=== PATIENT | female | born 1975 | race Caucasian/White ===

== ENCOUNTER → 2017-06-21 18:52 | Outpatient (CLI) | payer OTHER, SELFPAY | PROVIDERS: Family Provider Family Medicine; PCP Family Medicine; Visit Provider Family Medicine | DX: R30.0 Dysuria (principal) | CPT/HCPCS: 87086; 87088 ==

== ENCOUNTER → 2018-03-03 11:48 | Outpatient (CLI) | payer OTHER, SELFPAY ==
[2018-03-03 14:41] LABS: Absolute Neutrophil Count 4.5 X10^3/uL (2.0-7.7); Basophil# 0.02 X10^3/uL; Basophil% 0.3 % (0-1); Eosinophil# 0.07 X10^3/uL; Hematocrit 38.6 % (37-47); Hemoglobin 12.7 g/dl (12.0-15.0); Lymphocyte % 24.9 % (19-41); Mean Corp Hgb Conc 32.9 g/gl (32-36); Mean Corpuscular Hgb 29.7 pg (27.0-32.0); Mean Corpuscular Volume 90.2 fL (81-99); Mean Platelet Vol. 9.5 fl (6.2-12.0); Monocyte# 0.53 X10^3/uL; Monocyte% 7.7 % (0-10); Neutrophil # 4.51 X10^3/uL (2.7-7.7); Platelet Count 279 K/mm3 (150-450); RBC Distribution Width CV 13.2 % (11.6-14.6); Red Blood Count 4.28 M/mm3 (4.2-5.4); White Blood Count 6.8 K/mm3 (4.4-11.0)
[2018-03-03 14:42] LABS: POSITIVE COUNT NO; POSITIVE DIFFERENTIAL NO; POSITIVE MORPHOLOGY NO
[2018-03-03 15:08] LABS: Anion Gap 8 (5-15); BUN 13 mg/dL (7-18); BUN/Creat Ratio 18.4 RATIO (10-20); Chloride 105 mmol/L (98-107); Cholesterol 194 mg/dL (200); Creatinine, Serum 0.71 mg/dL (0.55-1.02); EST Glomerular Filtration Rate 96 mL/min (>60); Est Glom Filt Rate - Afr Amer 116 mL/min (>60); Glucose 92 mg/dL (74-106); High Density Lipoprotein 38 mg/dL; Potassium 3.6 mmol/L (3.5-5.1); Sodium Level 139 mmol/L (136-145); Thyroid Stim Hormone (TSH) 2.67 uIU/mL (0.358-3.74); Triglycerides 199 mg/dL; Very Low Density Lipoprotein 40 mg/dL (5-40)
== END ==
PROVIDERS: Family Provider Family Medicine; PCP Family Medicine; Visit Provider Family Medicine
DX: R07.9 Chest pain, unspecified (principal)
CPT/HCPCS: 36415; 80048; 80061; 84443; 85025

== ENCOUNTER → 2018-05-08 11:27 | Outpatient (CLI) | payer OTHER, SELFPAY ==
[2017-02-18 09:23] VITALS: BMI 38.8
--- NOTE | 2018-05-08 11:31 | RAD_ITS ---
STUDY: X-RAY - ABDOMEN/PELVIS REASON FOR EXAM: Female, 42 years old. Right-sided abdominal pain. TECHNIQUE: For frontal images of the abdomen were obtained. COMPARISON: September 25, 2015 FINDINGS: Normal visualized lung bases. There is an unremarkable bowel gas pattern. There is no demonstrated free abdominal air. There are calcific rounded foci within the pelvis within the expected region of the uterus consistent with calcified fibroids. Normal soft tissue structures. RAD/Abd Inc Decub and/or Erect IMPRESSION: Nonspecific bowel gas pattern. Calcified uterine fibroids. Electronically Signed: Tana Lowe MD at 16:57 EST Tel , Service support ,
== END ==
PROVIDERS: Family Provider Family Medicine; PCP Family Medicine; Referring Provider Family Medicine; Visit Provider Family Medicine
DX: R10.9 Unspecified abdominal pain (principal)
CPT/HCPCS: 74019

== ENCOUNTER → 2018-06-21 12:50 | Outpatient (CLI) | payer OTHER, SELFPAY ==
--- NOTE | 2018-06-21 12:53 | US_ITS ---
STUDY: ULTRASOUND OF THE FEMALE PELVIS REASON FOR EXAM: Female, 43 years old. Pelvic pain LMP: June 13, 2018 TECHNIQUE: Transverse and longitudinal imaging of the pelvis was obtained transabdominally and transvaginally using real-time ultrasound. COMPARISON: CT abdomen and pelvis dated October 26, 2008 FINDINGS: Uterus: Retroverted. 10.3 x 6.0 x 7.2 cm. The uterus is markedly heterogeneous. A hypoechoic mass in the posterior body measures 3.8 x 2.1 x 3.8 cm. A hypoechoic mass with peripheral calcifications in the lower uterine segment measuring 3.6 x 4.3 x 3.9 cm. Unremarkable cervix. Endometrium: 8-9 mm in thickness. Hyperechoic. No demonstrated endometrial mass. I.U.D. - The patient does not have an I.U.D. Right ovary/adnexa: Visualized. 2.4 x 2.3 x 2.8 cm. Follicles present. Normal arterial and normal venous vascularity. No visualized adnexal mass or complex lesion. Left ovary/adnexa: Visualized. 4.1 x 2.5 x 2.6 cm. Follicles present. Normal arterial and normal venous vascularity. No visualized adnexal mass or complex lesion. Cul-de-sac: There is no fluid in the cul-de-sac. Urinary bladder shows no significant abnormality on limited visualization. US/Pelvic (Non ) IMPRESSION: The uterus is enlarged and heterogeneous with fibroids present. These have been previously demonstrated. A densely calcified fibroid in the lower uterine segment measures 4.3 cm in largest diameter. The ovaries are normal in appearance. There is no free fluid. Electronically Signed: Margie Lauren MD at 17:27 EST , Service support ,
--- NOTE | 2018-06-21 12:53 | US_ITS ---
STUDY: ULTRASOUND OF THE FEMALE PELVIS REASON FOR EXAM: Female, 43 years old. Pelvic pain LMP: June 13, 2018 TECHNIQUE: Transverse and longitudinal imaging of the pelvis was obtained transabdominally and transvaginally using real-time ultrasound. COMPARISON: CT abdomen and pelvis dated October 26, 2008 FINDINGS: Uterus: Retroverted. 10.3 x 6.0 x 7.2 cm. The uterus is markedly heterogeneous. A hypoechoic mass in the posterior body measures 3.8 x 2.1 x 3.8 cm. A hypoechoic mass with peripheral calcifications in the lower uterine segment measuring 3.6 x 4.3 x 3.9 cm. Unremarkable cervix. Endometrium: 8-9 mm in thickness. Hyperechoic. No demonstrated endometrial mass. I.U.D. - The patient does not have an I.U.D. Right ovary/adnexa: Visualized. 2.4 x 2.3 x 2.8 cm. Follicles present. Normal arterial and normal venous vascularity. No visualized adnexal mass or complex lesion. Left ovary/adnexa: Visualized. 4.1 x 2.5 x 2.6 cm. Follicles present. Normal arterial and normal venous vascularity. No visualized adnexal mass or complex lesion. Cul-de-sac: There is no fluid in the cul-de-sac. Urinary bladder shows no significant abnormality on limited visualization. US/Transvaginal Non- IMPRESSION: The uterus is enlarged and heterogeneous with fibroids present. These have been previously demonstrated. A densely calcified fibroid in the lower uterine segment measures 4.3 cm in largest diameter. The ovaries are normal in appearance. There is no free fluid. Electronically Signed: Margie Lauren MD at 17:27 EST , Service support ,
== END ==
PROVIDERS: Family Provider Family Medicine; PCP Family Medicine; Referring Provider Obstetrics & Gynecology; Visit Provider Obstetrics & Gynecology
DX: D25.9 Leiomyoma of uterus, unspecified (principal); R10.2 Pelvic and perineal pain
CPT/HCPCS: 76830; 76856; 93976

== ENCOUNTER → 2018-09-26 17:52 | Outpatient (CLI) | payer OTHER, SELFPAY ==
[2018-06-27 11:15] VITALS: BMI 38.8
[2018-10-03 11:52] LABS: HPV Reflexed? NOT INDICATED
== END ==
PROVIDERS: Family Provider Family Medicine; PCP Family Medicine; Visit Provider Nurse Practitioner Adult Health
DX: N92.6 Irregular menstruation, unspecified (principal); N94.10 Unspecified dyspareunia
CPT/HCPCS: 88175; G0145

== ENCOUNTER → 2018-12-26 12:59 | Outpatient (CLI) | payer OTHER, SELFPAY ==
[2018-06-27 11:15] VITALS: BMI 38.8
--- NOTE | 2018-12-26 13:02 | US_ITS ---
STUDY: THYROID ULTRASOUND REASON FOR EXAM: Female, 43 years old. Nodule TECHNIQUE: Ultrasound evaluation of the thyroid was performed with real-time and static vázquez-scale imaging. COMPARISON: April 19, 2017 thyroid ultrasound. FINDINGS: RIGHT LOBE: The right lobe of the thyroid gland measures 5.6 x 2.0 x 1.8 cm. There is a heterogeneous echotexture. There is a measured 5 x 5 x 4 mm nodule in the lower pole. LEFT LOBE: The left lobe of the thyroid gland measures 5.3 x 1.4 x 1.3 cm. There is a heterogeneous echotexture. There is a measured nodule measuring 5 x 4 x 3 mm and the mid pole. ISTHMUS: The isthmus measures 5 mm . The regional lymph nodes are normal. US/Thyroid IMPRESSION: Enlarged right greater than left thyroid gland similar in measurement when compared to the prior study. No significant change in the mild overall inhomogeneity of both of the thyroid glands with relatively stable appearing nodules. Electronically Signed: Marly Bruce MD at 18:06 EDT Tel , Service support ,
== END ==
PROVIDERS: Family Provider Family Medicine; PCP Family Medicine; Referring Provider Family Medicine; Visit Provider Family Medicine
DX: E04.2 Nontoxic multinodular goiter (principal)
CPT/HCPCS: 76536

== ENCOUNTER → 2020-12-01 20:00 | Outpatient (CLI) | payer OTHER, SELFPAY ==
[2018-06-27 11:15] VITALS: BMI 38.8
[2020-10-13 08:44] VITALS: BMI 40.4
== END ==
PROVIDERS: PCP Family Medicine; Visit Provider Family Medicine
DX: G47.33 Obstructive sleep apnea (adult) (pediatric) (principal)
CPT/HCPCS: 95811

== ENCOUNTER 2021-12-06 05:10 | Emergency (ER) | payer OTHER, SELFPAY ==
[2021-12-06 05:11] VITALS: BP 172/83; PULSE 74; RESP 18; TEMP 36.6; O2SAT 96; BMI 39.0
--- NOTE | 2021-12-06 05:22 | EX.ED.VIS.HA ---
HPI History of Present Illness Chief Complaint: Headache Informant: patient Narrative Narrative: Nontraumatic right-sided pressure in the head since 5 PM yesterday. Phonophobia. No phonophobia. No aura. No increasing stress. No fevers. No sinus congestion. No sore throat. No vomiting or diarrhea. States has similar symptoms in the past however would be self-limiting. Advil taken twice last time was 3 AM with no improvement. Denies any past medical history. Denies any allergies. Prior similar symptoms: Yes PFSH PFSH Medical History Anxiety Allergy/AdvReac Type Severity Reaction Status Date / Time No Known Allergies Allergy Verified 12/06/21 05:14 Family History Father Hypertension Heart disease Surgical History delivery delivered History of foot surgery Hx laparoscopic cholecystectomy Hx of LASIK Social History Smoking Status: Never smoker alcohol intake: never substance use type: does not use caffeine: Yes what type of physical activity do you participate in: none seatbelt use: always do you feel safe at home: Yes additional social history: Alok- ROS ROS ED Constitutional Constitutional ED: Denies chills, fever(s) or sweats Eyes Eyes: Denies change in vision ENT ENT ED: Denies dysphagia or sore throat Cardiovascular Cardiovascular: Denies chest pain, leg edema, palpitations or racing heartbeat Respiratory/Chest Respiratory/Chest: Denies cough, dyspnea or dyspnea on exertion Gastrointestinal Gastrointestinal: Denies abdominal pain, diarrhea, nausea or vomiting Genitourinary Genitourinary ED: Denies dysuria, hematuria or urinary frequency Musculoskeletal Musculoskeletal: Denies back pain, extremity pain or neck pain Integumentary Denies rash or wounds Neurologic Neurologic: Reports headache(s); Denies paresthesias or weakness EXAM Physical Exam Const Vital Signs: 12/06/21 05:11 12/06/21 06:38 Temperature 97.9 F Temperature Source Temporal Pulse Rate 74 63 Respiratory Rate 18 17 Blood Pressure 172/83 H 163/78 H Blood Pressure Mean 112 Pulse Ox 96 99 Oxygen Delivery Method Room Air Positive well nourished and well developed General Appearance ED: well developed and NAD HEENT Reports TM's clear and moist mucous membranes normocephalic and atraumatic Tympanic Membrane ED: Yes TM's clear Eyes PERRL, EOMs intact bilaterally and conjunctivae normal General Eye ED: Yes normal appearance of both eyes Neck no lymphadenopathy, supple and no meningeal signs General: Negative for tenderness Chest Wall Chest: Negative for tenderness Resp normal respiratory effort and normal air movement Effort and Inspection: symmetric chest movement; Negative for respiratory distress Cardio regular rate, regular rhythm and no murmurs Peripheral Pulses: pulses 2+ throughout GI normal to inspection, nondistended, normoactive bowel sounds and non-tender Palpation: Negative for guarding or rebound tenderness present Back/Spine no CVA tenderness and no thoracic nor lumbar tenderness Extremity normal to inspection General Extremety ED: Negative for edema or tenderness General Extremity: Negative for edema Neuro oriented x3, CN's II-XII intact bilaterally and no sensory deficits noted Sensorium / Orientation: awake and alert Skin no rashes or lesions noted and no wounds MDM MDM MDM Narrative Medical decision making narrative: Patient with no focal neurological deficits. No meningismus. Blood pressure elevated at 172/83 on arrival. She is treated with fluids Reglan Benadryl. With persistent headache discussed obtaining COVID swab for rule out. 0600: COVID returned negative. Symptoms were mildly improving. Will add Toradol. 0630: Patient having improving symptoms. Discussed with patient continue Advil may add Tylenol. Patient states does have a blood pressure cuff at home. Discussed monitoring her blood pressure in the morning and at night and keeping a log. She will follow-up with her PCP for reevaluation as an outpatient. All questions were answered. Discharge Plan Triage Chief Complaint: Headache ED Provider: Angel Mchugh Dx/Rx/DC Orders Clinical Impression: Headache, Elevated blood pressure reading in office without diagnosis of hypertension Instructions: Self-Care for Headaches Primary Care Provider: Dinesh Gan Referrals: Dinesh Gan MD [Primary Care Provider] - 3-5 Days if not improving Activity Restrictions/Additional Instructions: COVID-negative. Continue Advil every 6 hours. May add Tylenol for symptoms. Monitor your blood pressure and keep a log. Follow-up with your doctor for reevaluation. Disposition Disposition: Home, Self Care Discharge Date/Time: 12/06/21 06:40
[2021-12-06] MEDS: DiphenhydrAMINE 50 MG/ML Syringe 25 MG IV (05:31)
[2021-12-06] MEDS: Metoclopramide 10 MG/2 ML Vial IV (05:31)
[2021-12-06] MEDS: Ketorolac 15 MG/ML Vial IV (06:13)
[2021-12-06 06:38] VITALS: BP 163/78; PULSE 63; RESP 17; O2SAT 99
== END 2021-12-06 06:40 | disposition home or self-care (01) ==
PROVIDERS: Emergency Provider Emergency Medicine; PCP Family Medicine; Visit Provider Emergency Medicine
DX: R51.9 Headache, unspecified (principal); R03.0 Elevated blood-pressure reading, without diagnosis of hypertension; Z20.822 Contact with and (suspected) exposure to COVID-19
CPT/HCPCS: 70450; 80053; 85025; 87811; 96361; 96374; 96375; 96376; 99282; 99285; J7030; A4216

== ENCOUNTER 2021-12-06 17:07 | Emergency (ER) | payer OTHER, SELFPAY ==
[2021-12-06 17:07] VITALS: BP 188/93; PULSE 84; RESP 16; TEMP 36.8; O2SAT 100; BMI 38.0
--- NOTE | 2021-12-06 17:40 | EX.ED.VIS.HA ---
HPI History of Present Illness Chief Complaint: Headache Narrative Narrative: 46-year-old female presenting with headache. She states this on the right upper side of her head. She states it started last night. She was seen this morning and given a migraine cocktail. She reports her headache pain did improve but was not all the way gone. She was supposed to take ibuprofen 3 times a day but went home and took Tylenol without any relief. She denies history of migraine. She has no photophobia, phonophobia. Denies history of trauma. She does not have an acute onset headache. She does state that she vomited once today due to the headache pain. She has no dizziness, lightheadedness, blurry vision. No paresthesias. No facial droop or inability to move extremities. She was instructed to take her blood pressures throughout due to elevated blood pressures earlier. She can only report to me that her blood pressure is in the 180s. She has a history of hypertension and states she was not treated because her blood pressure was not that high. She is not on any medication for blood pressure. She is not had a fever or neck stiffness. [facility] Medical History Anxiety Home Medications amlodipine 5 mg tablet 5 mg PO DAILY #30 tabs 12/06/21 [Rx Last Taken Unknown] Allergy/AdvReac Type Severity Reaction Status Date / Time No Known Allergies Allergy Verified 12/06/21 17:07 Family History Father Hypertension Heart disease Surgical History delivery delivered History of foot surgery Hx laparoscopic cholecystectomy Hx of LASIK Social History Smoking Status: Never smoker alcohol intake: never substance use type: does not use caffeine: Yes what type of physical activity do you participate in: none seatbelt use: always do you feel safe at home: Yes additional social history: Filomena RENEE ROS ED Constitutional Constitutional ED: Denies chills or fever(s) Eyes Eyes: Denies change in vision or diplopia ENT ENT ED: Denies rhinorrhea or sore throat Cardiovascular Cardiovascular: Denies chest pain or palpitations Respiratory/Chest Respiratory/Chest: Denies cough or dyspnea Gastrointestinal Gastrointestinal: Denies abdominal pain, constipation or diarrhea Genitourinary Genitourinary ED: Denies dysuria or hematuria Musculoskeletal Musculoskeletal: Denies arthralgias or back pain Integumentary Denies abscess or Abrasions Neurologic Neurologic: Reports headache(s); Denies paresthesias or weakness Psychiatric Psychiatric: Denies anxiety or depression EXAM Physical Exam Const Vital Signs: 12/06/21 17:07 12/06/21 19:22 12/06/21 19:22 Temperature 98.3 F Temperature Source Temporal Pulse Rate 84 95 Respiratory Rate 16 Blood Pressure 188/93 H 183/84 H Blood Pressure Mean 124 117 Pulse Ox 100 100 Oxygen Delivery Method Room Air Room Air 12/06/21 20:03 12/06/21 21:15 12/06/21 22:15 Temperature Temperature Source Pulse Rate 79 89 Respiratory Rate 16 Blood Pressure 188/86 H 151/81 H 162/91 H Blood Pressure Mean 120 104 114 Pulse Ox Oxygen Delivery Method Room Air Positive well nourished General Appearance ED: NAD; Negative for pallor HEENT Reports normocephalic, TM's clear and moist mucous membranes atraumatic Tympanic Membrane ED: Yes TM's clear Eyes PERRL and EOMs intact bilaterally Neck no lymphadenopathy Resp normal respiratory effort and clear to auscultation bilaterally Auscultation: Negative for rales, rhonchi or wheezes Cardio regular rate and regular rhythm GI non-tender Extremity normal to inspection General Extremety ED: Negative for edema or tenderness General Extremity: Negative for edema Neuro oriented x3, CN's II-XII intact bilaterally and no sensory deficits noted Sensorium / Orientation: awake and alert Speech: speech normal Gait (Neuro): normal gait Motor Exam: strength 5/5 throughout Psych mental status grossly normal Skin General Skin Exam: Negative for jaundice or pallor MDM MDM MDM Narrative Medical decision making narrative: Patient again returns with headache which is right-sided and pressure-like. She was instructed ibuprofen 3 times a day and took Tylenol which did not relieve her pain. Her blood pressure has been elevated at home is 188/93 here. She states he has a history of mildly elevated blood pressure was treated for it. She does not have any focal neurologic deficits. Vital signs are otherwise stable. CBC and CMP are obtained and are unremarkable. Patient was treated with a liter of IV fluids, Compazine, Benadryl, Toradol. CT of the brain is obtained and is negative for any acute intracranial findings. Blood pressure was still elevated at 188/93. She was given 2 doses of 5 mg hydralazine and her blood pressure did not change. Patient then given a dose of labetalol 20 mg IV and her blood pressure dropped to 151/81. Her headache is improved but not completely gone. I discussed the case with Dr. Db Dexter who is on-call for Dr. Gan. He recommended stating the patient on 5 amlodipine daily. He will see her in the office Tuesday or Tuesday if Dr. Gan can see her. CBC and CMP are unremarkable. Patient discharged in stable condition. Impression: 1. Headache 2. Elevated blood pressure Lab Data Attestation: I reviewed the patient's lab results. Labs: Laboratory Results - last 24 hr 12/06/21 12/06/21 17:45 17:45 WBC 9.2 RBC 4.41 Hgb 10.9 L Hct 34.9 L MCV 79.1 L MCH 24.7 L MCHC 31.2 L RDW Std Deviation 47.4 H RDW Coeff of Shawna 16.6 H Plt Count 307 MPV 9.7 Immature Gran % (Auto) 0.300 Neut % (Auto) 83.5 H Lymph % (Auto) 10.3 L [place] % (Auto) 5.7 Eos % (Auto) 0.0 Baso % (Auto) 0.2 Absolute Neuts (auto) 7.7 Absolute Lymphs (auto) 0.95 Nucleated RBC % 0 Sodium 138 Potassium 3.7 Chloride 109 H Carbon Dioxide 23.0 Anion Gap 6 BUN 8 Creatinine 0.64 Estim Creat Clear Calc 90.86 Est GFR (MDRD) Af Amer 128 Est GFR (MDRD) Non-Af 106 BUN/Creatinine Ratio 12.5 Glucose 117 H Calcium 9.1 Total Bilirubin 0.40 AST 15 ALT 19 Alkaline Phosphatase 77 Total Protein 7.2 Albumin 3.7 Globulin 3.5 Albumin/Globulin Ratio 1.1 Radiography Diagnostic Testing: Clinical Impression(s) from Imaging Studies Brain CT 12/06/21 17:41 IMPRESSION: Normal unenhanced CT scan of the brain. Electronically Signed: Brandon Flowers MD at 18:44 EDT , Discharge Plan Triage Chief Complaint: Headache ED Provider: Dami Carney Dx/Rx/DC Orders Instructions: ED Headache Unspecified, ED Hypertension New Begin Treatment Prescriptions: New amlodipine 5 mg tablet 5 mg PO DAILY Qty: 30 0RF Primary Care Provider: Dinesh Gan Referrals: Dinesh Gan MD [Primary Care Provider] - Disposition Disposition: Home, Self Care Discharge Date/Time: 12/06/21 22:53
--- NOTE | 2021-12-06 17:41 | CT_ITS ---
STUDY: CT BRAIN WITHOUT CONTRAST REASON FOR EXAM: Female, 46 years old. headache RADIATION DOSAGE (If Supplied By Facility): CTDIvol = ( 44.99 ) mGy, DLP = ( 846.73 ) mGycm TECHNIQUE: Transaxial CT imaging of the brain was performed without administration of intravenous contrast material. Individualized dose optimization techniques were used for this CT. COMPARISON: 02/18/2017 FINDINGS: Normal soft tissue structures. Normal calvarium. Normal size ventricles and extra-axial spaces for the patient''s age. Normal white matter tracts of the cerebral hemispheres. Normal basal ganglia and thalami. Normal brainstem. Normal cerebellum. There is no intracranial hemorrhage. There are no findings of an acute ischemic infarction. Normal visualized paranasal sinuses. CT/Brain/Head without Contrast IMPRESSION: Normal unenhanced CT scan of the brain. Electronically Signed: Brandon Flowers MD at 18:44 EDT ,
[2021-12-06 17:50] LABS: Absolute Lymphocyte Count 0.95 X10^3/uL (0.83-4.51); Absolute Neutrophil Count 7.7 X10^3/uL (2.0-7.7); Basophil# 0.02 X10^3/uL; Basophil% 0.2 % (0-1); Hematocrit 34.9 % (37-47); Hemoglobin 10.9 g/dL (12.0-15.0); Lymphocyte # 0.95 X10^3/ul (0.83-4.51); Lymphocyte % 10.3 % (19-41); Mean Corp Hgb Conc 31.2 g/dL (32-36); Mean Corpuscular Hgb 24.7 pg (27.0-32.0); Mean Corpuscular Volume 79.1 fL (81-99); Mean Platelet Vol. 9.7 fl (6.2-12.0); Monocyte# 0.53 X10^3/uL; Monocyte% 5.7 % (0-10); NRBC Flagged by Analyzer 0 % (0-5); Neutrophil % 83.5 % (47-70); Platelet Count 307 K/mm3 (150-450); RBC Distribution Width CV 16.6 % (11.6-14.6); RBC Distribution Width SD 47.4 fl (35.1-43.9); Red Blood Count 4.41 M/mm3 (4.2-5.4); White Blood Count 9.2 K/mm3 (4.4-11.0)
[2021-12-06] MEDS: DiphenhydrAMINE 50 MG/ML Syringe 25 MG IV (17:51)
[2021-12-06] MEDS: proCHLORPERazine 10 MG/2 ML Vial IV (17:51)
[2021-12-06] MEDS: hydrALAZINE 20 MG/ML Vial 5 MG IV ×2 (17:52→20:23)
[2021-12-06] MEDS: Ketorolac 15 MG/ML Vial IV (17:52)
[2021-12-06] MEDS: 0.9% Normal Saline 1,000 ML 999 ML IV (17:54)
[2021-12-06 18:06] LABS: ALB/GLOB Ratio 1.1 RATIO (0.9-2.4); AST(SGOT) 15 U/L (15-37); Alanine Aminotransfer ALT/SGPT 19 U/L (13-56); Albumin, Serum 3.7 g/dL (3.2-5.0); Alkaline Phosphatase 77 U/L (45-117); Anion Gap 6 (5-15); BUN 8 mg/dL (7-18); BUN/Creat Ratio 12.5 RATIO (10-20); Calcium,Total 9.1 mg/dL (8.5-10.1); Chloride 109 mmol/L (98-107); Creatinine, Serum 0.64 mg/dL (0.55-1.02); EST Glomerular Filtration Rate 106 mL/min (>60); Est Glom Filt Rate - Afr Amer 128 mL/min (>60); Estimated Creatinine Clearance 90.86 ml/min; Globulin 3.5 g/dL (2.2-4.2); Glucose 117 mg/dL (74-106); Potassium 3.7 mmol/L (3.5-5.1); Protein, Total 7.2 g/dL (6.4-8.2); Sodium Level 138 mmol/L (136-145)
[2021-12-06 19:22] VITALS: BP 183/84; PULSE 95; O2SAT 100
[2021-12-06 20:03] VITALS: BP 188/86
[2021-12-06] MEDS: Labetalol (Prefilled) 20 MG/4 ML IV (20:58)
[2021-12-06 21:15] VITALS: BP 151/81; PULSE 79; RESP 16
[2021-12-06 22:15] VITALS: BP 162/91; PULSE 89
[2021-12-06] MEDS: amLODIPine 5 MG Tablet PO (22:31)
== END 2021-12-06 22:53 | disposition home or self-care (01) ==
PROVIDERS: Emergency Provider Student in an Organized Health Care Education/Training Program; PCP Family Medicine; Visit Provider Student in an Organized Health Care Education/Training Program
DX: R51.9 Headache, unspecified (principal); R03.0 Elevated blood-pressure reading, without diagnosis of hypertension; R11.10 Vomiting, unspecified; Z79.899 Other long term (current) drug therapy
CPT/HCPCS: 70450; 80053; 85025; 87811; 96361; 96374; 96375; 96376; 99282; 99285; J7030; A4216

== ENCOUNTER → 2021-12-17 | Outpatient (CLI) | payer OTHER, SELFPAY | END | disposition home or self-care (01) | PROVIDERS: PCP Family Medicine; Visit Provider Family Medicine | DX: U07.1 COVID-19 (principal) | CPT/HCPCS: 87635; U0003; U0005 ==

== ENCOUNTER → 2022-01-01 | Outpatient (CLI) | payer OTHER, SELFPAY ==
[2022-01-01 12:35] LABS: Anion Gap 7 (5-15); BUN 13 mg/dL (7-18); BUN/Creat Ratio 20.2 RATIO (10-20); Calcium,Total 8.7 mg/dL (8.5-10.1); Chloride 108 mmol/L (98-107); Cholesterol 184 mg/dL (200); Creatinine, Serum 0.64 mg/dL (0.55-1.02); EST Glomerular Filtration Rate 105 mL/min (>60); Est Glom Filt Rate - Afr Amer 128 mL/min (>60); Glucose 100 mg/dL (74-106); High Density Lipoprotein 32 mg/dL; Potassium 3.6 mmol/L (3.5-5.1); Sodium Level 140 mmol/L (136-145); Triglycerides 129 mg/dL; Very Low Density Lipoprotein 26 mg/dL (5-40)
== END | disposition home or self-care (01) ==
LOC: MFPLAB 09:26
PROVIDERS: PCP Family Medicine; Visit Provider Family Medicine
DX: I10 Essential (primary) hypertension (principal)
CPT/HCPCS: 36415; 80048; 80061

== ENCOUNTER → 2022-07-14 | Outpatient (CLI) | payer OTHER, SELFPAY ==
[2022-07-14 16:10] LABS: Anion Gap 9 (5-15); BUN 17 mg/dL (7-18); BUN/Creat Ratio 23.6 RATIO (10-20); Chloride 108 mmol/L (98-107); Creatinine, Serum 0.72 mg/dL (0.55-1.02); EST Glomerular Filtration Rate 92 mL/min (>60); Est Glom Filt Rate - Afr Amer 111 mL/min (>60); Glucose 90 mg/dL (74-106); Potassium 3.7 mmol/L (3.5-5.1); Sodium Level 140 mmol/L (136-145)
== END | disposition home or self-care (01) ==
LOC: MFPLAB 11:30
PROVIDERS: PCP Family Medicine; Referring Provider Family Medicine; Visit Provider Family Medicine
DX: I10 Essential (primary) hypertension (principal)
CPT/HCPCS: 36415; 80048

== ENCOUNTER → 2022-11-23 | Outpatient (CLI) | payer OTHER, SELFPAY ==
--- NOTE | 2022-11-23 14:06 | BI_ITS ---
MAMMOGRAPHY - BILATERAL SCREENING REASON FOR EXAM: Female, 47 years old. Routine annual screening examination. PERTINENT HISTORY: Non-contributory. TECHNIQUE: Digital bilateral breast chica (3D mammographic acquisition) in the CC and MLO projections. 2-D mediolateral oblique (MLO) and craniocaudad (CC) views of both breasts were obtained. CAD: Full Field Digital Mammography with Computer Added Detection was performed. COMPARISON: None. Baseline examination. FINDINGS: Breast Composition: There are scattered areas of fibroglandular density. There is a questionable 8mm nodule in the retroareolar region of the left breast as seen on the craniocaudad view. The patient will be recalled for additional views including compression spot views. No other significant abnormalities are identified. BI/SCRN MAMM (CAD)W/CHICA BILAT IMPRESSION: Questionable 8 mm nodule in the retroareolar region of the left breast as seen on the craniocaudad view. The patient will be recalled for additional views including compression spot views. ASSESSMENT CATEGORY: BIRADS Category 0: Incomplete. Need additional imaging evaluation. A letter regarding these results will be sent to the patient by the facility within 30 days. Approximately 10% of breast cancers are not detected by mammography. A normal mammogram should not delay biopsy of a clinically suspicious abnormality. [id number] Electronically Signed: Juan Luis Soto MD at 7:55 EDT ,
== END | disposition home or self-care (01) ==
LOC: OPBI 14:05
PROVIDERS: PCP Family Medicine; Referring Provider Nurse Practitioner Family; Visit Provider Nurse Practitioner Family
DX: Z12.31 Encounter for screening mammogram for malignant neoplasm of breast (principal)
CPT/HCPCS: 77063; 77067

== ENCOUNTER → 2022-11-25 | Outpatient (CLI) | payer OTHER, SELFPAY ==
--- NOTE | 2022-11-25 09:18 | BI_ITS ---
MAMMOGRAPHY - UNILATERAL DIAGNOSTIC: LEFT BREAST REASON FOR EXAM: Female, 47 years old. Abnormal screening mammogram. PERTINENT HISTORY: Abnormal screening mammogram. TECHNIQUE: Compression spot views of the left breast were obtained. CAD: Full Field Digital Mammography with Computer Added Detection was performed. COMPARISON: Comparison is made with prior mammogram dated November 23, 2022. FINDINGS: Breast Composition: There are scattered areas of fibroglandular density. Persistent 8 mm irregular nodule in the central retroareolar region of the left breast. Correlation with ultrasound is recommended. No other significant abnormalities are identified. BI/DIAG MAMM W/CAD, UNILAT IMPRESSION: Persistent 8 mm irregular nodule in the central retroareolar region of the left breast. Correlation with ultrasound is recommended. ASSESSMENT CATEGORY: BIRADS Category 0: Incomplete. Need additional imaging evaluation. A letter regarding these results will be sent to the patient by the facility within 30 days. Approximately 10% of breast cancers are not detected by mammography. A normal mammogram should not delay biopsy of a clinically suspicious abnormality. Electronically Signed: Juan Luis Soto MD at 10:01 EDT ,
--- NOTE | 2022-11-25 10:37 | US_ITS ---
STUDY: ULTRASOUND BREAST - LEFT REASON FOR EXAM: Female, 47 years old. Abnormal screening mammogram. TECHNIQUE: Axial and longitudinal images of the LEFT breast were performed with a high resolution ultrasound transducer. # OF IMAGES: [id number] COMPARISON: Comparison is made with prior mammogram dated November 23, 2022 and November 25, 2022. FINDINGS: LEFT Breast: The entire medial aspect of the left breast was examined with ultrasound. No sonographic abnormality is seen. Correlation with MRI is recommended. US/Breast Limited Unilateral IMPRESSION: Unremarkable sonogram. MRI of the breasts is recommended for further evaluation. ASSESSMENT CATEGORY: BIRADS Category 0: Incomplete. Need additional imaging evaluation. A letter regarding these results will be sent to the patient by the facility within 30 days. Electronically Signed: Juan Luis Soto MD at 12:46 EDT ,
== END | disposition home or self-care (01) ==
PROVIDERS: PCP Family Medicine; Referring Provider Nurse Practitioner Family; Visit Provider Nurse Practitioner Family
DX: R92.2 Inconclusive mammogram (principal)
CPT/HCPCS: 76642; 77065

== ENCOUNTER → 2023-01-14 | Outpatient (CLI) | payer OTHER, SELFPAY ==
[2023-01-14 15:50] LABS: Anion Gap 4 (5-15); BUN 14 mg/dL (7-18); BUN/Creat Ratio 17.9 RATIO (10-20); Chloride 106 mmol/L (98-107); Cholesterol 219 mg/dL (200); Creatinine, Serum 0.78 mg/dL (0.55-1.02); EST Glomerular Filtration Rate 83 mL/min (>60); Est Glom Filt Rate - Afr Amer 101 mL/min (>60); Glucose 96 mg/dL (74-106); High Density Lipoprotein 46 mg/dL; Potassium 3.9 mmol/L (3.5-5.1); Sodium Level 137 mmol/L (136-145); Triglycerides 88 mg/dL; Very Low Density Lipoprotein 18 mg/dL (5-40)
== END | disposition home or self-care (01) ==
LOC: MTLAB 11:44
PROVIDERS: PCP Family Medicine; Referring Provider Family Medicine; Visit Provider Family Medicine
DX: I10 Essential (primary) hypertension (principal)
CPT/HCPCS: 36415; 80048; 80061

== ENCOUNTER → 2023-01-20 | Outpatient (CLI) | payer OTHER, SELFPAY ==
--- NOTE | 2023-01-20 10:38 | MRI_ITS ---
STUDY: BILATERAL BREAST MR WITHOUT AND WITH CONTRAST REASON FOR EXAM: Female, 47 years old. Left breast nodule by mammogram. No correlated findings ultrasound. TECHNIQUE: Multi-sequence multi-echo imaging of both breasts was performed with a dedicated breast coil. T1-weighted and T2-weighted images were performed before the administration of contrast. T1-weighted images were also performed after the intravenous administration of 20 mL CLARISCAN contrast. COMPARISON: Left breast ultrasound dated November 25, 2022, left diagnostic mammogram dated November 25, 2022 and screening mammogram 06/26/2011. FINDINGS: RIGHT BREAST: Predominantly fatty replacement with no significant background enhancement. No abnormal enhancing masses or areas of non-mass enhancement in the right breast. LEFT BREAST: Predominantly fatty replacement with no significant background enhancement. Partially inverted left nipple which shows enhancement similar to the right nipple. No discrete mass in the retroareolar region. No enlarged or abnormal lymph nodes. No abnormality in the visualized regions of the chest or liver. MRI/Breast Bilateral W/O and W IMPRESSION: Partially inverted left nipple with symmetrical enhancement of both nipples. No other significant abnormality. Yearly screening mammogram recommended. CATEGORY: BIRADS Category 2: Benign. A letter regarding these results will be sent to the patient by the facility within 30 days. Electronically Signed: Efrain Horton MD at 12:17 EDT ,
== END | disposition home or self-care (01) ==
LOC: MRI 10:17
PROVIDERS: PCP Family Medicine; Referring Provider Nurse Practitioner Family; Visit Provider Nurse Practitioner Family
DX: N63.0 Unspecified lump in unspecified breast (principal)
CPT/HCPCS: 77049; A9575; A4216; C8908

== ENCOUNTER → 2023-04-15 | Outpatient (CLI) | payer OTHER, SELFPAY ==
[2023-04-15 12:44] LABS: Cholesterol 122 mg/dL (200); High Density Lipoprotein 41 mg/dL; Triglycerides 78 mg/dL; Very Low Density Lipoprotein 16 mg/dL (5-40)
== END | disposition home or self-care (01) ==
LOC: MTLAB 09:48
PROVIDERS: PCP Family Medicine; Referring Provider Family Medicine; Visit Provider Family Medicine
DX: E78.5 Hyperlipidemia, unspecified (principal)
CPT/HCPCS: 36415; 80061

== ENCOUNTER 2023-04-20 13:23 | Day surgery (SDC) | payer OTHER, SELFPAY ==
[2023-04-20 13:43] VITALS: BP 163/86; PULSE 96; RESP 16; TEMP 36.8; O2SAT 100; BMI 39.0
[2023-04-20] MEDS: Lactated Ringers 1,000 ML 15 ML IV (13:48)
[2023-04-20 13:50] LABS: Internal QC Validated? YES +Cl - CLEAR BKGD; Pregnancy, Urine Negative Negative
--- NOTE | 2023-04-20 14:30 | COL_PTH ---
PATIENT: MAYRA ARIAS LOC: EN U#:[id number] AGE/SX: 47/F ROOM: RE04/20/[address]: Dr. Remberto Colbert MD : 1975 BED: DIS: 04/20/2023 SPEC #: [id number] RECD: 04/21/23 09:14 STATUS: ML MUÑOZ #: [id number] JERMAINE: 04/20/23 14:[address]: Remberto Colbert DEPT: SURGICAL PATHOLOGY RECD BY: Miesha Tovar ENTERED: 04/21/23 09:15 SP TYPE: COLON OTHR DR: Dr. Dinesh Gan MD Tissues: Sigmoid colon biopsy Procedures: Surgery Specimen Level IV HEADER OPERATION: Colonoscopy - open access with biopsy PRE-OP DIAGNOSIS: Screening for malignant neoplasm of colon TISSUE SUBMITTED: Distal sigmoid colon mucosa biopsy MICROSCOPIC DIAGNOSIS Distal sigmoid colon, biopsy: Polypoid fragment of benign colonic mucosa. AM:chris 04/22/2023 MICROSCOPIC DESCRIPTION Slides are reviewed. GROSS DESCRIPTION Received in fixative is one container labeled with the patient's name and designated distal sigmoid colon mucosa biopsy. The specimen consists of one irregular fragment of light hutchison soft tissue that measures 0.3 x 0.3 x 0.1 cm. The specimen is totally submitted in one cassette. / SJ:rg 04/21/2023 TC:5 CPT: 31097
--- NOTE | 2023-04-20 14:33 | H&P.OPEN ---
[facility] - General General Date of Service: 04/20/23 Chief Complaint: Cancer screening HPI Narrative MAYRA ARIAS, is a 47 F who presents for screening colonoscopy. She confirms her preappointment questionnaire that she has not experienced any change in her bowel habits-and particularly denies any notice of blood. She also denies any family history of GI illness to include diverticulitis, inflammatory bowel disease, or colon cancer. She has had a colonoscopy remotely as a child where she was found to have rectal polyps during a workup for some hematochezia. She denies any such symptoms in recent years. Lastly she confirms that her prep was completed successfully and that her output is now clear. [facility] Medical History (Updated 04/18/23 @ 13:59 by Nadine Dietrich) Anemia Anxiety CPAP (continuous positive airway pressure) dependence Fatty liver GERD (gastroesophageal reflux disease) History of irregular heartbeat History of kidney stones History of pain when walking History of rectal polyps History of stress test HTN (hypertension) Hyperlipidemia Leg cramps Non-smoker Shortness of breath on exertion Thyroid disease Home Medications omeprazole 20 mg capsule,delayed release 20 mg PO DAILY PRN indigestion 03/29/23 [History Last Taken 04/15/23] rosuvastatin 5 mg tablet 5 mg PO DAILY 03/29/23 [History Last Taken 04/15/23] Allergy/AdvReac Type Severity Reaction Status Date / Time amlodipine AdvReac Chest pain Verified 04/20/23 13:43 Family History (Updated 03/29/23 @ 13:16 by Tiera Anderson) Father Hypertension Heart disease Colon polyps Surgical History delivery delivered History of foot surgery Hx laparoscopic cholecystectomy Hx of LASIK Social History (Updated 03/29/23 @ 13:08 by Tiera Anderson) household members: spouse and children Smoking Status: Never smoker alcohol intake: never substance use type: does not use caffeine: Yes what type of physical activity do you participate in: none seatbelt use: always do you feel safe at home: Yes additional social history: Alok- Past Medical/Surgical History Planned Operation Planned Operative Procedure/s: CSCOPE OA Previous Hospitalizations/Surgeries HX Hospitalizations: No Any Problems With Anesthesia: No You/Your Family Experience Fever (Hyperthermia) With Anes: No Cholinesterase deficiency: No Cardiovascular Hx Chest Pain within Last 2 months: No Hx of Irregular Heartbeat and/or Afib: No Hx Heart Attack: No Hx Congestive Heart Failure: No Hx Rheumatic Fever: No Hx Hypertension: Yes (NO MEDS SINCE 09/2022) Hx Internal Defibrillator: No Hx Pacemaker: No Hx Pain in Legs when Walking/Leg Cramps: No Respiratory HX of Shortness of Breath: No Hx Chronic Obstructive Pulmonary Disease (COPD): No Hx Asthma: No Hx Emphysema: No Hx Sleep Apnea: Yes CPAP: Yes BIPAP: No Hx Respiratory Tract Infection/Cold (presently): No Result (for STOP score): Positive Smoking Status: Never smoker Gastrointestinal Hx Gastrointestinal Bleed: No Hx Ulcer: No Neurological Hx Seizures: No Hx Multiple Sclerosis: No Hx Parkinson's Disease: No Hx Head/Neck Injury: No Hx Headaches: No Hx Back Injury/Pain: No Does patient have nerve stimulator: No Blood Disorder Hx Hepatitis: No Hx Anemia: Yes Reproduction : No Is Patient Lactating: No Genitourinary Hx Renal Disease: No Hx Dialysis: No Musculoskeletal Hx Arthritis: No Hx Gout: No Endocrine Hx Diabetes: No Thyroid Disease: No Psycho/Social Hx Anxiety: No Hx Depression: No Hx Dementia: No Miscellaneous Hx Cancer: No Recent Exposure to Contagious Disease: No Allergies amlodipine Adverse Reaction (Verified 04/20/23 13:43) Chest pain Discharge Is Pt Admitted From a Correction, or a Alf: No After D/C, Where Do you Plan to Go: Return Home Vital Signs Vital Signs Vital Signs: 04/20/23 13:43 04/20/23 13:43 Temperature 98.2 F Temperature Source Temporal Pulse Rate 96 Respiratory Rate 16 Respiratory Pattern Normal Blood Pressure 163/86 H Blood Pressure Mean 111 Blood Pressure Source Monitor Blood Pressure Position Semi-Fowlers Blood Pressure Location Left Arm Pulse Ox 100 Oxygen Delivery Method Room Air Weight Weight: 220 lb 7.396 oz Body Mass Index (BMI) 39.0 Physical Exam Const alert, oriented x3 and well nourished General Appearance: cooperative Nutritional Appearance: obese Resp normal respiratory effort GI GI Narrative: Surgical scars present in the left upper quadrant as well as infraumbilical positions. These are well-healed. There is no visible herniation. Patient's abdomen is nondistended, soft, nontender to palpation x 4 quadrants. Assessment & Plan Assessment/Plan (1) Encounter for screening for malignant neoplasm of colon: PLAN: Patient is a 47-year-old female with prior colonoscopy only as a child remarkable only for a rectal polyp who presents for her first screening colonoscopy as an adult. She denies any present concerns with respect to her GI habits. Family history only remarkable for colon polyps. She has completed a prep in anticipation of today's procedure. An overview of the procedure as well as post procedure result reporting was discussed. Patient has no further questions. Will proceed to the endoscopy suite for screening colonoscopy as discussed. Surgery Risks - Colonoscopy Risks Include but are not Limited To: Risks include but are not limited to: Bleeding, perforation requiring further surgery, inability to complete colonoscopy requiring barium enema.
[2023-04-20 15:36] VITALS: BP 125/72; BP 163/86; PULSE 75; RESP 18; TEMP 36.4; O2SAT 96
[2023-04-20 15:40] VITALS: BP 122/80; BP 163/86; PULSE 71; RESP 18; O2SAT 100
--- NOTE | 2023-04-20 15:40 | OP.CCLET_ITS ---
04/20/2023 Dinesh Gan MD [address] [id number] Re : Colonoscopy procedure for August Twyla Dear Dr. Gan This procedure was performed on Thursday, April 20, 2023. My impressions and recommendations are as follows: Impressions : - Perianal skin tags found on perianal exam. - Diverticulosis in the sigmoid colon. No specimens collected. - Tortuous colon. - Melanosis in the colon. Biopsied. - Internal hemorrhoids. No specimens collected. Recommendations : - Discharge patient to home (via wheelchair). - Resume previous diet today. - Continue present medications. - Await pathology results. - Repeat colonoscopy in 10 years for screening purposes. - Telephone my office for pathology results in 1 week. My findings are described in the full procedure note, which is enclosed. If I can be of further assistance, please feel free to contact me at Doctor phone number(s): , Work: . Sincerely, Remberto Colbert MD 04/20/2023 3:39:27 PM This report has been signed electronically.
--- NOTE | 2023-04-20 15:40 | OP.COLON_ITS ---
Patient Name: Noa Wakefield Procedure Date: 04/20/2023 2:35 PM Date of : 1975 Age: 47 Procedure: Colonoscopy Indications: Colon cancer screening in patient at increased risk: Family history of 1st-degree relative with colon polyps Providers: Remberto Colbert MD Referring MD: Remberto Colbert MD Medicines: See the Anesthesia note for documentation of the administered medications Patient Profile: Last Colonoscopy: more than 10 years ago. Complications: No immediate complications. Estimated blood loss: Minimal. Procedure: Pre-Anesthesia Assessment: - The heart rate, respiratory rate, oxygen saturations, blood pressure, adequacy of pulmonary ventilation, and response to care were monitored throughout the procedure. After I obtained informed consent, the scope was passed under direct vision. Throughout the procedure, the patient's blood pressure, pulse, and oxygen saturations were monitored continuously. The Colonoscope was introduced through the anus and advanced to the cecum, identified by the appendiceal orifice, IC valve and transillumination. The colonoscopy was somewhat difficult due to a tortuous colon. Successful completion of the procedure was aided by applying abdominal pressure. The patient tolerated the procedure well. The quality of the bowel preparation was adequate. Scope In: 2:52:32 PM Scope Withdrawal Time 0 hours 20 minutes 1 second Scope Out: 3:27:58 PM Total Procedure Duration Time 0 hours 35 minutes 26 seconds Findings: Skin tags were found on perianal exam. A few small-mouthed diverticula were found in the sigmoid colon. No biopsies or other specimens were collected for this exam. The right colon was moderately tortuous. Advancing the scope required applying abdominal pressure. A localized area of mild melanosis was found in the sigmoid colon. Biopsies were taken with a cold forceps for histology. Estimated blood loss was minimal. Internal hemorrhoids were found during retroflexion. The hemorrhoids were moderate and Grade I (internal hemorrhoids that do not prolapse). No biopsies or other specimens were collected for this exam. Impression: - Perianal skin tags found on perianal exam. - Diverticulosis in the sigmoid colon. No specimens collected. - Tortuous colon. - Melanosis in the colon. Biopsied. - Internal hemorrhoids. No specimens collected. Recommendation: - Discharge patient to home (via wheelchair). - Resume previous diet today. - Continue present medications. - Await pathology results. - Repeat colonoscopy in 10 years for screening purposes. - Telephone my office for pathology results in 1 week. Procedure Code(s): --- Professional --- 89150, Colonoscopy, flexible; with biopsy, single or multiple Diagnosis Code(s): --- Professional --- Z83.71, Family history of colonic polyps K64.0, First degree hemorrhoids K63.89, Other specified diseases of intestine K64.4, Residual hemorrhoidal skin tags K57.30, Diverticulosis of large intestine without perforation or abscess without bleeding Q43.8, Other specified congenital malformations of intestine CPT copyright 2021 [employer]. All rights reserved. The codes documented in this report are preliminary and upon granite polisher machine review may be revised to meet current compliance requirements. Remberto Colbert MD 04/20/2023 3:39:27 PM This report has been signed electronically. Number of Addenda: 0 Note Initiated On: 04/20/2023 2:35 PM
[2023-04-20 15:45] VITALS: BP 128/78; BP 163/86; PULSE 70; RESP 16; O2SAT 100
[2023-04-20 15:53] VITALS: BP 134/72; BP 163/86; PULSE 68; RESP 18; TEMP 37.1; O2SAT 100
[2023-04-20 16:07] VITALS: BP 163/86
== END 2023-04-20 16:51 | disposition home or self-care (01) ==
LOC: EN 13:25 → AC 13:26
PROVIDERS: Anesthesiology; PCP Family Medicine; Referring Provider Family Medicine; Visit Provider Surgery
PROC: 0DJD8ZZ Inspection of Lower Intestinal Tract, Via Natural or Artificial Opening Endoscopic (ICD-10-PCS; CPT 45378; principal; 2023-04-20 14:25)
DX: Z12.11 Encounter for screening for malignant neoplasm of colon (principal); K63.89 Other specified diseases of intestine; E78.5 Hyperlipidemia, unspecified; K64.0 First degree hemorrhoids; Z83.719 Family history of colon polyps, unspecified; I10 Essential (primary) hypertension; Q43.8 Other specified congenital malformations of intestine; K64.4 Residual hemorrhoidal skin tags; K21.9 Gastro-esophageal reflux disease without esophagitis; Z79.899 Other long term (current) drug therapy
CPT/HCPCS: 45380; 81025; 88305; J7120; J2405

== ENCOUNTER → 2023-06-29 | Outpatient (CLI) | payer OTHER, SELFPAY ==
[2023-06-29 16:18] LABS: ALB/GLOB Ratio 1.1 RATIO (0.9-2.4); AST(SGOT) 22 U/L (15-37); Alanine Aminotransfer ALT/SGPT 27 U/L (13-56); Albumin, Serum 3.8 g/dL (3.2-5.0); Alkaline Phosphatase 93 U/L (45-117); Anion Gap 9 (5-15); BUN 14 mg/dL (7-18); Calcium,Total 9.5 mg/dL (8.5-10.1); Chloride 106 mmol/L (98-107); Cholesterol 167 mg/dL (200); Creatinine, Serum 0.78 mg/dL (0.55-1.02); EST Glomerular Filtration Rate 84 mL/min (>60); Est Glom Filt Rate - Afr Amer 102 mL/min (>60); Globulin 3.6 g/dL (2.2-4.2); Glucose 96 mg/dL (74-106); High Density Lipoprotein 43 mg/dL; Potassium 3.6 mmol/L (3.5-5.1); Protein, Total 7.4 g/dL (6.4-8.2); Sodium Level 140 mmol/L (136-145); Triglycerides 89 mg/dL; Very Low Density Lipoprotein 18 mg/dL (5-40)
--- OUTSIDE RECORDS SUMMARY | 2023-06-29 21:47 | XMS RPT_ITS | CCD ---
Author Name Unknown Address [address] [place] [address] Organization [facility] Care Team Providers Care Rooming House Keeper Name Role Phone Breanna SINGH Court F Unavailable Unavailabl e Breanna SINGH, Court F Unavailable Unavailabl e COURT [facility] ([place]) Unavailable Unavailabl LAURA Otoole Unavailable Unavailable Lenny Gayle Attending Unavailable Dinesh Gan Primary Care Unavailable Problems Active Problems Problem Classification Problem Date Documented Date Episodic/Chronic Esophageal disorders (2 sources) Gastroesophageal reflux disease; Translations: [Gastro-esophageal reflux disease without esophagitis] Onset: 08-18-2016 08-19-2016 Chronic Other nutritional; endocrine; and metabolic disorders (4 sources) Body mass index (BMI) 35.0-35.9, adult; Translations: [Overweight] Onset: 08-18-2016 09-01-2016 Chronic Unclassified (2 sources) KIDNEY STONES~ Onset: 06-30-2018 Past or Other Problems Problem Classification Problem Date Documented Da te Episodic/Chronic Abdominal pain (2 sources) Right upper quadrant pain; Translations: [Right upper quadrant pain] Onset: 08-18-2016 08-19-2016 Episodic Results Test Name Value Interpretation Reference Range Facil ity Vital Signs Date Time Vital Sign Value Performing Clinician Facility 09-01-2016 11:24-0400 BMI (Body Mass Index) 35.89 kg/m2 [facility] Work Phone: 09-01-2016 11:24-0400 Body Temperature 98.2 [degF] [facility] Work Phone: 09-01-2016 11:24-0400 BP Diastolic 84 mm[Hg] 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 [facility] Work Phone: 09-01-2016 11:24-0400 BP Systolic 126 mm[Hg] Court Carlos [facility] Work Phone: 09-01-2016 11:24-0400 BSA (Body Surface Area) 1.[address] Carlos [facility] Work Phone: 09-01-2016 11:24-[address] Carlos [facility] Work Phone: 09-01-2016 11:24-0400 Pulse (Heart Rate) 62 /min [facility] Work Phone: 09-01-2016 11:24-0400 Pulse Oximetry 98 % Court Carlos [facility] Work Phone: 09-01-2016 11:24-0400 Respiratory Rate 18 /min [facility] Work Phone: 09-01-2016 11:24-[address] Carlos [facility] Work Phone: Encounters Encounter Date Encounter Type Care Provider Facility Start: 06-30-2018 Patient encounter procedure Lenny Gayle Facility:[facility] Start: 04-23-[address] [place] [facility] Plan of Treatment Date Care Activity Detail Author Start: 09-22-2016 End: 09-22-2016 Appointment Appointment [facility] Work Phone: Start: 09-01-2016 End: 09-03-2016 Follow Up Appt 2 weeks Follow Up Appt 2 weeks [facility] Work Phone: Start: 08-18-2016 End: 08-24-2016 Follow Up Appt 2 weeks Follow Up Appt 2 weeks [facility] Work Phone: Patient Education WEIGHT%20MANAGEMENT [facility] Work Phone: Payers Date Payer Category Payer Unknown [id number] Unknown [id number] Summary Purpose Family History No Family History Records FoundNo Family History Records Found Advance Directives No Advanced Directives Records FoundNo Advanced Directives Records Found Additional Source Comments INFORMATION SOURCE (unrecogn ized section and content) DATE CREATED AUTHOR AUTHOR'S AMADOU ELIZABETHARLEEN 08/03/2018 [facility] samra Sanchez FOR RECORDS PERTAINING TO PATIENTS WHO ARE OR HAVE BEEN ENROLLED IN A CHEMICAL DEPENDENCY/SUBSTANCEABUSE PROGRAM, SOME INFORMATION MAY BE OMITTED. This clinical summary was aggregated from multiple sources. Caution should be exercised in using it in the provision of clinical care. This summary normalizes information from multiple sources, and as a consequence, information in this document may materially change the coding, format and clinical context of patient data. In addition, data may be omitted in some cases. CLINICAL DECISIONS SHOULD BE BASED ON THE PRIMARY CLINICAL RECORDS. [facility]. provides no warranty or guarantee of the accuracy or completeness of information in this document.
== END | disposition home or self-care (01) ==
LOC: MFPLAB 11:54
PROVIDERS: PCP Family Medicine; Visit Provider Family Medicine
DX: I10 Essential (primary) hypertension (principal)
CPT/HCPCS: 36415; 80053; 80061

== ENCOUNTER → 2023-12-29 | Outpatient (CLI) | payer OTHER, SELFPAY ==
[2023-12-29 12:42] LABS: Absolute Lymphocyte Count 1.29 X10^3/uL (0.83-4.51); Absolute Neutrophil Count 3.1 X10^3/uL (2.0-7.7); Basophil# 0.05 X10^3/uL; Eosinophil# 0.12 X10^3/uL; Eosinophils% 2.4 % (0-5); Hematocrit 24.6 % (37-47); Hemoglobin 6.7 g/dL (12.0-15.0); Lymphocyte # 1.29 X10^3/ul (0.83-4.51); Lymphocyte % 26.1 % (19-41); Mean Corp Hgb Conc 27.2 g/dL (32-36); Mean Platelet Vol. 9.2 fl (6.2-12.0); Monocyte# 0.41 X10^3/uL; Monocyte% 8.3 % (0-10); NRBC Flagged by Analyzer 0 % (0-5); Neutrophil # 3.06 X10^3/uL (2.7-7.7); Neutrophil % 61.8 % (47-70); POSITIVE MORPHOLOGY YES; Platelet Count 409 K/mm3 (150-450); RBC Distribution Width CV 20.3 % (11.6-14.6); Red Blood Count 3.73 M/mm3 (4.2-5.4)
[2023-12-29 12:50] LABS: Anion Gap 5 (5-15); BUN 17 mg/dL (7-18); BUN/Creat Ratio 23.2 RATIO (10-20); Calcium,Total 8.9 mg/dL (8.5-10.1); Chloride 108 mmol/L (98-107); Cholesterol 185 mg/dL (200); Creatinine, Serum 0.73 mg/dL (0.55-1.02); EST Glomerular Filtration Rate 90 mL/min (>60); Est Glom Filt Rate - Afr Amer 109 mL/min (>60); Glucose 101 mg/dL (74-106); High Density Lipoprotein 38 mg/dL; Potassium 3.6 mmol/L (3.5-5.1); Sodium Level 137 mmol/L (136-145); Triglycerides 109 mg/dL; Very Low Density Lipoprotein 22 mg/dL (5-40)
[2023-12-29 12:52] LABS: Differential Indicated SCAN CRITERIA MET
[2023-12-29 13:30] LABS: Differential Comment SCANNED
[2023-12-29 13:31] LABS: Anisocytosis 2+; Microcytosis 2+
== END | disposition home or self-care (01) ==
LOC: MFPLAB 10:54
PROVIDERS: PCP Family Medicine; Visit Provider Family Medicine
DX: I10 Essential (primary) hypertension (principal); R53.83 Other fatigue
CPT/HCPCS: 36415; 80048; 80061; 85025

== ENCOUNTER → 2024-01-05 | Outpatient (CLI) | payer OTHER, SELFPAY ==
[2024-01-05 10:17] LABS: Absolute Lymphocyte Count 1.24 X10^3/uL (0.83-4.51); Absolute Neutrophil Count 6.1 X10^3/uL (2.0-7.7); Basophil# 0.03 X10^3/uL; Basophil% 0.4 % (0-1); Eosinophil# 0.17 X10^3/uL; Eosinophils% 2.1 % (0-5); Hematocrit 27.9 % (37-47); Hemoglobin 7.5 g/dL (12.0-15.0); Lymphocyte # 1.24 X10^3/ul (0.83-4.51); Mean Corp Hgb Conc 26.9 g/dL (32-36); Mean Corpuscular Hgb 18.9 pg (27.0-32.0); Mean Corpuscular Volume 70.5 fL (81-99); Mean Platelet Vol. 9.2 fl (6.2-12.0); Monocyte# 0.66 X10^3/uL; NRBC Flagged by Analyzer 0 % (0-5); Neutrophil # 6.12 X10^3/uL (2.7-7.7); POSITIVE MORPHOLOGY YES; Platelet Count 394 K/mm3 (150-450); RBC Distribution Width CV 24.7 % (11.6-14.6); RBC Distribution Width SD 47.9 fl (35.1-43.9); Red Blood Count 3.96 M/mm3 (4.2-5.4); White Blood Count 8.3 K/mm3 (4.4-11.0)
[2024-01-05 10:38] LABS: Differential Indicated SCAN CRITERIA MET
[2024-01-05 11:09] LABS: Ferritin 7 ng/mL (8-252); Iron Binding Capacity,Total 407 ug/dL (250-450)
[2024-01-05 11:46] LABS: Differential Comment SCANNED
[2024-01-05 11:47] LABS: Anisocytosis 3+; Hypochromasia 1+; Macrocytosis 1+; Microcytosis 2+; Platelet Estimate ADEQUATE (ADEQ); Schistocytes 1+
== END | disposition home or self-care (01) ==
LOC: MFPLAB 08:17
PROVIDERS: PCP Family Medicine; Visit Provider Family Medicine
DX: E61.1 Iron deficiency (principal)
CPT/HCPCS: 36415; 82728; 83550; 85025

== ENCOUNTER → 2024-01-11 | Outpatient (CLI) | payer OTHER, SELFPAY ==
[2024-01-16 15:07] LABS: HPV APTIMA, High Risk Negative (Negative)
== END | disposition home or self-care (01) ==
LOC: LABSPEC 14:19
PROVIDERS: PCP Family Medicine; Referring Provider Nurse Practitioner Women's Health; Visit Provider Nurse Practitioner Women's Health
DX: Z12.4 Encounter for screening for malignant neoplasm of cervix (principal)
CPT/HCPCS: 87624; 88175; G0145

== ENCOUNTER → 2024-01-20 | Outpatient (CLI) | payer OTHER, SELFPAY ==
--- NOTE | 2024-01-20 17:50 | US_ITS ---
STUDY: ULTRASOUND OF THE FEMALE PELVIS - COMPLETE REASON FOR EXAM: Female, 48 years old. bleeding TECHNIQUE: Transvaginal and transabdominal imaging. COMPARISON: None. FINDINGS: The uterus is anteverted and is in a midline position. The uterus measures 7.1 cm. There is a Nabothian cyst of the cervix. The endometrium is not visualized.. Fibroid visualized measuring 12.9 x 13 cm and 4.6 cm. I.U.D. - The patient does not have an I.U.D. There is nonvisualization of the right ovary due to overlying bowel gas. The left ovary is visualized. The left ovary measures 3.6 cm. Cyst measures 14 mm. There is no visualized left adnexal mass or complex lesion. There is normal arterial and normal venous vascularity. There is no fluid in the cul-de-sac. Unremarkable urinary bladder. US/Pelvic w/ Transvaginal IMPRESSION: There are no acute findings. No evidence for ovarian torsion of the left ovary. The right ovary is not seen. Question fibroid uterus. Electronically Signed: Raciel Yeung MD at 19:42 EDT ,
== END | disposition home or self-care (01) ==
PROVIDERS: PCP Family Medicine; Referring Provider Nurse Practitioner Women's Health; Visit Provider Nurse Practitioner Women's Health
DX: N92.0 Excessive and frequent menstruation with regular cycle (principal)
CPT/HCPCS: 76830; 76856

== ENCOUNTER → 2024-01-24 | Outpatient (CLI) | payer OTHER, SELFPAY ==
--- NOTE | 2024-01-24 10:25 | BI_ITS ---
MAMMOGRAPHY - BILATERAL SCREENING REASON FOR EXAM: Female, 48 years old. Routine annual screening examination. PERTINENT HISTORY: Non-contributory. TECHNIQUE: Digital bilateral breast chica (3D mammographic acquisition) in the CC and MLO projections. 2-D mediolateral oblique (MLO) and craniocaudad (CC) views of both breasts were obtained. CAD: Full Field Digital Mammography with Computer Added Detection was performed. COMPARISON: Comparison is made with prior study dated November 23, 2022 and November 25, 2022. Comparison is also made with prior MRI of the breasts dated January 20, 2023. FINDINGS: Breast Composition: There are scattered areas of fibroglandular density. There are no dominant masses or suspicious calcifications. No other significant abnormalities are identified. There has been no significant change since the prior study. BI/SCRN MAMM (CAD)W/CHICA BILAT IMPRESSION: Stable bilateral screening mammogram. Yearly follow-up mammogram recommended. (A) ASSESSMENT CATEGORY: BIRADS Category 1: Negative. A letter regarding these results will be sent to the patient by the facility within 30 days. Approximately 10% of breast cancers are not detected by mammography. A normal mammogram should not delay biopsy of a clinically suspicious abnormality. [id number] Electronically Signed: Juan Luis Soto MD at 11:05 EDT ,
== END | disposition home or self-care (01) ==
LOC: OPBI 10:25
PROVIDERS: PCP Family Medicine; Referring Provider Nurse Practitioner Women's Health; Visit Provider Nurse Practitioner Women's Health
DX: Z12.31 Encounter for screening mammogram for malignant neoplasm of breast (principal)
CPT/HCPCS: 77063; 77067

== ENCOUNTER → 2024-02-07 | Outpatient (CLI) | payer OTHER, SELFPAY ==
[2024-02-07 10:18] LABS: Absolute Lymphocyte Count 1.66 X10^3/uL (0.83-4.51); Absolute Neutrophil Count 3.3 X10^3/uL (2.0-7.7); Basophil# 0.04 X10^3/uL; Basophil% 0.7 % (0-1); Eosinophil# 0.12 X10^3/uL; Eosinophils% 2.1 % (0-5); Hematocrit 37.7 % (37-47); Hemoglobin 11.4 g/dL (12.0-15.0); Lymphocyte # 1.66 X10^3/ul (0.83-4.51); Lymphocyte % 29.5 % (19-41); Mean Corp Hgb Conc 30.2 g/dL (32-36); Mean Corpuscular Volume 82.7 fL (81-99); Mean Platelet Vol. 9.2 fl (6.2-12.0); Monocyte# 0.54 X10^3/uL; Monocyte% 9.6 % (0-10); NRBC Flagged by Analyzer 0 % (0-5); Neutrophil # 3.25 X10^3/uL (2.7-7.7); Neutrophil % 57.9 % (47-70); POSITIVE MORPHOLOGY YES; Platelet Count 308 K/mm3 (150-450); Red Blood Count 4.56 M/mm3 (4.2-5.4); White Blood Count 5.6 K/mm3 (4.4-11.0)
[2024-02-07 10:41] LABS: Differential Indicated SCAN CRITERIA MET
[2024-02-07 11:40] LABS: Anisocytosis 3+; Differential Comment SCANNED; Macrocytosis 1+; Microcytosis 1+
[2024-02-07 11:41] LABS: Platelet Estimate ADEQUATE (ADEQ)
== END | disposition home or self-care (01) ==
LOC: MFPLAB 09:01
PROVIDERS: PCP Family Medicine; Visit Provider Nurse Practitioner Women's Health
DX: D64.9 Anemia, unspecified (principal)
CPT/HCPCS: 36415; 85025

== ENCOUNTER → 2024-03-12 | Outpatient (CLI) | payer OTHER, SELFPAY | END | disposition home or self-care (01) | LOC: BWCLAB 16:24 | PROVIDERS: PCP Family Medicine; Referring Provider Obstetrics & Gynecology; Visit Provider Obstetrics & Gynecology | DX: N92.0 Excessive and frequent menstruation with regular cycle (principal) | CPT/HCPCS: 36415; 84439; 84443 ==

== ENCOUNTER → 2024-07-02 | Outpatient (CLI) | payer OTHER, SELFPAY ==
[2024-07-02 21:32] LABS: ALB/GLOB Ratio 1.5 RATIO (0.9-2.4); AST(SGOT) 16 U/L (<=31); Alanine Aminotransfer ALT/SGPT 7 U/L (<=34); Albumin, Serum 4.2 g/dL (3.5-5.0); Alkaline Phosphatase 66 U/L (35-104); Anion Gap 14 (5-15); BUN 15 mg/dL (4-19); BUN/Creat Ratio 23.7 RATIO (10-20); Calcium 9.4 mg/dL (7.6-11.0); Carbon Dioxide 18.9 mmol/L (22.0-29.0); Chloride 106 mmol/L (96-108); Creatinine, Serum 0.63 mg/dL (0.70-1.20); EST Glomerular Filtration Rate 109 (>60); Free T3 2.4 pg/mL (2.18-3.98); Globulin 2.8 g/dL (2.2-4.2); Glucose 80 mg/dL (70-99); Potassium 3.5 mmol/L (3.3-5.1); Sodium Level 138 mmol/L (133-145); Total Bilirubin 0.38 mg/dL (0.00-1.30)
[2024-07-03 01:30] LABS: Cholesterol 205 mg/dL (<=200); High Density Lipoprotein 39 mg/dL; Low Density Lipoprotein Calc. 141 mg/dL; Triglycerides 129 mg/dL; Very Low Density Lipoprotein 26 mg/dL (5-40)
== END | disposition home or self-care (01) ==
LOC: MFPLAB 10:25
PROVIDERS: PCP Family Medicine; Referring Provider Family Medicine; Visit Provider Family Medicine
DX: I10 Essential (primary) hypertension (principal); E03.9 Hypothyroidism, unspecified
CPT/HCPCS: 36415; 80053; 80061; 84439; 84443; 84481

== ENCOUNTER 2024-08-27 11:56 | Outpatient (CLI) | payer OTHER, SELFPAY ==
--- NOTE | 2024-08-27 12:11 | EMB_PTH ---
PATIENT: MAYRA ARIAS LOC: [facility] U#:[id number] AGE/SX: 49/F ROOM: RE08/27/[address]: BRUCE Guzmán : 1975 BED: DIS: 08/27/2024 SPEC #: [id number] RECD: 08/27/24 13:46 STATUS: ML REMario #: [id number] JERMAINE: 08/27/24 12:[address]: Ashlie Basurto NP DEPT: SURGICAL PATHOLOGY RECD BY: Naveen Mendoza ENTERED: 08/27/24 13:46 SP TYPE: ENDOM BX/C MARLEN DR: Dr. Dinesh Gan MD Tissues: A - Endometrium, NOS Procedures: Surgery Specimen Level IV HEADER OPERATION: Endometrial biopsy PRE-OP DIAGNOSIS: Abnormal uterine bleeding TISSUE SUBMITTED: A- Endometrial lining MICROSCOPIC DIAGNOSIS A. Uterus, endometrial lining, biopsy: * Secretory endometrium - see note. * Note: A few fragments of secretory endometrium are present, mixed with relatively abundant blood and mucus. MICROSCOPIC DESCRIPTION Slides are reviewed. GROSS DESCRIPTION A. Received in formalin in a container labeled with the patient's name, date of , and with no further designation are multiple tiny fragments of red-hutchison soft tissue admixed with blood and abundant mucus measuring 2.7 x 2.2 x 0.2 cm in aggregate. Submitted in toto in A1. [facility] 08-27-2024 CPT:53932
== END 2024-08-27 23:59 | disposition home or self-care (01) ==
LOC: LABSPEC 11:57
PROVIDERS: PCP Family Medicine; Referring Provider Nurse Practitioner Women's Health; Visit Provider Nurse Practitioner Women's Health
DX: N93.9 Abnormal uterine and vaginal bleeding, unspecified (principal)
CPT/HCPCS: 88305

== ENCOUNTER → 2024-08-29 | Outpatient (CLI) | payer OTHER, SELFPAY ==
--- NOTE | 2024-08-29 16:18 | US_ITS ---
PROCEDURE: Pelvic ultrasound. REASON FOR EXAM: UTERINE FIBROIDS TECHNIQUE: Transabdominal and transvaginal pelvic ultrasound COMPARISON: Pelvic ultrasound dated 01/20/2024. FINDINGS: The uterus is markedly heterogeneous and markedly enlarged. The uterus is anteverted and measures up to 23.2 x 17.8 x 13.9 cm. Several fibroids were noted within the uterine wall. The largest of the fibroids measured up to 12.4 x 13.6 x 11.8 cm. There are at least 3 other fibroids present. Endometrial stripe is difficult to measure due to distortion by presence of the fibroids. The ovaries are nonvisualized. There are nabothian cysts seen within the cervix. US/Pelvic w/ Transvaginal IMPRESSION: Markedly enlarged and heterogeneous uterus containing several large fibroids wi th fibroids measuring up to 12.4 cm. The patient may benefit from MRI pelvis for further delineation of these fibroids. If the patient is symptomatic, may consider patient for uterine fibroid embolization versus surgical treatments, as clinically indicate d. Reading Location: [id number]
== END | disposition home or self-care (01) ==
PROVIDERS: PCP Family Medicine; Referring Provider Nurse Practitioner Women's Health; Visit Provider Nurse Practitioner Women's Health
DX: D25.9 Leiomyoma of uterus, unspecified (principal)
CPT/HCPCS: 76830; 76856

== ENCOUNTER → 2024-09-27 | Outpatient (CLI) | payer OTHER, SELFPAY ==
--- NOTE | 2024-09-27 08:48 | MRI_ITS ---
EXAM: PELVIS W/WO CONTRAST 09/27/2024 CLINICAL HISTORY: UTERINE SIZE DISCREPANCY-COMPARE MRI US. TECHNIQUE: T1, T2, stir, postcontrast T1 fat-sat MRI of the pelvis was performed. Multiplanar and multisequence images were obtained without and with intravenous gadolinium contrast. CONTRAST: 19 cc Clariscan COMPARISON: August 29, 2024 ultrasound FINDINGS: The uterus measures 18 x 13 by 15 cm. There is an anterior submucosal fibroid measuring 12.7 by 10.0 cm. There is a posterior subserosal fibroid measuring 5.0 by 3.6 cm. There is a fundal subserosal fibroid measuring 2.3 x 3.3 cm. There is fluid in the endometrium measuring 0.8 cm. The endometrium overall measures 1.8 cm. Nabothian cysts are noted. There is free fluid in the anterior lower pelvis measuring 2.3 x 1.0, and 0.7 cm in the cul de sac. The ovaries are not demonstrated. There is normal marrow signal in the included portion of the pelvic bones. Vascular structures show normal enhancement. There is no pathologic adenopathy. There is no visible inflammatory change in the mesentery. MRI/Pelvis W/WO Contrast IMPRESSION: The uterus measures 18 x 13 by 15 cm. There is an anterior submucosal fibroid m easuring 12.7 by 10.0 cm. There is a posterior subserosal fibroid measuring 5.0 by 3.6 cm. There is a fundal subserosal fibroi d measuring 2.3 x 3.3 cm. The endometrium overall measures 1.8 cm, severe hyperplasia range. Further sebastian luation is indicated. There is fluid in the endometrium measuring 0.8 cm. There is free fluid in the anterior lower pelvis measuring 2.3 x 1.0, and 0.7 c m in the cul de sac. Reading Location: [facility]
== END | disposition home or self-care (01) ==
PROVIDERS: PCP Family Medicine; Referring Provider Obstetrics & Gynecology; Visit Provider Obstetrics & Gynecology
DX: N85.2 Hypertrophy of uterus (principal); D25.2 Subserosal leiomyoma of uterus
CPT/HCPCS: 72197; A9575

== ENCOUNTER → 2024-10-12 | Outpatient (CLI) | payer OTHER, SELFPAY ==
--- OUTSIDE RECORDS SUMMARY | 2024-10-12 16:26 | XMS RPT_ITS | CCD ---
Author Organization [facility] CliniSyks Care Team Providers Care Data Security Coordinator Name Role Phone Ruggeri NETTING WEAVER, Court F Unavailable Unavailabl e Ruggeri NETTING WEAVER, Court F Unavailable Unavailabl e COURT [place] ([place]) Unavailable Unavailabl e LAURA ALEXANDER Unavailable Unavailable Lenny Gayle Attending Unavailable Dinesh Gan Primary Care Unavailable Dr. Dinesh Gan Primary Care Provider [phone] Tiera Anderson Attending Provider Unavailable Dr. Dinesh Gan Referring Provider Dr. Remberto Colbert Attending Provider Dr. Remberto Colbert Other Provider Dr. Dinesh Gan MD Primary Care Provider [phone] Dr. Dinesh Gan MD Attending Provider Dr. Dinesh Gan MD Referring Provider Sb MANUFACTURING PLANNER-C, Ashlie Attending Provider Sb MANUFACTURING PLANNER-C, Ashlie Referring Provider Dr. Margie Reyes DO Attending Provider Dr. Margie Reyes DO Referring Provider Margie Koch Admitting Unavailabl e Velde, Margie Dalton Referring Unavailabl e aMrgie Koch Attending UnavailDinesh Dillon Primary Care Unavailable [place] MANUFACTURING PLANNER, Ashlie Attending Unavailable [place] MANUFACTURING PLANNER, Ashlie Referring Unavailable Dinesh Gan Primary Care Unavailable Dinesh Gan Referring Unavailable Margie Koch Attending Unavailabl e Dinesh Gan Primary Care Unavailable [place] MANUFACTURING PLANNER, Ashlie Attending Unavailable Dinesh Gan Primary Care Unavailable Dinesh Gan Referring Unavailable [place] MANUFACTURING PLANNER, Ashlie Attending Unavailable Gan, Dinesh Referring Unavailable Gan, Dinesh Primary Care Unavailable [place] MANUFACTURING PLANNER, Ashlie Attending Unavailable Gan, Dinesh Primary Care Unavailable Gan, Dinesh Referring Unavailable Velde, Margie Dalton Attending Unavailabl e Gan, Dinesh Primary Care Unavailable Gan, Dinesh Referring Unavailable Velde, Margie Dalton Attending Unavailabl e Velde, Margie Dalton Referring Unavailabl e Gan, Dinesh Primary Care Unavailable Gan, Dinesh Attending Unavailable Gan, Dinesh Primary Care Unavailable Gan, Dinesh Attending Unavailable Gan, Dinesh Primary Care Unavailable [place] MANUFACTURING PLANNER, Ashlie Attending Unavailable [place] MANUFACTURING PLANNER, Ashlie Referring Unavailable Gan, Dinesh Primary Care Unavailable [place] MANUFACTURING PLANNER, Ashlie Attending Unavailable [place] MANUFACTURING PLANNER, Ashlie Referring Unavailable Gan, Dinesh Primary Care Unavailable Sb MANUFACTURING PLANNER, Ashlie Attending Unavailable Gan, Dinesh Primary Care Unavailable Sb MANUFACTURING PLANNER, Ashlie Referring Unavailable [place] MANUFACTURING PLANNER, Ashlie Attending Unavailable Gan, Dinesh Primary Care Unavailable Velde, Margie Dalton Referring Unavailabl e Velde, Margie Dalton Attending Unavailabl e Gan, Dinesh Primary Care Unavailable Gan, Dinesh Primary Care Unavailable Gan, Dinesh Attending Unavailable Gan, Dinesh Referring Unavailable Sb MANUFACTURING PLANNER, Ashlie Attending Unavailable Sb MANUFACTURING PLANNER, Ashlie Referring Unavailable Gan, Dinesh Primary Care Unavailable Allergies Allergy Classification Reported Allergen(s) Allergy Type Date of Onset Reaction(s) Facility (5 sources) amLODIPine Drug Allergy 04-20-2023 Chest pain [facility] (1 source) amLODIPine Drug Allergy 10-02-2024 [facility] Repository Medications Current Medications Medication Drug Class(es) Dates Sig (Normalized) Sig (Original) ferrous sulfate 325 mg oral tablet (2 sources) Start: 08-27-2024 take 1 tablet by mouth once daily Ferrous Sulfate 325 mg (65 mg iron) tablet Active 325 mg PO daily August 27, 2024 12:00am levothyroxine sodium 0.088 mg oral capsule (2 sources) l-Thyroxine Start: 08-27-2024 take 1 capsule by mouth once daily Levothyroxine 88 mcg capsule Active 88 ug PO daily August 27, 2024 12:00am lisinopril 10 mg oral tablet (3 sources) Angiotensin Converting Enzyme Inhibitor Start: 01-11-2024 take 1 tablet by mouth once daily Lisinopril 10 mg tablet Active 10 mg PO daily January 11, 2024 12:00am norethindrone acetate 5 mg oral tablet (2 sources) Start: 08-27-2024 Norethindrone Acetate 5 mg tablet Active 5 mg PO .COMPLEX 45 August 27, 2024 12:00am 5 mg PO tid until bleeding stops X 24 hr then bid to finish Rx omeprazole 20 mg delayed release oral capsule (20 sources) Proton Pump Inhibitor Start: 10-02-2024 take 1 capsule by mouth once daily as needed Omeprazole 20 mg capsule,delayed release(DR/EC) Active 20 mg PO DAILY NEEDED October 02, 2024 12:00am Start: 03-29-2023 End: 03-06-2024 take 1 capsule by mouth once daily as needed Omeprazole 20 mg capsule,delayed release(DR/EC) Discontinued 20 mg PO DAILY as needed for indigestion March 29, 2023 1:00am March 06, 2024 11:23am Start: 02-18-2017 End: 06-27-2018 take 1 capsule by mouth once daily as needed for gastroesophageal reflux disease Omeprazole (Prilosec) 40 MG capsule Discontinued 40 mg PO DAILY as needed for GERD February 18, 2017 9:32am June 27, 2018 11:38am Start: 07-12-2016 End: 02-18-2017 take 1 capsule by mouth once daily Omeprazole (Prilose c) 40 MG capsule Discontinued 40 mg PO DAILY July 12, 2016 12:00am February 18, 2017 9:32am Completed/Discontinued Medications Medication Drug Class(es) Dates Sig (Normalized) Sig (Original) amLODIPine 5 mg oral tablet (12 sources) Dihydropyridine Calcium Channel Maribel Start: 12-06-2021 End: 03-29-2023 take 1 tablet by mouth once daily Amlodipine 5 mg tablet Discontinued 5 mg PO DAILY December 06, 2021 12:00am March 29, 2023 2:28pm ibuprofen 400 mg oral tablet (13 sources) Nonsteroidal Anti-inflammatory Drug Start: 02-18-2017 End: 06-27-2018 take 1 tablet by mouth every six hours as needed for pain Ibuprofen 400 MG tablet Discontinued 400 mg PO EVERY 6 HOURS as needed for Pain February 18, 2017 12:00am June 27, 2018 11:38am rosuvastatin calcium 5 mg oral tablet (5 sources) HMG-CoA Reductase Inhibitor Start: 03-29-2023 End: 01-11-2024 take 1 tablet by mouth once daily Rosuvastatin 5 mg tablet Discontinued 5 mg PO DAILY March 29, 2023 1:00am January 11, 2024 11:48am tranexamic acid 650 mg oral tablet (6 sources) Antifibrinolytic Agent Start: 01-23-2024 End: 08-27-2024 take 2 tablets by mouth three times daily Tranexamic Acid 650 mg tablet Discontinued 1300 mg PO .COMPLEX 60 March 06, 2024 11:31am August 27, 2024 11:14am 1,300 mg orally 3 times a day up to 5 days with onset of menses; Problems Active Problems Problem Classification Problem Date Documented Date Episodic/Chronic Abdominal pain (15 sources) Right upper quadrant pain; Translations: [Abdominal pain] Onset: 08-18-2016 08-19-2016 Episodic Benign neoplasm of uterus (6 sources) Uterine leiomyoma; Translations: [Leiomyoma of uterus, unspecified] Onset: 09-04-2024 03-06-2024 Episodic Comment on above: [id number]:surgic al consult JV. She has fear of DVT. No hx. Mar 2024: [id number] 6cm:surgical consult JV. She has fear of DVT. No hx. Rpt US Esophageal disorders (2 sources) Gastroesophageal reflux disease; Translations: [Gastro-esophageal reflux disease without esophagitis] Onset: 08-18-2016 08-19-2016 Chronic Essential hypertension (1 source) Essential (primary) hypertension; Translations: [Essential (primary) hypertension] Onset: 07-13-2024 Chronic Headache; including migraine (13 sources) Headache; Translations: [Headache] 12-14-2021 Episodic Menstrual disorders (6 sources) Menorrhagia; Translations: [Excessive and frequent menstruation with regular cycle] Onset: 04-09-2024 03-06-2024 Chronic Comment on above: lysteda. Declines es trogen. aygestin Other circulatory disease (13 sources) Elevated blood-pressure reading without diagnosis of hypertension; Translations: [Elevated blood-pressure reading, without diagnosis of hypertension] 12-14-2021 Episodic Other female genital disorders (1 source) Abnormal uterine and vaginal bleeding, unspecified; Translations: [Abnormal uterine and vaginal bleeding, unspecified] Onset: 09-07-2024 Chronic Other female genital disorders (7 sources) Enlarged uterus; Translations: [Hypertrophy of uterus] 01-11-2024 Episodic Comment on above: [place]. Other female genital disorders (1 source) Hypertrophy of uterus; Translations: [Hypertrophy of uterus] Onset: 10-02-2024 Episodic Other nutritional; endocrine; and metabolic disorders (4 sources) Body mass index (BMI) 35.0-35.9, adult; Translations: [Overweight] Onset: 08-18-2016 09-01-2016 Chronic Other nutritional; endocrine; and metabolic disorders (3 sources) Body mass index 40+ - severely obese 10-13-2020 Chronic Other screening for suspected conditions (not mental disorders or infectious disease) (9 sources) Patient encounter status; Translations: [Encounter for screening for malignant neoplasm of colon] Onset: 02-01-2024 03-29-2023 Episodic Residual codes; unclassified (13 sources) Obstructive sleep apnea syndrome; Translations: [Obstructive sleep apnea (adult) (pediatric)] 04-15-2021 Chronic Comment on above: CPAP 10 cm Unclassified (2 sources) KIDNEY STONES~ Onset: 06-30-2018 Unclassified (10 sources) Body mass index 40+ - severely obese; Translations: [Body mass index (BMI) greater than 40] 10-13-2020 Past or Other Problems Problem Classification Problem Date Documented Da te Episodic/Chronic Deficiency and other anemia (1 source) Anemia, unspecified; Translations: [Anemia, unspecified] Onset: 03-01-2024 Episodic Nutritional deficiencies (1 source) Iron deficiency; Translations: [Iron deficiency] Onset: 01-26-2024 Episodic Results Test Name Value Interpretation Reference Range Facility Magnetic resonance imaging r eportOrdered By: Ashutosh Rhodes on 09-27-2024 Study report [facility] Imaging Services [address] [place], [place] [id number] Pelvis W/WO Contrast MR#: [id number] Acct: [id number] Name: MAYRA ARIAS Rep #: [id number] : 1975 F 49 From: Chapin Rhodes MD PCP: Dr. Dinesh Gan MD Status: REG C LI Study:Pelvis W/WO Contrast Date of Exam: 09/27/24 Exam# [id number] Ordering Dr: Margie Barroso DO EXAM: PELVIS W/WO CONTRAST 09/27/2024 CLINICAL HISTORY: UTERINE SIZE DISCREPANCY-COMPARE MRI US. TECHNIQUE: T1, T2, stir, postcontrast T1 fat-sat MRI of the pelvis was performed. Multiplanar and multisequence images were obtained without and with intravenous gadolinium contrast. CONTRAST: 19 cc Clariscan COMPARISON: August 29, 2024 ultrasound FINDINGS: The uterus measures 18 x 13 by 15 cm. There is an anterior submucosal fibroid measuring 12.7 by 10.0 cm. There is a posterior subserosal fibroid measuring 5.0 by 3.6 cm. There is a fundal subserosal fibroid measuring 2.3 x 3.3 cm. There is fluid in the endometrium measuring 0.8 cm. The endometrium overall measures 1.8 cm. Nabothian cysts are noted. There is free fluid in the anterior lower pelvis measuring 2.3 x 1.0, and 0.7 cm in the cul de sac. The ovaries are not demonstrated. There is normal marrow signal in the included portion of the pelvic bones. Vascular structures show normal enhancement. There is no pathologic adenopathy. There is no visible inflammatory change in the mesentery. MRI/Pelvis W/WO Contrast IMPRESSION: The uterus measures 18 x 13 by 15 cm. There is an anterior submucosal fibroid measuring 12.7 by 10.0 cm. There is a posterior subserosal fibroid measuring 5.0 by 3.6 cm. There is a fundal subserosal fibroidmeasuring 2.3 x 3.3 cm. The endometrium overall measures 1.8 cm, severe hyperplasia range. Further evaluation is indicated. There is fluid in the endometrium measuring 0.8 cm. There is free fluid in the anterior lower pelvis measuring 2.3 x 1.0, and 0.7 cmin the cul de sac. Reading Location: [facility] CC: Dr. Margie Reyes DO; Dr. Dinesh Gan MD ~ Weather Forecaster: Signed [facility] Pelvis W/WO Contraston 09-27 Pelvis W/WO Contrast [facility] Imaging Services [address] [place] [address] Pelvis W/WO Contrast MR#: [id number] Acct: [id number] Name: MAYRA ARIAS Rep #: [id number] : 1975 F 49 From: Ashutosh Rhodes MD PCP: Dr. Dinesh Gan MD Status: REG CLI Study: Pelvis W/WO Contrast Date of Exam: 09/27/24 Exam# [id number] Ordering Dr: Margie Reyes DO EXAM: PELVIS W/WO CONTRAST 09/27/2024 CLINICAL HISTORY: UTERINE SIZE DISCREPANCY-COMPARE MRI US. TECHNIQUE: T1, T2, stir, postcontrast T1 fat-sat MRI of the pelvis was performed. Multiplanar and multisequence images were obtained without and with intravenous gadolinium contrast. CONTRAST: 19 cc Clariscan COMPARISON: August 29, 2024 ultrasound FINDINGS: The uterus measures 18 x 13 by 15 cm. There is an anterior submucosal fibroid measuring 12.7 by 10.0 cm. There is a posterior subserosal fibroid measuring 5.0 by 3.6 cm. There is a fundal subserosal fibroid measuring 2.3 x 3.3 cm. There is fluid in the endometrium measuring 0.8 cm. The endometrium overall measures 1.8 cm. Nabothian cysts are noted. There is free fluid in the anterior lower pelvis measuring 2.3 x 1.0, and 0.7 cm in the cul de sac. The ovaries are not demonstrated. There is normal marrow signal in the included portion of the pelvic bones. Vascular structures show normal enhancement. There is no pathologic adenopathy. There is no visible inflammatory change in the mesentery. MRI/Pelvis W/WO Contrast IMPRESSION: The uterus measures 18 x 13 by 15 cm. There is an anterior submucosal fibroid measuring 12.7 by 10.0 cm. There is a posterior subserosal fibroid measuring 5.0 by 3.6 cm. There is a fundal subserosal fibroid measuring 2.3 x 3.3 cm. The endometrium overall measures 1.8 cm, severe hyperplasia range. Further evaluation is indicated. There is fluid in the endometrium measuring 0.8 cm. There is free fluid in the anterior lower pelvis measuring 2.3 x 1.0, and 0.7 cm in the cul de sac. Reading Location: [facility] CC: Dr. Margie Reyes DO; Dr. Dinesh Gan MD Weather Forecaster: Signed [facility] Pelvic w/ Transvaginalon Pelvic w/ Transvaginal [facility] Imaging Services [address] [facility] [address] [place], [place] [address] Pelvic w/ Transvaginal MR#: [id number] Acct: [id number] Name: MAYRA ARIAS Rep #: [id number] : 1975 F 49 From: Remberto Garcia i, MD PCP: Dr. Dinesh Gan MD Status: REG CLI Study: Pelvic w/ Transvaginal Date of Exam: 08/29/24 Exam# [id number] Ordering Dr: Ashlie Basurto NP MANUFACTURING PLANNER -C PROCEDURE: Pelvic ultrasound. REASON FOR EXAM: UTERINE FIBROIDS TECHNIQUE: Transabdominal and transvaginal pelvic ultrasound COMPARISON: Pelvic ultrasound dated 01/20/2024. FINDINGS: The uterus is markedly heterogeneous and markedly enlarged. The uterus is anteverted and measures up to 23.2 x 17.8 x 13.9 cm. Several fibroids were noted within the uterine wall. The largest of the fibroids measured up to 12.4 x 13.6 x 11.8 cm. There are at least 3 other fibroids present. Endometrial stripe is difficult to measure due to distortion by presence of the fibroids. The ovaries are nonvisualized. There are nabothian cysts seen within the cervix. US/Pelvic w/ Transvaginal IMPRESSION: Markedly enlarged and heterogeneous uterus containing several large fibroids with fibroids measuring up to 12.4 cm. The patient may benefit from MRI pelvis for further delineation of these fibroids. If the patient is symptomatic, may consider patient for uterine fibroid embolization versus surgical treatments, as clinically indicated. Reading Location: [facility] CC: MANUFACTURING PLANNER-C Ashlie Basurto; Dr. Dinesh Gan MD Weather Forecaster: Signed Normal [facility] Associate Professor Office Visit Reporton 08-27-2024 Associate Professor Office Visit Report [facility] [address], [address] [place] [address] OFFICE VISIT Date of Service: 08/27/24 MR#: [id number] Acct: [id number] Name: MAYRA ARIAS Rep #: [id number] : 1975 Provider: BRUCE reynoso Age/Sex: 49/F Location: [facility] [place] Status: Signed Intake Vital Signs 03/12/24 15:33 08/27/24 11:04 08/27/24 11:58 Height 5 ft 3 in 5 ft 3 in Weight: 219 lb 2 oz BMI 38.8 BP 145/86 H Intake Visit Reasons: EMB Allergies amlodipine Adverse Reaction (Verified 08/27/24 11:15) Chest pain Medications ???Medication ???Instructions ???Recorded ???Confirmed ???Type lisinopril 10 mg tablet 10 mg PO QDAY 01/11/24 08/27/24 Hi story ferrous sulfate 325 mg (65 mg 325 mg PO QDAY 08/27/24 08/27/24 H istory iron) tablet levothyroxine 88 mcg capsule 88 mcg PO QDAY 08/27/24 08/27/24 H istory norethindrone acetate 5 mg tablet 5 mg PO .COMPLEX #45 tabs 5 08/27/24 Rx PFSH Medical History Thyroid disease Anemia Fatty liver Non-smoker CPAP (continuous positive airway pressure) dependence Shortness of breath on exertion Leg cramps History of pain when walking History of stress test History of irregular heartbeat History of kidney stones GERD (gastroesophageal reflux disease) Hyperlipidemia HTN (hypertension) History of rectal polyps Anxiety Surgical History delivery delivered Hx laparoscopic cholecystectomy History of foot surgery Hx of LASIK Family History Father Hypertension Heart disease Colon polyps Social History household members: spouse and children current occupational status: unemployed Smoking Status: Never smoker alcohol intake: never substance use type: does not use caffeine: Yes what type of physical activity do you participate in: none seatbelt use: always do you feel safe at home: Yes 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 She is known to have 13 cm uterine fibroid. Has been bleeding or spotting since August 02. She is ready to proceed with robotic hysterectomy with Dr Reyes as discussed in Mar 2024. History 2 Elective abortions Hx Para 2 Spontaneous abortions Hx # Term Pregnancies Ectopic pregnancies Hx # Pregnancies Multiple births # of living children Past Pregnancies Del. Date Name GA/Weeks Outcome Route Bth Weight Infant Gen Labor Lgth Anesthesia Del Locatn Provider FOB Unknown 2009 [place] live - full term Unknown 2011 [place] live - full term ROS Const Constitutional: Reports system reviewed and no additional complaints, except as documented Eyes Eyes: Reports system reviewed and no additional complaints, except as documented GI GI: Denies abdominal pain or change in bowel habits : Reports as per HPI Exam Const General: cooperative and no acute distress Orientation: oriented x3 External Female Exam: normal external appearance and normal appearance of the urethra Urethra: normal appearance of the urethra Speculum Exam - Vagina: normal appearance of the vagina, normal vaginal discharge, no lesions and nontender Speculum Exam - Cervix: normal appearance of the cervix (significantly displaced to patient's right) Bimanual Exam- Vagina Uterus: non-tender, enlarged (>20 wk) and nodular Bimanual Exam- Adnexa, other: normal adnexae, no masses and non-tender Office Procedures Endometrial Biopsy Endometrial Biopsy Test: Yes Not Applicable Consent Signed: Yes Time out checklist: patient, procedure, site marked/identified, positioning of patient, supplies available, allergies confirmed and team agrees on procedure Time out time: 11:17 tenaculum used: Yes dilator used: No Details: Cervix significantly displaced to patient's right due to large fibroid uterus at 20+wk. Needed assistance from Dr ReyesCervix prepped with betadine and pipelle inserted into uterus without complication. Specimen obtained and sent to lab for analysis. All instruments removed from vagina without complications. Excellent hemostasis noted. Coding Level of Care Code Attention Chief Unit Forester Diagnoses Uterine leiomyoma, unspecified location D25.9 Uterine leiomyoma location: unspecified location Enlarged uterus N85.2 Menorrhagia with regular cycle N92.0 CPT Codes Endometrial Biopsy (11728) Assessment and Plan Assessment and Plan (1) Uterine fibroid: Status: Acute Qualifiers: Uterine leiomyoma lo (more content not included)... Normal [facility] Surgery Specimen Level Jc 08-27-2024 Surgery Specimen Level IV Patient Age/Sex Location Account Attending Physician MAYRA ARIAS/F LABSCHAPARRO [id number] BRUCE Guzmán Specimen: [id number] Received: 08/27/24 Status: ML [place] Num: [id number] Spec Type: CHRISTI BX/C Subm Dr: BRUCE Guzmán HEADER OPERATION: Endometrial biopsy PRE-OP DIAGNOSIS: Abnormal uterine bleeding TISSUE SUBMITTED: A- Endometrial lining MICROSCOPIC DIAGNOSIS A. Uterus, endometrial lining, biopsy: * Secretory endometrium - see note. * Note: A few fragments of secretory endometrium are present, mixed with relatively abundant blood and mucus. MICROSCOPIC DESCRIPTION Slides are reviewed. GROSS DESCRIPTION A. Received in formalin in a container labeled with the patient's name, date of , and with no further designation are multiple tiny fragments of red-hutchison soft tissue admixed with blood and abundant mucus measuring 2.7 x 2.2 x 0.2 cm in aggregate. Submitted in toto in A1. [facility] 08-27-2024 CPT:51195 Patient Age/Sex Location Account Attending Physician MAYRA ARIAS/Cathy LABSCHAPARRO [id number] BRUCE Guzmán Signed (signatur e on file) Dr. Roshni Willingham MD 09/06/24 1823 Normal [facility] Comment on above: Performed By: #### P SUIV ####[facility] [address] [place], [place], [id number] Lipid Profileon 07-03-2024 CHOL:HDL 5.30 Normal [facility] Comment on above: Performed By: #### L 500.4050, L501.9520, L506.0400, L500.4100, L501.52858 ####[facility] [address] [place], [place], [id number] Cholesterol [Mass/Vol] 205 mg/dL High <=200 [facility] Comment on above: Result Comment: Chol esterol level, Desirable <200 mg/dL Borderline high cholesterol 200-239 mg/dL High cholesterol >=240 mg/dL Recommendations of the NCEP Adult Treatment Panel for the following risk-cutoff thresholds for the [place] population. Performed By: #### L 500.4050, L501.9520, L506.0400, L500.4100, L501.04739 ####[facility] [address] [place], [place], [id number] Cholesterol in HDL [Mass/Vol] 39 mg/dL Low [facility] Comment on above: Result Comment: [place] onthelma Cholesterol Education Program (NCEP) guidelines: <40 mg/dL: Low HDL-cholesterol (major risk factor for CHD) >= 60 mg/dL: High HDL-cholesterol (negative risk factor for CHD) HDL-cholesterol is affected by a number of factors, e.g. smoking, exercise, hormones, sex and age. Performed By: #### L 500.4050, L501.9520, L506.0400, L500.4100, L501.86644 ####[facility] [address] [place], [address] Cholesterol in LDL [Mass/Vol] 141 mg/dL Normal [facility] Comment on above: Result Comment: Bord wzevxo=742-985 mg/dL Higher Yqqc=133 mg/dL or greater Performed By: #### L 500.4050, L501.9520, L506.0400, L500.4100, L501.97230 ####[facility] [address] [place], [address] Cholesterol in VLDL [Mass/Vol] 26 mg/dL Normal 5-40 [facility] Comment on above: Performed By: #### L 500.4050, L501.9520, L506.0400, L500.4100, L501.04718 ####[facility] [address] [place], [address] Triglyceride [Mass/Vol] 129 mg/dL Normal [facility] Comment on above: Result Comment: The drugs N-Acetylcysteine and Metamizole may falsely depress this assay. Normal range: <150 mg/dL Borderline High: 150-199 mg/dL High: 200-499 mg/dL Very High: >500 mg/dL Performed By: #### L 500.4050, L501.9520, L506.0400, L500.4100, L501.70116 ####[facility] [address] [place], [address] BUN/creatinine ratioOrdered By: Dinesh Gan on 07-02-2024 Urea nitrogen/Creatinine [Mass ratio] 23.7 mg/mg High 10-20 [facility] Bilirubin, totalOrdered By: Dinesh Gan on 07-02-2024 Bilirubin [Mass/Vol] 0.38 mg/dL 0.00-1.30 [facility] Calculated very low density lipoprotein (VLDL) cholesterol measurementOrdered By: Dinesh Gan on 07-02-2024 Calculated very low density lipoprotein (VLDL) cholesterol measurement 26 mg/dL 5-40 [facility] VLDL Cholesterol 26 mg/dL 5-40 [facility] Carbon dioxide measurementOr dered By: Dinesh Gan on 07-02-2024 CO2 [Moles/Vol] 18.9 mmol/L Low 22.0-29.0 [facility] Chloride measurementOrdered By: Dinesh Gan on 07-02-2024 Chloride [Moles/Vol] 106 mmol/L 96-108 [facility] Comprehensive Metabolic Prof ilon 07-02-2024 Albumin [Mass/Vol] 4.2 g/dL Normal 3.5-5.0 [facility] Comment on above: Performed By: #### L 500.4050, L501.9520, L506.0400, L500.4100, L501.83081 ####[facility] [address] [place], [address] Albumin/Globulin [Mass ratio] 1.5 {ratio} Normal 0.9-2.4 [facility] Comment on above: Performed By: #### L 500.4050, L501.9520, L506.0400, L500.4100, L501.41088 ####[facility] [address] [place], [address] ALK PHOS 66 U/L Normal 35-104 [facility] Comment on above: Performed By: #### L 500.4050, L501.9520, L506.0400, L500.4100, L501.20982 ####[facility] [address] [place], [address] ALT [Catalytic activity/Vol] 7 U/L Normal <=34 [facility] Comment on above: Performed By: #### L 500.4050, L501.9520, L506.0400, L500.4100, L501.97058 ####[facility] [address] [place], [address] Anion gap [Moles/Vol] 14 mmol/L Normal 5-15 [facility] Comment on above: Performed By: #### L 500.4050, L501.9520, L506.0400, L500.4100, L501.69511 ####[facility] [address] [place], [address] AST [Catalytic activity/Vol] 16 U/L Normal <=31 [facility] Comment on above: Performed By: #### L 500.4050, L501.9520, L506.0400, L500.4100, L501.25981 ####[facility] [address] [place], [address] Bilirubin [Mass/Vol] 0.38 mg/dL Normal 0.00-1.30 [facility] Comment on above: Performed By: #### L 500.4050, L501.9520, L506.0400, L500.4100, L501.49900 ####[facility] [address] [place], [address] BUN/CRE 23.7 RATIO High 10-20 [facility] Comment on above: Performed By: #### L 500.4050, L501.9520, L506.0400, L500.4100, L501.49970 ####[facility] [address] [place], [address] Calcium [Mass/Vol] 9.4 mg/dL Normal 7.6-11.0 [facility] Comment on above: Performed By: #### L 500.4050, L501.9520, L506.0400, L500.4100, L501.81161 ####[facility] [address] [place], [address] Chloride [Moles/Vol] 106 mmol/L Normal 96-108 [facility] Comment on above: Performed By: #### L 500.4050, L501.9520, L506.0400, L500.4100, L501.14295 ####[facility] [address] [place], [address] CO2 [Moles/Vol] 18.9 mmol/L Low 22.0-29.0 [facility] Comment on above: Performed By: #### L 500.4050, L501.9520, L506.0400, L500.4100, L501.94006 ####[facility] [address] [place], [address] Creatinine [Mass/Vol] 0.63 mg/dL Low 0.70-1.20 [facility] Comment on above: Performed By: #### L 500.4050, L501.9520, L506.0400, L500.4100, L501.46301 ####[facility] [address] [place], [address] GFR/1.73 sq M.predicted among non-blacks MDRD (S/P/Bld) [Vol rate/Area] 109 mL/min/{1.73_m2} Normal >60 [facility] Comment on above: Result Comment: mL/m in/1.73m2 CKD-EPI Creatinine Equation (2020) Performed By: #### L 500.4050, L501.9520, L506.0400, L500.4100, L501.98471 ####[facility] [address] [place], [address] Globulin (S) [Mass/Vol] 2.8 g/dL Normal 2.2-4.2 [facility] Comment on above: Performed By: #### L 500.4050, L501.9520, L506.0400, L500.4100, L501.62010 ####[facility] [address] [place], [address] Glucose [Mass/Vol] 80 mg/dL Normal 70-99 [facility] Comment on above: Performed By: #### L 500.4050, L501.9520, L506.0400, L500.4100, L501.44667 ####[facility] [address] [place], [address] Potassium [Moles/Vol] 3.5 mmol/L Normal 3.3-5.1 [facility] Comment on above: Performed By: #### L 500.4050, L501.9520, L506.0400, L500.4100, L501.92769 ####[facility] [address] [place], [address] Sodium [Moles/Vol] 138 mmol/L Normal 133-145 [facility] Comment on above: Performed By: #### L 500.4050, L501.9520, L506.0400, L500.4100, L501.87532 ####[facility] [address] [place], [address] T PROT 7.0 g/dL Normal 5.9-8.4 [facility] Comment on above: Performed By: #### L 500.4050, L501.9520, L506.0400, L500.4100, L501.53173 ####[facility] [address] [place], [address] Urea nitrogen [Mass/Vol] 15 mg/dL Normal 4-19 [facility] Comment on above: Performed By: #### L 500.4050, L501.9520, L506.0400, L500.4100, L501.20190 ####[facility] [address] [place], [address] Free T3on 07-02-2024 Free T3 [Mass/Vol] 2.4 pg/mL Normal 2.18-3.98 [facility] Comment on above: Performed By: #### L 500.4050, L501.9520, L506.0400, L500.4100, L501.38745 ####[facility] [address] [place], [address] Free X2Vdkteun By: Dinesh nation on 07-02-2024 Free T3 [Mass/Vol] 2.4 pg/mL 2.18-3.98 [facility] Free Triiodothyronine (T3) pg/dL 2.4 pg/mL 2.18-3.98 [facility] GFR/1.73 sq M.predicted dolly g non-blacks MDRD (S/P/Bld) [Vol rate/Area]Ordered By: Dinesh Gan on 07-02-2024 Estimated GFR (MDRD) Non-Af Amer 109 >60 [facility] Comment on above: mL/min/1.73m2 CKD-EP I Creatinine Equation (2020) Glomerular filtration rate ( GFR) estimation/1.73 sq m using serum, plasma, or whole bOrdered By: Dinesh Gan on 07-02-2024 GFR/1.73 sq M.predicted among non-blacks MDRD (S/P/Bld) [Vol rate/Area] 109 mL/min/{1.73_m2} >60 [facility] Comment on above: mL/min/1.73m2 CKD-EP I Creatinine Equation (2020) LDL calc ser/plasOrdered By: Dinesh Gan on 07-02-2024 Cholesterol in LDL [Mass/Vol] 141 mg/dL [facility] Comment on above: Sitiaqkudl=952-503 m g/dL & Higher Fvyi=870 mg/dL or greater LDL Cholesterol, Calculated 141 mg/dL [facility] Comment on above: Sdlrhlxmwy=009-001 m g/dL & Higher Cots=163 mg/dL or greater Laboratory - Chemistry and C hemistry - challengeOrdered By: Dinesh Gan on 07-02-2024 AST [Catalytic activity/Vol] 16 U/L <32 [facility] Screening total cholesterol/ high density lipoprotein (HDL) cholesterol ratioOrdered By: Dinesh Gan on 07-02-2024 Cholesterol.total/Cho lesterol in HDL [Mass ratio] 5.30 {ratio} [facility] Serum creatinine measurement (mass/volume)Ordered By: Dinesh Gan on 07-02-2024 Creatinine [Mass/Vol] 0.63 mg/dL Low 0.70-1.20 [facility] Serum globulin measurementOr dered By: Dinesh Gan on 07-02-2024 Globulin (S) [Mass/Vol] 2.8 g/dL 2.2-4.2 [facility] Serum glucose measurement (m ass/volume)Ordered By: Dinesh Gan on 07-02-2024 Glucose [Mass/Vol] 80 mg/dL 70-99 [facility] Serum or plasma alanine fermin otransferase (ALT) measurementOrdered By: Dinesh Gan on 07-02-2024 ALT [Catalytic activity/Vol] 7 U/L <35 [facility] Serum or plasma albumin nette urement (mass/volume)Ordered By: Dinesh Gan on 07-02-2024 Albumin [Mass/Vol] 4.2 g/dL 3.5-5.0 [facility] Serum or plasma albumin/glob ulin mass ratioOrdered By: Dinesh Gan on 07-02-2024 Albumin/Globulin [Mass ratio] 1.5 {ratio} 0.9-2.4 [facility] Serum or plasma alkaline katalina sphatase measurementOrdered By: Dinesh Gan on 07-02-2024 ALP [Catalytic activity/Vol] 66 U/L 35-104 [facility] Serum or plasma anion gap de termination (moles/volume)Ordered By: Dinesh Gan on 07-02-2024 Anion gap [Moles/Vol] 14 mmol/L 5-15 [facility] Serum or plasma calcium nette urement (mass/volume)Ordered By: Dinesh Gan on 07-02-2024 Calcium [Mass/Vol] 9.4 mg/dL 7.6-11.0 [facility] Serum or plasma cholesterol in HDL measurement (mass/volume)Ordered By: Dinesh Gan on 07-02-2024 Cholesterol in HDL [Mass/Vol] 39 mg/dL Low >40 [facility] Comment on above: National Cholesterol Education Program (NCEP) guidelines:<40 mg/dL: Low HDL-cholesterol (major risk factor for CHD)>= 60 mg/dL: High HDL-cholesterol (negative risk factor for CHD)HDL-cholesterol is affected by a number of factors, e.g. smoking, exercise, hormones, sex and age. Serum or plasma cholesterol measurement (mass/volume)Ordered By: Dinesh Gan on 07-02-2024 Cholesterol [Mass/Vol] 205 mg/dL High <201 [facility] Comment on above: Cholesterol level, D esirable <200 mg/dLBorderline high cholesterol 200-239 mg/dLHigh cholesterol >=240 mg/dLRecommendations of the NCEP Adult Treatment Panel for the following risk-cutoff thresholds for the [place] population. Serum or plasma potassium me asurementOrdered By: Dinesh Gan on 07-02-2024 Potassium [Moles/Vol] 3.5 mmol/L 3.3-5.1 [facility] Serum or plasma sodium measu rement (moles/volume)Ordered By: Dinesh Gan on 07-02-2024 Sodium [Moles/Vol] 138 mmol/L 133-145 [facility] Serum or plasma urea nitroge n measurement (mass/volume)Ordered By: Dinesh Gan on 07-02-2024 Urea nitrogen [Mass/Vol] 15 mg/dL 4-19 [facility] T4 Free Directon 07-02-2024 T4 FREE DIRECT 1.10 ng/dL Normal 0.76-1.46 [facility] Comment on above: Performed By: #### L 500.4050, L501.9520, L506.0400, L500.4100, L501.83584 ####[facility] [address] [place], [address] T4 freeOrdered By: Dinesh nation on 07-02-2024 Free T4 [Mass/Vol] 1.10 ng/dL 0.76-1.46 [facility] TSH DL <= 0.005 mIU/L QnOrde red By: Dinesh Gan on 07-02-2024 Thyroid Stimulating Hormone (TSH) 3.980 uIU/mL 0.300-4.200 [facility] TSH Qn 3.980 uIU/mL 0.300-4.200 [facility] Thyroid Stim Hormone (TSH)on 07-02-2024 TSH 3.980 uIU/mL Normal 0.300-4.200 [facility] Comment on above: Performed By: #### L 500.4050, L501.9520, L506.0400, L500.4100, L501.44127 ####[facility] [address] [place], [address] Total proteinOrdered By: Yany Gan on 07-02-2024 Protein [Mass/Vol] 7.0 g/dL 5.9-8.4 [facility] Triglycerides measurementOrd ered By: Dinesh Gan on 07-02-2024 Triglyceride [Mass/Vol] 129 mg/dL <199 [facility] Comment on above: The drugs N-Acetylcy steine and Metamizole may falsely depress this assay. Normal range: <150 mg/dLBorderline High: 150-199 mg/dLHigh: 200-499 mg/dLVery High: >500 mg/dL Associate Professor Office Visit Reporton 03-12-2024 Associate Professor Office Visit Report [facility] [address], [address] [place] [address] OFFICE VISIT Date of Service: 03/12/24 MR#: [id number] Acct: [id number] Name: MAYRA ARIAS Rep #: [id number] : 1975 Provider: Dr. 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 Required: No Is patient in pain?: No Allergies amlodipine Adverse Reaction (Verified 03/12/24 15:31) Chest pain Medications ???Medication ???Instructions ???Recorded ???Confirmed ???Type lisinopril 10 mg tablet 10 mg PO QDAY 01/11/24 03/12/24 History tranexamic acid 650 mg tablet 1,300 mg (2 x 650 mg) PO .COMPLEX 03/06/24 03/12/24 Rx #60 tabs Post menopausal: No Patient : No : No PFSH Medical History Thyroid disease Anemia Fatty liver Non-smoker CPAP (continuous positive airway pressure) dependence Shortness of breath on exertion Leg cramps History of pain when walking History of stress test History of irregular heartbeat History of kidney stones GERD (gastroesophageal reflux disease) Hyperlipidemia HTN (hypertension) History of rectal polyps Anxiety Surgical History delivery delivered Hx laparoscopic cholecystectomy History of foot surgery Hx of LASIK Family History Father Hypertension Heart disease Colon polyps Social History household members: spouse and children current occupational status: unemployed Smoking Status: Never smoker alcohol intake: never substance use type: does not use caffeine: Yes what type of physical activity do you participate in: none seatbelt use: always do you feel safe at home: Yes 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 She states that since starting the TXA her periods are slightly improved. She is also taking iron and her hg improved from 7 to 11.5. Ultrasound was found to have a 13 cm uterus. No fibroids noted. She is hypertensive and not a candidate, nor is she interested in hormonal therapy or an IUD. She is here today to discuss hysterectomy. FINDINGS: The uterus is anteverted and is in a midline position. The uterus measures 7.1 cm. There is a Nabothian cyst of the cervix. The endometrium is not visualized.. Fibroid visualized measuring 12.9 x 13 cm and 4.6 cm. I.U.D. - The patient does not have an I.U.D. There is nonvisualization of the right ovary due to overlying bowel gas. The left ovary is visualized. The left ovary measures 3.6 cm. Cyst measures 14 mm. There is no visualized left adnexal mass or complex lesion. There is normal arterial and normal venous vascularity. There is no fluid in the cul-de-sac. Unremarkable urinary bladder. US/Pelvic w/ Transvaginal IMPRESSION: There are no acute findings. No evidence for ovarian torsion of the left ovary. The right ovary is not seen. Question fibroid uterus. Electronically Signed: Raciel Yeung MD at 19:42 EDT , History 2 Elective abortions Hx Para 2 Spontaneous abortions Hx # Term Pregnancies Ectopic pregnancies Hx # Pregnancies Multiple births # of living children Past Pregnancies Del. Date Name GA/Weeks Outcome Route Bth Weight Gen Labor Lgth Anesthesia Del Locatn Provider FOB Unknown 2009 [place] live - full term Unknown 2011 [place] live - full term ROS Const ROS Unobtainable: All systems reviewed are unremarkable except as noted in H Resp Resp: Reports system reviewed and no additional complaints, except as documented; Denies cough GI GI: Reports as per HPI Psych Psych: Reports system reviewed and no additional complaints, except as documented Exam Const General: cooperative, healthy appearing, comfortable and no acute distress Resp Effort Inspection: normal respiratory effort Skin General: no rashes or lesions noted Psych Appearance: grossly normal Speech and Movement: speech and movement normal Coding Level of Care Code Off vis,est,level 3 Diagnoses Enlarged uterus N85.2 Menorrhagia with (more content not included)... Normal [facility] T4 Free Directon 03-12-2024 T4 FREE DIRECT 0.80 ng/dL Normal 0.76-1.46 [facility] Comment on above: Performed By: #### L 506.0400, L501.9520 #### [facility] [address] [place], [place], [address] Thyroid Stim Hormone (TSH)on 03-12-2024 TSH 4.590 uIU/mL High 0.358-3.740 [facility] Comment on above: Performed By: #### L 506.0400, L501.9520 #### [facility] [address] [place], [address] Associate Professor Office Visit Reporton 03-06-2024 Associate Professor Office Visit Report [facility] [address], [address] [place] [address] OFFICE VISIT Date of Service: 03/06/24 MR#: [id number] Acct: [id number] Name: MAYRA ARIAS Rep #: [id number] : 1975 Provider: BRUCE reynoso Age/Sex: 48/F Location: [facility] [place] Status: Signed Intake Vital Signs 01/11/24 11:47 03/06/24 10:18 03/06/24 10:23 Height 5 ft 3 in 5 ft 3 in 5 ft 3 in Weight: 223 lb BMI 39.4 BP 120/82 H Intake Visit Reasons: 6 wk FU Chief Complaint: 6 Week F/u 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 Required: No Is patient in pain?: No Allergies amlodipine Adverse Reaction (Verified 03/06/24 10:18) Chest pain Medications ???Medication ???Instructions ???Recorded ???Confirmed ???Type lisinopril 10 mg tablet 10 mg PO QDAY 01/11/24 03/06/24 History tranexamic acid 650 mg tablet 1,300 mg (2 x 650 mg) PO .COMPLEX 03/06/24 03/06/24 Rx #60 tabs Is last menstrual period known: Yes Last Menstrual Period: 03/02/24 Post menopausal: No Patient : No : No PFSH Medical History Thyroid disease Anemia Fatty liver Non-smoker CPAP (continuous positive airway pressure) dependence Shortness of breath on exertion Leg cramps History of pain when walking History of stress test History of irregular heartbeat History of kidney stones GERD (gastroesophageal reflux disease) Hyperlipidemia HTN (hypertension) History of rectal polyps Anxiety Surgical History delivery delivered Hx laparoscopic cholecystectomy History of foot surgery Hx of LASIK Family History Father Hypertension Heart disease Colon polyps Social History household members: spouse and children current occupational status: unemployed Smoking Status: Never smoker alcohol intake: never substance use type: does not use caffeine: Yes what type of physical activity do you participate in: none seatbelt use: always do you feel safe at home: Yes 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 She is fearful of surgery-'afraid of blood clot after. She wishes to avoid estrogen. Female Reproductive History Last Menstrual Period: 03/02/24 History 2 Elective abortions Hx Para 2 Spontaneous abortions Hx # Term Pregnancies Ectopic pregnancies Hx # Pregnancies Multiple births # of living children Past Pregnancies Del. Date Name GA/Weeks Outcome Route Bth Weight Infant Gen Labor Lgth Anesthesia Del Locatn Provider FOB Unknown 2009 [place] live - full term Unknown 2011 [place] live - full term ROS Const Constitutional: Reports system reviewed and no additional complaints, except as documented Eyes Eyes: Reports system reviewed and no additional complaints, except as documented GI GI: Denies abdominal pain or change in bowel habits : Reports as per HPI Exam Const General: cooperative and no acute distress Orientation: oriented x3 HENMT Head: normal to inspection and normocephalic Eyes General: appearance normal, both eyes and all related structures Neck Neck: normal visual inspection Resp Effort Inspection: normal respiratory effort Neuro Cognition: normal cognition Speech: speech normal Psych Appearance: grossly normal Mood: congruent mood Affect: normal affect Speech and Movement: speech and movement normal Attitude: cooperative Judgment: judgment good Coding Level of Care Code Off vis,est,level 3 Diagnoses Uterine leiomyoma, unspecified location D25.9 Uterine leiomyoma location: unspecified location Enlarged uterus N85.2 Menorrhagia with regular cycle N92.0 Assessment and Plan Assessment and Plan (1) Uterine fibroid: Status: Acute Qualifiers: Uterine leiomyoma location: unspecified location Qualified Code(s): D25.9 - Leiomyoma of uterus, unspecified Comment: [id number]:surgi eduardo consult JV. She has fear of DVT. No hx. (2) Enlarged uterus: Status: Acute Comment: US. (3) Menorrhagia with regular cycle: Status: Acute Comment: lysteda. Declines estrogen. Medications: Refilled tranexamic acid 1,300 mg orally 3 times a day up to 5 days with onset of menses; 60 tabs 2RF Plan Discussed risks of hysterectomy jason concerning anesthesia and DVT risks She would like to discuss further with surgeon and she will be scheduled with Dr Reyes to discuss robotic LAVH. She will c (more content not included)... Normal [facility] CBC W/Diff, Automatedon 10-0 PLT EST ADEQUATE Normal ADEQ [facility] Comment on above: Performed By: #### L 100.0100 #### [facility] [address] [place], [address] Anisocytosis Ql (Bld) 3+ Normal [facility] Comment on above: Performed By: #### L 100.0100 #### [facility] [address] [place], [address] MACROCYTOSIS 1+ Normal [facility] Comment on above: Performed By: #### L 100.0100 #### [facility] [address] [place], [address] MICROCYTIC 1+ Normal [facility] Comment on above: Performed By: #### L 100.0100 #### [facility] [address] [place], [address] SMEAR COMMENT SCANNED Normal [facility] Comment on above: Performed By: #### L 100.0100 #### [facility] [address] [place], [address] SCRN MAMM (CAD)W/CHICA BILATo n 01-24-2024 SCRN MAMM (CAD)W/CHICA BILAT [facility] Imaging Services [address] [place] [address] SCRN MAMM (CAD)W/CHICA BILAT MR#: [id number] Acct: [id number] Name: MAYRA ARIAS Rep #: [id number] : 1975 F 48 From: Juan Luis de los santos MD PCP: Dr. Dinesh Gan MD Status: [facility] Study: SCRN MAMM (CAD)W/CHICA BILAT Date of Exam: 01/01 08/23 Exam# [id number] Ordering Dr: Ashlie Basurto NP [employer] -C [id number] MAMMOGRAPHY - BILATERAL SCREENING REASON FOR EXAM: Female, 48 years old. Routine annual screening examination. PERTINENT HISTORY: Non-contributory. TECHNIQUE: Digital bilateral breast chica (3D mammographic acquisition) in the CC and MLO projections. 2-D mediolateral oblique (MLO) and craniocaudad (CC) views of both breasts were obtained. CAD: Full Field Digital Mammography with Computer Added Detection was performed. COMPARISON: Comparison is made with prior study dated November 23, 2022 and November 25, 2022. Comparison is also made with prior MRI of the breasts dated January 20, 2023. FINDINGS: Breast Composition: There are scattered areas of fibroglandular density. There are no dominant masses or suspicious calcifications. No other significant abnormalities are identified. There has been no significant change since the prior study. BI/SCRN MAMM (CAD)W/CHICA BILAT IMPRESSION: Stable bilateral screening mammogram. Yearly follow-up mammogram recommended. (A) ASSESSMENT CATEGORY: BIRADS Category 1: Negative. A letter regarding these results will be sent to the patient by the facility within 30 days. Approximately 10% of breast cancers are not detected by mammography. A normal mammogram should not delay biopsy of a clinically suspicious abnormality. [id number] Electronically Signed: Juan Luis Soto MD at 11:05 EDT , CC: BRUCE Basurto; Dr. Dinesh Gan MD Weather Forecaster: Signed Normal [facility] Pelvic w/ Transvaginalon Pelvic w/ Transvaginal [facility] Imaging Services [address] [place], [place] [address] Pelvic w/ Transvaginal MR#: [id number] Acct: [id number] Name: MAYRA ARIAS Rep #: [id number] : 1975 F 48 From: Raciel Gaines PCP: Dr. Dinesh Gan MD Status: [facility] Study: Pelvic w/ Transvaginal Date of Exam: 01/20/24 Exam# [id number] Ordering Dr: Ashlie Basurto NP [employer]ING [employer] -C [id number] STUDY: ULTRASOUND OF THE FEMALE PELVIS - COMPLETE REASON FOR EXAM: Female, 48 years old. bleeding TECHNIQUE: Transvaginal and transabdominal imaging. COMPARISON: None. FINDINGS: The uterus is anteverted and is in a midline position. The uterus measures 7.1 cm. There is a Nabothian cyst of the cervix. The endometrium is not visualized.. Fibroid visualized measuring 12.9 x 13 cm and 4.6 cm. I.U.D. - The patient does not have an I.U.D. There is nonvisualization of the right ovary due to overlying bowel gas. The left ovary is visualized. The left ovary measures 3.6 cm. Cyst measures 14 mm. There is no visualized left adnexal mass or complex lesion. There is normal arterial and normal venous vascularity. There is no fluid in the cul-de-sac. Unremarkable urinary bladder. US/Pelvic w/ Transvaginal IMPRESSION: There are no acute findings. No evidence for ovarian torsion of the left ovary. The right ovary is not seen. Question fibroid uterus. Electronically Signed: Raciel Yeung MD at 19:42 EDT , CC: BRUCE Basurto; Dr. Dinesh Gan MD Weather Forecaster: Signed Normal [facility] PAP IG HPV APTIMA 16/18,45on 01-16-2024 ADEQ Comment Normal . [facility] Comment on above: Order Comment: Speci men Comment: [id number] Comment: No. of containers..01 ThinPrep Vial Result Comment: Sati sfactory for evaluation. Endocervical and/or squamous metaplastic cells (endocervical component) are present. Performed By: #### L 7400.0280 ####[facility] [address] [place], [place], [id number] COMM . Normal . [facility] Comment on above: Order Comment: Speci men Comment: [id number] Comment: No. of containers..01 ThinPrep Vial Performed By: #### L 7400.0280 ####[facility] [address] [place], [place], [id number] COMMENT Comment Normal . [facility] Comment on above: Order Comment: Speci men Comment: [id number] Comment: No. of containers..01 ThinPrep Vial Result Comment: This liquid based ThinPrep(R) pap test was screened with the use of an image guided system. Performed By: #### L 7400.0280 ####[facility] [address] [place], [place], [id number] DIAG Comment Normal . [facility] Comment on above: Order Comment: Speci men Comment: [id number] Comment: No. of containers..01 ThinPrep Vial Result Comment: NEGA TIVE FOR INTRAEPITHELIAL LESION OR MALIGNANCY. Performed By: #### L 7400.0280 ####[facility] [address] [place], [place], [id number] HPV APTIMA, HR Negative Normal Negative [facility] Comment on above: Order Comment: Speci men Comment: [id number] Comment: No. of containers..01 ThinPrep Vial Result Comment: This nucleic acid amplification test detects fourteen high- risk HPV types (16,18,31,33,35,39,45,51,52,56,58,59,66,68) without differentiation. Performed By: #### L 7400.0280 ####[facility] [address] [place], [address] HPV Marlee Rfx Comment Normal . [facility] Comment on above: Order Comment: Speci men Comment: [id number] Comment: No. of containers..01 ThinPrep Vial Result Comment: Crit eria not met, HPV Genotype not performed. Performed at: - [address] [id number] Product Support Consultant: Rebekah Lynn MD, Phone: [phone] Performed at: = - [facility] [id number] Product Support Consultant: Rebekah Lynn MD, Phone: [phone] Performed By: #### L 7400.0280 ####[facility] [address] [place], [place], [id number] PAPSMR Comment Normal . [facility] Comment on above: Order Comment: Speci men Comment: [id number] Comment: No. of containers..01 ThinPrep Vial Result Comment: The Pap smear is a screening test designed to aid in the detection of premalignant and malignant conditions of the uterine cervix. It is not a diagnostic procedure and should not be used as the sole means of detecting cervical cancer. Both false-positive and false-negative reports do occur. Performed By: #### L 7400.0280 ####[facility] [address] [place], [place], [address] PERFORM Comment Normal . [facility] Comment on above: Order Comment: Speci men Comment: [id number] Comment: No. of containers..01 ThinPrep Vial Result Comment: Fidelina Linares, Certified Athletic Trainer (ASCP) Performed By: #### L 7400.0280 ####[facility] [address] [place], [place], [address] Associate Professor Office Visit Reporton 01-11-2024 Associate Professor Office Visit Report [facility] [address], [address] [place] [address] OFFICE VISIT Date of Service: 01/11/24 MR#: [id number] Acct: [id number] Name: MAYRA ARIAS Rep #: [id number] : 1975 Provider: BRUCE reynoso Age/Sex: 48/F Location: [facility] [place] Status: Signed Intake Vital Signs 04/20/23 13:43 01/11/24 11:40 01/11/24 11:47 Height 5 ft 3 in 5 ft 3 in 5 ft 3 in Weight: 231 lb 6 oz BMI 40.9 BP 134/78 H Intake Visit Reasons: HEAVY MENSES/[facility]IA URGENT ([place]) Chief Complaint: Heavy Menses/Anemia 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 Required: No Is patient in pain?: No Allergies amlodipine Adverse Reaction (Verified 01/11/24 11:40) Chest pain Medications ???Medication ???Instructions ???Recorded ???Confirmed ???Type omeprazole 20 mg capsule,delayed 20 mg PO DAILY PRN indigestion 03/29/23 01/11/24 History release lisinopril 10 mg tablet 10 mg PO QDAY 01/11/24 01/11/24 History Is last menstrual period known: Yes Last Menstrual Period: 01/05/24 Post menopausal: No Patient : No : No PFSH Medical History Thyroid disease Anemia Fatty liver Non-smoker CPAP (continuous positive airway pressure) dependence Shortness of breath on exertion Leg cramps History of pain when walking History of stress test History of irregular heartbeat History of kidney stones GERD (gastroesophageal reflux disease) Hyperlipidemia HTN (hypertension) History of rectal polyps Anxiety Surgical History delivery delivered Hx laparoscopic cholecystectomy History of foot surgery Hx of LASIK Family History Father Hypertension Heart disease Colon polyps Social History (Updated 01/11/24 @ 11:49 by Miesha Sommer) household members: spouse and children current occupational status: unemployed Smoking Status: Never smoker alcohol intake: never substance use type: does not use caffeine: Yes what type of physical activity do you participate in: none seatbelt use: always do you feel safe at home: Yes additional social history: - [employer]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 Menses occurring every 21 days(5 days earlier then they used to be), lasting 7 days. Changing protection every 20-30 min on heaviest day and this is 2nd or 3rd day of menses. She is anemic. Taking OTC FE bid per PCP(Jacy). Was referred per PCP. These heavy menses have been occurring X 12 years. Condoms for contraception. Female Reproductive History Last Menstrual Period: 01/05/24 Cycle Length: 21-35 Bleeding Duration: 7 Questions: metorrhagia: Yes, sexually active: Yes, dyspareunia: No and PCB: No History 2 Elective abortions Hx Para 2 Spontaneous abortions Hx # Term Pregnancies Ectopic pregnancies Hx # Pregnancies Multiple births # of living children Past Pregnancies Del. Date Name GA/Weeks Outcome Route Bth Weight Gen [facility] Unknown 2009 [place] live - full term Unknown 2011 [place] live - full term ROS Const Constitutional: Reports system reviewed and no additional complaints, except as documented Eyes Eyes: Reports system reviewed and no additional complaints, except as documented GI GI: Denies abdominal pain or change in bowel habits : Reports as per HPI Exam Const General: cooperative and no acute distress Orientation: oriented x3 General: bladder normal to palpation External Female Exam: normal external appearance and normal appearance of the urethra Urethra: normal appearance of the urethra Speculum Exam - Vagina: normal appearance of the vagina, normal vaginal discharge, no lesions and nontender Speculum Exam - Cervix: normal appearance of the cervix Bimanual Exam- Vagina Uterus: bladder normal to palpation, non-tender, enlarged and nodular Bimanual Exam- Adnexa, other: normal adnexae, no masses and non-tender Coding Level of Care Code Off vis,new,level 3 Diagnoses Menorrhagia with regular cycle N92.0 Enlarged uterus N85.2 Assessment and Plan Assessment and Plan (1) Menorrhagia with regular cycle: Status: Acute (2) Enlarged uterus: Status: Acute Comment: US. Orders: Orders PAP IG HPV APTIMA 16/18,45 Today Z12.4 - Encounter for screening for malignant neoplasm of cervix SCRN MAMM (CAD)W/CHICA BILAT Today Pelvic w/ Transvaginal Today N92.0 - Excessive and frequent menstruation with regular cycle Plan thin prep pap with H (more content not included)... Normal [facility] CBC W/Diff, Automatedon 09-0 Anisocytosis Ql (Bld) 3+ Normal [facility] Comment on above: Order Comment: Order Date: 12/29/23 Order Info: 0184-1 - CBCD Performed By: #### L 100.0100, L503.6561, L503.6075 #### [facility] [address] [place], [place], [id number] HYPOCHROMASIA 1+ Normal [facility] Comment on above: Order Comment: Order Date: 12/29/23 Order Info: 0184-1 - CBCD Performed By: #### L 100.0100, L503.6550, L503.6075 #### [facility] [address] [place], [address] MACROCYTOSIS 1+ Normal [facility] Comment on above: Order Comment: Order Date: 12/29/23 Order Info: 183- - CBCD Performed By: #### L 100.0100, L503.6550, L503.6075 #### [facility] [address] [place], [address] MICROCYTIC 2+ Normal [facility] Comment on above: Order Comment: Order Date: 12/29/23 Order Info: 183- - CBCD Performed By: #### L 100.0100, L503.6550, L503.6075 #### [facility] [address] [place], [address] PLT EST ADEQUATE Normal ADEQ [facility] Comment on above: Order Comment: Order Date: 12/29/23 Order Info: 183- - CBCD Performed By: #### L 100.0100, L503.6550, L503.6075 #### [facility] [address] [place], [address] SCHISTOCYTES 1+ Normal [facility] Comment on above: Order Comment: Order Date: 12/29/23 Order Info: 183- - CBCD Performed By: #### L 100.0100, L503.6550, L503.6075 #### [facility] [address] [place], [address] SMEAR COMMENT SCANNED Normal [facility] Comment on above: Order Comment: Order Date: 12/29/23 Order Info: 183-1 - CBCD Performed By: #### L 100.0100, L503.6550, L503.6075 #### [facility] [address] [place], [address] Ferritinon 01-05-2024 Ferritin [Mass/Vol] 7 ng/mL Low 8-252 [facility] Comment on above: Order Comment: Order Date: 12/29/23Order Info: 2499-7 - TIBCOrder Info: 2275-08 - SONJA Performed By: #### L 100.0100, L503.6550, L503.6075 ####[facility] [address] [place], [address] Iron Binding Capacity,Totalo n 01-05-2024 TIBC 407 ug/dL Normal 250-450 [facility] Comment on above: Order Comment: Order Date: 12/29/23Order Info: 7 - TIBCOrder Info: [id number] - SONJA Performed By: #### L 100.0100, L503.6550, L503.6075 ####[facility] [address] [place], [address] Basic Metabolic Profile (BMP )on 12-29-2023 BUN/CRE 23.2 RATIO High 10-20 [facility] Comment on above: Performed By: #### L 500.2500, L500.4100, L100.0100 #### [facility] [address] [place], [address] CA,Total 8.9 mg/dL Normal 8.5-10.1 [facility] Comment on above: Performed By: #### L 500.2500, L500.4100, L100.0100 #### [facility] [address] [place], [address] Chloride [Moles/Vol] 108 mmol/L High 98-107 [facility] Comment on above: Performed By: #### L 500.2500, L500.4100, L100.0100 #### [facility] [address] [place], [address] CO2 [Moles/Vol] 24.0 mmol/L Normal 21.0-32.0 [facility] Comment on above: Performed By: #### L 500.2500, L500.4100, L100.0100 #### [facility] [address] [place], [address] Creatinine [Mass/Vol] 0.73 mg/dL Normal 0.55-1.02 [facility] Comment on above: Result Comment: The validity of the calculated GFR GFRAA in patients over 70 years has not been determined. Clinical correlation is essential. Performed By: #### L 500.2500, L500.4100, L100.0100 #### [facility] [address] [place], [address] EST GFR - AA 109 mL/min Normal >60 [facility] Comment on above: Result Comment: Afri can Iraqi GFR Calc Performed By: #### L 500.2500, L500.4100, L100.0100 #### [facility] [address] [place], [address] GAP 5 Normal 5-15 [facility] Comment on above: Performed By: #### L 500.2500, L500.4100, L100.0100 #### [facility] [address] [place], [address] GFR/1.73 sq M.predicted among non-blacks MDRD (S/P/Bld) [Vol rate/Area] 90 mL/min/{1.73_m2} Normal >60 [facility] Comment on above: Result Comment: Non- GFR Calc Performed By: #### L 500.2500, L500.4100, L100.0100 #### [facility] [address] [place], [address] Glucose [Mass/Vol] 101 mg/dL Normal 74-106 [facility] Comment on above: Result Comment: Fast ing Glucose result from 100 to 125 mg/dL suggests IMPAIRED HOMEOSTASIS per A.D.A. criteria. Performed By: #### L 500.2500, L500.4100, L100.0100 #### [facility] [address] [place], [address] Potassium [Moles/Vol] 3.6 mmol/L Normal 3.5-5.1 [facility] Comment on above: Performed By: #### L 500.2500, L500.4100, L100.0100 #### [facility] [address] [place], [address] Sodium [Moles/Vol] 137 mmol/L Normal 136-145 [facility] Comment on above: Performed By: #### L 500.2500, L500.4100, L100.0100 #### [facility] [address] [place], [address] Urea nitrogen [Mass/Vol] 17 mg/dL Normal 7-18 [facility] Comment on above: Performed By: #### L 500.2500, L500.4100, L100.0100 #### [facility] [address] [place], [address] CBC W/Diff, Automatedon 12-01 Anisocytosis Ql (Bld) 2+ Normal [facility] Comment on above: Performed By: #### L 500.2500, L500.4100, L100.0100 #### [facility] [address] [place], [address] MICROCYTIC 2+ Normal [facility] Comment on above: Performed By: #### L 500.2500, L500.4100, L100.0100 #### [facility] [address] [place], [address] SMEAR COMMENT SCANNED Normal [facility] Comment on above: Performed By: #### L 500.2500, L500.4100, L100.0100 #### [facility] [address] [place], [address] Lipid Profileon 12-29-2023 Cholesterol [Mass/Vol] 185 mg/dL Normal 200 [facility] Comment on above: Result Comment: <200 mg/dL Desirable 200-240 mg/dL Borderline >240 mg/dL High Risk Performed By: #### L 500.2500, L500.4100, L100.0100 #### [facility] [address] [place], [address] Cholesterol in HDL [Mass/Vol] 38 mg/dL Low [facility] Comment on above: Result Comment: The drugs N-Acetylcysteine and Metamizole may falsely depress this assay. Reference Range HDL <40 mg/dL Low HDL Cholesterol HDL >or= 60 mg/dL High HDL Cholesterol Performed By: #### L 500.2500, L500.4100, L100.0100 #### [facility] [address] [place], [address] Cholesterol in LDL [Mass/Vol] 125 mg/dL Normal 0-130 [facility] Comment on above: Performed By: #### L 500.2500, L500.4100, L100.0100 #### [facility] [address] [place], [address] Cholesterol in VLDL [Mass/Vol] 22 mg/dL Normal 5-40 [facility] Comment on above: Performed By: #### L 500.2500, L500.4100, L100.0100 #### [facility] [address] [place], [address] Triglyceride [Mass/Vol] 109 mg/dL Normal [facility] Comment on above: Result Comment: The drugs N-Acetylcysteine and Metamizole may falsely depress this assay. Serum Triglycerides Reference Interval Normal <150 mg/dL Borderline high 150 - 199 mg/dL High 200 - 499 mg/dL Very High > or = 500 mg/dL Performed By: #### L 500.2500, L500.4100, L100.0100 #### [facility] [address] [place], [address] Basophil percentageOrdered B y: Dinesh Gan on 06-29-2023 Bilirubin [Mass/Vol] 0.50 mg/dL 0.20-1.00 [facility] Comment on above: For patients on eltr ombopag therapy, use of Dimension [place] TBIL is not recommended. Chloride [Moles/Vol] 106 mmol/L 98-107 [facility] Cholesterol [Mass/Vol] 167 mg/dL <200 [facility] Comment on above: <200 mg/dL Desirable 200-240 mg/dL Borderline >240 mg/dL High Risk Glucose [Mass/Vol] 96 mg/dL 74-106 [facility] Potassium [Moles/Vol] 3.6 mmol/L 3.5-5.1 [facility] Protein [Mass/Vol] 7.4 g/dL 6.4-8.2 [facility] Sodium [Moles/Vol] 140 mmol/L 136-145 [facility] Triglyceride [Mass/Vol] 89 mg/dL <199 [facility] Comment on above: The drugs N-Acetylcy steine and Metamizole may falsely depress this assay.Serum Triglycerides Reference Interval Normal <150 mg/dL Borderline high 150 - 199 mg/dL High 200 - 499 mg/dL Very High > or = 500 mg/dL Laboratory - Chemistry and C hemistry - challengeOrdered By: Dinesh Gan on 06-29-2023 Albumin/Globulin [Mass ratio] 1.1 {ratio} 0.9-2.4 [facility] ALP [Catalytic activity/Vol] 93 U/L 45-117 [facility] ALT [Catalytic activity/Vol] 27 U/L 13-56 [facility] Cholesterol in HDL [Mass/Vol] 43 mg/dL >40 [facility] Comment on above: The drugs N-Acetylcy steine and Metamizole may falsely depress this assay. Reference Range HDL <40 mg/dL Low HDL Cholesterol HDL >or= 60 mg/dL High HDL Cholesterol Cholesterol in LDL [Mass/Vol] 106 mg/dL 0-130 [facility] CO2 [Moles/Vol] 25.0 mmol/L 21.0-32.0 [facility] Globulin (S) [Mass/Vol] 3.6 g/dL 2.2-4.2 [facility] Urea nitrogen/Creatinine [Mass ratio] 18.0 mg/mg 10-20 [facility] No Panel InformationOrdered By: Dinesh Gan on 06-29-2023 Estimated GFR (MDRD) Amer 102 mL/min >60 [facility] Comment on above: GFR Calc Estimated GFR (MDRD) Non-Af Amer 84 mL/min >60 [facility] Comment on above: Non- GFR Calc VLDL Cholesterol 18 mg/dL 5-40 [facility] Serum or plasma calcium nette urement (mass/volume)Ordered By: Dinesh Gan on 06-29-2023 Calcium [Mass/Vol] 9.5 mg/dL 8.5-10.1 [facility] Serum or plasma creatinine m easurement (mass/volume)Ordered By: Dinesh Gan on 06-29-2023 Creatinine [Mass/Vol] 0.78 mg/dL 0.55-1.02 [facility] Comment on above: The validity of the calculated GFR & GFRAA in patients over 70 years has not been determined. Clinical correlation is essential. Serum or plasma urea nitroge n measurement (mass/volume)Ordered By: Dinesh Gan on 06-29-2023 Urea nitrogen [Mass/Vol] 14 mg/dL 7-18 [facility] Thin prep Papanicolaou smear with manual screeningOrdered By: Dinesh Gan on 06-29-2023 Thin prep Papanicolaou smear with manual screening 3.8 g/dL 3.2-5.0 [facility] Thin prep Papanicolaou smear with manual screening 22 U/L 15-37 [facility] Thin prep Papanicolaou smear with manual screening 9 5-15 [facility] Laboratory - Chemistry and C hemistry - challengeOrdered By: Ba Brito on 04-20-2023 HCG ( test) Ql (U) Negative [facility] Comment on above: Very dilute urine sp ecimens, as indicated by a low specificgravity, may not contain chain sales representative levels of hCG. If is still suspected, a first morning urinespecimen should be collected 48 hours later and tested. Basophil percentageOrdered B y: Dinesh Gan on 04-15-2023 Cholesterol [Mass/Vol] 122 mg/dL <200 [facility] Comment on above: <200 mg/dL Desirable 200-240 mg/dL Borderline >240 mg/dL High Risk Triglyceride [Mass/Vol] 78 mg/dL <199 [facility] Comment on above: The drugs N-Acetylcy steine and Metamizole may falsely depress this assay.Serum Triglycerides Reference Interval Normal <150 mg/dL Borderline high 150 - 199 mg/dL High 200 - 499 mg/dL Very High > or = 500 mg/dL Serum or plasma cholesterol in HDL measurement (mass/volume)Ordered By: Dinesh Gan on 04-15-2023 Cholesterol in HDL [Mass/Vol] 41 mg/dL >40 [facility] Comment on above: The drugs N-Acetylcy steine and Metamizole may falsely depress this assay. Reference Range HDL <40 mg/dL Low HDL Cholesterol HDL >or= 60 mg/dL High HDL Cholesterol Serum or plasma cholesterol in VLDL measurement (mass/volume)Ordered By: Dinesh Gan on 04-15-2023 Cholesterol in VLDL [Mass/Vol] 16 mg/dL 5-40 [facility] Serum or plasma low density lipoprotein (LDL) cholesterol measurement (mass/volume)Ordered By: Dinesh Gan on 04-15-2023 Cholesterol in LDL [Mass/Vol] 65 mg/dL 0-130 [facility] Basophil percentageOrdered B y: Dinesh aGn on 01-14-2023 Chloride [Moles/Vol] 106 mmol/L 98-107 [facility] Cholesterol [Mass/Vol] 219 mg/dL <200 [facility] Comment on above: <200 mg/dL Desirable 200-240 mg/dL Borderline >240 mg/dL High Risk Glucose [Mass/Vol] 96 mg/dL 74-106 [facility] Potassium [Moles/Vol] 3.9 mmol/L 3.5-5.1 [facility] Sodium [Moles/Vol] 137 mmol/L 136-145 [facility] Triglyceride [Mass/Vol] 88 mg/dL <199 [facility] Comment on above: The drugs N-Acetylcy steine and Metamizole may falsely depress this assay.Serum Triglycerides Reference Interval Normal <150 mg/dL Borderline high 150 - 199 mg/dL High 200 - 499 mg/dL Very High > or = 500 mg/dL Laboratory - Chemistry and C hemistry - challengeOrdered By: Dinesh Gan on 01-14-2023 CO2 [Moles/Vol] 27.0 mmol/L 21.0-32.0 [facility] Urea nitrogen/Creatinine [Mass ratio] 17.9 mg/mg 10-20 [facility] No Panel InformationOrdered By: Dinesh Gan on 01-14-2023 Estimated GFR (MDRD) Amer 101 mL/min >60 [facility] Comment on above: GFR Calc Estimated GFR (MDRD) Non-Af Amer 83 mL/min >60 [facility] Comment on above: Non- GFR Calc Serum or plasma calcium nette urement (mass/volume)Ordered By: Dinesh Gan on 01-14-2023 Calcium [Mass/Vol] 9.0 mg/dL 8.5-10.1 [facility] Serum or plasma cholesterol in HDL measurement (mass/volume)Ordered By: Dinesh Gan on 01-14-2023 Cholesterol in HDL [Mass/Vol] 46 mg/dL >40 [facility] Comment on above: The drugs N-Acetylcy steine and Metamizole may falsely depress this assay. Reference Range HDL <40 mg/dL Low HDL Cholesterol HDL >or= 60 mg/dL High HDL Cholesterol Serum or plasma cholesterol in VLDL measurement (mass/volume)Ordered By: Dinesh Gan on 01-14-2023 Cholesterol in VLDL [Mass/Vol] 18 mg/dL 5-40 [facility] Serum or plasma creatinine m easurement (mass/volume)Ordered By: Dinesh Gan on 01-14-2023 Creatinine [Mass/Vol] 0.78 mg/dL 0.55-1.02 [facility] Comment on above: The validity of the calculated GFR & GFRAA in patients over 70 years has not been determined. Clinical correlation is essential. Serum or plasma low density lipoprotein (LDL) cholesterol measurement (mass/volume)Ordered By: Dinesh Gan on 01-14-2023 Cholesterol in LDL [Mass/Vol] 155 mg/dL 0-130 [facility] Serum or plasma urea nitroge n measurement (mass/volume)Ordered By: Dinesh Gan on 01-14-2023 Urea nitrogen [Mass/Vol] 14 mg/dL 7-18 [facility] Thin prep Papanicolaou smear with manual screeningOrdered By: Dinesh Gan on 09-15-2023 Thin prep Papanicolaou smear with manual screening 4 - [facility] Basophil percentageOrdered B y: Dr. Gan on 07-14-2022 Chloride [Moles/Vol] 108 mmol/L 98-107 [facility] Glucose [Mass/Vol] 90 mg/dL 74-106 [facility] Potassium [Moles/Vol] 3.7 mmol/L 3.5-5.1 [facility] Sodium [Moles/Vol] 140 mmol/L 136-145 [facility] Laboratory - Chemistry and C hemistry - challengeOrdered By: Dr. Gan on 07-14-2022 CO2 [Moles/Vol] 23.0 mmol/L 21.0-32.0 [facility] Urea nitrogen/Creatinine [Mass ratio] 23.6 mg/mg 10-20 [facility] No Panel InformationOrdered By: Dr. Gan on 07-14-2022 Estimated GFR (MDRD) Amer 111 mL/min >60 [facility] Comment on above: GFR Calc Estimated GFR (MDRD) Non-Af Amer 92 mL/min >60 [facility] Comment on above: Non- GFR Calc Serum or plasma calcium nette urement (mass/volume)Ordered By: Dr. Gan on 07-14-2022 Calcium [Mass/Vol] 9.0 mg/dL 8.5-10.1 [facility] Serum or plasma creatinine m easurement (mass/volume)Ordered By: Dr. Gan on 07-14-2022 Creatinine [Mass/Vol] 0.72 mg/dL 0.55-1.02 [facility] Comment on above: The validity of the calculated GFR & GFRAA in patients over 70 years has not been determined. Clinical correlation is essential. Serum or plasma urea nitroge n measurement (mass/volume)Ordered By: Dr. Gan on 07-14-2022 Urea nitrogen [Mass/Vol] 17 mg/dL 7-18 [facility] Thin prep Papanicolaou smear with manual screeningOrdered By: Dr. Gan on 07-14-2022 Thin prep Papanicolaou smear with manual screening 9 -15 [facility] Basophil percentageon 2021 Chloride [Moles/Vol] 108 mmol/L 98-107 [facility] Work Phone: Cholesterol [Mass/Vol] 184 mg/dL <200 [facility] Work Phone: Comment on above: <200 mg/dL Desirable 200-240 mg/dL Borderline >240 mg/dL High Risk Glucose [Mass/Vol] 100 mg/dL 74-106 [facility] Work Phone: Comment on above: Fasting Glucose resu lt from 100 to 125 mg/dL suggests IMPAIRED HOMEOSTASIS per A.D.A. criteria. Potassium [Moles/Vol] 3.6 mmol/L 3.5-5.1 [facility] Work Phone: Sodium [Moles/Vol] 140 mmol/L 136-145 [facility] Work Phone: Triglyceride [Mass/Vol] 129 mg/dL <199 [facility] Work Phone: Comment on above: The drugs N-Acetylcy steine and Metamizole may falsely depress this assay.Serum Triglycerides Reference Interval Normal <150 mg/dL Borderline high 150 - 199 mg/dL High 200 - 499 mg/dL Very High > or = 500 mg/dL Laboratory - Chemistry and C hemistry - challengeon 01-01-2022 CO2 [Moles/Vol] 25.0 mmol/L 21.0-32.0 [facility] Work Phone: Urea nitrogen/Creatinine [Mass ratio] 20.2 mg/mg 10-20 [facility] Work Phone: No Panel Informationon 01-01 Estimated GFR (MDRD) Amer 128 mL/min >60 [facility] Work Phone: Comment on above: GFR Calc Estimated GFR (MDRD) Non-Af Amer 105 mL/min >60 [facility] Work Phone: Comment on above: Non- GFR Calc Serum or plasma calcium nette urement (mass/volume)on 01-01-2022 Calcium [Mass/Vol] 8.7 mg/dL 8.5-10.1 [facility] Work Phone: Serum or plasma cholesterol in HDL measurement (mass/volume)on 01-01-2022 Cholesterol in HDL [Mass/Vol] 32 mg/dL >40 [facility] Work Phone: Comment on above: The drugs N-Acetylcy steine and Metamizole may falsely depress this assay. Reference Range HDL <40 mg/dL Low HDL Cholesterol HDL >or= 60 mg/dL High HDL Cholesterol Serum or plasma cholesterol in VLDL measurement (mass/volume)on 01-01-2022 Cholesterol in VLDL [Mass/Vol] 26 mg/dL 5-40 [facility] Work Phone: Serum or plasma creatinine m easurement (mass/volume)on 01-01-2022 Creatinine [Mass/Vol] 0.64 mg/dL 0.55-1.02 [facility] Work Phone: Comment on above: The validity of the calculated GFR & GFRAA in patients over 70 years has not been determined. Clinical correlation is essential. Serum or plasma low density lipoprotein (LDL) cholesterol measurement (mass/volume)on 01-01-2022 Cholesterol in LDL [Mass/Vol] 126 mg/dL 0-130 [facility] Work Phone: Serum or plasma urea nitroge n measurement (mass/volume)on 01-01-2022 Urea nitrogen [Mass/Vol] 13 mg/dL 7-18 [facility] Work Phone: Thin prep Papanicolaou smear with manual screeningon 01-01-2022 Thin prep Papanicolaou smear with manual screening 7 5-15 [facility] Work Phone: Laboratory - Microbiology an d Antimicrobial susceptibilityon 12-17-2021 SARS-CoV-2 (COVID-19) RNA SYEDA+probe Ql (Unsp spec) Detected Not Detect [facility] Work Phone: Comment on above: Normal Reference Ran ge: Not DetectedMethod:(RT-PCR) real-time reverse transcriptase PCRLuminex DIMITRI Instrument*The Food and Drug Administration (FDA) has issued an Emergency Use Authorization (EAU) for the DIMITRI SARS-CoV-2 Assay for the rapid detection of the virus that causes COVID-19. This test has been validated, but the [facility] independent review of this validation is pending.*Negative results do not preclude infection and should not be used as the sole basis for treatment or patient management. Optimum specimen types and timing for peak viral levels during infections caused by SARS-CoV-2 have not been determined. Collection of multiple specimens from the same patient may be necessary to detect the virus. The possibility of a false negative result should be considered if the patient has clinical presentation or has had recent exposure. Absolute lymphocyte counton 12-06-2021 Lymphocytes Auto (Unsp spec) [#/Vol] 0.95 10*3/uL 0.83-4.51 [facility] Work Phone: Basophil percentageon 2021 Basophils/100 WBC (Bld) 0.2 % 0-1 [facility] Work Phone: Bilirubin [Mass/Vol] 0.40 mg/dL 0.20-1.00 [facility] Work Phone: Comment on above: For patients on eltr ombopag therapy, use of Dimension [place] TBIL is not recommended. Chloride [Moles/Vol] 109 mmol/L 98-107 [facility] Work Phone: Eosinophils/100 WBC (Bld) 0.0 % 0-5 [facility] Work Phone: Glucose [Mass/Vol] 117 mg/dL 74-106 [facility] Work Phone: Comment on above: Fasting Glucose resu lt from 100 to 125 mg/dL suggests IMPAIRED HOMEOSTASIS per A.D.A. criteria. Neutrophils (Bld) [#/Vol] 7.7 10*3/uL 2.0-7.7 [facility] Work Phone: Neutrophils/100 WBC (Bld) 83.5 % 47-70 [facility] Work Phone: Potassium [Moles/Vol] 3.7 mmol/L 3.5-5.1 [facility] Work Phone: Protein [Mass/Vol] 7.2 g/dL 6.4-8.2 [facility] Work Phone: Sodium [Moles/Vol] 138 mmol/L 136-145 [facility] Work Phone: WBC (Bld) [#/Vol] 9.2 10*3/uL 4.4-11.0 [facility] Work Phone: Blood erythrocytes count (nu mber/volume)on 12-06-2021 RBC (Bld) [#/Vol] 4.41 10*6/uL 4.2-5.4 [facility] Work Phone: Blood hemoglobin measurement (mass/volume)on 12-06-2021 Hemoglobin (Bld) [Mass/Vol] 10.9 g/dL 12.0-15.0 [facility] Work Phone: Blood lymphocytes/100 leukoc yteson 12-06-2021 Lymphocytes/100 WBC (Bld) 10.3 % 19-41 [facility] Work Phone: Blood monocytes/100 leukocyt eson 12-06-2021 Monocytes/100 WBC (Bld) 5.7 % 0-10 [facility] Work Phone: Blood platelet mean volumeon 12-06-2021 Platelet mean volume (Bld) [Entitic vol] 9.7 fL 6.2-12.0 [facility] Work Phone: Determination of erythrocyte mean corpuscular volume (MCV)on 12-06-2021 MCV (RBC) [Entitic vol] 79.1 fL 81-99 [facility] Work Phone: Hematocrit Auto (Bld) [Volum e fraction]on 12-06-2021 Hematocrit (Bld) [Volume fraction] 34.9 % 37-47 [facility] Work Phone: Laboratory - Chemistry and C hemistry - challengeon 12-06-2021 ALP [Catalytic activity/Vol] 77 U/L 45-117 [facility] Work Phone: ALT [Catalytic activity/Vol] 19 U/L 13-56 [facility] Work Phone: CO2 [Moles/Vol] 23.0 mmol/L 21.0-32.0 [facility] Work Phone: Globulin (S) [Mass/Vol] 3.5 g/dL 2.2-4.2 [facility] Work Phone: Urea nitrogen/Creatinine [Mass ratio] 12.5 mg/mg 10-20 [facility] Work Phone: Laboratory - Hematology and Cell countson 12-06-2021 Erythrocyte distribution width (RBC) [Entitic vol] 47.4 fL 35.1-43.9 [facility] Work Phone: Erythrocyte distribution width (RBC) [Ratio] 16.6 % 11.6-14.6 [facility] Work Phone: Immature granulocytes/100 WBC (Bld) 0.300 % 0.0-0.9 [facility] Work Phone: Comment on above: IG% - Immature Granu locytes (promyelocytes, myelocytes and metamyelocytes) > 1% indicates that a LEFT SHIFT is Present. MCH (RBC) [Entitic mass] 24.7 pg 27.0-32.0 [facility] Work Phone: Nucleated RBC/100 WBC (Bld) [Ratio] 0 % 0-5 [facility] Work Phone: MCHC Auto (RBC) [Mass/Vol]on 12-06-2021 MCHC (RBC) [Mass/Vol] 31.2 g/dL 32-36 [facility] Work Phone: No Panel Informationon 12-06 Estimated Creatinine Clearance Calc 90.86 ml/min [facility] Work Phone: Estimated GFR (MDRD) Amer 128 mL/min >60 [facility] Work Phone: Comment on above: GFR Calc Estimated GFR (MDRD) Non-Af Amer 106 mL/min >60 [facility] Work Phone: Comment on above: Non- GFR Calc Platelets bldon 12-06-2021 Platelets (Bld) [#/Vol] 307 10*3/uL 150-450 [facility] Work Phone: Serum or plasma albumin nette urement (mass/volume)on 12-06-2021 Albumin [Mass/Vol] 3.7 g/dL 3.2-5.0 [facility] Work Phone: Serum or plasma albumin/glob ulin mass ratioon 12-06-2021 Albumin/Globulin [Mass ratio] 1.1 {ratio} 0.9-2.4 [facility] Work Phone: Serum or plasma calcium nette urement (mass/volume)on 12-06-2021 Calcium [Mass/Vol] 9.1 mg/dL 8.5-10.1 [facility] Work Phone: Serum or plasma creatinine m easurement (mass/volume)on 12-06-2021 Creatinine [Mass/Vol] 0.64 mg/dL 0.55-1.02 [facility] Work Phone: Comment on above: The validity of the calculated GFR & GFRAA in patients over 70 years has not been determined. Clinical correlation is essential. Serum or plasma urea nitroge n measurement (mass/volume)on 12-06-2021 Urea nitrogen [Mass/Vol] 8 mg/dL 7-18 [facility] Work Phone: Thin prep Papanicolaou smear with manual screeningon 12-06-2021 Thin prep Papanicolaou smear with manual screening 15 U/L 15-37 [facility] Work Phone: Thin prep Papanicolaou smear with manual screening 6 5-15 [facility] Work Phone: ABDOMEN OR KUBon 06-30-2018 ABDOMEN OR KUB ABDOMEN OR KUB Ordering Physician: Lenny Gayle MD 06/30/2018 2:13 PM KUB OF THE ABDOMEN Clinical Statement: Kidney stones. Blood in urine for one year. Comparison CT scan 06/30/2018. FINDINGS: No definite renal or ureteral calculi are shown bilaterally. There are calcifications within the pelvis, larger measuring about 6 cm likely representing calcified fibroids. The bowel gas pattern is unremarkable. No acute osseous abnormalities are seen. IMPRESSION: No definite renal or ureteral calculi are shown. Specifically the calcification shown on the prior CT scan are not visible. Calcified uterine fibroids ---- Electronic Signature on File ---- Signed By: Mick Vicente MD [email or web address] Dictated: 06/30/2018 3:08 PM Signed: 06/30/2018 3:10 PM Reported By: MICK VICENTE M.D. Signed By: MICK VICENTE M.D. [facility] CT ABD/PEL STONE PROTOCOLon 06-30-2018 CT ABD/PEL STONE PROTOCOL CT ABD/PEL STONE PROTOCOL Ordering Physician: Lenny Gayle MD 06/30/2018 1:45 PM COMPUTED TOMOGRAPHY ABDOMEN AND PELVIS Clinical Statement: Renal calculi in the right upper quadrant pain, hematuria TECHNIQUE: 3.75 mm thick axial images of the abdomen and pelvis were obtained without the administration of contrast material. The study was performed for the evaluation of renal or ureteral calculi. There were no prior studies available for comparison. FINDINGS: The lung bases show no acute abnormalities. There is fatty infiltration of the liver. The liver, spleen and pancreas show no acute abnormalities. The gallbladder is surgically absent. No ductal dilatation is shown. The adrenal glands show no acute abnormalities. There is a 16 mm left adrenal nodule most likely due to an adenoma although the attenuation values are higher than normal. The right adrenal gland is unremarkable. There is a 5 mm cortical calcification within the mid to upper upper portion of the right kidney laterally. There is a punctate cortical calcification at the upper pole of the right kidney laterally. There are small adjacent punctate calculi along the liver margin. No left renal calculi are seen. There is no hydronephrosis. The ureters are not dilated. No ureteral calculi are seen. No free fluid is identified. The urinary bladder is collapsed. There are uterine leiomyomas with associated areas of calcification. No adnexal mass lesions are seen There is no evidence of bowel obstruction. No bowel wall inflammation or edema is identified. The appendix is unremarkable. The aorta shows no acute abnormalities. No acute osseous abnormalities are seen. IMPRESSION: 5 mm calculus within the cortex of the mid to upper portion of the right kidney laterally with a second punctate calculus at the upper pole. No left renal calculi or obstruction identified. ---- Electronic Signature on File ---- Signed By: Jeannette Barr MD FACR [email or web address] Dictated: 06/30/2018 2:25 PM Signed: 06/30/2018 2:32 PM Reported By: JEANNETTE BARR M.D. Signed By: JEANNETTE BARR M.D. [facility] Office Visit: Follow up appo intment for right upper quadrant pain/GERDon 09-01-2016 Fall risk assessment Fall risk assessment Invalid Interpretation Code [facility] Work Phone: Office Visit: consult- Valentina Valencia 08-18-2016 Dietary management education, guidance, and counseling (procedure) yes Invalid Interpretation Code [facility] Work Phone: Documentation of current medications (procedure) Done Invalid Interpretation Code [facility] Work Phone: Documentation of current medications (procedure) T Invalid Interpretation Code [facility] Work Phone: Fall risk assessment No Invalid Interpretation Code [facility] Work Phone: Tobacco smoking status NHIS Never Invalid Interpretation Code [facility] Work Phone: Tobacco use [facility] Never smoker Invalid Interpretation Code [facility] Work Phone: Office Visit: consult- Valentina Valencia 04-01-2016 Breast Mammogram screening Normal Bilateral Invalid Interpretation Code [facility] Work Phone: Office Visit: consult- Valentina Valencia 05-05-2015 General categories [interpretation] of Cervical or vaginal smear or scraping by Cyto stain Normal Invalid Interpretation Code [facility] Work Phone: Vital Signs Date Time Vital Sign Value Performing Clinician Facility 10-12-2024 08:59-0400 Body height 160.[address] Dinesh Gan MD Work Phone: [facility] 10-12-2024 08:59-0400 Body mass index (BMI) [Ratio] 40.1 kg/m2 Dr. Dinesh Gan MD Work Phone: [facility] 10-12-2024 08:59-0400 Body weight 102.[address] Dinesh Gan MD Work Phone: [facility] 10-12-2024 08:59-0400 Diastolic blood pressure 79 mm[Hg] Dr. Dinesh Gan MD Work Phone: [facility] 10-12-2024 08:59-0400 Systolic blood pressure 158 mm[Hg] Dr. Dinesh Gan MD Work Phone: [facility] 08-27-2024 11:04-0400 Body mass index (BMI) [Ratio] 38.8 kg/m2 Dr. Dinesh Gan MD Work Phone: [phone] [place] [address] 08-27-2024 11:04-0400 Body weight 99.[address] Dinesh Gan MD Work Phone: [facility] 08-27-2024 11:04-0400 Diastolic blood pressure 86 mm[Hg] Dr. Dinesh Gan MD Work Phone: [facility] 08-27-2024 11:04-0400 Systolic blood pressure 145 mm[Hg] Dr. Dinesh Gan MD Work Phone: [facility] 04-20-2023 15:53-0500 Body temperature 98.7 [degF] Dr. Dinesh Gan Work Phone: [facility] 04-20-2023 15:53-0500 Diastolic blood pressure 72 mm[Hg] Dr. Dinesh Gan Work Phone: [facility] 04-20-2023 15:53-0500 Heart rate 68 /min Dr. Dinesh Gan Work Phone: [facility] 04-20-2023 15:53-0500 Respiratory rate 18 /min Dr. Dinesh Gan Work Phone: [facility] 04-20-2023 15:53-0500 SaO2% (BldA) [Mass fraction] 100 % Dr. Dinesh Gan Work Phone: [facility] 04-20-2023 15:53-0500 Systolic blood pressure 134 mm[Hg] Dr. Dinesh Gan Work Phone: [facility] 04-20-2023 13:43-0500 Body height 160.[address] Dinesh Gan Work Phone: [facility] 04-20-2023 13:43-0500 Body mass index (BMI) [Ratio] 39 kg/m2 Dr. Dinesh Gan Work Phone: [facility] 04-20-2023 13:43-0500 Body weight [address] Dinesh Gan Work Phone: [facility] 03-29-2023 13:16-0500 Body mass index (BMI) [Ratio] 36 kg/m2 Dr. Dinesh Gan Work Phone: [facility] 03-29-2023 13:16-0500 Body weight 95.[address] Dinesh Gan Work Phone: [facility] 12-06-2021 22:15-0400 Diastolic blood pressure 91 mm[Hg] [facility] Work Phone: 12-06-2021 22:15-0400 Heart rate 89 /min [facility] Work Phone: 12-06-2021 22:15-0400 Systolic blood pressure 162 mm[Hg] [facility] Work Phone: 12-06-2021 21:15-0400 Respiratory rate 16 /min [facility] Work Phone: 12-06-2021 19:22-0400 SaO2% (BldA) [Mass fraction] 100 % [facility] Work Phone: 12-06-2021 17:07-0400 Body height 160.02 cm [facility] Work Phone: 12-06-2021 17:07-0400 Body mass index (BMI) [Ratio] 38 kg/m2 [facility] Work Phone: 12-06-2021 17:07-0400 Body temperature 98.3 [degF] [facility] Work Phone: 12-06-2021 17:07-0400 Body weight 97.52 kg [facility] Work Phone: 12-06-2021 06:38-0400 Diastolic blood pressure 78 mm[Hg] [facility] Work Phone: 12-06-2021 06:38-0400 Heart rate 63 /min [facility] Work Phone: 12-06-2021 06:38-0400 Respiratory rate 17 /min [facility] Work Phone: 12-06-2021 06:38-0400 SaO2% (BldA) [Mass fraction] 99 % [facility] Work Phone: 12-06-2021 06:38-0400 Systolic blood pressure 163 mm[Hg] [facility] Work Phone: 12-06-2021 05:11-0400 Body height 160.02 cm [facility] Work Phone: 12-06-2021 05:11-0400 Body mass index (BMI) [Ratio] 39 kg/m2 [facility] Work Phone: 12-06-2021 05:11-0400 Body temperature 97.9 [degF] [facility] Work Phone: 12-06-2021 05:11-0400 Body weight 100 kg [facility] Work Phone: 09-01-2016 11:24-0400 BMI (Body Mass Index) 35.89 kg/m2 [facility] Carlos [facility] Work Phone: 09-01-2016 11:24-0400 Body Temperature 98.2 [degF] [facility] Work Phone: 09-01-2016 11:24-0400 BP Diastolic 84 mm[Hg] [facility] Work Phone: 09-01-2016 11:24-0400 BP Systolic 126 mm[Hg] [facility] Work Phone: 09-01-2016 11:24-0400 BSA (Body Surface Area) 1.[address] [facility] Work Phone: 09-01-2016 11:24-[address] [facility] Work Phone: 09-01-2016 11:24-0400 Pulse (Heart Rate) 62 /min [facility] Work Phone: 09-01-2016 11:24-0400 Pulse Oximetry 98 % [facility] Work Phone: 09-01-2016 11:24-0400 Respiratory Rate 18 /min [facility] Work Phone: 09-01-2016 11:24-[address] [facility] Work Phone: Encounters Encounter Date Encounter Type Care Provider Facility Start: 10-16-2024 ambulatory Margie Valentinety:[facility] Start: 10-12-[address] Margie Reyes DO [facility] Start: 10-12-2024 End: 10-12-2024 ambulatory Dinesh Gan Facility:[facility] Start: 10-12-2024 End: 10-12-[address] Margie Reyes DO [facility] Work Phone: Start: 10-02-2024 Encounter for other preprocedural examination Margie Reyes [facility] Start: 09-27-2024 End: 09-27-[address] Dinesh Gan MD Work Phone: [facility] Work Phone: Start: 09-27-2024 End: 09-27-[address] Margie Reyes DO [facility] Work Phone: Start: 09-27-2024 End: 09-27-2024 ambulatory Margie Reyes Facility:[facility] Start: 08-29-2024 End: 08-29-2024 Patient encounter procedure Ashlie Cavazoss [employer]ING [employer]NER-C -Ultrasound [facility] Work Phone: Start: 08-29-2024 End: 08-29-2024 ambulatory Ashlie Sb [employer]ING PL[employer]NER Facility:[facility] Start: 08-27-2024 End: 08-27-2024 Patient encounter procedure Ashlie Cavazoss [employer]UFA[employer]URING PLANNER-C -Laboratory Specimen Work Phone: Start: 08-27-2024 End: 08-27-2024 ambulatory Ashlie Sb [employer]UFA[employer]URING PL[employer]NER Facility:[facility] Start: 08-27-2024 End: 08-27-2024 ambulatory Ashlie Sb [employer]ING PL[employer]NER Facility:[facility] Start: 07-02-2024 End: 07-02-[address] Dinesh Gan MD Work Phone: [facility] Work Phone: Start: 07-02-2024 End: 07-02-[address] Dinesh Gan MD -Laboratory, [facility] Start: 07-02-2024 End: 07-02-2024 ambulatory Dinesh Gan Facility:[facility] Start: 03-12-2024 End: 03-12-2024 ambulatory Margie Reyes Facility:[facility] Start: 03-12-2024 End: 03-12-2024 ambulatory Margie Reyes Facility:[facility] Start: 03-06-2024 End: 03-06-2024 ambulatory Ashlie San Saba [employer]ING PL[employer]NER Facility:[facility] Start: 02-07-2024 End: 02-07-2024 ambulatory Ashlie Sb [employer]UFA[employer]URING PL[employer]NER Facility:[facility] Start: 01-24-2024 End: 01-24-2024 ambulatory Ashlie [place] [employer]UFA[employer]URING PL[employer]NER Facility:[facility] Start: 01-20-2024 End: 01-20-2024 ambulatory Ashlie Sb [employer]UFA[employer]URING PLANNER Facility:[facility] Start: 01-11-2024 End: 01-11-2024 ambulatory Ashlie [place] [employer]URING PL[employer]NER Facility:[facility] Start: 01-11-2024 End: 01-11-2024 ambulatory Ashlie Sb MANUFACTURING PLANNER Facility:[facility] Start: 01-05-2024 End: 01-05-2024 ambulatory Dinesh Gan Facility:[facility] Start: 12-29-2023 End: 12-29-2023 ambulatory Dinesh Gan Facility:[facility] Start: 06-29-2023 End: 06-29-[address] Dinesh Gan Work Phone: [facility] Work Phone: Start: 06-29-2023 End: 06-29-[address] Dinesh Gan Work Phone: [facility] Start: 04-20-2023 Non-patient / Non-visit Dr. Lawson Gan Work Phone: [facility] Start: 04-20-2023 End: 04-20-2023 Admission to same day surgery center Dr. Dinesh Gan Work Phone: [facility]-Endoscopy Work Phone: Start: 04-15-2023 End: 04-15-[address] Dinesh Gan Work Phone: [facility] Work Phone: Start: 04-15-2023 End: 04-15-[address] Dinesh Gan Work Phone: [facility] Work Phone: Start: 03-29-2023 Non-patient / Non-visit Dr. Lawson Gan Work Phone: [facility] Work Phone: Start: 01-20-2023 End: 01-20-[address] Dinesh Gan Work Phone: [facility] Work Phone: Start: 01-14-2023 End: 01-14-2023 ambulatory [facility] Work Phone: Start: 01-14-2023 End: 01-14-2023 Patient encounter procedure [facility] Work Phone: Start: 11-25-2022 End: 11-25-2022 ambulatory [facility] Work Phone: Start: 11-25-2022 End: 11-25-2022 Patient encounter procedure [facility] Work Phone: Start: 11-23-2022 End: 11-23-2022 ambulatory [facility] Work Phone: Start: 11-23-2022 End: 11-23-2022 Patient encounter procedure [facility] Work Phone: Start: 07-14-2022 End: 07-14-2022 ambulatory [facility] Work Phone: Start: 07-14-2022 End: 07-14-2022 Patient encounter procedure [facility] Start: 01-01-2022 End: 01-01-2022 ambulatory [facility] Work Phone: Start: 01-01-2022 End: 01-01-2022 Patient encounter procedure [facility] Start: 12-17-2021 End: 12-17-2021 ambulatory [facility] Work Phone: Start: 12-17-2021 End: 12-17-2021 Patient encounter procedure [facility]-Laboratory, Specimen Start: 12-06-2021 End: 12-06-2021 Emergency department patient visit [facility]Emergency Department Start: 12-06-2021 End: 12-06-2021 Emergency department patient visit [facility]gency [facility] Start: 06-30-2018 Patient encounter procedure Lenny Ha Nalini Facility:[facility] Start: 04-23-[address] [place] ([place] [facility] Procedures Date Procedure Procedure Detail Performing Clinician Start: 09-27-2024 MRI of pelvis with contrast Dr. Dinesh Gan MD Work Phone: Start: 08-29-[address] Merary Gan MD Work Phone: Start: 04-20-[address] Dinesh garibay Work Phone: Start: 01-20-2023 MRI of bilateral olga asts with contrast Dr. Dinesh Gan Work Phone: Start: 11-25-2022 Ultrasonography of breast Start: 11-25-2022 Mammography Start: 11-23-2022 Screening mammography Start: 12-06-2021 CT of head without contrast Viral antigen assay Plan of Treatment Date Care Activity Detail Author Start: 04-20-2023 Colonoscopy w/biopsy single/multiple COLONOSCOPY AND BIOPSY [facility] Start: 04-20-2023 Patient discharge [facility] Start: 09-22-2016 End: 09-22-2016 Appointment Appointment [facility] Work Phone: Start: 09-01-2016 End: 09-03-2016 Follow Up Appt 2 weeks Follow Up Appt 2 weeks [facility] Work Phone: Start: 08-18-2016 End: 08-24-2016 Follow Up Appt 2 weeks Follow Up Appt 2 weeks [facility] Work Phone: Alanine aminotransfe rase [Enzymatic activity/volume] in Serum or Plasma [facility] Albumin [Mass/volume ] in Serum or Plasma [facility] Alkaline phosphatase [Enzymatic activity/volume] in Serum or Plasma [facility] Anion gap in Serum o r Plasma [facility] Bilirubin, total measurement [facility] BUN/Creatinine ratio [facility] Calcium [Mass/volume ] in Serum or Plasma [facility] Carbon dioxide, tota l [Moles/volume] in Central venous blood [facility] Colonoscopy [facility] Creatinine [Mass/vol ume] in Serum or Plasma [facility] Erythrocyte mean corpuscular volume determination [facility] Glucose [Mass/volume ] in Serum or Plasma [facility] Hematocrit [Volume Fraction] of Blood [facility] Hemoglobin [Mass/vol ume] in Blood [facility] Leukocytes [#/volume ] in Blood [facility] Magnesium measurement [facility] Mean corpuscular hemoglobin concentration determination [facility] Mean corpuscular hemoglobin determination [facility] Measurement of renal function [facility] Neutrophil count [facility] Neutrophil percent differential count [facility] Patient Education [facility] docrinology Work Phone: Patient referral [facility] Work Phone: Platelets [#/volume] in Blood [facility] Potassium measurement [facility] Red blood cell count [facility] Red cell distributio n width determination [facility] Serum chloride measurement [facility] Sodium measurement [facility] Thyroid stimulating hormone measurement [facility] Total protein measurement [facility] Urea nitrogen [Mass/volume] in Serum or Plasma [facility] Payers Date Payer Category Payer Self-pay [id number] 2016 Unknown [id number] Unknown [id number] 2.16.8 [id number] Unknown [id number] 2.16.8 [id number] Unknown [id number] 2.16.8 [id number] Unknown [id number] 2.16.8 [id number] Unknown [id number] 2.16.8 [id number] Unknown [id number] 2.16.8 [id number] Unknown [id number] 2.16.8 [id number] Unknown [id number] 2.16.8 [id number] Unknown [id number] 2.16.8 [id number] Unknown [id number] 2.16.8 [id number] Unknown [id number] 2.16.8 [id number] Unknown [id number] 2.16.8 [id number] Unknown [id number] 2.16.8 [id number] Unknown [id number] 2.16.8 [id number] Unknown [id number] 2.16.8 [id number] Unknown [id number] 2.16.8 [id number] Unknown [id number] 2.16.8 [id number] Unknown [id number] 2.16.8 [id number] Social History Date Type Detail Facility [facility] Work Phone: Start: 12-06-2021 End: 04-20-2023 Tobacco smoking status NHIS Unknown if ever smoked [facility] Start: 1975 Sex Assigned At Female [facility] Start: 01-11-2024 End: 10-02-2024 Tobacco smoking status NHIS Never smoked tobacco (finding) [facility] Start: 07-13-2024 Sex Female (finding) [facility] NEGATED: Highlighted row [facility] Goals Date Patient Goal Desired Activity /State Mental Status Date Assessment Result Facility 04-20-2023 Cognitive function Voice/Name [facility] Work Phone: 12-06-2021 Cognitive function Level Of Cons ciousness Awake;Alert;Appropriate;Follow s Commands [facility] Work Phone: 12-06-2021 Cognitive function Level Of Cons ciousness Awake;Alert;Appropriate;Follow s Commands [facility] Work Phone: Evaluation note 08-27-2024 Note Date & Type Note Facility 08-27-2024 Evaluation note Diagnosis Onset Date Resolution Enlarged uterus acute July 11:03am Menorrhagia with regular cycle acute August 27, 2024 11:03am Uterine fibroid acute July 11:03am [facility] Work Phone: Evaluation note Note Date & Type Note Facility Evaluation note No assessment information availa ble [facility] Work Phone: Evaluation note Note Date & Type Note Facility Evaluation note Diagnosis Onset Date Encounter for screening for malignant neoplasm of colon acute [facility] Work Phone: Hospital Discharge instructions Note Date & Type Note Facility Hospital Discharge instructions Additional Instructions COVID-negative. Continue Advil every 6 hours. May add Tylenol for symptoms. Monitor your blood pressure and keep a log. Follow-up with your doctor for reevaluation. [facility] Work Phone: Reason for referral (narrative) Note Date & Type Note Facility Reason for referral (narrative) No reason for referral information available [facility] Work Phone: Summary Purpose Family History Relationship Condition Age at Onset Recorded Date/T tarik father Hypertension Unknown Cardiac disease Unknown Relationship Condition Age at Onset Recorded Date/T tarik father Hypertension Unknown Cardiac disease Unknown Polyp of colon Unknown Advance Directives Advance Directive Response Recorded Date/ Time Living Will No December 06, 2021 5:15am Power of [place] Hand No December 06 5:15am Advance Directive Response Recorded Date/ Time Living Will No December 06, 2021 5:15pm Power of [place] Hand No December 06 5:15pm Advance Directive Response Recorded Date/ Time Living Will No April 18 1:53pm Power of [place] Hand No April 18, 2023 1:53pm Chief Complaint and Reason for Visit Chief Complaint HEADACHE Chief Complaint HEADACHE headache Chief Complaint SCREENING ABNORMAL MAMMOGRAM FINDINGS Chief Complaint UNSPECIFIED LUMP IN BREAST Amb Documentation EORDER Reason for Visit Encounter for screen ing for malignant neoplasm of colon Chief Complaint Amb Documentation EORDER Reason for Visit Encounter for screen ing for malignant neoplasm of colon Chief Complaint Admit Date EMB August 27, 2024 11: 03am UTERINE FIBROIDS August 29, 2024 4:1 0pm UTERINE FIBROID September 27, 2024 8:45a m Reason for Visit Admit Date Enlarged uterus August 27, 2024 11: 03am Menorrhagia with regular cycle July 11:03am Uterine fibroid August 27, 2024 11: 03am Chief Complaint Admit Date EMB August 27, 2024 11: 03am UTERINE FIBROIDS August 29, 2024 4:1 0pm UTERINE FIBROID September 27, 2024 8:45a m JULIO C October 12, 2024 8:28 am Additional Source Comments INFORMATION SOURCE (unrecogn ized section and content) DATE CREATED AUTHOR 04/21/2018 [facility] DATE CREATED AUTHOR AUTHOR'S ORGANIZ ATION 08/03/2018 [facility] DATE CREATED AUTHOR AUTHOR'S ORGANIZ ATION 10/04/2024 [facility] Goals (unrecognized section and content) Goals may be documented in a n alternate sectionGoals may be documented in an alternate sectionGoals may be documented in an alternate sectionGoals may be documented in an alternate sectionGoals may be documented in an alternate sectionGoals may be documented in an alternate sectionGoals may be documented in an alternate sectionGoals may be documented in an alternate sectionGoals may be documented in an alternate sectionGoals may be documented in an alternate sectionGoals may be documented in an alternate section Care Teams (unrecognized sec tion and content) Team Status: Active Member Role Status Dates Dr. Dinesh Gan MD Family Provider Active Dr. Dinesh Gan MD Primary Care Provider Active Team Status: Inactive Member Role Status Dates Dr. Dinesh Gan MD Primary Care Provi estrella, Attending Provider, Referring Provider Active Team Status: Active Member Role Status Dates Dr. Dinesh Gan MD Primary Care Provider Active Arin Orta NP, MANUFACTURING PLANNER-C Attending Provider, Referring Pro vider Active Team Status: Inactive Member Role Status Dates Dr. Dinesh Gan MD Primary Care Provider Active Arin Orta NP, MANUFACTURING PLANNER-C Attending Provider, Referring Pro vider Active Team Status: Active Member Role Status Dates Dr. Dniesh Gan MD Primary Care Provider Active Tiera Anderson Attending Provider Active Team Status: Active Member Role Status Dates Dr. Dinesh Gan MD Primary Care Provider, Referring Provider Active Dr. Remberto Colbert MD Attending Provider, Other Provi estrella Active Team Status: Inactive Member Role Status Dates Dr. Dinesh Gan MD Primary Care Provider, Referring Provider Active Dr. Remberto Colbert MD Attending Provider Active Team Status: Inactive Member Role Status Dates Dr. Dinesh Gan MD Primary Care Provider, Attending Provider Active Team Status: Inactive Member Role Status Dates Dr. Dinesh Gan MD Primary Care Provider Active Start: July 02, 2024 End: July 02, 2024 Dr. Dinesh Gan MD Attending Provider Active Start: July 02, 2024 End: July 02, 2024 Dr. Dinesh Gan MD Referring Provider Active Start: July 02, 2024 End: July 02, 2024 Team Status: Active Member Role Status Dates Dr. Dinesh Gan MD Primary Care Provider Active Team Status: Inactive Member Role Status Dates Dr. Dinesh Gan MD Primary Care Provider Active Start: August 27, 2024 End: August 27, 2024 Dr. Dinesh Gan MD Referring Provider Active Start: August 27, 2024 End: August 27, 2024 Ashlie Basurto MANUFACTURING PLANNER, MANUFACTURING PLANNER-C Attending Provider Active Start: August 27, 2024 End: August 27, 2024 Team Status: Inactive Member Role Status Dates Dr. Dinesh Gan MD Primary Care Provider Active Start: August 27, 2024 End: August 27, 2024 Ashlie Basurto MANUFACTURING PLANNER, MANUFACTURING PLANNER-C Attending Provider Active Start: August 27, 2024 End: August 27, 2024 Ashlie Basurto MANUFACTURING PLANNER, MANUFACTURING PLANNER-C Referring Provider Active Start: August 27, 2024 End: August 27, 2024 Team Status: Inactive Member Role Status Dates Dr. Dinesh Gan MD Primary Care Provider Active Start: August 29, 2024 End: August 29, 2024 Ashlie Basurto MANUFACTURING PLANNER, MANUFACTURING PLANNER-C Attending Provider Active Start: August 29, 2024 End: August 29, 2024 Ashlie Basurto MANUFACTURING PLANNER, MANUFACTURING PLANNER-C Referring Provider Active Start: August 29, 2024 End: August 29, 2024 Team Status: Inactive Member Role Status Dates Dr. Dinesh Gan MD Primary Care Provider Active Start: September 27, 2024 End: September 27, 2024 Dr. Margie Reyes DO Attending Provider Activ e Start: September 27, 2024 End: September 27, 2024 Dr. Margie Reyes DO Referring Provider Activ e Start: September 27, 2024 End: September 27, 2024 Team Status: Inactive Member Role Status Dates Dr. Dinesh Gan MD Primary Care Provider Active Start: October 12, 2024 End: October 12, 2024 Dr. Dinesh Gan MD Referring Provider Active Start: October 12, 2024 End: October 12, 2024 Dr. Margie Reyes DO Attending Provider Activ e Start: October 12, 2024 End: October 12, 2024 Team Status: Active Member Role Status Dates Dr. Dinesh Gan MD Primary Care Provider Active Start: October 12, 2024 Dr. Margie Reyes DO Attending Provider Activ e Start: October 12, 2024 Dr. Margie Reyes DO Referring Provider Activ e Start: October 12, 2024 FOR RECORDS PERTAINING TO PATIENTS WHO ARE [...] BE BASED ON THE PRIMARY CLINICAL RECORDS. [employer] provides no warranty or guarantee of the accuracy or completeness of information in this document.
== END | disposition home or self-care (01) ==
LOC: BWCLAB 09:37
PROVIDERS: PCP Family Medicine; Referring Provider Obstetrics & Gynecology; Visit Provider Obstetrics & Gynecology
DX: Z00.00 Encounter for general adult medical examination without abnormal findings (principal)

== ENCOUNTER 2024-10-16 10:26 | Inpatient (IN) | payer OTHER, SELFPAY ==
[2024-10-12 12:35] LABS: Magnesium 2.2 mg/dL (1.5-2.2)
[2024-10-12 12:37] LABS: Absolute Lymphocyte Count 1.63 X10^3/uL (0.83-4.51); Absolute Neutrophil Count 4.3 X10^3/uL (2.0-7.7); Basophil# 0.05 X10^3/uL; Basophil% 0.7 % (0-1); Eosinophil# 0.14 X10^3/uL; Eosinophils% 2.1 % (0-5); Hematocrit 43.2 % (37-47); Hemoglobin 14.3 g/dL (12.0-15.0); Lymphocyte # 1.63 X10^3/ul (0.83-4.51); Lymphocyte % 24.2 % (19-41); Mean Corp Hgb Conc 33.1 g/dL (32-36); Mean Corpuscular Volume 90.8 fL (81-99); Mean Platelet Vol. 9.2 fl (6.2-12.0); Monocyte# 0.61 X10^3/uL; Monocyte% 9.1 % (0-10); NRBC Flagged by Analyzer 0 % (0-5); Neutrophil # 4.29 X10^3/uL (2.7-7.7); Neutrophil % 63.6 % (47-70); Platelet Count 327 K/mm3 (150-450); RBC Distribution Width SD 47.5 fl (35.1-43.9); Red Blood Count 4.76 M/mm3 (4.2-5.4); White Blood Count 6.7 K/mm3 (4.4-11.0)
[2024-10-12 14:51] LABS: ALB/GLOB Ratio 1.6 RATIO (0.9-2.4); AST(SGOT) 17 U/L (<=31); Alanine Aminotransfer ALT/SGPT 20 U/L (<=34); Albumin, Serum 4.5 g/dL (3.5-5.0); Alkaline Phosphatase 41 U/L (35-104); Anion Gap 15 (5-15); BUN 13 mg/dL (4-19); BUN/Creat Ratio 18.2 RATIO (10-20); Calcium,Total 9.5 mg/dL (7.6-11.0); Chloride 103 mmol/L (98-108); Creatinine, Serum 0.72 mg/dL (0.70-1.20); EST Glomerular Filtration Rate 103 (>60); Globulin 2.8 g/dL (2.2-4.2); Glucose 93 mg/dL (70-99); Potassium 4.2 mmol/L (3.3-5.1); Protein, Total 7.2 g/dL (5.9-8.4); Sodium Level 139 mmol/L (133-145); Total Bilirubin 0.63 mg/dL (0.00-1.30)
--- NOTE | 2024-10-12 16:48 | PAT.ANESEVAL ---
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 When Was Last Pacemaker Check QUESTION #4 FULL TEXT: You/Your Family Experience fever (hyperthermia) with Anesthesia Last Oral Intake Last Oral intake: Last Oral Intake NPO since Meds taken in AM with sips of water? Meds patient instructed to take am of surgery PONV PONV - sports complex attendant: PONV - sports complex attendant Female Yes 10/02/24 08:24 HX of Motion Sickness No 10/02/24 08:24 HX of N/V After Surgery No 10/02/24 08:24 Non-Smoker Yes 10/02/24 08:24 Duration of Surgery greater Yes 10/02/24 08:24 than 60 minutes Number of Risk Factors 3 10/02/24 08:24 PONV Score Moderate Risk 10/02/24 08:24 Height & Weight Height & Weight: Anesthesia: Height & Weight Height 5 ft 3 in 08/27/24 11:58 Respiratory Assessment Respiratory Assessment - sports complex attendant: Respiratory Tract Infection Hx - sports complex attendant Hx Respiratory Tract Infection No 10/02/24 08:24 STOP Sleep Apnea STOP Sleep Apnea - sports complex attendant: STOP Sleep Apnea - sports complex attendant Hx Hypertension Yes: controlled with meds 10/02/24 08:24 Hx Sleep Apnea Yes 10/02/24 08:24 CPAP Yes 10/02/24 08:24 BIPAP No 10/02/24 08:24 Do you snore loudly (louder than talking or can be heard Do you often feel tired/ fatigued/ sleepy during daytime? Has anyone observed you stop breathing during sleep? STOP Results Positive 10/02/24 08:24 QUESTION #5 FULL TEXT : Do you snore loudly (louder than talking or can be heard through closed doors)? Tobacco Use History Tobacco Use History - sports complex attendant: Tobacco Use History - sports complex attendant Tobacco Use Smoking Status Never smoker 10/02/24 08:24 Hx Tobacco Use No 10/02/24 08:24 Years Smoking Packs Smoked per Day Smoking Cessation Date was within the last 15 years Hx Smoking Cessation Date Hx Smoking Cessation Counseling Hematologic Medial History Hematologic Hx - sports complex attendant: Hematologic Medical Hx - care director rn Hx of Blood Transfusion No 10/02/24 08:24 Hx of Transfusion in last 3 No 10/02/24 08:24 Months Date of Last Transfusion (if within last 3 months) Ever experience any problems No 10/02/24 08:24 with transfusion(s)? Specify any problems Hx of Preganancy in last 3 No 10/02/24 08:24 Months Nurse Filling Out Transfusion [id number] 10/02/24 08:24 & Questions: Date: 10/02/24 10/02/24 08:24 Time: 08:27 10/02/24 08:24 Patient unable to answer at this time (ie. confused, unrespo /Reproduction History /Reproductive History - sports complex attendant: /Reproductive Hx- sports complex attendant Hx Now No 10/02/24 08:24 Gestational Age (in weeks): EDC: Hx Hx Para Hx Section SAB No 10/02/24 08:24 PFSH Medical History Thyroid disease Anemia Fatty liver Non-smoker CPAP (continuous positive airway pressure) dependence Shortness of breath on exertion Leg cramps History of pain when walking History of stress test History of irregular heartbeat History of kidney stones GERD (gastroesophageal reflux disease) Hyperlipidemia HTN (hypertension) History of rectal polyps Anxiety Home Medications ?Medication ?Instructions ?Recorded ?Last Taken ?Type lisinopril 10 mg tablet 10 mg PO QDAY htn 01/11/24 Unknown History ferrous sulfate 325 mg (65 mg 325 mg PO QDAY per 08/27/24 Unknown History iron) tablet levothyroxine 88 mcg capsule 88 mcg PO QDAY hypothyroid 08/27/24 Unknown History norethindrone acetate 5 mg tablet 5 mg PO .COMPLEX bleeding #45 tabs 08/27/24 Unknown Rx omeprazole 20 mg capsule,delayed 20 mg PO DAILY PRN HEARTBURN 10/02/24 Unknown History release Allergy/AdvReac Type Severity Reaction Status Date / Time amlodipine AdvReac Chest pain Verified 10/12/24 08:57 Family History Father Hypertension Heart disease Colon polyps Surgical History delivery delivered Hx laparoscopic cholecystectomy History of foot surgery Hx of LASIK Social History household members: spouse and children current occupational status: unemployed Smoking Status: Never smoker alcohol intake: never substance use type: does not use caffeine: Yes what type of physical activity do you participate in: none seatbelt use: always do you feel safe at home: Yes 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 Normal sinus rhythm 82 bpm. Stress test pertinent findings: 02/09/2016. Perfusion stress test with no evidence of ischemia moderate workload. EF 66%. Recommendation Anesthesia Recommendation Anesthesia recommendation: OPTIMIZED for anesthesia
[2024-10-16] VITALS (15 sets, daily range): BP systolic 93–166; BP diastolic 50–83; PULSE 68–99; RESP 16–22; TEMP 36.4–37.5; O2SAT 95–99; BMI 39.8
--- OUTSIDE RECORDS SUMMARY | 2024-10-16 06:16 | XMS RPT_ITS | CCD ---
Author Organization [facility] Care Team Providers Care Employment Specialist Name Role Phone Ruggeri COMPENSATION AGENT, Court F Unavailable Unavailabl e Ruggeri COMPENSATION AGENT, Court F Unavailable Unavailabl e COURT [place]) Unavailable Unavailabl e LAURA ALEXANDER Unavailable Unavailable Lenny Gayle Attending Unavailable Dinesh Gan Primary Care Unavailable Dr. Dinesh Gan Primary Care Provider Tiera Anderson Attending Provider Unavailable Dr. Dinesh Gan Referring Provider Dr. Remberto Colbert Attending Provider Dr. Remberto Colbert Other Provider Dr. Dinesh Gan MD Primary Care Provider [phone] Dr. Dinesh Gan MD Attending Provider Dr. Dinesh Gan MD Referring Provider Sb STEP FINISHER-CAshlie Attending Provider Sb STEP FINISHER-CAshlie Referring Provider Dr. Margie Reyes DO Attending Provider Dr. Margie Reyes DO Referring Provider Dinesh Gan Primary Care Unavailable Dinesh Gan Referring Unavailable Sb STEP FINISHER, Ashlie Attending Unavailable Dinesh Gan Primary Care Unavailable Dinesh Gan Referring Unavailable Raymond STEP FINISHER, Ashlie Attending Unavailable Dinesh Gan Primary Care Unavailable Dinesh Gan Attending Unavailable Dinesh Gan Primary Care Unavailable Dinesh Gan Referring Unavailable Margie Reyes Attending Unavailabl e Dinesh Gan Primary Care Unavailable Gan, Dinesh Referring Unavailable Sb STEP FINISHER, Ashlie Attending Unavailable Gan, Dinesh Primary Care Unavailable Raymond STEP FINISHER, Ashlie Referring Unavailable Sb STEP FINISHER, Ashlie Attending Unavailable Gan, Dinesh Primary Care Unavailable Raymond STEP FINISHER, Ashlie Attending Unavailable Gan, Dinesh Primary Care Unavailable Sb STEP FINISHER, Ashlie Referring Unavailable Sb STEP FINISHER, Ashlie Attending Unavailable Gan, Dinesh Primary Care Unavailable Sb STEP FINISHER, Ashlie Referring Unavailable Raymond STEP FINISHER, Ashlie Attending Unavailable Vande Velde, Margie Referring Unavailabl e Gan, Dinesh Primary Care Unavailable Vande Velde, Margie Attending Unavailabl e Vande Velde, Margie Admitting Unavailabl e Gan, Dinesh Primary Care Unavailable Vande Velde, Margie Referring Unavailabl e Vande Velde, Margie Attending Unavailabl e Gan, Dinesh Primary Care Unavailable Gan, Dinesh Referring Unavailable Gan, Dinesh Attending Unavailable Gan, Dinesh Primary Care Unavailable Sb STEP FINISHER, Ashlie Referring Unavailable Raymond STEP FINISHER, Ashlie Attending Unavailable Gan, Dinesh Primary Care Unavailable Sb STEP FINISHER, Ashlie Referring Unavailable Raymond STEP FINISHER, Ashlie Attending Unavailable Gan, Dinesh Primary Care Unavailable Vande Velde, Margie Referring Unavailabl e Vande Velde, Margie Attending Unavailabl e Gan, Dinesh Primary Care Unavailable Vande Velde, Margie Referring Unavailabl e Vande Velde, Margie Attending Unavailabl e Gan, Dinesh Primary Care Unavailable Gan, Dinesh Attending Unavailable Gan, Dinesh Primary Care Unavailable Gan, Dinesh Referring Unavailable Vande Velde, Margie Attending Unavailabl e Allergies Allergy Classification Reported Allergen(s) Allergy Type Date of Onset Reaction(s) Facility (5 sources) [facility] Allergy 04-20-2023 Chest pain [facility] (1 source) am[facility] Drug Allergy 10-12-2024 [facility] Repository Medications Current Medications Medication Drug Class(es) [...] Onset: 09-04-2024 03-06-2024 Episodic Comment on above: [id number]:surgic al consult JV. She has fear of DVT. No hx. Mar 2024: [id number] 6cm:surgical consult JV. She has fear of [...] index 40+ - severely obese 10-13-2020 Chronic Residual codes; unclassified (13 sources) Obstructive sleep [...] deficiency; Translations: [Iron deficiency] Onset: 01-26-2024 Episodic Other screening for suspected conditions (not mental disorders or infectious disease) (9 sources) Patient encounter status; Translations: [Encounter for screening for malignant neoplasm of colon] Onset: 02-01-2024 03-29-2023 Episodic Results Test Name Value Interpretation Reference Range Facility CBC W/Diff, Automatedon 09-30 Absolute Lymph 1.63 X10 3/uL Normal 0.83-4.51 [facility] Comment on above: Performed By: #### L 100.0100, L500.4050 #### [facility] [address] [place], [address] Absolute Neut 4.3 X10 3/uL Normal 2.0-7.7 [facility] Comment on above: Performed By: #### L 100.0100, L500.4050 #### [facility] [address] [place], [address] Basophils/100 WBC (Bld) 0.7 % Normal 0-1 [facility] Comment on above: Performed By: #### L 100.0100, L500.4050 #### [facility] [address] [place], [address] Eosinophils/100 WBC (Bld) 2.1 % Normal 0-5 [facility] Comment on above: Performed By: #### L 100.0100, L500.4050 #### [facility] [address] [place], [address] Erythrocyte distribution width (RBC) [Ratio] 14.0 % Normal 11.6-14.6 [facility] Comment on above: Performed By: #### L 100.0100, L500.4050 #### [facility] [address] [place], [address] Hematocrit (Bld) [Volume fraction] 43.2 % Normal 37-47 [facility] Comment on above: Performed By: #### L 100.0100, L500.4050 #### [facility] [address] [place], [address] Hemoglobin (Bld) [Mass/Vol] 14.3 g/dL Normal 12.0-15.0 [facility] Comment on above: Performed By: #### L 100.0100, L500.4050 #### [facility] [address] [place], [address] IG% 0.300 Normal 0.0-0.9 [facility] Comment on above: Result Comment: IG% - Immature Granulocytes (promyelocytes, myelocytes and metamyelocytes) > 1% indicates that a LEFT SHIFT is Present. Performed By: #### L 100.0100, L500.4050 #### [facility] [address] [place], [address] Lymphocytes/100 WBC (Bld) 24.2 % Normal 19-41 [facility] Comment on above: Performed By: #### L 100.0100, L500.4050 #### [facility] [address] [place], [address] MCH (RBC) [Entitic mass] 30.0 pg Normal 27.0-32.0 [facility] Comment on above: Performed By: #### L 100.0100, L500.4050 #### [facility] [address] [place], [address] MCHC (RBC) [Mass/Vol] 33.1 g/dL Normal 32-36 [facility] Comment on above: Performed By: #### L 100.0100, L500.4050 #### [facility] [address] [place], [address] MCV (RBC) [Entitic vol] 90.8 fL Normal 81-99 [facility] Comment on above: Performed By: #### L 100.0100, L500.4050 #### [facility] [address] [place], [address] Monocytes/100 WBC (Bld) 9.1 % Normal 0-10 [facility] Comment on above: Performed By: #### L 100.0100, L500.4050 #### [facility] [address] [place], [address] Neutrophils/100 WBC (Bld) 63.6 % Normal 47-70 [facility] Comment on above: Performed By: #### L 100.0100, L500.4050 #### [facility] [address] [place], [address] Nucleated RBC (Bld) [#/Vol] 0 10*3/uL Normal 0-5 [facility] Comment on above: Performed By: #### L 100.0100, L500.4050 #### [facility] [address] [place], [address] Platelet mean volume (Bld) [Entitic vol] 9.2 fL Normal 6.2-12.0 [facility] Comment on above: Performed By: #### L 100.0100, L500.4050 #### [facility] [address] [place], [address] Platelets (Bld) [#/Vol] 327 10*3/uL Normal 150-450 [facility] Comment on above: Performed By: #### L 100.0100, L500.4050 #### [facility] [address] [place], [address] RBC (Bld) [#/Vol] 4.76 10*6/uL Normal 4.2-5.4 [facility] Comment on above: Performed By: #### L 100.0100, L500.4050 #### [facility] [address] [place], [address] RDW SD 47.5 fl High 35.1-43.9 [facility] Comment on above: Performed By: #### L 100.0100, L500.4050 #### [facility] [address] [place], [address] WBC (Bld) [#/Vol] 6.7 10*3/uL Normal 4.4-11.0 [facility] Comment on above: Performed By: #### L 100.0100, L500.4050 #### [facility] [address] [place], [address] Comprehensive Metabolic Prof utdennis 10-12-2024 Albumin [Mass/Vol] 4.5 g/dL Normal 3.5-5.0 [facility] Comment on above: Performed By: #### L 100.0100, L500.4050 #### [facility] [address] [place], [address] Albumin/Globulin [Mass ratio] 1.6 {ratio} Normal 0.9-2.4 [facility] Comment on above: Performed By: #### L 100.0100, L500.4050 #### [facility] [address] [place], [address] ALK PHOS 41 U/L Normal 35-104 [facility] Comment on above: Performed By: #### L 100.0100, L500.4050 #### [facility] [address] [place], [address] ALT [Catalytic activity/Vol] 20 U/L Normal <=34 [facility] Comment on above: Performed By: #### L 100.0100, L500.4050 #### [facility] [address] [place], [address] AST [Catalytic activity/Vol] 17 U/L Normal <=31 [facility] Comment on above: Performed By: #### L 100.0100, L500.4050 #### [facility] [address] [place], [address] Bilirubin [Mass/Vol] 0.63 mg/dL Normal 0.00-1.30 [facility] Comment on above: Performed By: #### L 100.0100, L500.4050 #### [facility] [address] [place], [address] BUN/CRE 18.2 RATIO Normal 10-20 [facility] Comment on above: Performed By: #### L 100.0100, L500.4050 #### [facility] [address] [place], [address] Calcium [Mass/Vol] 9.5 mg/dL Normal 7.6-11.0 [facility] Comment on above: Performed By: #### L 100.0100, L500.4050 #### [facility] [address] [place], [address] Chloride [Moles/Vol] 103 mmol/L Normal 98-108 [facility] Comment on above: Performed By: #### L 100.0100, L500.4050 #### [facility] [address] [place], [address] CO2 [Moles/Vol] 21.0 mmol/L Normal 21.0-32.0 [facility] Comment on above: Performed By: #### L 100.0100, L500.4050 #### [facility] [address] [place], [address] Creatinine [Mass/Vol] 0.72 mg/dL Normal 0.70-1.20 [facility] Comment on above: Performed By: #### L 100.0100, L500.4050 #### [facility] [address] [place], [address] GAP 15 Normal 5-15 [facility] Comment on above: Performed By: #### L 100.0100, L500.4050 #### [facility] [address] [place], [address] GFR/1.73 sq M.predicted among non-blacks MDRD (S/P/Bld) [Vol rate/Area] 103 mL/min/{1.73_m2} Normal >60 [facility] Comment on above: Result Comment: mL/m in/1.73m2 CKD-EPI Creatinine Equation (2020) Performed By: #### L 100.0100, L500.4050 #### [facility] [address] [place], [address] Globulin (S) [Mass/Vol] 2.8 g/dL Normal 2.2-4.2 [facility] Comment on above: Performed By: #### L 100.0100, L500.4050 #### [facility] [address] [place], [address] Glucose [Mass/Vol] 93 mg/dL Normal 70-99 [facility] Comment on above: Performed By: #### L 100.0100, L500.4050 #### [facility] [address] [place], [address] Potassium [Moles/Vol] 4.2 mmol/L Normal 3.3-5.1 [facility] Comment on above: Performed By: #### L 100.0100, L500.4050 #### [facility] [address] [place], [address] Sodium [Moles/Vol] 139 mmol/L Normal 133-145 [facility] Comment on above: Performed By: #### L 100.0100, L500.4050 #### [facility] [address] [place], [address] T PROT 7.2 g/dL Normal 5.9-8.4 [facility] Comment on above: Performed By: #### L 100.0100, L500.4050 #### [facility] [address] [place], [address] Urea nitrogen [Mass/Vol] 13 mg/dL Normal 4-19 [facility] Comment on above: Performed By: #### L 100.0100, L500.4050 #### [facility] [address] [place], [address] MR/PATDebbie 10-12-2024 MR/PATIBETH [facility] Medical Records Department [address] [place] [address] PAT - Anesthesia 10/12/24 1648 MR#: [id number] Acct: [id number] Name: MAYRA ARIAS Rep #: [id number] : 1975 49 From: Ba Brito MD PCP: Dr. 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 When Was Last Pacemaker Check QUESTION #4 FULL TEXT: You/Your Family Experience fever (hyperthermia) with Anesthesia Last Oral Intake Last Oral intake: Last Oral Intake NPO since Meds taken in AM with sips of water? Meds patient instructed to take am of surgery PONV PONV - dust collector attendant: PONV - dust collector attendant Female Yes 10/02/24 08:24 HX of Motion Sickness No 10/02/24 08:24 HX of N/V After Surgery No 10/02/24 08:24 Non-Smoker Yes 10/02/24 08:24 Duration of Surgery greater Yes 10/02/24 08:24 than 60 minutes Number of Risk Factors 3 10/02/24 08:24 PONV Score Moderate Risk 10/02/24 08:24 Height Weight Height Weight: Anesthesia: Height Weight Height 5 ft 3 in 08/27/24 11:58 Respiratory Assessment Respiratory Assessment - dust collector attendant: Respiratory Tract Infection Hx - dust collector attendant Hx Respiratory Tract Infection No 10/02/24 08:24 STOP Sleep Apnea STOP Sleep Apnea - dust collector attendant: STOP Sleep Apnea - dust collector attendant Hx Hypertension Yes: controlled with meds 10/02/24 08:24 Hx Sleep Apnea Yes 10/02/24 08:24 CPAP Yes 10/02/24 08:24 BIPAP No 10/02/24 08:24 Do you snore loudly (louder than talking or can be heard Do you often feel tired/ fatigued/ sleepy during daytime? Has anyone observed you stop breathing during sleep? STOP Results Positive 10/02/24 08:24 QUESTION #5 FULL TEXT : Do you snore loudly (louder than talking or can be heard through closed doors)? 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 Specify any problems Hx of Preganancy in last 3 No 10/02/24 08:24 Months Nurse Filling Out Transfusion [id number] 10/02/24 08:24 Questions: Date: 10/02/24 10/02/24 08:24 Time: 08:27 10/02/24 08:24 Patient unable to answer at this time (ie. confused, unrespo /Reproduct ion History /Reproduct milagros History - dust collector attendant: /Reproduct milagros Hx- dust collector attendant Hx Now No 10/02/24 08:24 Gestational Age (in weeks): EDC: Hx Hx Para Hx Section SAB No 10/02/24 08:24 PFSH Medical History Thyroid disease Anemia Fatty liver Non-smoker CPAP (continuous positive airway pressure) dependence Shortness of breath on exertion Leg cramps History of pain when walking History of stress test History of irregular heartbeat History of kidney stones GERD (gastroesophageal reflux disease) Hyperlipidemia HTN (hypertension) History of rectal polyps Anxiety Home Medications ???Medication ???Instructions ???Recorded ???Last Taken ???Type lisinopril 10 mg tablet 10 mg PO QDAY htn 01/11/24 Unknown History ferrous sulfate 325 mg (65 mg 325 mg PO QDAY per 08/27/24 Unk nown History iron) tablet levothyroxine 88 mcg capsule 88 mcg PO QDAY hypothyroid 5 Unknown History norethindrone acetate 5 mg tablet 5 mg PO .COMPLEX bleeding #45 tab s 08/27/24 Unknown Rx omeprazole 20 mg capsule,delayed 20 mg PO DAILY PRN HEARTBURN 10/02 Unknown History release (more content not included)... Normal [facility] Magnesiumon 10-12-2024 Magnesium [Mass/Vol] 2.2 mg/dL Normal 1.5-2.2 [facility] Comment on above: Performed By: #### L 501.5200, L501.9520 ####[facility] [id number] [place], [address] Club Steward Office Visit Reporton 10-12-2024 Club [facility]ward Office Visit Report [facility]'s [address], [address] [place] [address] OFFICE VISIT Date of Service: 10/12/24 MR#: [id number] Acct: [id number] Name: MAYRA ARIAS Rep #: [id number] : 1975 Provider: Dr. Margie Costa DO Age/Sex: 49/F Location: [facility] Status: Signed Intake Vital Signs 08/27/24 11:58 09/17/24 13:57 10/12/24 08:59 Height 5 ft 3 in 5 ft 3 in 5 ft 3 in Weight: 226 lb 4 oz BMI 40.1 BP 158/79 H Intake Visit Reasons: [facility] Product Picker Required: No Is patient in pain?: No Allergies amlodipine Adverse Reaction (Verified 10/12/24 08:57) Chest pain Medications ???Medication ???Instructions ???Recorded ???Confirmed ???Type lisinopril 10 mg tablet 10 mg PO QDAY htn 01/11/24 5 History ferrous sulfate 325 mg (65 mg 325 mg PO QDAY per dr 08/27/24 History iron) tablet levothyroxine 88 mcg capsule 88 mcg PO QDAY hypothyroid 5 10/12/24 History norethindrone acetate 5 mg tablet 5 mg PO .COMPLEX bleeding #45 tab s 08/27/24 10/12/24 Rx omeprazole 20 mg capsule,delayed 20 mg PO DAILY PRN HEARTBURN 10/0210/12/24 History release Post menopausal: No Patient : No : [...] home: Yes 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 Normal [facility] Thyroid Stim Hormone (TSH)on 10-12-2024 TSH 2.610 uIU/mL Normal 0.300-4.200 [facility] Comment on above: Performed By: #### L 501.5200, L501.9520 ####[facility] [id number] [place], [address] Type AND Screen - PAT ONLYon 10-12-2024 Ab SCREEN GEL Negative Normal [facility] Comment on above: Order Comment: Surge ry Date: 10/16/24Reason for Laboratory Test total abdominal [id number] abdominal hysterectomy Performed By: #### L 100.0100 #### [facility] [address] [place], [place], [address] Magnetic resonance imaging r eportOrdered By: Ashutosh Rhodes on 09-27-2024 Study report [facility] Imaging Services [address] [place] [address] Pelvis W/WO Contrast MR#: [id number] Acct: [id number] Name: MAYRA ARIAS Rep #: [id number] : 1975 F 49 From: Chapin Rhodes MD PCP: Dr. Dinesh Gan MD Status: REG C LI Study:Pelvis W/WO Contrast Date of Exam: 09/27/24 Exam# [id number] Ordering Dr: Margie Barroso DO EXAM: PELVIS [...] Reyes DO; Dr. Dinesh Gan MD ~ Valet Parking Attendant: Signed [facility] Pelvis W/WO Contraston 09-27 Pelvis W/WO Contrast [facility] Imaging Services [address] [place] [address] Pelvis W/WO Contrast MR#: [id number] Acct: [id number] Name: MAYRA ARIAS Anand Rep #: [id number] : 1975 F 49 From: Ashutosh Rhodes MD PCP: Dr. Dinesh Gan MD Status: REG CLI Study: Pelvis W/WO Contrast Date of Exam: 09/27/24 Exam# [id number] Ordering Dr: Margie Reyes DO EXAM: PELVIS [...] Margie Reyes DO; Dr. Dinesh Gan MD Valet Parking Attendant: Signed Normal [facility] Pelvic w/ Transvaginalon Pelvic w/ Transvaginal [facility] Imaging Services [address] [place] [address] Pelvic w/ Transvaginal MR#: [id number] Acct: [id number] Name: MAYRA ARIAS Rep #: [id number] : 1975 F 49 From: Remberto Garcia i, MD PCP: Dr. Dinesh Gan MD Status: REG CLI Study: Pelvic w/ Transvaginal Date of Exam: 08/29/24 Exam# [id number] Ordering Dr: Ashlie Basurto STEP FINISHER STEP FINISHER -C PROCEDURE: Pelvic ultrasound. REASON FOR EXAM: [...] surgical treatments, as clinically indicated. Reading Location: [id number] CC: BRUCE Basurto; Dr. 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 Needed assistance from Dr Ganvix prepped with betadine and pipelle inserted into uterus without complication. Specimen obtained and sent to lab for analysis. All instruments removed from vagina without complications. Excellent hemostasis noted. Coding Level of Care Code Attention Allied Health Professional Diagnoses Uterine leiomyoma, unspecified location D25.9 Uterine leiomyoma location: unspecified location Enlarged uterus N85.2 Menorrhagia with regular cycle N92.0 CPT Codes Endometrial Biopsy (26979) Assessment and Plan Assessment and Plan (1) Uterine fibroid: Status: Acute Qualifiers: Uterine leiomyoma lo (more content not included)... Normal [facility] Surgery Specimen Level Jc 08-27-2024 Surgery Specimen Level IV Patient Age/Sex Location Account Attending Physician MAYRA ARIAS/F LABSPEC [id number] BRUCE Guzmán Specimen: [id number] Received: 08/27/24 Status: ML [place] Num: [id number] Spec Type: ENDOM BX/C Subm Dr: Ashlie Basurto, STEP FINISHER-C HEADER OPERATION: Endometrial biopsy PRE-OP DIAGNOSIS: Abnormal [...] in aggregate. Submitted in toto in A1. [facility] 08-27-2024 CPT:22060 Patient Age/Sex Location Account Attending Physician MAYRA ARIAS 49/F LABSPEC [id number] BRUCE Guzmán Signed (signatur e on file) Dr. Roshni Willingham MD 09/06/24 1823 Normal [facility] Comment on above: Performed By: #### L 100.0100 #### [facility] [address] [place], [place], [id number] Lipid Profileon 07-03-2024 CHOL:HDL 5.30 Normal [facility] Comment on above: Performed By: #### L 500.4050, L501.80447, L501.9520, L506.0400, L500.4100 ####[facility] [id number] [place], [place], [address] Cholesterol [Mass/Vol] 205 mg/dL High <=200 [facility] Comment on above: Result Comment: Chol esterol level, Desirable <200 mg/dL Borderline high cholesterol 200-239 mg/dL High cholesterol >=240 mg/dL Recommendations of the NCEP Adult Treatment Panel for the following risk-cutoff thresholds for the [place] population. Performed By: #### L 500.4050, L501.61436, L501.9520, L506.0400, L500.4100 ####[facility] [address] [place], [address] Cholesterol in HDL [Mass/Vol] 39 mg/dL Low [facility] Comment on above: Result Comment: [place] Cholesterol Education Program (NCEP) guidelines: <40 mg/dL: Low HDL-cholesterol (major risk factor for CHD) >= 60 mg/dL: High HDL-cholesterol (negative risk factor for CHD) HDL-cholesterol is affected by a number of factors, e.g. smoking, exercise, hormones, sex and age. Performed By: #### L 500.4050, L501.24499, L501.9520, L506.0400, L500.4100 ####[facility] [address] [place], [address] Cholesterol in LDL [Mass/Vol] 141 mg/dL Normal [facility] Comment on above: Result Comment: Bord regipj=022-111 mg/dL Higher Xsdn=579 mg/dL or greater Performed By: #### L 500.4050, L501.77179, L501.9520, L506.0400, L500.4100 ####[facility] [address] [place], [address] Cholesterol in VLDL [Mass/Vol] 26 mg/dL Normal 5-40 [facility] Comment on above: Performed By: #### L 500.4050, L501.08914, L501.9520, L506.0400, L500.4100 ####[facility] [address] [place], [address] Triglyceride [Mass/Vol] 129 mg/dL Normal [facility] Comment on above: Result Comment: The drugs N-Acetylcysteine and Metamizole may falsely depress this assay. Normal range: <150 mg/dL Borderline High: 150-199 mg/dL High: 200-499 mg/dL Very High: >500 mg/dL Performed By: #### L 500.4050, L501.03615, L501.9520, L506.0400, L500.4100 ####[facility] [address] [place], [place], [address] BUN/creatinine ratioOrdered By: Dinesh Gan on 07-02-2024 Urea nitrogen/Creatinine [Mass ratio] 23.7 mg/mg High 10-20 [facility] Bilirubin, totalOrdered By: Dinesh Gan on 07-02-2024 Bilirubin [Mass/Vol] 0.38 mg/dL 0.00-1.30 [facility] Calculated very low density lipoprotein (VLDL) cholesterol measurementOrdered By: Dinesh Gan on 07-02-2024 Calculated very low density lipoprotein (VLDL) cholesterol measurement 26 mg/dL 5-40 [facility] VLDL Cholesterol 26 mg/dL 5-40 [facility] Carbon dioxide measurementOr dered By: Dinesh Gan on 07-02-2024 CO2 [Moles/Vol] 18.9 mmol/L Low 22.0-29.0 [facility] Chloride measurementOrdered By: Dinesh Gan on 07-02-2024 Chloride [Moles/Vol] 106 mmol/L 96-108 [facility] Comprehensive Metabolic Prof ilon 07-02-2024 Albumin [Mass/Vol] 4.2 g/dL Normal 3.5-5.0 [facility] Comment on above: Performed By: #### L 500.4050, L501.48631, L501.9520, L506.0400, L500.4100 ####[facility] [address] [place], [place], [address] Albumin/Globulin [Mass ratio] 1.5 {ratio} Normal 0.9-2.4 [facility] Comment on above: Performed By: #### L 500.4050, L501.97955, L501.9520, L506.0400, L500.4100 ####[facility] [address] [place], [address] ALK PHOS 66 U/L Normal 35-104 [facility] Comment on above: Performed By: #### L 500.4050, L501.07643, L501.9520, L506.0400, L500.4100 ####[facility] [address] [place], [address] ALT [Catalytic activity/Vol] 7 U/L Normal <=34 [facility] Comment on above: Performed By: #### L 500.4050, L501.26885, L501.9520, L506.0400, L500.4100 ####[facility] [address] [place], [address] Anion gap [Moles/Vol] 14 mmol/L Normal 5-15 [facility] Comment on above: Performed By: #### L 500.4050, L501.65438, L501.9520, L506.0400, L500.4100 ####[facility] [address] [place], [address] AST [Catalytic activity/Vol] 16 U/L Normal <=31 [facility] Comment on above: Performed By: #### L 500.4050, L501.95340, L501.9520, L506.0400, L500.4100 ####[facility] [address] [place], [address] Bilirubin [Mass/Vol] 0.38 mg/dL Normal 0.00-1.30 [facility] Comment on above: Performed By: #### L 500.4050, L501.00627, L501.9520, L506.0400, L500.4100 ####[facility] [address] [place], [address] BUN/CRE 23.7 RATIO High 10-20 [facility] Comment on above: Performed By: #### L 500.4050, L501.68452, L501.9520, L506.0400, L500.4100 ####[facility] [address] [place], [address] Calcium [Mass/Vol] 9.4 mg/dL Normal 7.6-11.0 [facility] Comment on above: Performed By: #### L 500.4050, L501.37607, L501.9520, L506.0400, L500.4100 ####[facility] [address] [place], [address] Chloride [Moles/Vol] 106 mmol/L Normal 96-108 [facility] Comment on above: Performed By: #### L 500.4050, L501.91197, L501.9520, L506.0400, L500.4100 ####[facility] [address] [place], [address] CO2 [Moles/Vol] 18.9 mmol/L Low 22.0-29.0 [facility] Comment on above: Performed By: #### L 500.4050, L501.55112, L501.9520, L506.0400, L500.4100 ####[facility] [address] [place], [address] Creatinine [Mass/Vol] 0.63 mg/dL Low 0.70-1.20 [facility] Comment on above: Performed By: #### L 500.4050, L501.92607, L501.9520, L506.0400, L500.4100 ####[facility] [address] [place], [address] GFR/1.73 sq M.predicted among non-blacks MDRD (S/P/Bld) [Vol rate/Area] 109 mL/min/{1.73_m2} Normal >60 [facility] Comment on above: Result Comment: mL/m in/1.73m2 CKD-EPI Creatinine Equation (2020) Performed By: #### L 500.4050, L501.09506, L501.9520, L506.0400, L500.4100 ####[facility] [address] [place], [address] Globulin (S) [Mass/Vol] 2.8 g/dL Normal 2.2-4.2 [facility] Comment on above: Performed By: #### L 500.4050, L501.75907, L501.9520, L506.0400, L500.4100 ####[facility] [address] [place], [address] Glucose [Mass/Vol] 80 mg/dL Normal 70-99 [facility] Comment on above: Performed By: #### L 500.4050, L501.99441, L501.9520, L506.0400, L500.4100 ####[facility] [address] [place], [address] Potassium [Moles/Vol] 3.5 mmol/L Normal 3.3-5.1 [facility] Comment on above: Performed By: #### L 500.4050, L501.28353, L501.9520, L506.0400, L500.4100 ####[facility] [address] [place], [address] Sodium [Moles/Vol] 138 mmol/L Normal 133-145 [facility] Comment on above: Performed By: #### L 500.4050, L501.19675, L501.9520, L506.0400, L500.4100 ####[facility] [address] [place], [address] T PROT 7.0 g/dL Normal 5.9-8.4 [facility] Comment on above: Performed By: #### L 500.4050, L501.23298, L501.9520, L506.0400, L500.4100 ####[facility] [address] [place], [address] Urea nitrogen [Mass/Vol] 15 mg/dL Normal 4-19 [facility] Comment on above: Performed By: #### L 500.4050, L501.87092, L501.9520, L506.0400, L500.4100 ####[facility] [address] [place], [address] Free T3on 07-02-2024 Free T3 [Mass/Vol] 2.4 pg/mL Normal 2.18-3.98 [facility] Comment on above: Performed By: #### L 500.4050, L501.41903, L501.9520, L506.0400, L500.4100 ####[facility] [address] [place], [address] Free M9Zznrzjo By: Dinesh nation on 07-02-2024 Free T3 [Mass/Vol] 2.4 pg/mL 2.18-3.98 [facility] Free Triiodothyronine (T3) pg/dL 2.4 pg/mL 2.18-3.98 [facility] GFR/1.73 sq M.predicted dolly g non-blacks MDRD (S/P/Bld) [Vol rate/Area]Ordered By: Dinesh Gan on 07-02-2024 Estimated GFR (MDRD) Non-Af Amer 109 >60 [facility] Comment on above: mL/min/1.73m2 CKD-EP I Creatinine Equation (2020) Glomerular filtration rate ( GFR) estimation/1.73 sq m using serum, plasma, or whole bOrdered By: Dinesh Gan on 07-02-2024 GFR/1.73 sq M.predicted among non-blacks MDRD (S/P/Bld) [Vol rate/Area] 109 mL/min/{1.73_m2} >60 [facility] Comment on above: mL/min/1.73m2 CKD-EP I Creatinine Equation (2020) LDL calc ser/plasOrdered By: Dinesh Gan on 07-02-2024 Cholesterol in LDL [Mass/Vol] 141 mg/dL [facility] Comment on above: Ioaigidbfk=571-017 m g/dL & Higher Nouc=069 mg/dL or greater LDL Cholesterol, Calculated 141 mg/dL [facility] Comment on above: Iixdbhlycz=235-386 m g/dL & Higher Qkzh=231 mg/dL or greater Laboratory - Chemistry and C hemistry - challengeOrdered By: Dinesh Gan on 07-02-2024 AST [Catalytic activity/Vol] 16 U/L <32 [facility] Screening total cholesterol/ high density lipoprotein (HDL) cholesterol ratioOrdered By: Dinesh Gan on 07-02-2024 Cholesterol.total/Cho lesterol in HDL [Mass ratio] 5.30 {ratio} [facility] Serum creatinine measurement (mass/volume)Ordered By: Dinesh Gan on 07-02-2024 Creatinine [Mass/Vol] 0.63 mg/dL Low 0.70-1.20 [facility] Serum globulin measurementOr dered By: Dinesh Gan on 07-02-2024 Globulin (S) [Mass/Vol] 2.8 g/dL 2.2-4.2 [facility] Serum glucose measurement (m ass/volume)Ordered By: Dinesh Gan on 07-02-2024 Glucose [Mass/Vol] 80 mg/dL 70-99 [facility] Serum or plasma alanine fermin otransferase (ALT) measurementOrdered By: Dinesh Gan on 07-02-2024 ALT [Catalytic activity/Vol] 7 U/L <35 [facility] Serum or plasma albumin nette urement (mass/volume)Ordered By: Dinesh Gan on 07-02-2024 Albumin [Mass/Vol] 4.2 g/dL 3.5-5.0 [facility] Serum or plasma albumin/glob ulin mass ratioOrdered By: Dinesh Gan on 07-02-2024 Albumin/Globulin [Mass ratio] 1.5 {ratio} 0.9-2.4 [facility] Serum or plasma alkaline katalina sphatase measurementOrdered By: Dinesh Gan on 07-02-2024 ALP [Catalytic activity/Vol] 66 U/L 35-104 [facility] Serum or plasma anion gap de termination (moles/volume)Ordered By: Dinesh Gan on 07-02-2024 Anion gap [Moles/Vol] 14 mmol/L 5-15 [facility] Serum or plasma calcium nette urement (mass/volume)Ordered By: Dinesh Gan on 07-02-2024 Calcium [Mass/Vol] 9.4 mg/dL 7.6-11.0 [facility] Serum or plasma cholesterol in HDL measurement (mass/volume)Ordered By: Dinesh Gan on 07-02-2024 Cholesterol in HDL [Mass/Vol] 39 mg/dL Low >40 [facility] Comment on above: National Cholesterol Education Program (NCEP) guidelines:<40 mg/dL: Low HDL-cholesterol (major risk factor for CHD)>= 60 mg/dL: High HDL-cholesterol (negative risk factor for CHD)HDL-cholesterol is affected by a number of factors, e.g. smoking, exercise, hormones, sex and age. Serum or plasma cholesterol measurement (mass/volume)Ordered By: Dinesh Gan on 07-02-2024 Cholesterol [Mass/Vol] 205 mg/dL High <201 [facility] Comment on above: Cholesterol level, D esirable <200 mg/dLBorderline high cholesterol 200-239 mg/dLHigh cholesterol >=240 mg/dLRecommendations of the NCEP Adult Treatment Panel for the following risk-cutoff thresholds for the [place] population. Serum or plasma potassium me asurementOrdered By: Dinesh Gan on 07-02-2024 Potassium [Moles/Vol] 3.5 mmol/L 3.3-5.1 [facility] Serum or plasma sodium measu rement (moles/volume)Ordered By: Dinesh Gan on 07-02-2024 Sodium [Moles/Vol] 138 mmol/L 133-145 [facility] Serum or plasma urea nitroge n measurement (mass/volume)Ordered By: Dinesh Gan on 07-02-2024 Urea nitrogen [Mass/Vol] 15 mg/dL 4-19 [facility] T4 Free Directon 07-02-2024 T4 FREE DIRECT 1.10 ng/dL Normal 0.76-1.46 [facility] Comment on above: Performed By: #### L 500.4050, L501.67153, L501.9520, L506.0400, L500.4100 ####[facility] [address] [place], [place], [address] T4 freeOrdered By: Dinesh nation on 07-02-2024 Free T4 [Mass/Vol] 1.10 ng/dL 0.76-1.46 [facility] TSH DL <= 0.005 mIU/L QnOrde red By: Dinesh Gan on 07-02-2024 Thyroid Stimulating Hormone (TSH) 3.980 uIU/mL 0.300-4.200 [facility] TSH Qn 3.980 uIU/mL 0.300-4.200 [facility] Thyroid Stim Hormone (TSH)on 07-02-2024 TSH 3.980 uIU/mL Normal 0.300-4.200 [facility] Comment on above: Performed By: #### L 500.4050, L501.00843, L501.9520, L506.0400, L500.4100 ####[facility] [address] [place], [place], [address] Total proteinOrdered By: Yany Gan on 07-02-2024 Protein [Mass/Vol] 7.0 g/dL 5.9-8.4 [facility] Triglycerides measurementOrd ered By: Dinesh Gan on 07-02-2024 Triglyceride [Mass/Vol] 129 mg/dL <199 [facility] Comment on above: The drugs N-Acetylcy steine and Metamizole may falsely depress this assay. Normal range: <150 mg/dLBorderline High: 150-199 mg/dLHigh: 200-499 mg/dLVery High: >500 mg/dL [facility] Office Visit Reporton 03-12-2024 [facility] Office Visit Report [facility]'s [address], [address] [place] [address] OFFICE VISIT Date of Service: 03/12/24 MR#: [id number] Acct: [id number] Name: MAYRA ARIAS Rep #: [id number] : 1975 Provider: Dr. 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 / [place] , Service support , History 2 Elective abortions Hx Para [...] Menorrhagia with (more content not included)... Normal [facility] T4 Free Directon 03-12-2024 T4 FREE DIRECT 0.80 ng/dL Normal 0.76-1.46 [facility] Comment on above: Performed By: #### L 501.9520, L506.0400 #### [facility] [address] [place], [place], [address] Thyroid Stim Hormone (TSH)on 03-12-2024 TSH 4.590 uIU/mL High 0.358-3.740 [facility] Comment on above: Performed By: #### L 501.9520, L506.0400 #### [facility] [address] [place], [address] [facility] Office Visit Reporton 03-06-2024 [facility] Office Visit Report [facility]'s [address], [address] [place] [address] OFFICE VISIT Date of Service: 03/06/24 MR#: [id number] Acct: [id number] Name: MAYRA ARIAS Rep #: [id number] : 1975 Provider: BRUCE reynoso Age/Sex: 48/F Location: [facility] Status: Signed Intake Vital Signs 01/11/24 11:47 03/06/24 10:18 03/06/24 10:23 Height 5 ft 3 in 5 ft 3 in 5 ft 3 in Weight: 223 lb BMI 39.4 BP 120/82 H Intake Visit Reasons: 6 wk FU Chief Complaint: 6 Week F/u Product Picker Required: No Is patient in pain?: No [...] home: Yes 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 She is fearful [...] D25.9 - Leiomyoma of uterus, unspecified Comment: [id number]:surgi eduardo consult JV. She has fear of [...] will c (more content not included)... Normal [facility] CBC W/Diff, Automatedon 10-0 PLT EST ADEQUATE Normal ADEQ [facility] Comment on above: Performed By: #### L 100.0100 #### [facility] [address] [place], [address] Anisocytosis Ql (Bld) 3+ Normal [facility] Comment on above: Performed By: #### L 100.0100 #### [facility] [address] [place], [address] MACROCYTOSIS 1+ Normal [facility] Comment on above: Performed By: #### L 100.0100 #### [facility] [address] [place], [address] MICROCYTIC 1+ Normal [facility] Comment on above: Performed By: #### L 100.0100 #### [facility] [address] [place], [address] SMEAR COMMENT SCANNED Normal [facility] Comment on above: Performed By: #### L 100.0100 #### [facility] [address] [place], [address] SCRN MAMM (CAD)W/CHICA BILATo n 01-24-2024 SCRN MAMM (CAD)W/CHICA BILAT [facility] Imaging Services [address] [place] [address] SCRN MAMM (CAD)W/CHICA BILAT MR#: [id number] Acct: [id number] Name: MAYRA ARIAS Rep #: [id number] : 1975 F 48 From: Juan Luis de los santos MD PCP: Dr. Dinesh Gan MD Status: [facility] Study: SCRN MAMM (CAD)W/CHICA BILAT Date of Exam: 01/01 08/23 Exam# [id number] Ordering Dr: Ashlie Basurto STEP FINISHER STEP FINISHER -[id number] MAMMOGRAPHY - BILATERAL SCREENING REASON FOR [...] delay biopsy of a clinically suspicious abnormality. [id number] Electronically Signed: Juan Luis Soto MD at 11:05 EDT Reading Location ID and State: [address] [place] [address] , Service support , CC: BRUCE Basurto; Dr. Dinesh Gan MD Valet Parking Attendant: Signed Normal [facility] Pelvic w/ Transvaginalon Pelvic w/ Transvaginal [facility] Imaging Services [address] [place] [id number] Pelvic w/ Transvaginal MR#: [id number] Acct: [id number] Name: MAYRA ARIAS Rep #: [id number] : 1975 F 48 From: Raciel Gaines PCP: Dr. Dinesh Gan MD Status: [facility] Study: Pelvic w/ Transvaginal Date of Exam: 01/20/24 Exam# [id number] Ordering Dr: Ashlie Basurto NP STEP FINISHER -C [id number] STUDY: ULTRASOUND OF THE FEMALE PELVIS [...] Signed: Raciel Yeung MD at 19:42 EDT Reading Location ID and State: [facility] / [place] , Service support , CC: BRUCE Basurto; Dr. Dinesh Gan MD Valet Parking Attendant: Signed Normal [facility] PAP IG HPV APTIMA 16/18,45on 01-16-2024 ADEQ Comment Normal . [facility] Comment on above: Order Comment: Speci men Comment: [id number] Specimen Comment: No. of containers..01 ThinPrep Vial Result Comment: Sati sfactory for evaluation. Endocervical and/or squamous metaplastic cells (endocervical component) are present. Performed By: #### L 7400.0280 #### [facility] [address] [place], [address] COMM . Normal . [facility] Comment on above: Order Comment: Speci men Comment: [id number] Specimen Comment: No. of containers..01 ThinPrep Vial Performed By: #### L 7400.0280 #### [facility] [address] [place], [address] COMMENT Comment Normal . [facility] Comment on above: Order Comment: Speci men Comment: [id number] Specimen Comment: No. of containers..01 ThinPrep Vial Result Comment: This liquid based ThinPrep(R) pap test was screened with the use of an image guided system. Performed By: #### L 7400.0280 #### [facility] [address] [place], [address] DIAG Comment Normal . [facility] Comment on above: Order Comment: Speci men Comment: [id number] Specimen Comment: No. of containers..01 ThinPrep Vial Result Comment: NEGA TIVE FOR INTRAEPITHELIAL LESION OR MALIGNANCY. Performed By: #### L 7400.0280 #### [facility] [address] [place], [address] HPV APTIMA, HR Negative Normal Negative [facility] Comment on above: Order Comment: Speci men Comment: [id number] Specimen Comment: No. of containers..01 ThinPrep Vial Result Comment: This nucleic acid amplification test detects fourteen high- risk HPV types (16,18,31,33,35,39,45,51,52,56,58,59,66,68) without differentiation. Performed By: #### L 7400.0280 #### [facility] [address] [place], [address] HPV Marlee Rfx Comment Normal . [facility] Comment on above: Order Comment: Speci men Comment: [id number] Specimen Comment: No. of containers..01 ThinPrep Vial Result Comment: Crit eria not met, HPV Genotype not performed. Performed at: - [address] [id number] Atm Technician: Rebekah Lynn MD, Phone: [phone] Performed at: = - [facility] [address], [place] [id number] Atm Technician: Rebekah Lynn MD, Phone: [phone] Performed By: #### L 7400.0280 #### [facility] [address] [place], [place], [address] PAPSMR Comment Normal . [facility] Comment on above: Order Comment: Speci men Comment: [id number] Specimen Comment: No. of containers..01 ThinPrep Vial Result Comment: The Pap smear is a screening test designed to aid in the detection of premalignant and malignant conditions of the uterine cervix. It is not a diagnostic procedure and should not be used as the sole means of detecting cervical cancer. Both false-positive and false-negative reports do occur. Performed By: #### L 7400.0280 #### [facility] [address] [place], [place], [address] PERFORM Comment Normal . [facility] Comment on above: Order Comment: Speci men Comment: [id number] Specimen Comment: No. of containers..01 ThinPrep Vial Result Comment: Fidelina Linares Television Repairman (ASCP) Performed By: #### L 7400.0280 #### [facility] [address] [place], [place], [address] [facility] Office Visit Reporton 01-11-2024 Club Steward Office Visit Report [facility]'s [address], [address] [place] [address] OFFICE VISIT Date of Service: 01/11/24 MR#: [id number] Acct: [id number] Name: MAYRA ARIAS Rep #: [id number] : 1975 Provider: BRUCE reynoso Age/Sex: 48/F Location: [facility] Status: Signed Intake Vital Signs 04/20/23 13:43 01/11/24 11:40 01/11/24 11:47 Height 5 ft 3 in 5 ft 3 in 5 ft 3 in Weight: 231 lb 6 oz BMI 40.9 BP 134/78 H Intake Visit Reasons: HEAVY [facility]ENS[facility] Chief Complaint: Heavy Menses/Anemia Product Picker Required: No Is patient in pain?: No [...] home: Yes 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 Normal [facility] CBC W/Diff, Automatedon 09-0 Anisocytosis Ql (Bld) 3+ Normal [facility] Comment on above: Order Comment: Order Date: 12/29/23 Order Info: 183- - CBCD Performed By: #### L 100.0100, L503.6075, L503.6550 #### [facility] [address] [place], [address] HYPOCHROMASIA 1+ Normal [facility] Comment on above: Order Comment: Order Date: 12/29/23 Order Info: 183- - CBCD Performed By: #### L 100.0100, L503.6075, L503.6550 #### [facility] [address] [place], [address] MACROCYTOSIS 1+ Normal [facility] Comment on above: Order Comment: Order Date: 12/29/23 Order Info: 183- - CBCD Performed By: #### L 100.0100, L503.6075, L503.6550 #### [facility] [address] [place], [address] MICROCYTIC 2+ Normal [facility] Comment on above: Order Comment: Order Date: 12/29/23 Order Info: 183- - CBCD Performed By: #### L 100.0100, L503.6075, L503.6550 #### [facility] [address] [place], [address] PLT EST ADEQUATE Normal ADEQ [facility] Comment on above: Order Comment: Order Date: 12/29/23 Order Info: 018- - CBCD Performed By: #### L 100.0100, L503.6075, L503.6550 #### [facility] [address] [place], [address] SCHISTOCYTES 1+ Normal [facility] Comment on above: Order Comment: Order Date: 12/29/23 Order Info: 0184-1 - CBCD Performed By: #### L 100.0100, L503.6075, L503.6550 #### [facility] [address] [place], [address] SMEAR COMMENT SCANNED Normal [facility] Comment on above: Order Comment: Order Date: 12/29/23 Order Info: [id number] - CBCD Performed By: #### L 100.0100, L503.6075, L503.6550 #### [facility] [address] [place], [address] Ferritinon 01-05-2024 Ferritin [Mass/Vol] 7 ng/mL Low 8-252 [facility] Comment on above: Order Comment: Order Date: 12/29/23Order Info: [id number] - TIBCOrder Info: [id number] - SONJA Performed By: #### L 100.0100, L503.6075, L503.6550 ####[facility] [id number] [place], [address] Iron Binding Capacity,Totalo n 01-05-2024 TIBC 407 ug/dL Normal 250-450 [facility] Comment on above: Order Comment: Order Date: 12/29/23 Order Info: [id number] - TIBC Order Info: [id number] - SONJA Performed By: #### L 100.0100, L503.6075, [id number] #### [facility] [address] [place], [address] Basic Metabolic Profile (BMP )on 12-29-2023 BUN/CRE 23.2 RATIO High 10-20 [facility] Comment on above: Performed By: #### L 100.0100 #### [facility] [address] [place], [address] CA,Total 8.9 mg/dL Normal 8.5-10.1 [facility] Comment on above: Performed By: #### L 100.0100 #### [facility] [address] [place], [address] Chloride [Moles/Vol] 108 mmol/L High 98-107 [facility] Comment on above: Performed By: #### L 100.0100 #### [facility] [address] [place], [address] CO2 [Moles/Vol] 24.0 mmol/L Normal 21.0-32.0 [facility] Comment on above: Performed By: #### L 100.0100 #### [facility] [address] [place], [address] Creatinine [Mass/Vol] 0.73 mg/dL Normal 0.55-1.02 [facility] Comment on above: Result Comment: The validity of the calculated GFR GFRAA in patients over 70 years has not been determined. Clinical correlation is essential. Performed By: #### L 100.0100 #### [facility] [address] [place], [address] EST GFR - AA 109 mL/min Normal >60 [facility] Comment on above: Result Comment: Afri can Marshallese GFR Calc Performed By: #### L 100.0100 #### [facility] [address] [place], [address] GAP 5 Normal 5-15 [facility] Comment on above: Performed By: #### L 100.0100 #### [facility] [address] [place], [address] GFR/1.73 sq M.predicted among non-blacks MDRD (S/P/Bld) [Vol rate/Area] 90 mL/min/{1.73_m2} Normal >60 [facility] Comment on above: Result Comment: Non- GFR Calc Performed By: #### L 100.0100 #### [facility] [address] [place], [address] Glucose [Mass/Vol] 101 mg/dL Normal 74-106 [facility] Comment on above: Result Comment: Fast ing Glucose result from 100 to 125 mg/dL suggests IMPAIRED HOMEOSTASIS per A.D.A. criteria. Performed By: #### L 100.0100 #### [facility] [address] [place], [address] Potassium [Moles/Vol] 3.6 mmol/L Normal 3.5-5.1 [facility] Comment on above: Performed By: #### L 100.0100 #### [facility] [address] [place], [address] Sodium [Moles/Vol] 137 mmol/L Normal 136-145 [facility] Comment on above: Performed By: #### L 100.0100 #### [facility] [address] [place], [address] Urea nitrogen [Mass/Vol] 17 mg/dL Normal 7-18 [facility] Comment on above: Performed By: #### L 100.0100 #### [facility] [address] [place], [address] CBC W/Diff, Automatedon 12-01 Anisocytosis Ql (Bld) 2+ Normal [facility] Comment on above: Performed By: #### L 100.0100 #### [facility] [address] [place], [address] MICROCYTIC 2+ Normal [facility] Comment on above: Performed By: #### L 100.0100 #### [facility] [address] [place], [address] SMEAR COMMENT SCANNED Normal [facility] Comment on above: Performed By: #### L 100.0100 #### [facility] [address] [place], [address] Lipid Profileon 12-29-2023 Cholesterol [Mass/Vol] 185 mg/dL Normal 200 [facility] Comment on above: Result Comment: <200 mg/dL Desirable 200-240 mg/dL Borderline >240 mg/dL High Risk Performed By: #### L 100.0100 #### [facility] [address] [place], [address] Cholesterol in HDL [Mass/Vol] 38 mg/dL Low [facility] Comment on above: Result Comment: The drugs N-Acetylcysteine and Metamizole may falsely depress this assay. Reference Range HDL <40 mg/dL Low HDL Cholesterol HDL >or= 60 mg/dL High HDL Cholesterol Performed By: #### L 100.0100 #### [facility] [address] [place], [address] Cholesterol in LDL [Mass/Vol] 125 mg/dL Normal 0-130 [facility] Comment on above: Performed By: #### L 100.0100 #### [facility] [address] [place], [address] Cholesterol in VLDL [Mass/Vol] 22 mg/dL Normal 5-40 [facility] Comment on above: Performed By: #### L 100.0100 #### [facility] [address] [place], [address] Triglyceride [Mass/Vol] 109 mg/dL Normal [facility] Comment on above: Result Comment: The drugs N-Acetylcysteine and Metamizole may falsely depress this assay. Serum Triglycerides Reference Interval Normal <150 mg/dL Borderline high 150 - 199 mg/dL High 200 - 499 mg/dL Very High > or = 500 mg/dL Performed By: #### L 100.0100 #### [facility] [address] [place], [address] Basophil percentageOrdered B y: Dinesh Gan on 06-29-2023 Bilirubin [Mass/Vol] 0.50 mg/dL 0.20-1.00 [facility] Comment on above: For patients on eltr ombopag therapy, use of Dimension [place] TBIL is not recommended. Chloride [Moles/Vol] 106 mmol/L 98-107 [facility] Cholesterol [Mass/Vol] 167 mg/dL <200 [facility] Comment on above: <200 mg/dL Desirable 200-240 mg/dL Borderline >240 mg/dL High Risk Glucose [Mass/Vol] 96 mg/dL 74-106 [facility] Potassium [Moles/Vol] 3.6 mmol/L 3.5-5.1 [facility] Protein [Mass/Vol] 7.4 g/dL 6.4-8.2 [facility] Sodium [Moles/Vol] 140 mmol/L 136-145 [facility] Triglyceride [Mass/Vol] 89 mg/dL <199 [facility] Comment on above: The drugs N-Acetylcy steine and Metamizole may falsely depress this assay.Serum Triglycerides Reference Interval Normal <150 mg/dL Borderline high 150 - 199 mg/dL High 200 - 499 mg/dL Very High > or = 500 mg/dL Laboratory - Chemistry and C hemistry - challengeOrdered By: Dinesh Gan on 06-29-2023 Albumin/Globulin [Mass ratio] 1.1 {ratio} 0.9-2.4 [facility] ALP [Catalytic activity/Vol] 93 U/L 45-117 [facility] ALT [Catalytic activity/Vol] 27 U/L 13-56 [facility] Cholesterol in HDL [Mass/Vol] 43 mg/dL >40 [facility] Comment on above: The drugs N-Acetylcy steine and Metamizole may falsely depress this assay. Reference Range HDL <40 mg/dL Low HDL Cholesterol HDL >or= 60 mg/dL High HDL Cholesterol Cholesterol in LDL [Mass/Vol] 106 mg/dL 0-130 [facility] CO2 [Moles/Vol] 25.0 mmol/L 21.0-32.0 [facility] Globulin (S) [Mass/Vol] 3.6 g/dL 2.2-4.2 [facility] Urea nitrogen/Creatinine [Mass ratio] 18.0 mg/mg 10-20 [facility] No Panel InformationOrdered By: Dinesh Gan on 06-29-2023 Estimated GFR (MDRD) Amer 102 mL/min >60 [facility] Comment on above: GFR Calc Estimated GFR (MDRD) Non-Af Amer 84 mL/min >60 [facility] Comment on above: Non- GFR Calc VLDL Cholesterol 18 mg/dL 5-40 [facility] Serum or plasma calcium nette urement (mass/volume)Ordered By: Dinesh Gan on 06-29-2023 Calcium [Mass/Vol] 9.5 mg/dL 8.5-10.1 [facility] Serum or plasma creatinine m easurement (mass/volume)Ordered By: Dinesh Gan on 06-29-2023 Creatinine [Mass/Vol] 0.78 mg/dL 0.55-1.02 [facility] Comment on above: The validity of the calculated GFR & GFRAA in patients over 70 years has not been determined. Clinical correlation is essential. Serum or plasma urea nitroge n measurement (mass/volume)Ordered By: Dinesh Gan on 06-29-2023 Urea nitrogen [Mass/Vol] 14 mg/dL 7-18 [facility] Thin prep Papanicolaou smear with manual screeningOrdered By: Dinesh Gan on 06-29-2023 Thin prep Papanicolaou smear with manual screening 3.8 g/dL 3.2-5.0 [facility] Thin prep Papanicolaou smear with manual screening 22 U/L 15-37 [facility] Thin prep Papanicolaou smear with manual screening 9 5-15 [facility] Laboratory - Chemistry and C hemistry - challengeOrdered By: Ba Brito on 04-20-2023 HCG ( test) Ql (U) Negative [facility] Comment on above: Very dilute urine sp ecimens, as indicated by a low specificgravity, may not contain veterans service representative levels of hCG. If is still suspected, a first morning urinespecimen should be collected 48 hours later and tested. Basophil percentageOrdered B y: Dinesh Gan on 04-15-2023 Cholesterol [Mass/Vol] 122 mg/dL <200 [facility] Comment on above: <200 mg/dL Desirable 200-240 mg/dL Borderline >240 mg/dL High Risk Triglyceride [Mass/Vol] 78 mg/dL <199 [facility] Comment on above: The drugs N-Acetylcy steine and Metamizole may falsely depress this assay.Serum Triglycerides Reference Interval Normal <150 mg/dL Borderline high 150 - 199 mg/dL High 200 - 499 mg/dL Very High > or = 500 mg/dL Serum or plasma cholesterol in HDL measurement (mass/volume)Ordered By: Dinesh Gan on 04-15-2023 Cholesterol in HDL [Mass/Vol] 41 mg/dL >40 [facility] Comment on above: The drugs N-Acetylcy steine and Metamizole may falsely depress this assay. Reference Range HDL <40 mg/dL Low HDL Cholesterol HDL >or= 60 mg/dL High HDL Cholesterol Serum or plasma cholesterol in VLDL measurement (mass/volume)Ordered By: Dinesh Gan on 04-15-2023 Cholesterol in VLDL [Mass/Vol] 16 mg/dL 5-40 [facility] Serum or plasma low density lipoprotein (LDL) cholesterol measurement (mass/volume)Ordered By: Dinesh Gan on 04-15-2023 Cholesterol in LDL [Mass/Vol] 65 mg/dL 0-130 [facility] Basophil percentageOrdered B y: Dinesh Gan on 01-14-2023 Chloride [Moles/Vol] 106 mmol/L 98-107 [facility] Cholesterol [Mass/Vol] 219 mg/dL <200 [facility] Comment on above: <200 mg/dL Desirable 200-240 mg/dL Borderline >240 mg/dL High Risk Glucose [Mass/Vol] 96 mg/dL 74-106 [facility] Potassium [Moles/Vol] 3.9 mmol/L 3.5-5.1 [facility] Sodium [Moles/Vol] 137 mmol/L 136-145 [facility] Triglyceride [Mass/Vol] 88 mg/dL <199 [facility] Comment on above: The drugs N-Acetylcy steine and Metamizole may falsely depress this assay.Serum Triglycerides Reference Interval Normal <150 mg/dL Borderline high 150 - 199 mg/dL High 200 - 499 mg/dL Very High > or = 500 mg/dL Laboratory - Chemistry and C hemistry - challengeOrdered By: Dinesh Gan on 01-14-2023 CO2 [Moles/Vol] 27.0 mmol/L 21.0-32.0 [facility] Urea nitrogen/Creatinine [Mass ratio] 17.9 mg/mg 10-20 [facility] No Panel InformationOrdered By: Dinesh Gan on 01-14-2023 Estimated GFR (MDRD) Amer 101 mL/min >60 [facility] Comment on above: GFR Calc Estimated GFR (MDRD) Non-Af Amer 83 mL/min >60 [facility] Comment on above: Non- GFR Calc Serum or plasma calcium nette urement (mass/volume)Ordered By: Dinesh Gan on 01-14-2023 Calcium [Mass/Vol] 9.0 mg/dL 8.5-10.1 [facility] Serum or plasma cholesterol in HDL measurement (mass/volume)Ordered By: Dinesh Gan on 01-14-2023 Cholesterol in HDL [Mass/Vol] 46 mg/dL >40 [facility] Comment on above: The drugs N-Acetylcy steine and Metamizole may falsely depress this assay. Reference Range HDL <40 mg/dL Low HDL Cholesterol HDL >or= 60 mg/dL High HDL Cholesterol Serum or plasma cholesterol in VLDL measurement (mass/volume)Ordered By: Dinesh Gan on 01-14-2023 Cholesterol in VLDL [Mass/Vol] 18 mg/dL 5-40 [facility] Serum or plasma creatinine m easurement (mass/volume)Ordered By: Dinesh Gan on 01-14-2023 Creatinine [Mass/Vol] 0.78 mg/dL 0.55-1.02 [facility] Comment on above: The validity of the calculated GFR & GFRAA in patients over 70 years has not been determined. Clinical correlation is essential. Serum or plasma low density lipoprotein (LDL) cholesterol measurement (mass/volume)Ordered By: Dinesh Gan on 01-14-2023 Cholesterol in LDL [Mass/Vol] 155 mg/dL 0-130 [facility] Serum or plasma urea nitroge n measurement (mass/volume)Ordered By: Dinesh Gan on 01-14-2023 Urea nitrogen [Mass/Vol] 14 mg/dL 7-18 [facility] Thin prep Papanicolaou smear with manual screeningOrdered By: Dinesh Gan on 01-14-2023 Thin prep Papanicolaou smear with manual screening 4 5-15 [facility] Basophil percentageOrdered B y: Dr. Gan on 07-14-2022 Chloride [Moles/Vol] 108 mmol/L 98-107 [facility] Glucose [Mass/Vol] 90 mg/dL 74-106 [facility] Potassium [Moles/Vol] 3.7 mmol/L 3.5-5.1 [facility] Sodium [Moles/Vol] 140 mmol/L 136-145 [facility] Laboratory - Chemistry and C hemistry - challengeOrdered By: Dr. Gan on 07-14-2022 CO2 [Moles/Vol] 23.0 mmol/L 21.0-32.0 [facility] Urea nitrogen/Creatinine [Mass ratio] 23.6 mg/mg 10-20 [facility] No Panel InformationOrdered By: Dr. Gan on 07-14-2022 Estimated GFR (MDRD) Amer 111 mL/min >60 [facility] Comment on above: GFR Calc Estimated GFR (MDRD) Non-Af Amer 92 mL/min >60 [facility] Comment on above: Non- GFR Calc Serum or plasma calcium nette urement (mass/volume)Ordered By: Dr. Gan on 07-14-2022 Calcium [Mass/Vol] 9.0 mg/dL 8.5-10.1 [facility] Serum or plasma creatinine m easurement (mass/volume)Ordered By: Dr. Gan on 07-14-2022 Creatinine [Mass/Vol] 0.72 mg/dL 0.55-1.02 [facility] Comment on above: The validity of the calculated GFR & GFRAA in patients over 70 years has not been determined. Clinical correlation is essential. Serum or plasma urea nitroge n measurement (mass/volume)Ordered By: Dr. Gan on 07-14-2022 Urea nitrogen [Mass/Vol] 17 mg/dL 7-18 [facility] Thin prep Papanicolaou smear with manual screeningOrdered By: Dr. Gan on 07-14-2022 Thin prep Papanicolaou smear with manual screening 9 -15 [facility] Basophil percentageon 2021 Chloride [Moles/Vol] 108 mmol/L 98-107 [facility] Work Phone: Cholesterol [Mass/Vol] 184 mg/dL <200 [facility] Work Phone: Comment on above: <200 mg/dL Desirable 200-240 mg/dL Borderline >240 mg/dL High Risk Glucose [Mass/Vol] 100 mg/dL 74-106 [facility] Work Phone: Comment on above: Fasting Glucose resu lt from 100 to 125 mg/dL suggests IMPAIRED HOMEOSTASIS per A.D.A. criteria. Potassium [Moles/Vol] 3.6 mmol/L 3.5-5.1 [facility] Work Phone: Sodium [Moles/Vol] 140 mmol/L 136-145 [facility] Work Phone: Triglyceride [Mass/Vol] 129 mg/dL <199 [facility] Work Phone: Comment on above: The drugs N-Acetylcy steine and Metamizole may falsely depress this assay.Serum Triglycerides Reference Interval Normal <150 mg/dL Borderline high 150 - 199 mg/dL High 200 - 499 mg/dL Very High > or = 500 mg/dL Laboratory - Chemistry and C hemistry - challengeon 01-01-2022 CO2 [Moles/Vol] 25.0 mmol/L 21.0-32.0 [facility] Work Phone: Urea nitrogen/Creatinine [Mass ratio] 20.2 mg/mg 10-20 [facility] Work Phone: No Panel Informationon 01-01 Estimated GFR (MDRD) Amer 128 mL/min >60 [facility] Work Phone: Comment on above: GFR Calc Estimated GFR (MDRD) Non-Af Amer 105 mL/min >60 [facility] Work Phone: Comment on above: Non- GFR Calc Serum or plasma calcium nette urement (mass/volume)on 01-01-2022 Calcium [Mass/Vol] 8.7 mg/dL 8.5-10.1 [facility] Work Phone: Serum or plasma cholesterol in HDL measurement (mass/volume)on 01-01-2022 Cholesterol in HDL [Mass/Vol] 32 mg/dL >40 [facility] Work Phone: Comment on above: The drugs N-Acetylcy steine and Metamizole may falsely depress this assay. Reference Range HDL <40 mg/dL Low HDL Cholesterol HDL >or= 60 mg/dL High HDL Cholesterol Serum or plasma cholesterol in VLDL measurement (mass/volume)on 01-01-2022 Cholesterol in VLDL [Mass/Vol] 26 mg/dL 5-40 [facility] Work Phone: Serum or plasma creatinine m easurement (mass/volume)on 01-01-2022 Creatinine [Mass/Vol] 0.64 mg/dL 0.55-1.02 [facility] Work Phone: Comment on above: The validity of the calculated GFR & GFRAA in patients over 70 years has not been determined. Clinical correlation is essential. Serum or plasma low density lipoprotein (LDL) cholesterol measurement (mass/volume)on 01-01-2022 Cholesterol in LDL [Mass/Vol] 126 mg/dL 0-130 [facility] Work Phone: Serum or plasma urea nitroge n measurement (mass/volume)on 01-01-2022 Urea nitrogen [Mass/Vol] 13 mg/dL 7-18 [facility] Work Phone: Thin prep Papanicolaou smear with manual screeningon 01-01-2022 Thin prep Papanicolaou smear with manual screening 7 5-15 [facility] Work Phone: Laboratory - Microbiology an d Antimicrobial susceptibilityon 12-17-2021 SARS-CoV-2 (COVID-19) RNA SYEDA+probe Ql (Unsp spec) Detected Not Detect [facility] Work Phone: Comment on above: Normal Reference Ran ge: Not DetectedMethod:(RT-PCR) real-time reverse transcriptase PCRLuminex DIMITRI Instrument*The Food and Drug Administration (FDA) has issued an Emergency Use Authorization (EAU) for the DIMITRI SARS-CoV-2 Assay for the rapid detection of the virus that causes COVID-19. This test has been validated, but the FDAs independent review of this validation is pending.*Negative [...] Auto (Unsp spec) [#/Vol] 0.95 10*3/uL 0.83-4.51 [facility] Work Phone: Basophil percentageon 2021 Basophils/100 WBC (Bld) 0.2 % 0-1 [facility] Work Phone: Bilirubin [Mass/Vol] 0.40 mg/dL 0.20-1.00 [facility] Work Phone: Comment on above: For patients on eltr ombopag therapy, use of Dimension [place] TBIL is not recommended. Chloride [Moles/Vol] 109 mmol/L 98-107 [facility] Work Phone: Eosinophils/100 WBC (Bld) 0.0 % 0-5 [facility] Work Phone: Glucose [Mass/Vol] 117 mg/dL 74-106 [facility] Work Phone: Comment on above: Fasting Glucose resu lt from 100 to 125 mg/dL suggests IMPAIRED HOMEOSTASIS per A.D.A. criteria. Neutrophils (Bld) [#/Vol] 7.7 10*3/uL 2.0-7.7 [facility] Work Phone: Neutrophils/100 WBC (Bld) 83.5 % 47-70 [facility] Work Phone: Potassium [Moles/Vol] 3.7 mmol/L 3.5-5.1 [facility] Work Phone: Protein [Mass/Vol] 7.2 g/dL 6.4-8.2 [facility] Work Phone: Sodium [Moles/Vol] 138 mmol/L 136-145 [facility] Work Phone: WBC (Bld) [#/Vol] 9.2 10*3/uL 4.4-11.0 [facility] Work Phone: Blood erythrocytes count (nu mber/volume)on 12-06-2021 RBC (Bld) [#/Vol] 4.41 10*6/uL 4.2-5.4 [facility] Work Phone: Blood hemoglobin measurement (mass/volume)on 12-06-2021 Hemoglobin (Bld) [Mass/Vol] 10.9 g/dL 12.0-15.0 [facility] Work Phone: Blood lymphocytes/100 leukoc yteson 12-06-2021 Lymphocytes/100 WBC (Bld) 10.3 % 19-41 [facility] Work Phone: Blood monocytes/100 leukocyt eson 12-06-2021 Monocytes/100 WBC (Bld) 5.7 % 0-10 [facility] Work Phone: Blood platelet mean volumeon 12-06-2021 Platelet mean volume (Bld) [Entitic vol] 9.7 fL 6.2-12.0 [facility] Work Phone: Determination of erythrocyte mean corpuscular volume (MCV)on 12-06-2021 MCV (RBC) [Entitic vol] 79.1 fL 81-99 [facility] Work Phone: Hematocrit Auto (Bld) [Volum e fraction]on 12-06-2021 Hematocrit (Bld) [Volume fraction] 34.9 % 37-47 [facility] Work Phone: Laboratory - Chemistry and C hemistry - challengeon 12-06-2021 ALP [Catalytic activity/Vol] 77 U/L 45-117 [facility] Work Phone: ALT [Catalytic activity/Vol] 19 U/L 13-56 [facility] Work Phone: CO2 [Moles/Vol] 23.0 mmol/L 21.0-32.0 [facility] Work Phone: Globulin (S) [Mass/Vol] 3.5 g/dL 2.2-4.2 [facility] Work Phone: Urea nitrogen/Creatinine [Mass ratio] 12.5 mg/mg 10-20 [facility] Work Phone: Laboratory - Hematology and Cell countson 12-06-2021 Erythrocyte distribution width (RBC) [Entitic vol] 47.4 fL 35.1-43.9 [facility] Work Phone: Erythrocyte distribution width (RBC) [Ratio] 16.6 % 11.6-14.6 [facility] Work Phone: Immature granulocytes/100 WBC (Bld) 0.300 % 0.0-0.9 [facility] Work Phone: Comment on above: IG% - Immature Granu locytes (promyelocytes, myelocytes and metamyelocytes) > 1% indicates that a LEFT SHIFT is Present. MCH (RBC) [Entitic mass] 24.7 pg 27.0-32.0 [facility] Work Phone: Nucleated RBC/100 WBC (Bld) [Ratio] 0 % 0-5 [facility] Work Phone: MCHC Auto (RBC) [Mass/Vol]on 12-06-2021 MCHC (RBC) [Mass/Vol] 31.2 g/dL 32-36 [facility] Work Phone: No Panel Informationon 12-06 Estimated Creatinine Clearance Calc 90.86 ml/min [facility] Work Phone: Estimated GFR (MDRD) Amer 128 mL/min >60 [facility] Work Phone: Comment on above: GFR Calc Estimated GFR (MDRD) Non-Af Amer 106 mL/min >60 [facility] Work Phone: Comment on above: Non- GFR Calc Platelets bldon 12-06-2021 Platelets (Bld) [#/Vol] 307 10*3/uL 150-450 [facility] Work Phone: Serum or plasma albumin nette urement (mass/volume)on 12-06-2021 Albumin [Mass/Vol] 3.7 g/dL 3.2-5.0 [facility] Work Phone: Serum or plasma albumin/glob ulin mass ratioon 12-06-2021 Albumin/Globulin [Mass ratio] 1.1 {ratio} 0.9-2.4 [facility] Work Phone: Serum or plasma calcium nette urement (mass/volume)on 12-06-2021 Calcium [Mass/Vol] 9.1 mg/dL 8.5-10.1 [facility] Work Phone: Serum or plasma creatinine m easurement (mass/volume)on 12-06-2021 Creatinine [Mass/Vol] 0.64 mg/dL 0.55-1.02 [facility] Work Phone: Comment on above: The validity of the calculated GFR & GFRAA in patients over 70 years has not been determined. Clinical correlation is essential. Serum or plasma urea nitroge n measurement (mass/volume)on 12-06-2021 Urea nitrogen [Mass/Vol] 8 mg/dL 7-18 [facility] Work Phone: Thin prep Papanicolaou smear with manual screeningon 12-06-2021 Thin prep Papanicolaou smear with manual screening 15 U/L 15-37 [facility] Work Phone: Thin prep Papanicolaou smear with manual screening 6 5-15 [facility] Work Phone: ABDOMEN OR KUBon 06-30-2018 ABDOMEN [...] VICENTE M.D. Signed By: MICK VICENTE M.D. [facility] CT ABD/PEL STONE PROTOCOLon 06-30-2018 CT ABD/PEL [...] BARR M.D. Signed By: JEANNETTE BARR M.D. [facility] Office Visit: Follow up appo intment for right upper quadrant pain/GERDon 09-01-2016 Fall risk assessment Fall risk assessment Invalid Interpretation Code [facility] Work Phone: Office Visit: consult- Valentina Valencia 08-18-2016 Dietary management education, guidance, and counseling (procedure) yes Invalid Interpretation Code [facility] Work Phone: Documentation of current medications (procedure) Done Invalid Interpretation Code [facility] Work Phone: Documentation of current medications (procedure) T Invalid Interpretation Code [facility] Work Phone: Fall risk assessment No Invalid Interpretation Code [facility] Work Phone: Tobacco smoking status NHIS Never Invalid Interpretation Code [facility] Work Phone: Tobacco use [facility] Never smoker Invalid Interpretation Code [facility] Work Phone: Office Visit: consult- Valentina Valencia 04-01-2016 Breast Mammogram screening Normal Bilateral Invalid Interpretation Code [facility] Work Phone: Office Visit: consult- Valentina Valencia 05-05-2015 General categories [interpretation] of Cervical or vaginal smear or scraping by Cyto stain Normal Invalid Interpretation Code [facility] Work Phone: Vital Signs Date Time Vital Sign Value Performing Clinician Facility 10-12-2024 08:59-0400 Body height 160.[address] Dinesh Gan MD Work Phone: [facility] 10-12-2024 08:59-0400 Body mass index (BMI) [Ratio] 40.1 kg/m2 Dr. Dinesh Gan MD Work Phone: [facility] 10-12-2024 08:59-0400 Body weight 102.[address] Dinesh Gan MD Work Phone: [facility] 10-12-2024 08:59-0400 Diastolic blood pressure 79 mm[Hg] Dr. Dinesh Gan MD Work Phone: [facility] 10-12-2024 08:59-0400 Systolic blood pressure 158 mm[Hg] Dr. Dinesh Gan MD Work Phone: [facility] 08-27-2024 11:04-0400 Body mass index (BMI) [Ratio] 38.8 kg/m2 Dr. Dinesh Gan MD Work Phone: [facility] 08-27-2024 11:04-0400 Body weight 99.[address] Dinesh Gan MD Work Phone: 7([phone] [address] 08-27-2024 11:04-0400 Diastolic blood pressure 86 mm[Hg] Dr. Dinesh Gan MD Work Phone: 3(112)[phone] [place] [address] 08-27-2024 11:04-0400 Systolic blood pressure 145 mm[Hg] Dr. Dinesh Gan MD Work Phone: [facility] 04-20-2023 15:53-0500 Body temperature 98.7 [degF] Dr. Dinesh Gan Work Phone: 2([phone])[phone] [address] 04-20-2023 15:53-0500 Diastolic blood pressure 72 mm[Hg] Dr. Dinesh Gan Work Phone: 1(474)[phone] [place] [address] 04-20-2023 15:53-0500 Heart rate 68 /min Dr. Dinesh Gan Work Phone: [facility] 04-20-2023 15:53-0500 Respiratory rate 18 /min Dr. Dinesh Gan Work Phone: [facility] 04-20-2023 15:53-0500 SaO2% (BldA) [Mass fraction] 100 % Dr. Dinesh Gan Work Phone: [facility] 04-20-2023 15:53-0500 Systolic blood pressure 134 mm[Hg] Dr. Dinesh Gan Work Phone: [facility] 04-20-2023 13:43-0500 Body height 160.[address] Dinesh Gan Work Phone: [facility] 04-20-2023 13:43-0500 Body mass index (BMI) [Ratio] 39 kg/m2 Dr. Dinesh Gan Work Phone: [facility] 04-20-2023 13:43-0500 Body weight [address] Dinesh Gan Work Phone: [facility] 03-29-2023 13:16-0500 Body mass index (BMI) [Ratio] 36 kg/m2 Dr. Dinesh Gan Work Phone: [facility] 03-29-2023 13:16-0500 Body weight 95.[address] Dinesh Gan Work Phone: [facility] 12-06-2021 22:15-0400 Diastolic blood pressure 91 mm[Hg] [facility] Work Phone: 12-06-2021 22:15-0400 Heart rate 89 /min [facility] Work Phone: 12-06-2021 22:15-0400 Systolic blood pressure 162 mm[Hg] [facility] Work Phone: 12-06-2021 21:15-0400 Respiratory rate 16 /min [facility] Work Phone: 12-06-2021 19:22-0400 SaO2% (BldA) [Mass fraction] 100 % [facility] Work Phone: 12-06-2021 17:07-0400 Body height 160.02 cm [facility] Work Phone: 12-06-2021 17:07-0400 Body mass index (BMI) [Ratio] 38 kg/m2 [facility] Work Phone: 12-06-2021 17:07-0400 Body temperature 98.3 [degF] [facility] Work Phone: 12-06-2021 17:07-0400 Body weight 97.52 kg [facility] Work Phone: 12-06-2021 06:38-0400 Diastolic blood pressure 78 mm[Hg] [facility] Work Phone: 12-06-2021 06:38-0400 Heart rate 63 /min [facility] Work Phone: 12-06-2021 06:38-0400 Respiratory rate 17 /min [facility] Work Phone: 12-06-2021 06:38-0400 SaO2% (BldA) [Mass fraction] 99 % [facility] Work Phone: 12-06-2021 06:38-0400 Systolic blood pressure 163 mm[Hg] [facility] Work Phone: 12-06-2021 05:11-0400 Body height 160.02 cm [facility] Work Phone: 12-06-2021 05:11-0400 Body mass index (BMI) [Ratio] 39 kg/m2 [facility] Work Phone: 12-06-2021 05:11-0400 Body temperature 97.9 [degF] [facility] Work Phone: 12-06-2021 05:11-0400 Body weight 100 kg [facility] Work Phone: 09-01-2016 11:24-0400 BMI (Body Mass Index) 35.89 kg/m2 Court Carlos LPN [facility] Work Phone: 09-01-2016 11:24-0400 Body Temperature 98.2 [degF] [facility] Carlos LPN [facility] Work Phone: 09-01-2016 11:24-0400 BP Diastolic 84 mm[Hg] [facility] Carlos LPN [facility] Work Phone: 09-01-2016 11:24-0400 BP [...] Care Provider Facility Start: 10-16-2024 ambulatory Margie Valentinety:[facility] Start: 10-12-2024 Encounter for other preprocedural examination [facility] Start: 10-12-[address] Margie Reyes DO [facility] Start: 10-12-2024 ambulatory Dinesh Gan Facility:[facility] Start: 10-12-2024 End: 10-12-[address] Margie Reyes DO [facility] Work Phone: Start: 10-12-2024 End: 10-12-[address] Dinesh Gan MD Work Phone: [facility] Work Phone: Start: 09-27-2024 End: 09-27-[address] Dinesh Gan MD Work Phone: [facility] Work Phone: Start: 09-27-2024 End: 09-27-[address] Margie Reyes DO [facility] Work Phone: Start: 09-27-2024 End: 09-27-2024 ambulatory Dinesh Gan Facility:[facility] Start: 08-29-2024 End: 08-29-2024 Patient encounter procedure Ashlie Cavazoss STEP FINISHER-C -Ultrasound [facility] Work Phone: Start: 08-29-2024 End: 08-29-2024 ambulatory Dinesh Gan Facility:[facility] Start: 08-27-2024 End: 08-27-2024 Patient encounter procedure Ashlie Basurto STEP FINISHER-C -Laboratory Specimen Work Phone: Start: 08-27-2024 End: 08-27-2024 ambulatory Dinesh Gan Facility:[facility] Start: 08-27-2024 End: 08-27-2024 ambulatory Dinesh Gan Facility:[facility] Start: 07-02-2024 End: 07-02-[address] Dinesh Gan MD Work Phone: [facility] Work Phone: Start: 07-02-2024 End: 07-02-[address] Dinesh Gan MD -Laboratory, [facility] Start: 07-02-2024 End: 07-02-2024 ambulatory Diensh Gan Facility:[facility] Start: 03-12-2024 End: 03-12-2024 ambulatory Dinesh Gan Facility:[facility] Start: 03-12-2024 End: 03-12-2024 ambulatory Dinesh Gan Facility:[facility] Start: 03-06-2024 End: 03-06-2024 ambulatory Dinesh Gan Facility:[facility] Start: 02-07-2024 End: 02-07-2024 ambulatory Dinesh Gan Facility:[facility] Start: 01-24-2024 End: 01-24-2024 ambulatory Dinesh Gan Facility:[facility] Start: 01-20-2024 End: 01-20-2024 ambulatory Dinseh Gan Facility:[facility] Start: 01-11-2024 End: 01-11-2024 ambulatory Dinesh Gan Facility:[facility] Start: 01-11-2024 End: 01-11-2024 ambulatory Dinesh Gan Facility:[facility] Start: 01-05-2024 End: 01-05-2024 ambulatory Dinesh Gan Facility:[facility] Start: 12-29-2023 End: 12-29-2023 ambulatory Dinesh Gan Facility:[facility] Start: 06-29-2023 End: 06-29-[address] Dinesh Gan Work Phone: [facility] Work Phone: Start: 06-29-2023 End: 06-29-[address] Dinesh Gan Work Phone: [facility] Start: 04-20-2023 Non-patient / Non-visit Dr. Lawson Gan Work Phone: [facility] Start: 04-20-2023 End: 04-20-2023 Admission to same day surgery center Dr. Dinesh Gan Work Phone: [facility]-Endoscopy Work Phone: Start: 04-15-2023 End: 04-15-[address] Dinesh Gan Work Phone: [facility] Work Phone: Start: 04-15-2023 End: 04-15-[address] Dinesh Gan Work Phone: [facility] Work Phone: Start: 03-29-2023 Non-patient / Non-visit Dr. Lawson Gan Work Phone: [facility] Work Phone: Start: 01-20-2023 End: 01-20-[address] [facility] Work Phone: Start: 01-14-2023 End: 01-14-2023 ambulatory [facility] Work Phone: Start: 01-14-2023 End: 01-14-2023 Patient encounter procedure [facility] Work Phone: Start: 11-25-2022 End: 11-25-2022 ambulatory [facility] Work Phone: Start: 11-25-2022 End: 11-25-2022 Patient encounter procedure [facility]-Outpatient [facility] Imaging Work Phone: Start: 11-23-2022 End: 11-23-2022 ambulatory [facility] Work Phone: Start: 11-23-2022 End: 11-23-2022 Patient encounter procedure [facility]-Outpatient Breast Imaging Work Phone: Start: 07-14-2022 End: 07-14-2022 ambulatory [facility] Work Phone: Start: 07-14-2022 End: 07-14-2022 Patient encounter procedure [facility] Start: 01-01-2022 End: 01-01-2022 ambulatory [facility] Work Phone: Start: 01-01-2022 End: 01-01-2022 Patient encounter procedure [facility] Start: 12-17-2021 End: 12-17-2021 ambulatory [facility] Work Phone: Start: 12-17-2021 End: 12-17-2021 Patient encounter procedure [facility]-Laboratory, Specimen Start: 12-06-2021 End: 12-06-2021 Emergency department patient visit [facility]-Emergency Department Start: 12-06-2021 End: 12-06-2021 Emergency department patient visit [facility]-Emergency Department Start: 06-30-2018 Patient encounter procedure Lenny Gayle Facility:[facility] Start: 04-23-[address] [place] [facility] Procedures Date Procedure Procedure Detail [...] 04-20-2023 Colonoscopy w/biopsy single/multiple COLONOSCOPY AND BIOPSY [facility] Start: 04-20-2023 Patient discharge [facility] Start: 09-22-2016 End: 09-22-2016 Appointment Appointment [facility] Work Phone: Start: 09-01-2016 End: 09-03-2016 Follow Up Appt 2 weeks Follow Up Appt 2 weeks [facility] Work Phone: Start: 08-18-2016 End: 08-24-2016 Follow Up Appt 2 weeks Follow Up Appt 2 weeks [facility] Work Phone: Alanine aminotransfe rase [Enzymatic activity/volume] in Serum or Plasma [facility] Albumin [Mass/volume ] in Serum or Plasma [facility] Alkaline phosphatase [Enzymatic activity/volume] in Serum or Plasma [facility] Anion gap in Serum o r Plasma [facility] Bilirubin, total measurement [facility] BUN/Creatinine ratio [facility] Calcium [Mass/volume ] in Serum or Plasma [facility] Carbon dioxide, tota l [Moles/volume] in Central venous blood [facility] Colonoscopy [facility] Creatinine [Mass/vol ume] in Serum or Plasma [facility] Erythrocyte mean corpuscular volume determination [facility] Glucose [Mass/volume ] in Serum or Plasma [facility] Hematocrit [Volume Fraction] of Blood [facility] Hemoglobin [Mass/vol ume] in Blood [facility] Leukocytes [#/volume ] in Blood [facility] Magnesium measurement [facility] Mean corpuscular hemoglobin concentration determination [facility] Mean corpuscular hemoglobin determination [facility] Measurement of renal function [facility] Neutrophil count [facility] Neutrophil percent differential count [facility] Patient Education [facility] Work Phone: Patient referral [facility] Work Phone: Platelets [#/volume] in Blood [facility] Potassium measurement [facility] Red blood cell count [facility] Red cell distributio n width determination [facility] Serum chloride measurement [facility] Sodium measurement [facility] Thyroid stimulating hormone measurement [facility] Total protein measurement [facility] Urea nitrogen [Mass/volume] in Serum or Plasma [facility] Payers Date Payer Category Payer Self-pay [id number] 2016 Unknown [id number] Unknown [id number] 2.16.8 [id number] Unknown [id number] 2.16.8 [id number] Unknown [id number] 2.16.8 [id number] Unknown [id number] 2.16.8 [id number] Unknown [id number] 2.16.8 [id number] Unknown [id number] 2.16.8 [id number] Unknown [id number] 2.16.8 [id number] Unknown [id number] 2.16.8 [id number] Unknown [id number] 2.16.8 [id number] Unknown [id number] 2.16.8 [id number] Unknown [id number] 2.16.8 [id number] Unknown [id number] 2.16.8 [id number] Unknown [id number] 2.16.8 [id number] Unknown [id number] 2.16.8 [id number] Unknown [id number] 2.16.8 [id number] Unknown [id number] 2.16.8 [id number] Unknown [id number] 2.16.8 [id number] Unknown [id number] 2.16.8 [id number] Unknown [id number] 2.16.8 [id number] Social History Date Type Detail Facility [facility] Work Phone: Start: 12-06-2021 End: 04-20-2023 Tobacco smoking status NHIS Unknown if ever smoked [facility] Start: 1975 Sex Assigned At Female [facility] Start: 01-11-2024 End: 10-02-2024 Tobacco smoking status NHIS Never smoked tobacco (finding) [facility] Start: 07-13-2024 Sex Female (finding) [facility] NEGATED: Highlighted row [facility] Goals Date Patient Goal Desired Activity /State Mental Status Date Assessment Result Facility 04-20-2023 Cognitive function Voice/Name [facility] Work Phone: 12-06-2021 Cognitive function Level Of Cons ciousness Awake;Alert;Appropriate;Follow s Commands [facility] Work Phone: 12-06-2021 Cognitive function Level Of Cons ciousness Awake;Alert;Appropriate;Follow s Commands [facility] Work Phone: Evaluation note 08-27-2024 Note Date & Type Note Facility 08-27-2024 Evaluation note Diagnosis Onset Date Resolution Enlarged uterus acute July 11:03am Menorrhagia with regular cycle acute August 27, 2024 11:03am Uterine fibroid acute July 11:03am [facility] Work Phone: Evaluation note Note Date & Type Note Facility Evaluation note No assessment information availa ble [facility] Work Phone: Evaluation note Note Date & Type Note Facility Evaluation note Diagnosis Onset Date Encounter for screening for malignant neoplasm of colon acute [facility] Work Phone: Hospital Discharge instructions Note Date & Type Note Facility Hospital Discharge instructions Additional Instructions COVID-negative. Continue Advil every 6 hours. May add Tylenol for symptoms. Monitor your blood pressure and keep a log. Follow-up with your doctor for reevaluation. [facility] Work Phone: Reason for referral (narrative) Note Date & Type Note Facility Reason for referral (narrative) No reason for referral information available [facility] Work Phone: Summary Purpose Family History No Family History Records Found Relationship Condition Age at Onset Recorded Date/T tarik father Hypertension Unknown Cardiac disease Unknown Relationship Condition Age at Onset Recorded Date/T tarik father Hypertension Unknown Cardiac disease Unknown Polyp of colon Unknown Advance Directives No Advanced Directives Records Found Advance Directive Response Recorded Date/ Time Living Will No December 06, 2021 5:15am Power of Cad Design Engineer No December 06 5:15am Advance Directive Response Recorded Date/ Time Living Will No December 06, 2021 5:15pm Power of Cad Design Engineer No December 06 5:15pm Advance Directive Response Recorded Date/ Time Living Will No April 18 1:53pm Power of Cad Design Engineer No April 18, 2023 1:53pm Chief Complaint [...] content) DATE CREATED AUTHOR 04/21/2018 [facility] DATE CREATED AUTHOR AUTHOR'S ORGANIZ ATION 08/03/2018 [facility] DATE CREATED AUTHOR AUTHOR'S ORGANIZ ATION 10/15/2024 [facility] Goals (unrecognized section and content) Goals may [...] Dates [facility]. [facility] Attending Provider, Referring Provider Active Team Status: Active Member Role Status Dates Dr. Dinesh Gan MD Primary Care Provider Active Arni Orta NP, STEP FINISHER-C Attending Provider, Referring Pro vider Active Team Status: Inactive Member Role Status Dates Dr. Dinesh Gan MD Primary Care Provider Active Arin Orta NP, STEP FINISHER-C Attending Provider, Referring Pro vider Active Team Status: Active Member Role Status Dates Dr. Dinesh Gan MD Primary Care Provider Active Tiera [...] 2024 End: August 27, 2024 Ashlie Basurto STEP FINISHER, STEP FINISHER-C Attending Provider Active Start: August 27, 2024 End: August 27, 2024 Team Status: Inactive Member Role Status Dates Dr. Dinesh Gan MD Primary Care Provider Active Start: August 27, 2024 End: August 27, 2024 Ashlie Basurto STEP FINISHER, STEP FINISHER-C Attending Provider Active Start: August 27, 2024 End: August 27, 2024 Ashlie Basurto STEP FINISHER, STEP FINISHER-C Referring Provider Active Start: August 27, 2024 End: August 27, 2024 Team Status: Inactive Member Role Status Dates Dr. Dinesh Gan MD Primary Care Provider Active Start: August 29, 2024 End: August 29, 2024 Ashlie Basurto STEP FINISHER, STEP FINISHER-C Attending Provider Active Start: August 29, 2024 End: August 29, 2024 Ashlie Basurto STEP FINISHER, STEP FINISHER-C Referring Provider Active Start: August 29, 2024 [...] BE BASED ON THE PRIMARY CLINICAL RECORDS. [employer] provides no warranty or guarantee of the accuracy or completeness of information in this document.
[2024-10-16 06:57] LABS: Internal QC Validated? YES +Cl - CLEAR BKGD; Pregnancy, Urine Negative Negative
[2024-10-16] MEDS: Lactated Ringers 1,000 ML 40 ML IV (06:57)
[2024-10-16] MEDS: Magnesium 1 GM over 15 mins IV (06:57)
[2024-10-16] MEDS: Gabapentin 600 MG Tablet PO (06:58)
[2024-10-16] MEDS: Acetaminophen 500 MG Tablet 1000 MG PO ×3 (06:58→19:15)
--- NOTE | 2024-10-16 07:22 | HP.PCM_ITS ---
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 Is patient in pain?: No Allergies amlodipine Adverse Reaction (Verified 10/12/24 08:57) Chest pain Medications ?Medication ?Instructions ?Recorded ?Confirmed ?Type lisinopril 10 mg tablet 10 mg PO QDAY htn 01/11/24 10/12/24 Hist ory ferrous sulfate 325 mg (65 mg 325 mg PO QDAY per dr 08/27/24 10/12/24 History iron) tablet levothyroxine 88 mcg capsule 88 mcg PO QDAY hypothyroid 08/27/2409/30 History norethindrone acetate 5 mg tablet 5 mg PO .COMPLEX bleeding #45 tabs 08/2710/12/24 Rx omeprazole 20 mg capsule,delayed 20 mg PO DAILY PRN HEARTBURN 10/02/24 History release Post menopausal: No Patient : No : No [facility] Medical History Thyroid disease Anemia Fatty liver Non-smoker CPAP (continuous positive airway pressure) dependence Shortness of breath on exertion Leg cramps History of pain when walking History of stress test History of irregular heartbeat History of kidney stones GERD (gastroesophageal reflux disease) Hyperlipidemia HTN (hypertension) History of rectal polyps Anxiety Surgical History delivery delivered Hx laparoscopic cholecystectomy History of foot surgery Hx of LASIK Family History Father Hypertension Heart disease Colon polyps Social History household members: spouse and children current occupational status: unemployed Smoking Status: Never smoker alcohol intake: never substance use type: does not use caffeine: Yes what type of physical activity do you participate in: none seatbelt use: always do you feel safe at home: Yes 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 She states that since starting the TXA her periods are slightly improved. She is also taking iron and her hg improved from 7 to 11.5. Ultrasound was found to have a 13 cm uterus. No fibroids noted. She is hypertensive and not a candidate, nor is she interested in hormonal therapy or an IUD. She is here today to discuss hysterectomy. FINDINGS: The uterus is anteverted and is in a midline position. The uterus measures 7.1 cm. There is a Nabothian cyst of the cervix. The endometrium is not visualized.. Fibroid visualized measuring 12.9 x 13 cm and 4.6 cm. I.U.D. - The patient does not have an I.U.D. There is nonvisualization of the right ovary due to overlying bowel gas. The left ovary is visualized. The left ovary measures 3.6 cm. Cyst measures 14 mm. There is no visualized left adnexal mass or complex lesion. There is normal arterial and normal venous vascularity. There is no fluid in the cul-de-sac. Unremarkable urinary bladder. US/Pelvic w/ Transvaginal IMPRESSION: There are no acute findings. No evidence for ovarian torsion of the left ovary. The right ovary is not seen. Question fibroid uterus. Electronically Signed: Raciel Yeung MD at 19:42 EDT Reading Location ID and State: [facility] / [place] , Service support , History 2 Elective abortions Hx Para 2 Spontaneous abortions Hx # Term Pregnancies Ectopic pregnancies Hx # Pregnancies Multiple births # of living children Past Pregnancies Del. Date Name GA/Weeks Outcome Route Bth Weight Infant Gen Labor Lgth Anesthesia Del Locatn Provider FOB Unknown 2009 [place] live - full term C-sec tion Unknown 2011 [place] live - full term C- section ROS Const ROS Unobtainable: All systems reviewed & are unremarkable except as noted in H Resp Resp: Reports system reviewed and no additional complaints, except as documented; Denies cough GI GI: Reports as per HPI Psych Psych: Reports system reviewed and no additional complaints, except as documented Exam Const General: cooperative, healthy appearing, comfortable and no acute distress Resp Effort & Inspection: normal respiratory effort Skin General: no rashes or lesions noted Psych Appearance: grossly normal Speech and Movement: speech and movement normal Coding Level of Care Code Off vis,est,level 4 Diagnoses Enlarged uterus N85.2 Uterine leiomyoma, unspecified location D25.9 Uterine leiomyoma location: unspecified location Menorrhagia with regular cycle N92.0 ANGIE (obstructive sleep apnea) G47.33 BMI greater than 40 Assessment and Plan Assessment and Plan (1) Enlarged uterus: Status: Acute (2) Uterine fibroid: Status: Acute Qualifiers: Uterine leiomyoma location: unspecified location Qualified Code(s): D25.9 - Leiomyoma of uterus, unspecified Comment: Mar 2024: [id number]:surgical consult JV. She has fear of DVT. No hx. Rpt US (3) Menorrhagia with regular cycle: Status: Acute Comment: aygestin (4) ANGIE (obstructive sleep apnea): Status: Acute Comment: CPAP 10 cm (5) BMI greater than 40: Status: Acute Plan After discussing the patient's diagnosis and treatment plan options, patient wishes to proceed with surgical management. I have discussed with the patient the risks, benefits, and alternatives of the procedure which include but are not limited to risks of anesthesia, bleeding, infection, possible damage to bowel, bladder, or surrounding vasculature which could lead to additional surgery to evaluate any complications. Patient agrees to procedure and wishes to proceed. ACOG/uptodate references given for additional information regarding procedure. due to the large fibroid nature of her uterus, the plan is for a total abdominal hysterectomy.
--- NOTE | 2024-10-16 07:23 | DCINST_ITS ---
Discharge Instructions Diet Discharge Diet: No restrictions DC O2, CPAP, BIPAP needs Home O2 Discharge instructions: No Dressing / Incision Discharge Activity: Return to Normal Activity, May Not Drive (while taking narcotic pain medications.) and May Shower May resume sexual activity in: 6-8 weeks Weight Bearing Status: Weight bearing as tolerated Dressing / Incision Call your doctor if your incision/area has: Continuous Slow Oozing, Sudden Increased Bleeding, Increased Pain/ Swelling, Increased Redness and Foul Smelling Discharge Call your doctor if you observe: Fever of 101 or Higher, Inability to urinate, Inability to have a bowel movement and Using more than 1 pad per hour Follow Up Care Please Follow Up With: Margie Reyes DO Test Results: Test results from this visit will be discussed in further detail at your follow- up appointment, if applicable. Discharge Plan Admission Admit Date/Time: 10/16/24 10:26 Primary Reason for Your Visit: hysterectomy Attending Provider: Margie Reyes Primary Care Provider: Dinesh Gan Discharge Orders/Prescriptions Prescriptions: New ondansetron HCl 4 mg tablet 4 mg PO Q6H PRN (Reason: nausea and vomiting) Qty: 20 0RF oxycodone-acetaminophen [Percocet] 5-325 mg tablet 1 tab PO Q4H PRN (Reason: pain) 7 Days Qty: 20 0RF ibuprofen 800 mg tablet 800 mg PO Q8H PRN (Reason: pain) Qty: 30 0RF Continued lisinopril 10 mg tablet 10 mg PO QDAY ferrous sulfate 325 mg (65 mg iron) tablet 325 mg PO QDAY levothyroxine 88 mcg capsule 88 mcg PO QDAY norethindrone acetate 5 mg tablet 5 mg PO .COMPLEX Qty: 45 2RF Patient Comments: states takes 5 MG BID Rx Instructions: 5 mg PO tid until bleeding stops X 24 hr then bid to finish Rx omeprazole 20 mg capsule,delayed release(DR/EC) 20 mg PO DAILY PRN Other Ambulatory Orders: 12 Lead EKG (Routine) Timeframe: [id number] Location: None Selected Ordered By: Dr. Margie Reyes Referrals / Follow Up: Dinesh Gan MD [Primary Care Provider] - Disposition Disposition (needs filled in before D/C Order can be placed): Home, Self Care
--- NOTE | 2024-10-16 07:30 | PCM.PRE.AN2 ---
ASA Classification* ASA Classification ASA Classification: 2 (hypothyroid, HTN, GERD) Assessment & Plan Anesthesia* Anesthesia Assessment Anesthesia Assessment: Discussed sedation and/or anesthesia options, risks, benefits, and alternatives with patient/parents/legal guardian/POA. Questions invited. The patient/parents/legal guardian/POA seems to understand and agrees to proceed with anesthesia plan. Reviewed the physical assessment, medical history, allergy history and patient home medications list prior to surgery/procedure/anesthetic and documented any changes. Performed airway and anesthesia risk assessments. Anesthesia Type Anesthesia Type: General History Source History Obtained from:: Patient and Chart Anesthesia Focused Assessment* Temperature: 99.3 F Pulse Rate: 85 Blood Pressure: 166/81 Respiratory Rate: 16 Pulse Ox: 98 Oxygen Delivery Method: Room Air Airway Assessment Mouth opens: >3 cm Mallampati Score: II Teeth Condition: Intact and Missing (missing a few) Neck Range of motion (ROM): Full ROM Labs Anesthesia Preop lab: CBC WBC 6.7 K/mm3 (4.4-11.0) 10/12/24 09:38 10/12/24 RBC 4.76 M/mm3 (4.2-5.4) 10/12/24 09:38 10/12/24 Hgb 14.3 g/dL (12.0-15.0) 10/12/24 09:38 10/12/24 Hct 43.2 % (37-47) 10/12/24 09:38 10/12/24 Plt Count 327 K/mm3 (150-450) 10/12/24 09:38 10/12/24 CHEMISTRY Potassium 4.2 mmol/L (3.3-5.1) 10/12/24 09:38 10/12/24 Sodium 139 mmol/L (133-145) 10/12/24 09:38 10/12/24 Magnesium 2.2 mg/dL (1.5-2.2) 10/12/24 09:37 10/12/24 BUN 13 mg/dL (4-19) 10/12/24 09:38 10/12/24 Creatinine 0.72 mg/dL (0.70-1.20) 10/12/24 09:38 10/12/24 Glucose 93 mg/dL (70-99) 10/12/24 09:38 10/12/24 TSH 2.610 uIU/mL (0.300-4.200) 10/12/24 09:37 10/12/24 COAG Urine Test Negative Negative 10/16/24 06:35 10/16/24 Pre-Assessment Diagnosis/Proposed Procedure Planned Operative Procedure(s): xx Anesthesia History Anesthesia History - higher education administrator: Anesthesia History - higher education administrator Hx Hospitalization No 10/02/24 08:24 Any Problems With Anesthesia No 10/02/24 08:24 Cholinesterase deficiency No 10/02/24 08:24 You/Your Family Experience No 10/02/24 08:24 fever (hyperthermia) with Relationship Recent Exposure to Contagious No 10/16/24 07:01 Disease Does patient have nerve No 10/02/24 08:24 stimulator Patient instructed to have device shut off --Does patient have Pacemaker No 10/16/24 07:01 or ICD? When Was Last Pacemaker Check QUESTION #4 FULL TEXT: You/Your Family Experience fever (hyperthermia) with Anesthesia Last Oral Intake Last Oral intake: Last Oral Intake NPO since 04:15 10/16/24 07:01 Meds taken in AM with sips of No 10/16/24 07:01 water? Meds patient instructed to take am of surgery PONV PONV - higher education administrator: PONV - higher education administrator Female Yes 10/02/24 08:24 HX of Motion Sickness No 10/02/24 08:24 HX of N/V After Surgery No 10/02/24 08:24 Non-Smoker Yes 10/02/24 08:24 Duration of Surgery greater Yes 10/02/24 08:24 than 60 minutes Number of Risk Factors 3 10/02/24 08:24 PONV Score Moderate Risk 10/02/24 08:24 Height & Weight Height & Weight: Anesthesia: Height & Weight Height 5 ft 3 in 10/16/24 07:01 Weight: 102 kg 10/16/24 07:01 Body Mass Index (BMI) 39.8 10/16/24 07:01 Respiratory Assessment Respiratory Assessment - higher education administrator: Respiratory Tract Infection Hx - higher education administrator Hx Respiratory Tract Infection No 10/02/24 08:24 STOP Sleep Apnea STOP Sleep Apnea - higher education administrator: STOP Sleep Apnea - higher education administrator Hx Hypertension Yes: controlled with meds 10/02/24 08:24 Hx Sleep Apnea Yes 10/02/24 08:24 CPAP Yes 10/02/24 08:24 BIPAP No 10/02/24 08:24 Do you snore loudly (louder than talking or can be heard Do you often feel tired/ fatigued/ sleepy during daytime? Has anyone observed you stop breathing during sleep? STOP Results Positive 10/02/24 08:24 QUESTION #5 FULL TEXT : Do you snore loudly (louder than talking or can be heard through closed doors)? 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 Specify any problems Hx of Preganancy in last 3 No 10/02/24 08:24 Months Nurse Filling Out Transfusion [id number] 10/02/24 08:24 & Questions: Date: 10/02/24 10/02/24 08:24 Time: 08:27 10/02/24 08:24 Patient unable to answer at this time (ie. confused, unrespo /Reproduction History /Reproductive History - higher education administrator: /Reproductive Hx- higher education administrator Hx Now No 10/02/24 08:24 Gestational Age (in weeks): EDC: Hx Hx Para Hx Section SAB No 10/12/24 08:59 Active Medications Active Medications: Current Medications Generic Name Dose Route Start Last Admin Trade Name Freq PRN Reason Stop Dose Admin Acetaminophen 1,000 mg 10/16/24 08:15 10/16/24 06:58 Acetaminophen 500 Mg Tablet PO 10/16/24 08:16 1,000 mg PREOP ONE Administration Gabapentin 600 mg 10/16/24 08:15 10/16/24 06:58 Gabapentin 600 Mg Tablet PO 10/16/24 08:16 600 mg PREOP ONE Administration Lactated Ringer's 1,000 mls @ 40 mls/hr 10/16/24 08:15 10/16/24 06:57 IV 40 mls/hr .Q25H TIFFANIE Administration Cefazolin Sodium 2 gm/ Sodium 110 mls @ 150 mls/hr 10/16/24 08:15 Chloride IV 10/16/24 08:58 INTRAOP ONE Magnesium Sulfate 1 gm/ 102 mls @ 408 mls/hr 10/16/24 08:15 10/16/24 06:57 Dextrose IV 10/16/24 08:29 408 mls/hr INTRAOP ONE Administration Insulin Human Lispro 0 unit 10/16/24 08:15 Insulin Lispro 100 Unit/Ml Insuln.Pen SC 10/16/24 18:00 Q4H PRN PRN BG >/= 180, SEE PROTOCOL Protocol Ondansetron HCl 4 mg 10/16/24 08:15 Ondansetron 4 Mg/2 Ml Vial IV 10/16/24 08:16 INTRAOP ONE PFSH Medical History Thyroid disease Anemia Fatty liver Non-smoker CPAP (continuous positive airway pressure) dependence Shortness of breath on exertion Leg cramps History of pain when walking History of stress test History of irregular heartbeat History of kidney stones GERD (gastroesophageal reflux disease) Hyperlipidemia HTN (hypertension) History of rectal polyps Anxiety Home Medications ?Medication ?Instructions ?Recorded ?Last Taken ?Type lisinopril 10 mg tablet 10 mg PO QDAY htn 01/11/24 10/15/24 18:00 History ferrous sulfate 325 mg (65 mg 325 mg PO QDAY per 08/27/24 Unknown History iron) tablet levothyroxine 88 mcg capsule 88 mcg PO QDAY hypothyroid 08/27/24 10/15/24 23:00 History norethindrone acetate 5 mg tablet 5 mg PO .COMPLEX bleeding #45 tabs 08/27/24 10/15/24 21:00 Rx omeprazole 20 mg capsule,delayed 20 mg PO DAILY PRN HEARTBURN 10/02/24 Unknown History release ibuprofen 800 mg tablet 800 mg PO Q8H PRN pain #30 tabs 10/16/24 Unknown Rx ondansetron HCl 4 mg tablet 4 mg PO Q6H PRN nausea and 10/16/24 Unknown Rx vomiting #20 tabs oxycodone-acetaminophen 5 mg-325 1 tab PO Q4H PRN pain 7 days #20 10/16/24 Unknown Rx mg tablet (Percocet) tabs Allergy/AdvReac Type Severity Reaction Status Date / Time amlodipine AdvReac Chest pain Verified 10/16/24 06:55 Family History Father Hypertension Heart disease Colon polyps Surgical History delivery delivered Hx laparoscopic cholecystectomy History of foot surgery Hx of LASIK Social History household members: spouse and children current occupational status: unemployed Smoking Status: Never smoker alcohol intake: never substance use type: does not use caffeine: Yes what type of physical activity do you participate in: none seatbelt use: always do you feel safe at home: Yes 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 Physical Exam Const alert, oriented x3 and average body habitus Resp normal respiratory effort, normal air movement and clear to auscultation bilaterally Cardio regular rate, regular rhythm, no murmurs and diaphoretic
[2024-10-16 07:34] LABS: Bedside Glucose 116 mg/dL (74-106)
--- NOTE | 2024-10-16 08:15 | UT_PTH ---
PATIENT: MAYRA ARIAS LOC: MS3 U#:[id number] AGE/SX: 49/F ROOM: [facility] – [place] RE10/16/[address]: Dr. Margie Reyes DO : 1975 BED: 1 DIS: 10/17/2024 SPEC #: [id number] RECD: 10/16/24 10:54 STATUS: ML MUÑOZ #: [id number] JERMAINE: 10/16/24 08:[address]: Margie Reyes DEPT: SURGICAL PATHOLOGY RECD BY: Naveen Mendoza ENTERED: 10/16/24 12:02 SP TYPE: UTERUS OTHR DR: Dr. Dinesh Gan MD Tissues: A - Uterus, NOS Procedures: Surgery Specimen Level V HEADER OPERATION: ERAS, total abdominal hysterectomy, right salpingo-oopherectomy PRE-OP DIAGNOSIS: Enlarged uterus, uterine fibroid, menorrhagia with regular cycle TISSUE SUBMITTED: A- Uterus, cervix, bilateral fallopian tubes, fibroid, right ovary MICROSCOPIC DIAGNOSIS A. 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 GROSS DESCRIPTION A. Received in formalin labeled with the patient's name and date of .? Designated as uterus, cervix, bilateral fallopian tubes, fibroid, right ovary is a 2100 g, 18.1 x 16.9 x 13.5 cm irregular and distorted uterus with adnexa.? The serosa is pink-red with patchy adhesions and few subserosal leiomyomas (up to 2.5 cm).? The cervix is hutchison-pink and measures 2.6 x 2.6; the 0.8 cm os is probe patent and expelling hemorrhagic mucoid material. ? The specimen is oriented using the posterior peritoneal reflection however, definitive orientation is difficult due to the distortion of the specimen. Therefore, laterality in the remainder of this gross dictation is presumed using intact/available anatomic landmarks. The specimen is inked as follows:[id number]. Opening reveals a 12.2 x 7.1 cm slightly irregular and distorted endometrial canal lined by pink to vázquez, lush to fluffy and somewhat sloughing endometrium, measuring up to 0.9 cm thick. The myometrium is hutchison-pink and trabeculated, measuring up to 6.5 cm thick. ?Multiple hutchison-pink to white, soft and rubbery to calcified leiomyomas are identified, up to 11.9 cm.? The largest leiomyoma has patchy calcifications, edema and areas of apparent necrosis (approximately 10-15%). ?There is also a cauterized and detached leiomyoma. There is a detached, 4.5 cm in length by 1.3 cm in diameter purple fimbriated fallopian tube with focal paratubal cyst (up to 0.5 cm) with an attached, 3.4 x 2.2 x 1.3 cm hutchison-pink, solid cerebriform ovary; this is presumed to be the right fallopian tube and right ovary as only the right ovary was designated on the specimen requisition/label.? There is a 4.0 cm in length by 0.6 cm in diameter area of sutures on the serosal surface which may represent the left fallopian tube however, definitive fimbria is not grossly appreciated.? Pinked Edge Sewing Machine Operator sections are submitted as follows : A1: Anterior cervixA2: Posterior cervixA3: Anterior endomyometriumA4: Posterior endomyometriumA5: Right fallopian tubeA6: Left fallopian tubeA7: Right ovaryA8-A9: Largest intramural leiomyoma with calcifications, edema and apparent [id number]: Subserosal [id number]: Detached leiomyoma LA 10/16/2024 A. Additional c s s representative sections of the possible left fallopian tube are submitted in cassette A12, following histopathologic review. LA 10/31/2024 CPT:[id number]
[2024-10-16] MEDS: Cefazolin 2 GM in 0.9% Normal Saline (100mL Bag) 100 ML IV (08:49)
[2024-10-16] MEDS: Bupivacaine 0.25% 30 ML Vial (10:57)
[2024-10-16] MEDS: BUPIVACAINE LIPOSOME/PF 20 ML VIAL OPERA.SITE (10:57)
--- NOTE | 2024-10-16 11:22 | PCM.POST.ANE ---
Anesthesia: Postop Eval I Current Vital Signs Temperature: 98.4 F Pulse Rate: 70 Blood Pressure: 100/50 Respiratory Rate: 16 Pulse Ox: 95 Oxygen Delivery Method: Room Air Assessment Airway patent: Yes Spontaneous unlabored respirations: Yes Mental status: Awake and Calm nausea: No Vomiting: No Anesthesia Complication: No Fluid Hydration Crystalloid volume administer (ml): 1,600 Total IV fluid infused: 1,600 Progress Note Anesthesia document: Postop Eval 1 completed: Yes
[2024-10-16] MEDS: Ferrous Sulfate 325 MG Tablet PO (13:50)
[2024-10-16] MEDS: Scopolamine 1mg/72hr Patch 1 PATCH TD (13:50)
--- NOTE | 2024-10-16 14:43 | OP.PCM_ITS ---
Problems Associated Problem List Diagnoses (1) Enlarged uterus: (2) Uterine fibroid: (3) Enlarged uterus: (4) Menorrhagia with regular cycle: Multi Select Codes Urinary/Genital Urinary/Genital CPT Codes: 83338 [facility] Operative Report (Standard) Operative Information Date of Procedure: 10/16/24 Pre-Operative Diagnosis: large fibroid uterus, menorrhagia Post-Operative Diagnosis: large fibroid uterus, menorrhagia Surgery/Procedure Performed: total abdominal hysterectomy, right salpingo- oophorectomy, left salpingectomy metal drill operator: Yes Sales Special Agent: Renetta Gandara Tasks completed by assistant director of financial aid: Closing, Dissecting tissue, Removing tissue, Hemostasis: Clamp, Hemostasis: Tie and Retracting Additional therapeutic assistant?: Yes Additional Records Management Director #2: Edenilson Stuart Tasks completed by therapeutic assistant #2: Closing Additional therapeutic assistant?: No Type of Anesthesia: General RN Documented Start/Stop Times: Operation Date: 10/16/24 08:15 Case Time Into Pre-Op 10/16/24 06:30 Out of Pre-Op 10/16/24 08:45 Anesthesia Start 10/16/24 08:49 Into Room 10/16/24 08:49 Procedure Start 10/16/24 09:14 Procedure End 10/16/24 10:58 Anesthesia End 10/16/24 11:08 Out of Room 10/16/24 11:08 Into Recovery 10/16/24 11:11 Out of Recovery 10/16/24 12:35 Procedure Start Time: 09:14 Procedure Stop Time: 11:08 Select all DRAINS/GRAFTS/IMPLANTS that apply: None Estimated Blood Loss: 350cc Specimen collected: Yes Description of specimen(s) removed: uterus, cervix, right ovary and fallopian tube, left fallopian tube. Description of surgery: he patient was brought to the operating room and general anesthesia was achie connor. Was placed in a supine position and a Hamilton catheter was placed into the urethra. She was prepped and draped in the usual sterile fashion. Pfannenstiel skin incision was made with a scalpel and carried through to the underlying layers. The fascia was incised in the midline and the anterior aspect of the fascia was grasped with Macario clamps and the underlying rectus muscles were dissected off with the Metzenbaum scissors. The inferior aspect of the fascia was grasped with Fred clamps and the underlying rectus muscles dissected off with the Metzenbaum scissors. The rectus muscles were in the midline and the peritoneum was entered sharply and Harmeet retractor was inserted into the abdomen the bowel was gently packed with a moist towels. The uterus was identified and grasped with 2 bull-nose clamps and exteriorized. There were noted to be at least 2 or 3 large fibroids, one large pedunculated to the right upper uterus. The hysterectomy was initiated first by removing the fallopian tubes with the LigaSure device. This was performed by grasping the fimbriated end with Nelida clamps and dissecting the underlying mesosalpinx to the level of the cornua. Round ligaments were cauterized and cut using the LigaSure device followed by cauterizing and cutting of the ovarian ligaments and arteries. The broad ligament was and opened down to the level of the lower uterine segment and the bladder flap was created. The same procedure was performed on the opposite side. Uterosacral and cardinal ligaments were serially clamped and suture-ligated using 1-0 Vicryl suture. Arteries were dissected and suture- ligated starting from the a sending branches dissecting along the edges of the cervix to the level of the cervical vaginal junction. Z clamps were placed below the level of the cervix and the uterus was amputated using Elvira scissors. The uterus was passed off for pathology analysis and the remaining vaginal cuff was closed with [id number] sutures using 1-0 Vicryl sutures. At this point there was noted to be brisk bleeding from the ovarian ligament. Suture ligation was attempted without success. The decision was made to remove the ovary. This was performed with a ligasure device and excellent hemostasis was achieved. Hemoblast was used on some raw edges overlying the bladder flap. The peritoneum overlying the posterior aspect of the bladder and the posterior aspect of the vaginal cuff were reapproximated using a 3-0 Vicryl. Excellent hemostasis was noted and good closure was noted irrigation was performed. Peritoneum was closed with a 3-0 Vicryl followed by closure of the fascia using a PDS strata fix suture. Subcutaneous tissue layer was then closed using a 3-0 Vicryl and the skin was closed with a 4-0 Monocryl. Surgical glue was placed on the incision allowed to dry and a Mepilex dressing was applied. The patient tolerated the procedure well sponge lap and needle counts were correct x2 and she is now being to the recovery room in stable condition. The uterus was weighed after the procedure and was approximately 2200 grams Surgical Findings: enlarged fibroid uterus Complications Complications: No Admit VTE Documentation VTE Present on Admission: Yes VTE Mechan Device Prophylaxis: SCD's VTE Pharm Prophylaxis ordered?: Yes
[2024-10-16] MEDS: oxyCODONE 5 MG Tablet PO (15:01)
--- NOTE | 2024-10-16 18:41 | POSTOPAN2_ITS ---
Anesthesia Postop Eval I Sum Postop Eval Completion status Anesthesia document: Postop Eval 1 completed: Yes Anesthesia Postop Eval I Summary Anesthesia Postop Eval I Summary: Anesthesia Postop Eval I: Assessment Summary Airway patent Yes 10/16/24 11:22 AUTOMOTIVE SALES SPECIALIST.[email or web address] Spontaneous unlabored Yes 10/16/24 11:22 AUTOMOTIVE SALES SPECIALIST.[email or web address] respirations Mental status Awake,Calm 10/16/24 11:22 AUTOMOTIVE SALES SPECIALIST.GDOTT nausea No 10/16/24 11:22 AUTOMOTIVE SALES SPECIALIST.GDOTT Vomiting No 10/16/24 11:22 AUTOMOTIVE SALES SPECIALIST.GDOTT Anesthesia Postop Eval I: Fluid Summary Crystalloid volume administer 1,600 10/16/24 11:22 AUTOMOTIVE SALES SPECIALIST.GDOTT (ml) Colloids volume administered ( ml) Blood Product volume administered (ml) Total IV fluid infused 1,600 10/16/24 11:22 AUTOMOTIVE SALES SPECIALIST.GDOTT Anesthesia Postop Eval I: Summary Notes Anesthesia Complication No 10/16/24 11:22 AUTOMOTIVE SALES SPECIALIST.GDOTT Anesthesia Complication Comment: Post-operative progress note Anesthesia: Postop Eval II Evaluation Mental status: Awake Pain Level: 0 nausea: No Vomiting: No Complications Anesthesia Complication: No
--- NOTE | 2024-10-16 18:41 | PCM.POSTANE2 ---
Anesthesia Postop Eval I Sum Postop Eval Completion status Anesthesia document: Postop Eval 1 completed: Yes Anesthesia Postop Eval I Summary Anesthesia Postop Eval I Summary: Anesthesia Postop Eval I: Assessment Summary Airway patent Yes 10/16/24 11:22 CNC SERVICE [email or web address] Spontaneous unlabored Yes 10/16/24 11:22 CNC SERVICE TECHNICIAN.[email or web address] respirations Mental status Awake,Calm 10/16/24 11:22 CNC SERVICE TECHNICIAN.[email or web address] nausea No 10/16/24 11:22 CNC SERVICE TECHNICIAN.[email or web address] Vomiting No 10/16/24 11:22 CNC SERVICE TECHNICIAN.[email or web address] Anesthesia Postop Eval I: Fluid Summary Crystalloid volume administer 1,600 10/16/24 11:22 CNC SERVICE TECHNICIAN.GDOTT (ml) Colloids volume administered ( ml) Blood Product volume administered (ml) Total IV fluid infused 1,600 10/16/24 11:22 CNC SERVICE TECHNICIAN.[email or web address] Anesthesia Postop Eval I: Summary Notes Anesthesia Complication No 10/16/24 11:22 CNC SERVICE TECHNICIAN.[email or web address] Anesthesia Complication Comment: Post-operative progress note Anesthesia: Postop Eval II Evaluation Mental status: Awake Pain Level: 0 nausea: No Vomiting: No Complications Anesthesia Complication: No
[2024-10-16] MEDS: Ketorolac 30 MG/ML Syringe IV (21:33)
[2024-10-16] MEDS: 0.9% Saline Lock 10 ML Syringe IV (21:33)
[2024-10-16] MEDS: Docusate Sodium 100 MG Capsule PO (21:34)
[2024-10-16] MEDS: Enoxaparin 40 MG/0.4 ML Syringe SC (21:34)
[2024-10-17] VITALS (7 sets, daily range): BP systolic 145–164; BP diastolic 71–82; PULSE 59–84; RESP 16–19; TEMP 36.6–37.1; O2SAT 95–99
[2024-10-17] MEDS: Acetaminophen 500 MG Tablet 1000 MG PO ×3 (01:49→12:52)
[2024-10-17 05:11] LABS: Hematocrit 38.1 % (37-47); Mean Corp Hgb Conc 34.1 g/dL (32-36); Mean Corpuscular Hgb 30.2 pg (27.0-32.0); Mean Corpuscular Volume 88.6 fL (81-99); Mean Platelet Vol. 9.1 fl (6.2-12.0); Platelet Count 293 K/mm3 (150-450); RBC Distribution Width CV 13.6 % (11.6-14.6); White Blood Count 12.7 K/mm3 (4.4-11.0)
[2024-10-17] MEDS: Levothyroxine 88 MCG Tablet PO (07:01)
--- NOTE | 2024-10-17 07:31 | PCM.PN.OB ---
Subjective Subjective Patient doing well without complaints. Tolerating PO. Ambulating without difficulty. Denies chest pain, shortness of breath, calf pain/swelling, fevers, chills, lightheadedness. Objective Data Objective Data Vital Signs: Vital Signs Temp Pulse Resp BP Pulse Ox O2 Del Method O2 Flow Rate 98.8 F 73 16 159/75 H 98 CPAP 2 10/17/24 06:58 10/17/24 06:58 10/17/24 06:58 10/17/24 06:58 10/17/24 06:58 10/17/24 06:58 10/16/24 21:40 FiO2 21 10/17/24 02:25 Oxygen Flow Rate (L/min) 2 Oxygen Delivery Method CPAP Weight: 224 lb 13.944 oz Body Mass Index (BMI) 39.8 Intake & Output: Intake and Output for Last 24 Hours 10/15/24 10/16/24 10/17/24 23:59 23:59 23:59 Intake Total 2240 / 2840 600 / 600 Output Total 675 / 1825 1150 / 1150 Balance 1565 / 1015 -550 / -550 Lab / Micro Data 10/17/24 04:33 10/12/24 09:38 Labs: Laboratory Results - last 24 hr 10/16/24 07:07: POC Glucose 116 H 10/17/24 04:33: WBC 12.7 H, RBC 4.30, Hgb 13.0, Hct 38.1, MCV 88.6, MCH 30.2, MCHC 34.1, RDW Std Deviation 44.0 H, RDW Coeff of Shawna 13.6, Plt Count 293, MPV 9.1 ROS Constitutional Constitutional: Reports systems reviewed and no addt'l complaints, except as documented Cardiovascular Cardiovascular: Reports systems reviewed and no addt'l complaints, except as documented Respiratory/Chest Respiratory/Chest: Reports systems reviewed and no addt'l complaints, except as documented Gastrointestinal Gastrointestinal: Reports systems reviewed and no addt'l complaints, except as documented Physical Exam Const alert, oriented x3 and no apparent distress HEENT Head and Scalp: atraumatic Resp normal respiratory effort GI soft to palpation and non-tender Assessment & Plan (1) Status post hysterectomy: PLAN: Plan patient is s/p tahrso POD 1 1. routine ERAS protocol postop care- increase ambulation, encourage oral intake and oral control of pain. lovenox and scds for dvt prophylaxis, patient stable for discharge to home today or tomorrow depending on if she meets disscharge criteria.
--- OUTSIDE RECORDS SUMMARY | 2024-10-17 09:30 | XMS RPT_ITS | CCD ---
Author Organization [facility] Care Team Providers Care Oven Loader Name Role Phone [employer] PROJECT MANAGER, Chastity F Unavailable Unavailabl e [employer] SYSTEM[employer] PROJECT MANAGER, Chastity F Unavailable Unavailabl e CHASTITY HELTON (PA) Unavailable Unavailabl e LAURA ALEXANDER Unavailable Unavailable Lenny Gayle Attending Unavailable Dinesh Gan Primary Care Unavailable Dr. Dinesh Gan Primary Care Provider [phone] Tiera Anderson Attending Provider Unavailable Dr. Dinesh Gan Referring Provider Dr. Remberto Colbert Attending Provider [phone] Remberto Colbert Other Provider Dr. Dinesh Gan MD Primary Care Provider [phone] Dr. Dinesh Gan MD Attending Provider Dr. Dinesh Gan MD Referring Provider Sb LIFT TEAM TECHNICIAN-CAshlie Attending Provider Sb LIFT TEAM TECHNICIAN-CAshlie Referring Provider Dr. Margie Reyes DO Attending Provider Dr. Margie Reyes DO Referring Provider Margie Reyes Attending Dinesh Lee Primary Care Unavailable Margie Reyes Referring UnavailMargie Leslie Referring UnavailDinesh Dillon Primary Care Unavailable Margie Reyes Attending Unavailabl e Margie Reyes Admitting Unavailabl e [place] LIFT TEAM TECHNICIANAshlie Referring Unavailable Sb LIFT TEAM TECHNICIAN, Ashlie Attending Unavailable Gan, Dinesh Primary Care Unavailable Gan, Dinesh Referring Unavailable Gan, Dinesh Primary Care Unavailable Gan, Dinesh Attending Unavailable [place] LIFT TEAM TECHNICIAN, Ashlie Attending Unavailable [place] LIFT TEAM TECHNICIAN, Ashlie Referring Unavailable Gan, Dinesh Primary Care Unavailable Gan, Dinesh Primary Care Unavailable [place] LIFT TEAM TECHNICIAN, Ashlie Attending Unavailable [place] LIFT TEAM TECHNICIAN, Ashlie Referring Unavailable Sb LIFT TEAM TECHNICIAN, Ashlie Attending Unavailable Sb LIFT TEAM TECHNICIAN, Ashlie Referring Unavailable Gan, Dinesh Primary Care Unavailable Vande Velde, Margie Referring Unavailabl e Vande Velde, Margie Attending Unavailabl e Gan, Dinesh Primary Care Unavailable Sb LIFT TEAM TECHNICIAN, Ashlie Attending Unavailable Sb LIFT TEAM TECHNICIAN, Ashlie Referring Unavailable Gan, Dinesh Primary Care Unavailable Vande Velde, Margie Consulting Unavailabl e Vande Velde, Margie Attending Unavailabl e Gan, Dinesh Referring Unavailable Gan, Dinesh Primary Care Unavailable Vande Velde, Margie Referring Unavailabl e Vande Velde, Margie Attending Unavailabl e Gan, Dinesh Primary Care Unavailable Gan, Dinesh Attending Unavailable Gan, Dinesh Primary Care Unavailable Gan, Dinesh Primary Care Unavailable Gan, Dinesh Attending Unavailable Gan, Dinesh Referring Unavailable [place] LIFT TEAM TECHNICIAN, Ashlie Attending Unavailable Gan, Dinesh Primary Care Unavailable Gan, Dinesh Referring Unavailable [place] LIFT TEAM TECHNICIAN, Ashlie Attending Unavailable Gan, Dinesh Primary Care Unavailable Gan, Dinesh Referring Unavailable Vande Velde, Margie Attending Unavailabl e Gan, Dinesh Primary Care Unavailable Gan, Dinesh Referring Unavailable [place] LIFT TEAM TECHNICIAN, Ashlie Attending Unavailable Gan, Dinesh Primary Care Unavailable Vande Velde, Margie Referring Unavailabl e Juan DanielMiguel muñoz Attending Unavailable Gan, Dinesh Primary Care Unavailable Sb LIFT TEAM TECHNICIAN, Ashlie Attending Unavailable Gan, Dinesh Primary Care Unavailable Allergies Allergy Classification Reported Allergen(s) Allergy Type Date of Onset Reaction(s) Facility (5 sources) [facility] Allergy 04-20-2023 Chest pain [facility] (1 source) amLOD[facility] Drug Allergy 10-16-2024 [facility] Repository Medications Current Medications Medication Drug Class(es) [...] Onset: 09-04-2024 03-06-2024 Episodic Comment on above: [id number]:surgic al consult JV. She has fear of DVT. No hx. Mar 2024: [id number] 6cm:surgical consult JV. She has fear of [...] Chronic Comment on above: CPAP 10 cm Residual codes; unclassified (1 source) Acquired absence of both cervix and uterus; Translations: [Acquired absence of both cervix and uterus] Onset: 10-16-2024 Episodic Unclassified (2 sources) KIDNEY STONES~ Onset: 06-30-2018 [...] Test Name Value Interpretation Reference Range Facility CBC-Complete Blood Cnt No Jacey lee 10-17-2024 Erythrocyte distribution width (RBC) [Ratio] 13.6 % Normal 11.6-14.6 [facility] Comment on above: Performed By: #### L 100.0500 #### [facility] [address] [place], [address] Hematocrit (Bld) [Volume fraction] 38.1 % Normal 37-47 [facility] Comment on above: Performed By: #### L 100.0500 #### [facility] [address] [place], [address] Hemoglobin (Bld) [Mass/Vol] 13.0 g/dL Normal 12.0-15.0 [facility] Comment on above: Performed By: #### L 100.0500 #### [facility] [address] [place], [address] MCH (RBC) [Entitic mass] 30.2 pg Normal 27.0-32.0 [facility] Comment on above: Performed By: #### L 100.0500 #### [facility] [address] [place], [address] MCHC (RBC) [Mass/Vol] 34.1 g/dL Normal 32-36 [facility] Comment on above: Performed By: #### L 100.0500 #### [facility] [address] [place], [address] MCV (RBC) [Entitic vol] 88.6 fL Normal 81-99 [facility] Comment on above: Performed By: #### L 100.0500 #### [facility] [address] [place], [address] Platelet mean volume (Bld) [Entitic vol] 9.1 fL Normal 6.2-12.0 [facility] Comment on above: Performed By: #### L 100.0500 #### [facility] [address] [place], [address] Platelets (Bld) [#/Vol] 293 10*3/uL Normal 150-450 [facility] Comment on above: Performed By: #### L 100.0500 #### [facility] [address] [place], [address] RBC (Bld) [#/Vol] 4.30 10*6/uL Normal 4.2-5.4 [facility] Comment on above: Performed By: #### L 100.0500 #### [facility] [address] [place], [address] RDW SD 44.0 fl High 35.1-43.9 [facility] Comment on above: Performed By: #### L 100.0500 #### [facility] [address] [place], [address] WBC (Bld) [#/Vol] 12.7 10*3/uL High 4.4-11.0 [facility] Comment on above: Performed By: #### L 100.0500 #### [facility] [address] [place], [address] Bedside Glucoseon 10-16-2024 FINGERSTICK GLU 116 mg/dL High 74-106 [facility] Comment on above: Result Comment: MAY WOODLAL OF PATIENT CARE PER NURSING PROTOCOL Performed By: #### L 100.0500 #### [facility] [address] [place], [address] MR/POSTOP.ANEon 10-16-2024 MR/POSTOP.[facility] Medical Records Department [address] [place] [address] Anesthesia Postop Eval I 10/16/24 1122 MR#: [id number] Acct: [id number] Name: MAYRA ARIAS Rep #: [id number] : 1975 49 From: Charu Echols RIDES ATTENDANT PCP: Dr. Dinesh Gan MD Status:ADM IN Y Race: C Location: [place] [address] Anesthesia: Postop Eval I Current Vital Signs Temperature: 98.4 F Pulse Rate: 70 Blood Pressure: 100/50 Respiratory Rate: 16 Pulse Ox: 95 Oxygen Delivery Method: Room Air Assessment Airway patent: Yes Spontaneous unlabored respirations: Yes Mental status: Awake and Calm nausea: No Vomiting: No Anesthesia Complication: No Fluid Hydration Crystalloid volume administer (ml): 1,600 Total IV fluid infused: 1,600 Progress Note Anesthesia document: Postop Eval 1 completed: Yes 10/16/24 1122 Date Charu Echols RIDES ATTENDANT Cosigner Signature: Date CC: Signed Normal [facility] MR/[id number] 10-16-2024 [facility] Medical Records Department [address] [place] [address] Anesthesia Postop Eval II 10/16/24 1841 MR#: [id number] Acct: [id number] Name: MAYRA ARIAS Rep #: [id number] : 1975 49 From: Harvey Siddiqi MD PCP: Dr. Dinesh Gan MD Status:ADM IN Y Race: C [place] [facility] [id number] Anesthesia Postop Eval I Sum Postop Eval Completion status Anesthesia document: Postop Eval 1 completed: Yes Anesthesia Postop Eval I Summary Anesthesia Postop Eval I Summary: Anesthesia Postop Eval I: Assessment Summary Airway patent Yes 10/16/24 11:22 RIDES ATTENDANT.GDOTT Spontaneous unlabored Yes 10/16/24 11:22 RIDES ATTENDANT.GDOTT respirations Mental status Awake,Calm 10/16/24 11:22 RIDES ATTENDANT.GDOTT nausea No 10/16/24 11:22 RIDES ATTENDANT.GDOTT Vomiting No 10/16/24 11:22 RIDES ATTENDANT.GDOTT Anesthesia Postop Eval I: Fluid Summary Crystalloid volume administer 1,600 10/16/24 11:22 RIDES ATTENDANT.GDOTT (ml) Colloids volume administered ( ml) Blood Product volume administered (ml) Total IV fluid infused 1,600 10/16/24 11:22 RIDES ATTENDANT.GDOTT Anesthesia Postop Eval I: Summary Notes Anesthesia Complication No 10/16/24 11:22 RIDES ATTENDANT.GDOTT Anesthesia Complication Comment: Post-operative progress note Anesthesia: Postop Eval II Evaluation Mental status: Awake Pain Level: 0 nausea: No Vomiting: No Complications Anesthesia Complication: No 10/16/24 1841 Date Harvey Siddiqi MD Cosigner Signature: Date CC: Signed Normal [facility] Operative Reporton 5 Operative Report [facility] Medical Records Department [address] [place] [address] Operative Report 10/16/24 1443 MR#: [id number] Acct: [id number] Name: MAYRA ARIAS Rep #: [id number] : 1975 49 From: Margie Reyes DO PCP: Dr. Dinesh Gan MD Status:ADM IN [facility] Associated Problem List Diagnoses (1) Enlarged uterus: (2) Uterine fibroid: (3) Enlarged uterus: (4) Menorrhagia with regular cycle: Multi Select Codes Urinary/Genital Urinary/Genital CPT Codes: 30195 [facility] Operative Report (Standard) Operative Information Date of Procedure: 10/16/24 Pre-Operative Diagnosis: large fibroid uterus, menorrhagia Post-Operative Diagnosis: large fibroid uterus, menorrhagia Surgery/Procedure Performed: total abdominal hysterectomy, right salpingo-oophorecto my, left salpingectomy wire 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: Yes Fashion Photographer: Renetta Gandara Tasks completed by lpn medical assistant: Closing, Dissecting tissue, Removing tissue, Hemostasis: Clamp, Hemostasis: Tie and Retracting Additional high school assistant principal?: Yes Additional Call Worker Person #2: Edenilson Stuart Tasks completed by high school assistant principal #2: Closing Additional high school assistant principal?: No Type of Anesthesia: General RN Documented Start/Stop Times: Operation Date: 10/16/24 08:15 Case Time Into Pre-Op 10/16/24 06:30 Out of Pre-Op 10/16/24 08:45 Anesthesia Start 10/16/24 08:49 Into Room 10/16/24 08:49 Procedure Start 10/16/24 09:14 Procedure End 10/16/24 10:58 Anesthesia End 10/16/24 11:08 Out of Room 10/16/24 11:08 Into Recovery 10/16/24 11:11 Out of Recovery 10/16/24 12:35 Procedure Start Time: 09:14 Procedure Stop Time: 11:08 Select all DRAINS/GRAFTS/IMPLA NTS that apply: None Estimated Blood Loss: 350cc Specimen collected: Yes Description of specimen(s) removed: uterus, cervix, right ovary and fallopian tube, left fallopian tube. Description of surgery: he patient was brought to the operating room and general anesthesia was achieved. Was placed in a supine position and a Hamilton catheter was placed into the urethra. She was prepped and draped in the usual sterile fashion. Pfannenstiel skin incision was made with a scalpel and carried through to the underlying layers. The fascia was incised in the midline and the anterior aspect of the fascia was grasped with Macario clamps and the underlying rectus muscles were dissected off with the Metzenbaum scissors. The inferior aspect of the fascia was grasped with Henagar clamps and the underlying rectus muscles dissected off with the Metzenbaum scissors. The rectus muscles were in the midline and the peritoneum was entered sharply and Harmeet retractor was inserted into the abdomen the bowel was gently packed with a moist towels. The uterus was identified and grasped with 2 bull-nose clamps and exteriorized. There were noted to be at least 2 or 3 large fibroids, one large pedunculated to the right upper uterus. The hysterectomy was initiated first by removing the fallopian tubes with the LigaSure device. This was performed by grasping the fimbriated end with Nelida clamps and dissecting the underlying mesosalpinx to the level of the cornua. Round ligaments were cauterized and cut using the LigaSure device followed by cauterizing and cutting of the ovarian ligaments and arteries. The broad ligament was and opened down to the level of the lower uterine segment and the bladder flap was created. The same procedure was performed on the opposite side. Uterosacral and cardinal ligaments were serially clamped and suture-ligated using 1-0 Vicryl suture. Arteries were dissected and suture-ligated starting from the a sending branches dissecting along the edges of the cervix to the level of the cervical vaginal junction. Z clamps were placed below the level of the cervix and the uterus was amputated using Elvira scissors. The uterus was passed off for pathology analysis and the remaining vaginal cuff was closed with [id number] sutures using 1-0 Vicryl sutures. At this point there was noted to be brisk bleeding from the ovarian ligament. Suture ligation was attempted without success. The decision was made to remove the ovary. This was performed with a ligasure device and excellent hemostasis was achieved. Hemoblast was used on some raw edges overlying the bladder flap. The peritoneum overlying the posterior aspect of the bladder and the posterior aspect of the vaginal cuff were reapproximated using a 3-0 Vicryl. Excellent hemostasis was noted and good closure was noted irrigation was performed. Peritoneum was closed with a 3-0 Vicryl followed by closure of the fascia using a PDS strata fix suture. Subcutaneous tissue layer was then closed using a 3-0 Vicryl and the skin was closed with a 4-0 Monocryl. Surgical glue was placed on the incision allowed to dry and a Mepilex dressing was applied (more content not included)... Normal [facility] ,Urineon 10-16-2024 Beta HCG ( test) Ql (U) Negative Normal [facility] Comment on above: Result Comment: Very dilute urine specimens, as indicated by a low specific gravity, may not contain care support representative levels of hCG. If is still suspected, a first morning urine specimen should be collected 48 hours later and tested. Performed By: #### L 100.0500 #### [facility] [address] [place], [address] CBC W/Diff, Automatedon 09-30 Absolute Lymph 1.63 X10 3/uL Normal 0.83-4.51 [facility] Comment on above: Performed By: #### L 100.0100, L500.4050 #### [facility] [address] [place], [address] Absolute Neut 4.3 X10 3/uL Normal 2.0-7.7 [facility] Comment on above: Performed By: #### L 100.0100, L500.4050 #### [facility] [address] [place], [address] Basophils/100 WBC (Bld) 0.7 % Normal 0-1 [facility] Comment on above: Performed By: #### L 100.0100, L500.4050 #### [facility] [address] [place], [address] Eosinophils/100 WBC (Bld) 2.1 % Normal 0-5 [facility] Comment on above: Performed By: #### L 100.0100, L500.4050 #### [facility] [address] [place], [address] Erythrocyte distribution width (RBC) [Ratio] 14.0 % Normal 11.6-14.6 [facility] Comment on above: Performed By: #### L 100.0100, L500.4050 #### [facility] [address] [place], [address] Hematocrit (Bld) [Volume fraction] 43.2 % Normal 37-47 [facility] Comment on above: Performed By: #### L 100.0100, L500.4050 #### [facility] [address] [place], [address] Hemoglobin (Bld) [Mass/Vol] 14.3 g/dL Normal 12.0-15.0 [facility] Comment on above: Performed By: #### L 100.0100, L500.4050 #### [facility] [address] [place], [address] IG% 0.300 Normal 0.0-0.9 [facility] Comment on above: Result Comment: IG% - Immature Granulocytes (promyelocytes, myelocytes and metamyelocytes) > 1% indicates that a LEFT SHIFT is Present. Performed By: #### L 100.0100, L500.4050 #### [facility] [address] [place], [address] Lymphocytes/100 WBC (Bld) 24.2 % Normal 19-41 [facility] Comment on above: Performed By: #### L 100.0100, L500.4050 #### [facility] [address] [place], [address] MCH (RBC) [Entitic mass] 30.0 pg Normal 27.0-32.0 [facility] Comment on above: Performed By: #### L 100.0100, L500.4050 #### [facility] [address] [place], [address] MCHC (RBC) [Mass/Vol] 33.1 g/dL Normal 32-36 [facility] Comment on above: Performed By: #### L 100.0100, L500.4050 #### [facility] [address] [place], [address] MCV (RBC) [Entitic vol] 90.8 fL Normal 81-99 [facility] Comment on above: Performed By: #### L 100.0100, L500.4050 #### [facility] [address] [place], [address] Monocytes/100 WBC (Bld) 9.1 % Normal 0-10 [facility] Comment on above: Performed By: #### L 100.0100, L500.4050 #### [facility] [address] [place], [address] Neutrophils/100 WBC (Bld) 63.6 % Normal 47-70 [facility] Comment on above: Performed By: #### L 100.0100, L500.4050 #### [facility] [address] [place], [address] Nucleated RBC (Bld) [#/Vol] 0 10*3/uL Normal 0-5 [facility] Comment on above: Performed By: #### L 100.0100, L500.4050 #### [facility] [address] [place], [address] Platelet mean volume (Bld) [Entitic vol] 9.2 fL Normal 6.2-12.0 [facility] Comment on above: Performed By: #### L 100.0100, L500.4050 #### [facility] [address] [place], [address] Platelets (Bld) [#/Vol] 327 10*3/uL Normal 150-450 [facility] Comment on above: Performed By: #### L 100.0100, L500.4050 #### [facility] [address] [place], [address] RBC (Bld) [#/Vol] 4.76 10*6/uL Normal 4.2-5.4 [facility] Comment on above: Performed By: #### L 100.0100, L500.4050 #### [facility] [address] [place], [address] RDW SD 47.5 fl High 35.1-43.9 [facility] Comment on above: Performed By: #### L 100.0100, L500.4050 #### [facility] [address] [place], [address] WBC (Bld) [#/Vol] 6.7 10*3/uL Normal 4.4-11.0 [facility] Comment on above: Performed By: #### L 100.0100, L500.4050 #### [facility] [address] [place], [address] Comprehensive Metabolic Prof ilon 10-12-2024 Albumin [Mass/Vol] 4.5 g/dL Normal 3.5-5.0 [facility] Comment on above: Performed By: #### L 100.0100, L500.4050 #### [facility] [address] [place], [address] Albumin/Globulin [Mass ratio] 1.6 {ratio} Normal 0.9-2.4 [facility] Comment on above: Performed By: #### L 100.0100, L500.4050 #### [facility] [address] [place], [address] ALK PHOS 41 U/L Normal 35-104 [facility] Comment on above: Performed By: #### L 100.0100, L500.4050 #### [facility] [address] [place], [address] ALT [Catalytic activity/Vol] 20 U/L Normal <=34 [facility] Comment on above: Performed By: #### L 100.0100, L500.4050 #### [facility] [address] [place], [address] AST [Catalytic activity/Vol] 17 U/L Normal <=31 [facility] Comment on above: Performed By: #### L 100.0100, L500.4050 #### [facility] [address] [place], [address] Bilirubin [Mass/Vol] 0.63 mg/dL Normal 0.00-1.30 [facility] Comment on above: Performed By: #### L 100.0100, L500.4050 #### [facility] [address] [place], [address] BUN/CRE 18.2 RATIO Normal 10-20 [facility] Comment on above: Performed By: #### L 100.0100, L500.4050 #### [facility] [address] [place], [address] Calcium [Mass/Vol] 9.5 mg/dL Normal 7.6-11.0 [facility] Comment on above: Performed By: #### L 100.0100, L500.4050 #### [facility] [address] [place], [address] Chloride [Moles/Vol] 103 mmol/L Normal 98-108 [facility] Comment on above: Performed By: #### L 100.0100, L500.4050 #### [facility] [address] [place], [address] CO2 [Moles/Vol] 21.0 mmol/L Normal 21.0-32.0 [facility] Comment on above: Performed By: #### L 100.0100, L500.4050 #### [facility] [address] [place], [address] Creatinine [Mass/Vol] 0.72 mg/dL Normal 0.70-1.20 [facility] Comment on above: Performed By: #### L 100.0100, L500.4050 #### [facility] [address] [place], [address] GAP 15 Normal 5-15 [facility] Comment on above: Performed By: #### L 100.0100, L500.4050 #### [facility] [address] [place], [address] GFR/1.73 sq M.predicted among non-blacks MDRD (S/P/Bld) [Vol rate/Area] 103 mL/min/{1.73_m2} Normal >60 [facility] Comment on above: Result Comment: mL/m in/1.73m2 CKD-EPI Creatinine Equation (2020) Performed By: #### L 100.0100, L500.4050 #### [facility] [address] [place], [address] Globulin (S) [Mass/Vol] 2.8 g/dL Normal 2.2-4.2 [facility] Comment on above: Performed By: #### L 100.0100, L500.4050 #### [facility] [address] [place], [address] Glucose [Mass/Vol] 93 mg/dL Normal 70-99 [facility] Comment on above: Performed By: #### L 100.0100, L500.4050 #### [facility] [address] [place], [address] Potassium [Moles/Vol] 4.2 mmol/L Normal 3.3-5.1 [facility] Comment on above: Performed By: #### L 100.0100, L500.4050 #### [facility] [address] [place], [address] Sodium [Moles/Vol] 139 mmol/L Normal 133-145 [facility] Comment on above: Performed By: #### L 100.0100, L500.4050 #### [facility] [address] [place], [address] T PROT 7.2 g/dL Normal 5.9-8.4 [facility] Comment on above: Performed By: #### L 100.0100, L500.4050 #### [facility] [address] [place], [address] Urea nitrogen [Mass/Vol] 13 mg/dL Normal 4-19 [facility] Comment on above: Performed By: #### L 100.0100, L500.4050 #### [facility] [address] [place], [address] MR/KEVINAliyahNargis 10-12-2024 MR/OUMOU [facility] Medical Records Department [address] [place] [address] PAT - Anesthesia 10/12/24 1648 MR#: [id number] Acct: [id number] Name: MAYRA ARIAS Rep #: [id number] : 1975 49 From: Ba Brito MD PCP: Dr. Dinesh Gan MD Status:PRE IN Y Race: C Location: [facility] Pre-Assessment Diagnosis/Proposed Procedure Planned Operative Procedure(s): xx Anesthesia History Anesthesia History - clip on sunglasses assembler: Anesthesia History - clip on sunglasses assembler Hx Hospitalization No 10/02/24 08:24 Any Problems [...] take am of surgery PONV PONV - clip on sunglasses assembler: PONV - clip on sunglasses assembler Female Yes 10/02/24 08:24 HX of Motion [...] 08/27/24 11:58 Respiratory Assessment Respiratory Assessment - clip on sunglasses assembler: Respiratory Tract Infection Hx - clip on sunglasses assembler Hx Respiratory Tract Infection No 10/02/24 08:24 STOP Sleep Apnea STOP Sleep Apnea - clip on sunglasses assembler: STOP Sleep Apnea - clip on sunglasses assembler Hx Hypertension Yes: controlled with meds 10/02/24 [...] Tobacco Use History Tobacco Use History - clip on sunglasses assembler: Tobacco Use History - clip on sunglasses assembler Tobacco Use Smoking Status Never smoker 10/02/24 08:24 Hx Tobacco Use No 10/02/24 08:24 Years Smoking Packs Smoked per Day Smoking Cessation Date was within the last 15 years Hx Smoking Cessation Date Hx Smoking Cessation Counseling Hematologic Medial History Hematologic Hx - clip on sunglasses assembler: 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 Normal [facility] Magnesiumon 10-12-2024 Magnesium [Mass/Vol] 2.2 mg/dL Normal 1.5-2.2 [facility] Comment on above: Performed By: #### L 501.5200, L501.9520 #### [facility] [address] [place], [address] [employer] Hostess Office Visit Reporton 10-12-2024 Tours Hostess Office Visit Report [facility] [place] [facility] [address], [address] [place] [address] OFFICE VISIT Date of Service: 10/12/24 MR#: [id number] Acct: [id number] Name: MAYRA ARIAS Rep #: [id number] : 1975 Provider: Dr. Margie Costa DO Age/Sex: 49/F [place] [facility] [place]: Signed Intake Vital Signs 08/27/24 11:58 09/17/24 13:57 10/12/24 08:59 Height 5 ft 3 in 5 ft 3 in 5 ft 3 in Weight: 226 lb 4 oz BMI 40.1 BP 158/79 H Intake Visit Reasons: [facility] Care Nurse Rn Required: No Is patient in pain?: No Allergies amlodipine Adverse Reaction (Verified 10/12/24 08:57) Chest pain Medications ???Medication ???Instructions ???Recorded ???Confirmed ???Type lisinopril 10 mg tablet 10 mg PO QDAY htn 01/11/24 5 History ferrous sulfate 325 mg (65 mg 325 mg PO QDAY per 08/27/24 History iron) tablet levothyroxine 88 mcg [...] home: Yes 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 Normal [facility] Thyroid Stim Hormone (TSH)on 10-12-2024 TSH 2.610 uIU/mL Normal 0.300-4.200 [facility] Comment on above: Performed By: #### L 501.5207, L501.9520 #### [facility] [address], [address] Type AND Screen - PAT ONLYon 10-12-2024 Ab SCREEN GEL Negative Normal [facility] Comment on above: Order Comment: Surge ry Date: 10/16/24Reason for Laboratory Test total abdominal [id number] abdominal hysterectomy Performed By: #### L 100.0500 #### [facility] [address] [place], [place], [address] Magnetic resonance imaging r eportOrdered By: Ashutosh Rhodes on 09-27-2024 Study report [facility] Imaging Services [address] [place], [place] [address] Pelvis W/WO Contrast MR#: [id number] Acct: [id number] Name: MAYRA ARIAS Rep #: [id number] : 1975 F 49 From: Chapin Rhodes MD PCP: Dr. Dinesh Gan MD Status: REG C LI Study:Pelvis W/WO Contrast Date of Exam: 09/27/24 Exam# [id number] Ordering Dr: Margie Barroso DO EXAM: PELVIS [...] Reyes DO; Dr. Dinesh Gan MD ~ Teacher Physically Impaired: Signed [facility] Pelvis W/WO Contraston 09-27 Pelvis W/WO Contrast [facility] Imaging Services [address] [place] [address] Pelvis W/WO Contrast MR#: [id number] Acct: [id number] Name: MAYRA ARIAS R Rep #: [id number] : 1975 F 49 From: Ashutosh Rhodes MD PCP: Dr. Dinesh Gan MD Status: REG CLI Study: Pelvis W/WO Contrast Date of Exam: 09/27/24 Exam# [id number] Ordering Dr: Margie Reyes DO EXAM: PELVIS [...] Margie Reyes DO; Dr. Dinesh Gan MD Teacher Physically Impaired: Signed Normal [facility] Pelvic w/ Transvaginalon Pelvic w/ Transvaginal [facility] Imaging Services [address] [place] [address] Pelvic w/ Transvaginal MR#: [id number] Acct: [id number] Name: MAYRA ARIAS Rep #: [id number] : 1975 F 49 From: Remberto Garcia i, MD PCP: Dr. Dinesh Gan MD Status: REG CLI Study: Pelvic w/ Transvaginal Date of Exam: 08/29/24 Exam# [id number] Ordering Dr: Ashlie Basurto LIFT TEAM TECHNICIAN LIFT TEAM TECHNICIAN -C PROCEDURE: Pelvic ultrasound. REASON FOR EXAM: [...] surgical treatments, as clinically indicated. Reading Location: [id number] CC: BRUCE Basurto; Dr. 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 Coding Level of Care Code Attention Dick Diagnoses Uterine leiomyoma, unspecified location D25.9 Uterine leiomyoma location: unspecified location Enlarged uterus N85.2 Menorrhagia with regular cycle N92.0 CPT Codes Endometrial Biopsy (25365) Assessment and Plan Assessment and Plan (1) Uterine fibroid: Status: Acute Qualifiers: Uterine leiomyoma lo (more content not included)... Normal [facility] Surgery Specimen Level Jc 08-27-2024 Surgery Specimen Level IV Patient Age/Sex Location Account Attending Physician [facility]AS 49[id number] BRUCE Guzmán Specimen: [id number] Received: 08/27/24 Status: ML Francisco Num: [id number] Spec Type: CHRISTI Jose Dr: BRUCE Guzmán HEADER OPERATION: Endometrial biopsy [...] in aggregate. Submitted in toto in A1. [facility] 08-27-2024 CPT:90531 Patient Age/Sex Location Account Attending Physician MAYRA ARIAS/F [facility] [id number] BRUCE Guzmán Signed (signatur e on file) Dr. Roshni Willingham MD 09/06/24 1823 Normal [facility] Comment on above: Performed By: #### L 100.0500 #### [facility] [address] [place], [address] Lipid Profileon 07-03-2024 CHOL:HDL 5.30 Normal [facility] Comment on above: Performed By: #### L 501.5200, L501.9520 #### [facility] [address] [place], [address] Cholesterol [Mass/Vol] 205 mg/dL High <=200 [facility] Comment on above: Result Comment: Chol esterol level, Desirable <200 mg/dL Borderline high cholesterol 200-239 mg/dL High cholesterol >=240 mg/dL Recommendations of the NCEP Adult Treatment Panel for the following risk-cutoff thresholds for the [place] population. Performed By: #### L 501.5200, L501.9520 #### [facility] [address] [place], [address] Cholesterol in HDL [Mass/Vol] 39 mg/dL Low [facility] Comment on above: Result Comment: [place] Cholesterol Education Program (NCEP) guidelines: <40 mg/dL: Low HDL-cholesterol (major risk factor for CHD) >= 60 mg/dL: High HDL-cholesterol (negative risk factor for CHD) HDL-cholesterol is affected by a number of factors, e.g. smoking, exercise, hormones, sex and age. Performed By: #### L 501.5200, L501.9520 #### [facility] [address] [place], [address] Cholesterol in LDL [Mass/Vol] 141 mg/dL Normal [facility] Comment on above: Result Comment: Bord uhxhjg=128-670 mg/dL Higher Akba=786 mg/dL or greater Performed By: #### L 501.5200, L501.9520 #### [facility] [address] [place], [address] Cholesterol in VLDL [Mass/Vol] 26 mg/dL Normal 5-40 [facility] Comment on above: Performed By: #### L 501.5200, L501.9520 #### [facility] [address] [place], [address] Triglyceride [Mass/Vol] 129 mg/dL Normal [facility] Comment on above: Result Comment: The drugs N-Acetylcysteine and Metamizole may falsely depress this assay. Normal range: <150 mg/dL Borderline High: 150-199 mg/dL High: 200-499 mg/dL Very High: >500 mg/dL Performed By: #### L 501.5200, L501.9520 #### [facility] [address] [place], [place], [address] BUN/creatinine ratioOrdered By: Dinesh Gan on 07-02-2024 Urea nitrogen/Creatinine [Mass ratio] 23.7 mg/mg High 10-20 [facility] Bilirubin, totalOrdered By: Dinesh Gan on 07-02-2024 Bilirubin [Mass/Vol] 0.38 mg/dL 0.00-1.30 [facility] Calculated very low density lipoprotein (VLDL) cholesterol measurementOrdered By: Dinesh Gan on 07-02-2024 Calculated very low density lipoprotein (VLDL) cholesterol measurement 26 mg/dL 5-40 [facility] VLDL Cholesterol 26 mg/dL -40 [facility] Carbon dioxide measurementOr dered By: Dinesh Gan on 07-02-2024 CO2 [Moles/Vol] 18.9 mmol/L Low 22.0-29.0 [facility] Chloride measurementOrdered By: Dinesh Gan on 07-02-2024 Chloride [Moles/Vol] 106 mmol/L 96-108 [facility] Comprehensive Metabolic Prof ilon 07-02-2024 Albumin [Mass/Vol] 4.2 g/dL Normal 3.5-5.0 [facility] Comment on above: Performed By: #### L 100.0500 #### [facility] [address] [place], [address] Albumin/Globulin [Mass ratio] 1.5 {ratio} Normal 0.9-2.4 [facility] Comment on above: Performed By: #### L 100.0500 #### [facility] [address] [place], [address] ALK PHOS 66 U/L Normal 35-104 [facility] Comment on above: Performed By: #### L 100.0500 #### [facility] [address] [place], [address] ALT [Catalytic activity/Vol] 7 U/L Normal <=34 [facility] Comment on above: Performed By: #### L 100.0500 #### [facility] [address] [place], [address] Anion gap [Moles/Vol] 14 mmol/L Normal 5-15 [facility] Comment on above: Performed By: #### L 100.0500 #### [facility] [address] [place], [address] AST [Catalytic activity/Vol] 16 U/L Normal <=31 [facility] Comment on above: Performed By: #### L 100.0500 #### [facility] [address] [place], [address] Bilirubin [Mass/Vol] 0.38 mg/dL Normal 0.00-1.30 [facility] Comment on above: Performed By: #### L 100.0500 #### [facility] [address] [place], [address] BUN/CRE 23.7 RATIO High 10-20 [facility] Comment on above: Performed By: #### L 100.0500 #### [facility] [address] [place], [address] Calcium [Mass/Vol] 9.4 mg/dL Normal 7.6-11.0 [facility] Comment on above: Performed By: #### L 100.0500 #### [facility] [address] [place], [address] Chloride [Moles/Vol] 106 mmol/L Normal 96-108 [facility] Comment on above: Performed By: #### L 100.0500 #### [facility] [address] [place], [address] CO2 [Moles/Vol] 18.9 mmol/L Low 22.0-29.0 [facility] Comment on above: Performed By: #### L 100.0500 #### [facility] [address] [place], [address] Creatinine [Mass/Vol] 0.63 mg/dL Low 0.70-1.20 [facility] Comment on above: Performed By: #### L 100.0500 #### [facility] [address] [place], [address] GFR/1.73 sq M.predicted among non-blacks MDRD (S/P/Bld) [Vol rate/Area] 109 mL/min/{1.73_m2} Normal >60 [facility] Comment on above: Result Comment: mL/m in/1.73m2 CKD-EPI Creatinine Equation (2020) Performed By: #### L 100.0500 #### [facility] [address] [place], [address] Globulin (S) [Mass/Vol] 2.8 g/dL Normal 2.2-4.2 [facility] Comment on above: Performed By: #### L 100.0500 #### [facility] [address] [place], [address] Glucose [Mass/Vol] 80 mg/dL Normal 70-99 [facility] Comment on above: Performed By: #### L 100.0500 #### [facility] [address] [place], [address] Potassium [Moles/Vol] 3.5 mmol/L Normal 3.3-5.1 [facility] Comment on above: Performed By: #### L 100.0500 #### [facility] [address] [place], [address] Sodium [Moles/Vol] 138 mmol/L Normal 133-145 [facility] Comment on above: Performed By: #### L 100.0500 #### [facility] [address] [place], [address] T PROT 7.0 g/dL Normal 5.9-8.4 [facility] Comment on above: Performed By: #### L 100.0500 #### [facility] [address] [place], [address] Urea nitrogen [Mass/Vol] 15 mg/dL Normal 4-19 [facility] Comment on above: Performed By: #### L 100.0500 #### [facility] [address] [place], [address] Free T3on 07-02-2024 Free T3 [Mass/Vol] 2.4 pg/mL Normal 2.18-3.98 [facility] Comment on above: Performed By: #### L 501.5200, L501.9520 #### [facility] [address] [place], [address] Free A6Qrfmbze By: Dinesh nation on 07-02-2024 Free T3 [Mass/Vol] 2.4 pg/mL 2.18-3.98 [facility] Free Triiodothyronine (T3) pg/dL 2.4 pg/mL 2.18-3.98 [facility] GFR/1.73 sq M.predicted dolly g non-blacks MDRD (S/P/Bld) [Vol rate/Area]Ordered By: Dinesh Gan on 07-02-2024 Estimated GFR (MDRD) Non-Af Amer 109 >60 [facility] Comment on above: mL/min/1.73m2 CKD-EP I Creatinine Equation (2020) Glomerular filtration rate ( GFR) estimation/1.73 sq m using serum, plasma, or whole bOrdered By: Dinesh Gan on 07-02-2024 GFR/1.73 sq M.predicted among non-blacks MDRD (S/P/Bld) [Vol rate/Area] 109 mL/min/{1.73_m2} >60 [facility] Comment on above: mL/min/1.73m2 CKD-EP I Creatinine Equation (2020) LDL calc ser/plasOrdered By: Dinesh Gan on 07-02-2024 Cholesterol in LDL [Mass/Vol] 141 mg/dL [facility] Comment on above: Dnwiifvhoo=962-740 m g/dL & Higher Zobf=320 mg/dL or greater LDL Cholesterol, Calculated 141 mg/dL [facility] Comment on above: Devgoklref=559-221 m g/dL & Higher Lgtf=846 mg/dL or greater Laboratory - Chemistry and C hemistry - challengeOrdered By: Dinesh Gan on 07-02-2024 AST [Catalytic activity/Vol] 16 U/L <32 [facility] Screening total cholesterol/ high density lipoprotein (HDL) cholesterol ratioOrdered By: Dinesh Gan on 07-02-2024 Cholesterol.total/Cho lesterol in HDL [Mass ratio] 5.30 {ratio} [facility] Serum creatinine measurement (mass/volume)Ordered By: Dinesh Gan on 07-02-2024 Creatinine [Mass/Vol] 0.63 mg/dL Low 0.70-1.20 [facility] Serum globulin measurementOr dered By: Dinesh Gan on 07-02-2024 Globulin (S) [Mass/Vol] 2.8 g/dL 2.2-4.2 [facility] Serum glucose measurement (m ass/volume)Ordered By: Dinesh Gan on 07-02-2024 Glucose [Mass/Vol] 80 mg/dL 70-99 [facility] Serum or plasma alanine fermin otransferase (ALT) measurementOrdered By: Dinesh Gan on 07-02-2024 ALT [Catalytic activity/Vol] 7 U/L <35 [facility] Serum or plasma albumin nette urement (mass/volume)Ordered By: Dinesh Gan on 07-02-2024 Albumin [Mass/Vol] 4.2 g/dL 3.5-5.0 [facility] Serum or plasma albumin/glob ulin mass ratioOrdered By: Dinesh Gan on 07-02-2024 Albumin/Globulin [Mass ratio] 1.5 {ratio} 0.9-2.4 [facility] Serum or plasma alkaline katalina sphatase measurementOrdered By: Dinesh Gan on 07-02-2024 ALP [Catalytic activity/Vol] 66 U/L 35-104 [facility] Serum or plasma anion gap de termination (moles/volume)Ordered By: Dinesh Gan on 07-02-2024 Anion gap [Moles/Vol] 14 mmol/L 5-15 [facility] Serum or plasma calcium nette urement (mass/volume)Ordered By: Dinesh Gan on 07-02-2024 Calcium [Mass/Vol] 9.4 mg/dL 7.6-11.0 [facility] Serum or plasma cholesterol in HDL measurement (mass/volume)Ordered By: Dinesh Gan on 07-02-2024 Cholesterol in HDL [Mass/Vol] 39 mg/dL Low >40 [facility] Comment on above: National Cholesterol Education Program (NCEP) guidelines:<40 mg/dL: Low HDL-cholesterol (major risk factor for CHD)>= 60 mg/dL: High HDL-cholesterol (negative risk factor for CHD)HDL-cholesterol is affected by a number of factors, e.g. smoking, exercise, hormones, sex and age. Serum or plasma cholesterol measurement (mass/volume)Ordered By: Dinesh Gan on 07-02-2024 Cholesterol [Mass/Vol] 205 mg/dL High <201 [facility] Comment on above: Cholesterol level, D esirable <200 mg/dLBorderline high cholesterol 200-239 mg/dLHigh cholesterol >=240 mg/dLRecommendations of the NCEP Adult Treatment Panel for the following risk-cutoff thresholds for the [place] population. Serum or plasma potassium me asurementOrdered By: Dinesh Gan on 07-02-2024 Potassium [Moles/Vol] 3.5 mmol/L 3.3-5.1 [facility] Serum or plasma sodium measu rement (moles/volume)Ordered By: Dinesh Gan on 07-02-2024 Sodium [Moles/Vol] 138 mmol/L 133-145 [facility] Serum or plasma urea nitroge n measurement (mass/volume)Ordered By: Dinesh Gan on 07-02-2024 Urea nitrogen [Mass/Vol] 15 mg/dL 4-19 [facility] T4 Free Directon 07-02-2024 T4 FREE DIRECT 1.10 ng/dL Normal 0.76-1.46 [facility] Comment on above: Performed By: #### L 501.5200, L501.9520 #### [facility] [place], [address] T4 freeOrdered By: Dinesh nation on 07-02-2024 Free T4 [Mass/Vol] 1.10 ng/dL 0.76-1.46 [facility] TSH DL <= 0.005 mIU/L QnOrde red By: Dinesh Gan on 07-02-2024 Thyroid Stimulating Hormone (TSH) 3.980 uIU/mL 0.300-4.200 [facility] TSH Qn 3.980 uIU/mL 0.300-4.200 [facility] Thyroid Stim Hormone (TSH)on 07-02-2024 TSH 3.980 uIU/mL Normal 0.300-4.200 [facility] Comment on above: Performed By: #### L 501.5200, L501.9520 #### [facility] [address] [place], [address] Total proteinOrdered By: Yany Gan on 07-02-2024 Protein [Mass/Vol] 7.0 g/dL 5.9-8.4 [facility] Triglycerides measurementOrd ered By: Dinesh Gan on 07-02-2024 Triglyceride [Mass/Vol] 129 mg/dL <199 [facility] Comment on above: The drugs N-Acetylcy steine and Metamizole may falsely depress this assay. Normal range: <150 mg/dLBorderline High: 150-199 mg/dLHigh: 200-499 mg/dLVery High: >500 mg/dL [employer] [facility] Office Visit Reporton 03-12-2024 Tours Hostess Office Visit Report [facility] [address], [address] [place] [address] OFFICE VISIT Date of Service: 03/12/24 MR#: [id number] Acct: [id number] Name: MAYRA ARIAS Rep #: [id number] : 1975 Provider: Dr. 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 Normal [facility] T4 Free Directon 03-12-2024 T4 FREE DIRECT 0.80 ng/dL Normal 0.76-1.46 [facility] Comment on above: Performed By: #### L 501.5200, L501.9520 #### [facility] [address] [place], [address] Thyroid Stim Hormone (TSH)on 03-12-2024 TSH 4.590 uIU/mL High 0.358-3.740 [facility] Comment on above: Performed By: #### L 501.5200, L501.9520 #### [facility] [address] [place], [address] [employer] Office Visit Reporton 03-06-2024 Tours Hostess Office Visit Report [facility] [address], [address] [place] [address] OFFICE VISIT Date of Service: 03/06/24 MR#: [id number] Acct: [id number] Name: MAYRA ARIAS Rep #: [id number] : 1975 Provider: BRUCE reynoso Age/Sex: 48/F Location: [facility] Status: Signed Intake Vital Signs 01/11/24 11:47 03/06/24 10:18 03/06/24 10:23 Height 5 ft 3 in 5 ft 3 in 5 ft 3 in Weight: 223 lb BMI 39.4 BP 120/82 H Intake Visit Reasons: 6 wk FU Chief Complaint: 6 Week F/u Care Nurse Rn Required: No Is patient in pain?: No [...] menopausal: No Patient : No : [facility] Thyroid disease Anemia Fatty liver [...] home: Yes 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 She is fearful [...] Bth Weight Gen Labor Lgth Anesthesia Del [facility] Provider FOB Unknown 2009 Enio live - [...] D25.9 - Leiomyoma of uterus, unspecified Comment: [id number]:surgi eduardo consult JV. She has fear of [...] will c (more content not included)... Normal [facility] CBC W/Diff, Automatedon 10-0 PLT EST ADEQUATE Normal ADEQ [facility] Comment on above: Performed By: #### L 100.0100 #### [facility] [address] [place], [address] Anisocytosis Ql (Bld) 3+ Normal [facility] Comment on above: Performed By: #### L 100.0100 #### [facility] [address] [place], [address] MACROCYTOSIS 1+ Normal [facility] Comment on above: Performed By: #### L 100.0100 #### [facility] [address] [place], [address] MICROCYTIC 1+ Normal [facility] Comment on above: Performed By: #### L 100.0100 #### [facility] [address] [place], [address] SMEAR COMMENT SCANNED Normal [facility] Comment on above: Performed By: #### L 100.0100 #### [facility] [address] [place], [place], [address] SCRN MAMM (CAD)W/CHICA BILATo n 01-24-2024 SCRN MAMM (CAD)W/CHICA BILAT [facility] Imaging Services [address] [place] [address] SCRN MAMM (CAD)W/CHICA BILAT MR#: [id number] Acct: [id number] Name: MAYRA ARIAS Rep #: [id number] : 1975 F 48 From: Juan Luis de los santos MD PCP: Dr. Dinesh Gan MD Status: [facility] Study: SCRN MAMM (CAD)W/CHICA BILAT Date of Exam: 01/01 08/23 Exam# [id number] Ordering Dr: Ashlie Basurto NP LIFT TEAM TECHNICIAN -C -[id number] MAMMOGRAPHY - BILATERAL SCREENING REASON FOR [...] delay biopsy of a clinically suspicious abnormality. [id number] Electronically Signed: Juan Luis Soto MD at 11:05 EDT , CC: BRUCE Basurto; Dr. Dinesh Gan MD Teacher Physically Impaired: Signed Normal [facility] Pelvic w/ Transvaginalon Pelvic w/ Transvaginal [facility] Imaging Services [address] [place] [address] Pelvic w/ Transvaginal MR#: [id number] Acct: [id number] Name: MAYRA ARIAS Rep #: [id number] : 1975 F 48 From: Raciel Gaines PCP: Dr. Dinesh Gan MD Status: [facility] Study: Pelvic w/ Transvaginal Date of Exam: 01/20/24 Exam# [id number] Ordering Dr: Ashlie Basurto NP, NP -[id number] STUDY: ULTRASOUND OF THE FEMALE PELVIS [...] 19:42 EDT Reading Location ID and State: [facility] / [place] , Service support , CC: BRUCE Basurto; Dr. Dinesh Gan MD Teacher Physically Impaired: Signed Normal [facility] PAP IG HPV APTIMA 16/18,45on 01-16-2024 ADEQ Comment Normal . [facility] Comment on above: Order Comment: Speci men Comment: [id number] Specimen Comment: No. of containers..01 ThinPrep Vial Result Comment: Sati sfactory for evaluation. Endocervical and/or squamous metaplastic cells (endocervical component) are present. Performed By: #### L 7400.0280 #### [facility] [address] [place], [place], [address] COMM . Normal . [facility] Comment on above: Order Comment: Speci men Comment: [id number] Specimen Comment: No. of containers..01 ThinPrep Vial Performed By: #### L 7400.0280 #### [facility] [address] [place], [place], [address] COMMENT Comment Normal . [facility] Comment on above: Order Comment: Speci men Comment: [id number] Specimen Comment: No. of containers..01 ThinPrep Vial Result Comment: This liquid based ThinPrep(R) pap test was screened with the use of an image guided system. Performed By: #### L 7400.0280 #### [facility] [address] [place], [place], [address] DIAG Comment Normal . [facility] Comment on above: Order Comment: Speci men Comment: [id number] Specimen Comment: No. of containers..01 ThinPrep Vial Result Comment: NEGA TIVE FOR INTRAEPITHELIAL LESION OR MALIGNANCY. Performed By: #### L 7400.0280 #### [facility] [address] [place], [place], [address] HPV APTIMA, HR Negative Normal Negative [facility] Comment on above: Order Comment: Speci men Comment: [id number] Specimen Comment: No. of containers..01 ThinPrep Vial Result Comment: This nucleic acid amplification test detects fourteen high- risk HPV types (16,18,31,33,35,39,45,51,52,56,58,59,66,68) without differentiation. Performed By: #### L 7400.0280 #### [facility] [address] [place], [place], [address] HPV Marlee Rfx Comment Normal . [facility] Comment on above: Order Comment: Speci men Comment: [id number] Specimen Comment: No. of containers..01 ThinPrep Vial Result Comment: Crit eria not met, HPV Genotype not performed. Performed at: [address] [id number] Count Team Member: Rebekah Lynn MD, Phone: [phone] Performed at: =[address] [id number] Count Team Member: Rebekah Lynn MD, Phone: [phone] Performed By: #### L 7400.0280 #### [facility] [address] [place], [place], [address] PAPSMR Comment Normal . [facility] Comment on above: Order Comment: Speci men Comment: [id number] Specimen Comment: No. of containers..01 ThinPrep Vial Result Comment: The Pap smear is a screening test designed to aid in the detection of premalignant and malignant conditions of the uterine cervix. It is not a diagnostic procedure and should not be used as the sole means of detecting cervical cancer. Both false-positive and false-negative reports do occur. Performed By: #### L 7400.0280 #### [facility] [address] [place], [place], [address] PERFORM Comment Normal . [facility] Comment on above: Order Comment: Speci men Comment: [id number] Specimen Comment: No. of containers..01 ThinPrep Vial Result Comment: Fidelina Linares, Work Distributor (ASCP) Performed By: #### L 7400.0280 #### [facility] [address] [place], [place], [id number] Tours Hostess Office Visit Reporton 01-11-2024 Tours Hostess Office Visit Report [facility] [address], [address] [place] [address] OFFICE VISIT Date of Service: 01/11/24 MR#: [id number] Acct: [id number] Name: MAYRA ARIAS Rep #: [id number] : 1975 Provider: BRUCE reynoso Age/Sex: 48/F Location: [facility] Status: Signed Intake Vital Signs 04/20/23 13:43 01/11/24 11:40 01/11/24 11:47 Height 5 ft 3 in 5 ft 3 in 5 ft 3 in Weight: 231 lb 6 oz BMI 40.9 BP 134/78 H Intake Visit Reasons: HEAVY MENSES/[facility] ([place]) Chief Complaint: Heavy Menses/Anemia Care Nurse Rn Required: No Is patient in pain?: No [...] home: Yes 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 Normal [facility] CBC W/Diff, Automatedon Anisocytosis Ql (Bld) 3+ Normal [facility] Comment on above: Order Comment: Order Date: 12/29/23 Order Info: 0184-1 - CBCD Performed By: #### L 100.0100, L503.6577, L503.6075 #### [facility] [address] [place], [address] HYPOCHROMASIA 1+ Normal [facility] Comment on above: Order Comment: Order Date: 12/29/23 Order Info: 0184-1 - CBCD Performed By: #### L 100.0100, L503.6550, L503.6075 #### [facility] [address] [place], [address] MACROCYTOSIS 1+ Normal [facility] Comment on above: Order Comment: Order Date: 12/29/23 Order Info: 0184-1 - CBCD Performed By: #### L 100.0100, L503.6550, L503.6075 #### [facility] [address] [place], [address] MICROCYTIC 2+ Normal [facility] Comment on above: Order Comment: Order Date: 12/29/23 Order Info: 0184-1 - CBCD Performed By: #### L 100.0100, L503.6550, L503.6075 #### [facility] [address] [place], [address] PLT EST ADEQUATE Normal ADEQ [facility] Comment on above: Order Comment: Order Date: 12/29/23 Order Info: 0184-1 - CBCD Performed By: #### L 100.0100, L503.6550, L503.6075 #### [facility] [address] [place], [address] SCHISTOCYTES 1+ Normal [facility] Comment on above: Order Comment: Order Date: 12/29/23 Order Info: 0184-1 - CBCD Performed By: #### L 100.0100, L503.6550, L503.6075 #### [facility] [address] [place], [address] SMEAR COMMENT SCANNED Normal [facility] Comment on above: Order Comment: Order Date: 12/29/23 Order Info: 0184-1 - CBCD Performed By: #### L 100.0100, L503.6550, L503.6075 #### [facility] [address] [place], [address] Ferritinon 01-05-2024 Ferritin [Mass/Vol] 7 ng/mL Low 8-252 [facility] Comment on above: Order Comment: Order Date: 12/29/23 Order Info: 2500-7 - TIBC Order Info: 2275-08 - SONJA Performed By: #### L 100.0100, L503.6550, L503.6075 #### [facility] [address] [place], [address] Iron Binding Capacity,Totalo n 01-05-2024 TIBC 407 ug/dL Normal 250-450 [facility] Comment on above: Order Comment: Order Date: 12/29/23 Order Info: 2499-7 - TIBC Order Info: [id number] - SONJA Performed By: #### L 100.0100, L503.6550, L503.6075 #### [facility] [address] [place], [address] Basic Metabolic Profile (BMP )on 12-29-2023 BUN/CRE 23.2 RATIO High 10-20 [facility] Comment on above: Performed By: #### L 100.0500 #### [facility] [address] [place], [address] CA,Total 8.9 mg/dL Normal 8.5-10.1 [facility] Comment on above: Performed By: #### L 100.0500 #### [facility] [address] [place], [address] Chloride [Moles/Vol] 108 mmol/L High 98-107 [facility] Comment on above: Performed By: #### L 100.0500 #### [facility] [address] [place], [address] CO2 [Moles/Vol] 24.0 mmol/L Normal 21.0-32.0 [facility] Comment on above: Performed By: #### L 100.0500 #### [facility] [address] [place], [address] Creatinine [Mass/Vol] 0.73 mg/dL Normal 0.55-1.02 [facility] Comment on above: Result Comment: The validity of the calculated GFR GFRAA in patients over 70 years has not been determined. Clinical correlation is essential. Performed By: #### L 100.0500 #### [facility] [address] [place], [address] EST GFR - AA 109 mL/min Normal >60 [facility] Comment on above: Result Comment: Afri can [facility] GFR Calc Performed By: #### L 100.0500 #### [facility] [address] [place], [address] GAP 5 Normal 5-15 [facility] Comment on above: Performed By: #### L 100.0500 #### [facility] [address] [place], [address] GFR/1.73 sq M.predicted among non-blacks MDRD (S/P/Bld) [Vol rate/Area] 90 mL/min/{1.73_m2} Normal >60 [facility] Comment on above: Result Comment: Non- GFR Calc Performed By: #### L 100.0500 #### [facility] [address] [place], [address] Glucose [Mass/Vol] 101 mg/dL Normal 74-106 [facility] Comment on above: Result Comment: Fast ing Glucose result from 100 to 125 mg/dL suggests IMPAIRED HOMEOSTASIS per A.D.A. criteria. Performed By: #### L 100.0500 #### [facility] [address] [place], [address] Potassium [Moles/Vol] 3.6 mmol/L Normal 3.5-5.1 [facility] Comment on above: Performed By: #### L 100.0500 #### [facility] [address] [place], [address] Sodium [Moles/Vol] 137 mmol/L Normal 136-145 [facility] Comment on above: Performed By: #### L 100.0500 #### [facility] [address] [place], [address] Urea nitrogen [Mass/Vol] 17 mg/dL Normal 7-18 [facility] Comment on above: Performed By: #### L 100.0500 #### [facility] [address] [place], [address] CBC W/Diff, Automatedon 12-01 Anisocytosis Ql (Bld) 2+ Normal [facility] Comment on above: Performed By: #### L 100.0500 #### [facility] [address] [place], [address] MICROCYTIC 2+ Normal [facility] Comment on above: Performed By: #### L 100.0500 #### [facility] [address] [place], [address] SMEAR COMMENT SCANNED Normal [facility] Comment on above: Performed By: #### L 100.0500 #### [facility] [address] [place], [address] Lipid Profileon 12-29-2023 Cholesterol [Mass/Vol] 185 mg/dL Normal 200 [facility] Comment on above: Result Comment: <200 mg/dL Desirable 200-240 mg/dL Borderline >240 mg/dL High Risk Performed By: #### L 100.0500 #### [facility] [address] [place], [address] Cholesterol in HDL [Mass/Vol] 38 mg/dL Low [facility] Comment on above: Result Comment: The drugs N-Acetylcysteine and Metamizole may falsely depress this assay. Reference Range HDL <40 mg/dL Low HDL Cholesterol HDL >or= 60 mg/dL High HDL Cholesterol Performed By: #### L 100.0500 #### [facility] [address] [place], [address] Cholesterol in LDL [Mass/Vol] 125 mg/dL Normal 0-130 [facility] Comment on above: Performed By: #### L 100.0500 #### [facility] [address] [place], [address] Cholesterol in VLDL [Mass/Vol] 22 mg/dL Normal 5-40 [facility] Comment on above: Performed By: #### L 100.0500 #### [facility] [address] [place], [address] Triglyceride [Mass/Vol] 109 mg/dL Normal [facility] Comment on above: Result Comment: The drugs N-Acetylcysteine and Metamizole may falsely depress this assay. Serum Triglycerides Reference Interval Normal <150 mg/dL Borderline high 150 - 199 mg/dL High 200 - 499 mg/dL Very High > or = 500 mg/dL Performed By: #### L 100.0500 #### [facility] [address] [place], [address] Basophil percentageOrdered B y: Dinesh Gan on 06-29-2023 Bilirubin [Mass/Vol] 0.50 mg/dL 0.20-1.00 [facility] Comment on above: For patients on eltr ombopag therapy, use of Dimension [place] TBIL is not recommended. Chloride [Moles/Vol] 106 mmol/L 98-107 [facility] Cholesterol [Mass/Vol] 167 mg/dL <200 [facility] Comment on above: <200 mg/dL Desirable 200-240 mg/dL Borderline >240 mg/dL High Risk Glucose [Mass/Vol] 96 mg/dL 74-106 [facility] Potassium [Moles/Vol] 3.6 mmol/L 3.5-5.1 [facility] Protein [Mass/Vol] 7.4 g/dL 6.4-8.2 [facility] Sodium [Moles/Vol] 140 mmol/L 136-145 [facility] Triglyceride [Mass/Vol] 89 mg/dL <199 [facility] Comment on above: The drugs N-Acetylcy steine and Metamizole may falsely depress this assay.Serum Triglycerides Reference Interval Normal <150 mg/dL Borderline high 150 - 199 mg/dL High 200 - 499 mg/dL Very High > or = 500 mg/dL Laboratory - Chemistry and C hemistry - challengeOrdered By: Dinesh Gan on 06-29-2023 Albumin/Globulin [Mass ratio] 1.1 {ratio} 0.9-2.4 [facility] ALP [Catalytic activity/Vol] 93 U/L 45-117 [facility] ALT [Catalytic activity/Vol] 27 U/L 13-56 [facility] Cholesterol in HDL [Mass/Vol] 43 mg/dL >40 [facility] Comment on above: The drugs N-Acetylcy steine and Metamizole may falsely depress this assay. Reference Range HDL <40 mg/dL Low HDL Cholesterol HDL >or= 60 mg/dL High HDL Cholesterol Cholesterol in LDL [Mass/Vol] 106 mg/dL 0-130 [facility] CO2 [Moles/Vol] 25.0 mmol/L 21.0-32.0 [facility] Globulin (S) [Mass/Vol] 3.6 g/dL 2.2-4.2 [facility] Urea nitrogen/Creatinine [Mass ratio] 18.0 mg/mg 10-20 [facility] No Panel InformationOrdered By: Dinesh Gan on 06-29-2023 Estimated GFR (MDRD) Amer 102 mL/min >60 [facility] Comment on above: GFR Calc Estimated GFR (MDRD) Non-Af Amer 84 mL/min >60 [facility] Comment on above: Non- GFR Calc VLDL Cholesterol 18 mg/dL 5-40 [facility] Serum or plasma calcium nette urement (mass/volume)Ordered By: Dinesh Gan on 06-29-2023 Calcium [Mass/Vol] 9.5 mg/dL 8.5-10.1 [facility] Serum or plasma creatinine m easurement (mass/volume)Ordered By: Dinesh Gan on 06-29-2023 Creatinine [Mass/Vol] 0.78 mg/dL 0.55-1.02 [facility] Comment on above: The validity of the calculated GFR & GFRAA in patients over 70 years has not been determined. Clinical correlation is essential. Serum or plasma urea nitroge n measurement (mass/volume)Ordered By: Dinesh Gan on 06-29-2023 Urea nitrogen [Mass/Vol] 14 mg/dL 7-18 [facility] Thin prep Papanicolaou smear with manual screeningOrdered By: Dinesh Gan on 06-29-2023 Thin prep Papanicolaou smear with manual screening 3.8 g/dL 3.2-5.0 [facility] Thin prep Papanicolaou smear with manual screening 22 U/L 15-37 [facility] Thin prep Papanicolaou smear with manual screening 9 5-15 [facility] Laboratory - Chemistry and C hemistry - challengeOrdered By: Ba Brito on 04-20-2023 HCG ( test) Ql (U) Negative [facility] Comment on above: Very dilute urine sp ecimens, as indicated by a low specificgravity, may not contain care support representative levels of hCG. If is still suspected, a first morning urinespecimen should be collected 48 hours later and tested. Basophil percentageOrdered B y: Dinesh Gan on 04-15-2023 Cholesterol [Mass/Vol] 122 mg/dL <200 [facility] Comment on above: <200 mg/dL Desirable 200-240 mg/dL Borderline >240 mg/dL High Risk Triglyceride [Mass/Vol] 78 mg/dL <199 [facility] Comment on above: The drugs N-Acetylcy steine and Metamizole may falsely depress this assay.Serum Triglycerides Reference Interval Normal <150 mg/dL Borderline high 150 - 199 mg/dL High 200 - 499 mg/dL Very High > or = 500 mg/dL Serum or plasma cholesterol in HDL measurement (mass/volume)Ordered By: Dinesh Gan on 04-15-2023 Cholesterol in HDL [Mass/Vol] 41 mg/dL >40 [facility] Comment on above: The drugs N-Acetylcy steine and Metamizole may falsely depress this assay. Reference Range HDL <40 mg/dL Low HDL Cholesterol HDL >or= 60 mg/dL High HDL Cholesterol Serum or plasma cholesterol in VLDL measurement (mass/volume)Ordered By: Dinesh Gan on 04-15-2023 Cholesterol in VLDL [Mass/Vol] 16 mg/dL 5-40 [facility] Serum or plasma low density lipoprotein (LDL) cholesterol measurement (mass/volume)Ordered By: Dinesh aGn on 04-15-2023 Cholesterol in LDL [Mass/Vol] 65 mg/dL 0-130 [facility] Basophil percentageOrdered B y: Dinesh Gan on 01-14-2023 Chloride [Moles/Vol] 106 mmol/L 98-107 [facility] Cholesterol [Mass/Vol] 219 mg/dL <200 [facility] Comment on above: <200 mg/dL Desirable 200-240 mg/dL Borderline >240 mg/dL High Risk Glucose [Mass/Vol] 96 mg/dL 74-106 [facility] Potassium [Moles/Vol] 3.9 mmol/L 3.5-5.1 [facility] Sodium [Moles/Vol] 137 mmol/L 136-145 [facility] Triglyceride [Mass/Vol] 88 mg/dL <199 [facility] Comment on above: The drugs N-Acetylcy steine and Metamizole may falsely depress this assay.Serum Triglycerides Reference Interval Normal <150 mg/dL Borderline high 150 - 199 mg/dL High 200 - 499 mg/dL Very High > or = 500 mg/dL Laboratory - Chemistry and C hemistry - challengeOrdered By: Dinesh Gan on 01-14-2023 CO2 [Moles/Vol] 27.0 mmol/L 21.0-32.0 [facility] Urea nitrogen/Creatinine [Mass ratio] 17.9 mg/mg 10-20 [facility] No Panel InformationOrdered By: Dinesh Gan on 01-14-2023 Estimated GFR (MDRD) Amer 101 mL/min >60 [facility] Comment on above: GFR Calc Estimated GFR (MDRD) Non-Af Amer 83 mL/min >60 [facility] Comment on above: Non- GFR Calc Serum or plasma calcium nette urement (mass/volume)Ordered By: Dinesh Gan on 01-14-2023 Calcium [Mass/Vol] 9.0 mg/dL 8.5-10.1 [facility] Serum or plasma cholesterol in HDL measurement (mass/volume)Ordered By: Dinesh Gan on 01-14-2023 Cholesterol in HDL [Mass/Vol] 46 mg/dL >40 [facility] Comment on above: The drugs N-Acetylcy steine and Metamizole may falsely depress this assay. Reference Range HDL <40 mg/dL Low HDL Cholesterol HDL >or= 60 mg/dL High HDL Cholesterol Serum or plasma cholesterol in VLDL measurement (mass/volume)Ordered By: Dinesh Gan on 01-14-2023 Cholesterol in VLDL [Mass/Vol] 18 mg/dL 5-40 [facility] Serum or plasma creatinine m easurement (mass/volume)Ordered By: Dinesh Gan on 01-14-2023 Creatinine [Mass/Vol] 0.78 mg/dL 0.55-1.02 [facility] Comment on above: The validity of the calculated GFR & GFRAA in patients over 70 years has not been determined. Clinical correlation is essential. Serum or plasma low density lipoprotein (LDL) cholesterol measurement (mass/volume)Ordered By: Dinesh Gan on 01-14-2023 Cholesterol in LDL [Mass/Vol] 155 mg/dL 0-130 [facility] Serum or plasma urea nitroge n measurement (mass/volume)Ordered By: Dinesh Gan on 01-14-2023 Urea nitrogen [Mass/Vol] 14 mg/dL 7-18 [facility] Thin prep Papanicolaou smear with manual screeningOrdered By: Dinesh Gan on 01-14-2023 Thin prep Papanicolaou smear with manual screening 4 5-15 [facility] Basophil percentageOrdered B y: Dr. Gan on 07-14-2022 Chloride [Moles/Vol] 108 mmol/L 98-107 [facility] Glucose [Mass/Vol] 90 mg/dL 74-106 [facility] Potassium [Moles/Vol] 3.7 mmol/L 3.5-5.1 [facility] Sodium [Moles/Vol] 140 mmol/L 136-145 [facility] Laboratory - Chemistry and C hemistry - challengeOrdered By: Dr. Gan on 07-14-2022 CO2 [Moles/Vol] 23.0 mmol/L 21.0-32.0 [facility] Urea nitrogen/Creatinine [Mass ratio] 23.6 mg/mg 10-20 [facility] No Panel InformationOrdered By: Dr. Gan on 07-14-2022 Estimated GFR (MDRD) Amer 111 mL/min >60 [facility] Comment on above: GFR Calc Estimated GFR (MDRD) Non-Af Amer 92 mL/min >60 [facility] Comment on above: Non- GFR Calc Serum or plasma calcium nette urement (mass/volume)Ordered By: Dr. Gan on 07-14-2022 Calcium [Mass/Vol] 9.0 mg/dL 8.5-10.1 [facility] Serum or plasma creatinine m easurement (mass/volume)Ordered By: Dr. Gan on 07-14-2022 Creatinine [Mass/Vol] 0.72 mg/dL 0.55-1.02 [facility] [place] Comment on above: The validity of the calculated GFR & GFRAA in patients over 70 years has not been determined. Clinical correlation is essential. Serum or plasma urea nitroge n measurement (mass/volume)Ordered By: Dr. Gan on 07-14-2022 Urea nitrogen [Mass/Vol] 17 mg/dL 7-18 [facility] Thin prep Papanicolaou smear with manual screeningOrdered By: Dr. Gan on 07-14-2022 Thin prep Papanicolaou smear with manual screening 9 -15 [facility] Basophil percentageon 2021 Chloride [Moles/Vol] 108 mmol/L 98-107 [facility] Work Phone: Cholesterol [Mass/Vol] 184 mg/dL <200 [facility] Work Phone: Comment on above: <200 mg/dL Desirable 200-240 mg/dL Borderline >240 mg/dL High Risk Glucose [Mass/Vol] 100 mg/dL 74-106 [facility] Work Phone: Comment on above: Fasting Glucose resu lt from 100 to 125 mg/dL suggests IMPAIRED HOMEOSTASIS per A.D.A. criteria. Potassium [Moles/Vol] 3.6 mmol/L 3.5-5.1 [facility] [place] Work Phone: Sodium [Moles/Vol] 140 mmol/L 136-145 [facility] Work Phone: Triglyceride [Mass/Vol] 129 mg/dL <199 [facility] Work Phone: Comment on above: The drugs N-Acetylcy steine and Metamizole may falsely depress this assay.Serum Triglycerides Reference Interval Normal <150 mg/dL Borderline high 150 - 199 mg/dL High 200 - 499 mg/dL Very High > or = 500 mg/dL Laboratory - Chemistry and C hemistry - challengeon 01-01-2022 CO2 [Moles/Vol] 25.0 mmol/L 21.0-32.0 [facility] Work Phone: Urea nitrogen/Creatinine [Mass ratio] 20.2 mg/mg 10-20 [facility] Work Phone: No Panel Informationon 01-01 Estimated GFR (MDRD) Amer 128 mL/min >60 [facility] Work Phone: Comment on above: GFR Calc Estimated GFR (MDRD) Non-Af Amer 105 mL/min >60 [facility] Work Phone: Comment on above: Non- GFR Calc Serum or plasma calcium nette urement (mass/volume)on 01-01-2022 Calcium [Mass/Vol] 8.7 mg/dL 8.5-10.1 [facility] Work Phone: Serum or plasma cholesterol in HDL measurement (mass/volume)on 01-01-2022 Cholesterol in HDL [Mass/Vol] 32 mg/dL >40 [facility] Work Phone: Comment on above: The drugs N-Acetylcy steine and Metamizole may falsely depress this assay. Reference Range HDL <40 mg/dL Low HDL Cholesterol HDL >or= 60 mg/dL High HDL Cholesterol Serum or plasma cholesterol in VLDL measurement (mass/volume)on 01-01-2022 Cholesterol in VLDL [Mass/Vol] 26 mg/dL 5-40 [facility] Work Phone: Serum or plasma creatinine m easurement (mass/volume)on 01-01-2022 Creatinine [Mass/Vol] 0.64 mg/dL 0.55-1.02 [facility] [place] Work Phone: Comment on above: The validity of the calculated GFR & GFRAA in patients over 70 years has not been determined. Clinical correlation is essential. Serum or plasma low density lipoprotein (LDL) cholesterol measurement (mass/volume)on 01-01-2022 Cholesterol in LDL [Mass/Vol] 126 mg/dL 0-130 [facility] Work Phone: Serum or plasma urea nitroge n measurement (mass/volume)on 01-01-2022 Urea nitrogen [Mass/Vol] 13 mg/dL 7-18 [facility] Work Phone: Thin prep Papanicolaou smear with manual screeningon 01-01-2022 Thin prep Papanicolaou smear with manual screening 7 5-15 [facility] Work Phone: Laboratory - Microbiology an d Antimicrobial susceptibilityon 12-17-2021 SARS-CoV-2 (COVID-19) RNA SYEDA+probe Ql (Unsp spec) Detected Not Detect [facility] Work Phone: Comment on above: Normal Reference [...] Auto (Unsp spec) [#/Vol] 0.95 10*3/uL 0.83-4.51 [facility] Work Phone: Basophil percentageon 2021 Basophils/100 WBC (Bld) 0.2 % 0-1 [facility] Work Phone: Bilirubin [Mass/Vol] 0.40 mg/dL 0.20-1.00 [facility] Work Phone: Comment on above: For patients on eltr ombopag therapy, use of Dimension [place] TBIL is not recommended. Chloride [Moles/Vol] 109 mmol/L 98-107 [facility] Work Phone: Eosinophils/100 WBC (Bld) 0.0 % 0-5 [facility] Work Phone: Glucose [Mass/Vol] 117 mg/dL 74-106 [facility] Work Phone: Comment on above: Fasting Glucose resu lt from 100 to 125 mg/dL suggests IMPAIRED HOMEOSTASIS per A.D.A. criteria. Neutrophils (Bld) [#/Vol] 7.7 10*3/uL 2.0-7.7 [facility] Work Phone: Neutrophils/100 WBC (Bld) 83.5 % 47-70 [facility] Work Phone: Potassium [Moles/Vol] 3.7 mmol/L 3.5-5.1 [facility] [place] Work Phone: Protein [Mass/Vol] 7.2 g/dL 6.4-8.2 [facility] Work Phone: Sodium [Moles/Vol] 138 mmol/L 136-145 [facility] Work Phone: WBC (Bld) [#/Vol] 9.2 10*3/uL 4.4-11.0 [facility] Work Phone: Blood erythrocytes count (nu mber/volume)on 12-06-2021 RBC (Bld) [#/Vol] 4.41 10*6/uL 4.2-5.4 [facility] Work Phone: Blood hemoglobin measurement (mass/volume)on 12-06-2021 Hemoglobin (Bld) [Mass/Vol] 10.9 g/dL 12.0-15.0 [facility] Work Phone: Blood lymphocytes/100 leukoc yteson 12-06-2021 Lymphocytes/100 WBC (Bld) 10.3 % 19-41 [facility] Work Phone: Blood monocytes/100 leukocyt eson 12-06-2021 Monocytes/100 WBC (Bld) 5.7 % 0-10 [facility] Work Phone: Blood platelet mean volumeon 12-06-2021 Platelet mean volume (Bld) [Entitic vol] 9.7 fL 6.2-12.0 [facility] Work Phone: Determination of erythrocyte mean corpuscular volume (MCV)on 12-06-2021 MCV (RBC) [Entitic vol] 79.1 fL 81-99 [facility] Work Phone: Hematocrit Auto (Bld) [Volum e fraction]on 12-06-2021 Hematocrit (Bld) [Volume fraction] 34.9 % 37-47 [facility] Work Phone: Laboratory - Chemistry and C hemistry - challengeon 12-06-2021 ALP [Catalytic activity/Vol] 77 U/L 45-117 [facility] Work Phone: ALT [Catalytic activity/Vol] 19 U/L 13-56 [facility] Work Phone: CO2 [Moles/Vol] 23.0 mmol/L 21.0-32.0 [facility] Work Phone: Globulin (S) [Mass/Vol] 3.5 g/dL 2.2-4.2 [facility] Work Phone: Urea nitrogen/Creatinine [Mass ratio] 12.5 mg/mg 10-20 [facility] Work Phone: Laboratory - Hematology and Cell countson 12-06-2021 Erythrocyte distribution width (RBC) [Entitic vol] 47.4 fL 35.1-43.9 [facility] Work Phone: Erythrocyte distribution width (RBC) [Ratio] 16.6 % 11.6-14.6 [facility] Work Phone: Immature granulocytes/100 WBC (Bld) 0.300 % 0.0-0.9 [facility] Work Phone: Comment on above: IG% - Immature Granu locytes (promyelocytes, myelocytes and metamyelocytes) > 1% indicates that a LEFT SHIFT is Present. MCH (RBC) [Entitic mass] 24.7 pg 27.0-32.0 [facility] Work Phone: Nucleated RBC/100 WBC (Bld) [Ratio] 0 % 0-5 [facility] Work Phone: MCHC Auto (RBC) [Mass/Vol]on 12-06-2021 MCHC (RBC) [Mass/Vol] 31.2 g/dL 32-36 [facility] [place] Work Phone: No Panel Informationon 12-06 Estimated Creatinine Clearance Calc 90.86 ml/min [facility] Work Phone: Estimated GFR (MDRD) Amer 128 mL/min >60 [facility] Work Phone: Comment on above: GFR Calc Estimated GFR (MDRD) Non-Af Amer 106 mL/min >60 [facility] Work Phone: Comment on above: Non- GFR Calc Platelets bldon 12-06-2021 Platelets (Bld) [#/Vol] 307 10*3/uL 150-450 [facility] Work Phone: Serum or plasma albumin nette urement (mass/volume)on 12-06-2021 Albumin [Mass/Vol] 3.7 g/dL 3.2-5.0 [facility] Work Phone: Serum or plasma albumin/glob ulin mass ratioon 12-06-2021 Albumin/Globulin [Mass ratio] 1.1 {ratio} 0.9-2.4 [facility] Work Phone: Serum or plasma calcium nette urement (mass/volume)on 12-06-2021 Calcium [Mass/Vol] 9.1 mg/dL 8.5-10.1 [facility] Work Phone: Serum or plasma creatinine m easurement (mass/volume)on 12-06-2021 Creatinine [Mass/Vol] 0.64 mg/dL 0.55-1.02 [facility] [place] Work Phone: Comment on above: The validity of the calculated GFR & GFRAA in patients over 70 years has not been determined. Clinical correlation is essential. Serum or plasma urea nitroge n measurement (mass/volume)on 12-06-2021 Urea nitrogen [Mass/Vol] 8 mg/dL 7-18 [facility] Work Phone: Thin prep Papanicolaou smear with manual screeningon 12-06-2021 Thin prep Papanicolaou smear with manual screening 15 U/L 15-37 [facility] Work Phone: Thin prep Papanicolaou smear with manual screening 6 5-15 [facility] Work Phone: ABDOMEN OR KUBon 06-30-2018 ABDOMEN [...] VICENTE M.D. Signed By: MICK VICENTE M.D. [facility] CT ABD/PEL STONE PROTOCOLon 06-30-2018 CT ABD/PEL [...] Electronic Signature on File ---- Signed By: Everardo Barr MD FACR [email or web address] Dictated: 06/30/2018 2:25 PM Signed: 06/30/2018 2:32 PM Reported By: EVERARDO BARR M.D. Signed By: EVERARDO BARR M.D. [facility] Office Visit: Follow up appo intment for right upper quadrant pain/GERDon 09-01-2016 Fall risk assessment Fall risk assessment Invalid Interpretation Code [facility] Work Phone: Office Visit: consult- Valentina Valencia 08-18-2016 Dietary management education, guidance, and counseling (procedure) yes Invalid Interpretation Code [facility] Work Phone: Documentation of current medications (procedure) Done Invalid Interpretation Code [facility] Work Phone: Documentation of current medications (procedure) T Invalid Interpretation Code [facility] Work Phone: Fall risk assessment No Invalid Interpretation Code [facility] Work Phone: Tobacco smoking status NHIS Never Invalid Interpretation Code [facility] Work Phone: Tobacco use CPHS Never smoker Invalid Interpretation Code [facility] Work Phone: Office Visit: consult- Valentina Valencia 04-01-2016 Breast Mammogram screening Normal Bilateral Invalid Interpretation Code [facility] Work Phone: Office Visit: consult- Valentina Valencia 05-05-2015 General categories [interpretation] of Cervical or vaginal smear or scraping by Cyto stain Normal Invalid Interpretation Code [facility] Work Phone: Vital Signs Date Time Vital Sign Value Performing Clinician Facility 10-12-2024 08:59-0400 Body height 160.[address] Dinesh Gan MD Work Phone: [facility] 10-12-2024 08:59-0400 Body mass index (BMI) [Ratio] 40.1 kg/m2 Dr. Dinesh Gan MD Work Phone: [facility] 10-12-2024 08:59-0400 Body weight 102.[address] Dinesh Gan MD Work Phone: [facility] 10-12-2024 08:59-0400 Diastolic blood pressure 79 mm[Hg] Dr. Dinesh Gan MD Work Phone: [facility] 10-12-2024 08:59-0400 Systolic blood pressure 158 mm[Hg] Dr. Dinesh Gan MD Work Phone: [facility] 08-27-2024 11:04-0400 Body mass index (BMI) [Ratio] 38.8 kg/m2 Dr. Dinesh Gan MD Work Phone: [facility] 08-27-2024 11:04-0400 Body weight 99.[address] Dinesh Gan MD Work Phone: [facility] 08-27-2024 11:04-0400 Diastolic blood pressure 86 mm[Hg] Dr. Dinesh Gan MD Work Phone: [facility] 08-27-2024 11:04-0400 Systolic blood pressure 145 mm[Hg] Dr. Dinesh Gan MD Work Phone: [facility] 04-20-2023 15:53-0500 Body temperature 98.7 [degF] Dr. Dinesh Gan Work Phone: [facility] 04-20-2023 15:53-0500 Diastolic blood pressure 72 mm[Hg] Dr. Dinesh Gan Work Phone: [facility] 04-20-2023 15:53-0500 Heart rate 68 /min Dr. Dinesh Gan Work Phone: [facility] 04-20-2023 15:53-0500 Respiratory rate 18 /min Dr. Dinesh Gan Work Phone: [facility] 04-20-2023 15:53-0500 SaO2% (BldA) [Mass fraction] 100 % Dr. Dinesh Gan Work Phone: [facility] 04-20-2023 15:53-0500 Systolic blood pressure 134 mm[Hg] Dr. Dinesh Gan Work Phone: [facility] 04-20-2023 13:43-0500 Body height 160.[address] Dinesh Gan Work Phone: [facility] 04-20-2023 13:43-0500 Body mass index (BMI) [Ratio] 39 kg/m2 Dr. Dinesh Gan Work Phone: [facility] 04-20-2023 13:43-0500 Body weight [address] Dinesh Gan Work Phone: [facility] 03-29-2023 13:16-0500 Body mass index (BMI) [Ratio] 36 kg/m2 Dr. Dinesh Gan Work Phone: [facility] 03-29-2023 13:16-0500 Body weight 95.[address] Dinesh Gan Work Phone: [facility] 12-06-2021 22:15-0400 Diastolic blood pressure 91 mm[Hg] [facility] Work Phone: 12-06-2021 22:15-0400 Heart rate 89 /min [facility] Work Phone: 12-06-2021 22:15-0400 Systolic blood pressure 162 mm[Hg] [facility] Work Phone: 12-06-2021 21:15-0400 Respiratory rate 16 /min [facility] Work Phone: 12-06-2021 19:22-0400 SaO2% (BldA) [Mass fraction] 100 % [facility] Work Phone: 12-06-2021 17:07-0400 Body height 160.[address] [facility] Work Phone: 12-06-2021 17:07-0400 Body mass index (BMI) [Ratio] 38 kg/m2 [facility] Work Phone: 12-06-2021 17:07-0400 Body temperature 98.3 [degF] [facility] Work Phone: 12-06-2021 17:07-0400 Body weight 97.[address] [facility] Work Phone: 12-06-2021 06:38-0400 Diastolic blood pressure 78 mm[Hg] [facility] Work Phone: 12-06-2021 06:38-0400 Heart rate 63 /min [facility] Work Phone: 12-06-2021 06:38-0400 Respiratory rate 17 /min [facility] Work Phone: 12-06-2021 06:38-0400 SaO2% (BldA) [Mass fraction] 99 % [facility] Work Phone: 12-06-2021 06:38-0400 Systolic blood pressure 163 mm[Hg] [facility] Work Phone: 12-06-2021 05:11-0400 Body height 160.[address] [facility] Work Phone: 12-06-2021 05:11-0400 Body mass index (BMI) [Ratio] 39 kg/m2 [facility] Work Phone: 12-06-2021 05:11-0400 Body temperature 97.9 [degF] [facility] Work Phone: 12-06-2021 05:11-04[address] Body [address] [facility] Work Phone: 09-01-2016 11:24-0400 BMI (Body Mass Index) 35.89 kg/m2 Chastity Carlos INFORMATION [employer] PROJECT MANAGER [facility] Work Phone: 09-01-2016 11:24-0400 Body Temperature 98.2 [degF] Chastity Carlos INFORMATION SYSTEMS PROJECT MANAGER [facility] Work Phone: 09-01-2016 11:24-0400 BP Diastolic 84 mm[Hg] Chastity Carlos INFORMATION SYSTEMS PROJECT MANAGER [facility] Work Phone: 09-01-2016 11:24-0400 BP Systolic 126 mm[Hg] Chastity Carlos INFORMATION SYSTEMS PROJECT MANAGER [facility] Work Phone: 09-01-2016 11:24-0400 BSA (Body Surface Area) 1.95 m2 Chastity Carlos INFORMATION SYSTEM[employer] PROJECT MANAGER [facility] Work Phone: 09-01-2016 11:24-0400 Height 160.02 cm Chastity Carlos INFORMATION SYSTEMS PROJECT MANAGER [facility] Work Phone: 09-01-2016 11:24-0400 Pulse (Heart Rate) 62 /min [facility] Chopra [facility] Work Phone: 09-01-2016 11:24-0400 Pulse Oximetry 98 % [facility] Chop[facility] Work Phone: 09-01-2016 11:24-0400 Respiratory Rate 18 /min [facility] Chopra [facility] Work Phone: 09-01-2016 11:24-0400 Weight 91.9 kg Chastity Chopra [facility] Work Phone: Encounters Encounter Date Encounter Type Care Provider Facility Start: 10-16-2024 Encounter for other preprocedural examination [facility] Start: 10-16-2024 ambulatory [place] Start: 10-16-2024 Evaluation and manag ement of inpatient Margie Krystle Koch Facility:[facility] Start: 10-12-[address] Margie Reyes DO -[facility] Start: 10-12-2024 ambulatory Margie Jacobson [facility] Start: 10-12-2024 End: 10-12-[address] Margie Reyes DO -[facility] Work Phone: Start: 10-12-2024 End: 10-12-[address] Dinesh Gan MD Work Phone: [facility] Work Phone: Start: 09-27-2024 End: 09-27-[address] Dinesh Gan MD Work Phone: [facility] Work Phone: Start: 09-27-2024 End: 09-27-[address] Margie Reyes DO [facility] Work Phone: Start: 09-27-2024 End: 09-27-2024 ambulatory Margie Reyes Facility:[facility] Start: 08-29-2024 End: 08-29-2024 Patient encounter procedure Ashlie Basurto LIFT TEAM TECHNICIAN-C -Ultrasound [facility] Work Phone: Start: 08-29-2024 End: 08-29-2024 ambulatory Dinesh Gan Facility:[facility] Start: 08-27-2024 End: 08-27-2024 Patient encounter procedure Ashlie Cavazoss LIFT TEAM TECHNICIAN-C -Laboratory [facility] Work Phone: Start: 08-27-2024 End: 08-27-2024 ambulatory Dinesh Gan Facility:[facility] Start: 08-27-2024 End: 08-27-2024 ambulatory Ashlie Sb LIFT TEAM TECHNICIAN Facility:[facility] Start: 07-02-2024 End: 07-02-[address] Dinesh Gan MD Work Phone: [facility] Work Phone: Start: 07-02-2024 End: 07-02-[address] Dinesh Gan MD -Laboratory, [facility] Start: 07-02-2024 End: 07-02-2024 ambulatory Dinesh Gan Facility:[facility] Start: 03-12-2024 End: 03-12-2024 ambulatory Dinesh Gan Facility:[facility] Start: 03-12-2024 End: 03-12-2024 ambulatory Margie Reyes Facility:[facility] Start: 03-06-2024 End: 03-06-2024 ambulatory Dinesh Gan Facility:[facility] Start: 02-07-2024 End: 02-07-2024 ambulatory Ashlie [place] LIFT TEAM TECHNICIAN Facility:[facility] Start: 01-24-2024 End: 01-24-2024 ambulatory Ashlie [place] LIFT TEAM TECHNICIAN Facility:[facility] Start: 01-20-2024 End: 01-20-2024 ambulatory Ashlie [place] LIFT TEAM TECHNICIAN Facility:[facility] Start: 01-11-2024 End: 01-11-2024 ambulatory Dinesh Gan Facility:[facility] Start: 01-11-2024 End: 01-11-2024 ambulatory Ashlie Sb LIFT TEAM TECHNICIAN Facility:[facility] Start: 01-05-2024 End: 01-05-2024 ambulatory Dinesh Gan Facility:[facility] Start: 12-29-2023 End: 12-29-2023 ambulatory Dinesh Gan Facility:[facility] Start: 06-29-2023 End: 06-29-[address] Dinesh Gan Work Phone: [facility] Work Phone: Start: 06-29-2023 End: 06-29-[address] Dinesh Gan Work Phone: [facility] Start: 04-20-2023 Non-patient / Non-visit Dr. Lawson Gan Work Phone: [facility] Start: 04-20-2023 End: 04-20-2023 Admission to same day surgery center Dr. Dinesh Gan Work Phone: [facility]-Endoscopy Work Phone: Start: 04-15-2023 End: 04-15-[address] Dinesh Gan Work Phone: [facility] Work Phone: Start: 04-15-2023 End: 04-15-[address] Dinesh Gan Work Phone: [facility] Work Phone: Start: 03-29-2023 Non-patient / Non-visit Dr. Lawson Gan Work Phone: [facility] Work Phone: Start: 01-20-2023 End: 01-20-[address] Dinesh Gan Work Phone: [facility] Work Phone: Start: 01-14-2023 End: 01-14-2023 ambulatory [facility] Work Phone: Start: 01-14-2023 End: 01-14-2023 Patient encounter procedure [facility] Work Phone: Start: 11-25-2022 End: 11-25-2022 ambulatory [facility] Work Phone: Start: 11-25-2022 End: 11-25-2022 [facility] Start: 11-23-2022 End: 11-23-2022 ambulatory [facility] Work Phone: Start: 11-23-2022 End: 11-23-2022 [facility] Start: 07-14-2022 End: 07-14-2022 ambulatory [facility] Work Phone: Start: 07-14-2022 End: 07-14-2022 Patient encounter procedure [facility] Start: 01-01-2022 End: 01-01-2022 ambulatory [facility] Work Phone: Start: 01-01-2022 End: 01-01-2022 Patient encounter procedure [facility] Start: 12-17-2021 End: 12-17-2021 ambulatory [facility] Work Phone: Start: 12-17-2021 End: 12-17-2021 [facility] Start: 12-06-2021 End: 12-06-2021 Emergency department patient visit [facility] Start: 12-06-2021 End: 12-06-2021 Emergency department patient visit [facility] Start: 06-30-2018 Patient encounter procedure Lenny Gayle Facility:[facility] Start: 04-23-2015 Patient encounter procedure CHASTITY HELTON ([place]) [facility] Procedures Date Procedure Procedure Detail Performing Clinician Start: 09-27-2024 MRI of pelvis with contrast Dr. Dinesh Gan MD Work Phone: Start: 08-29-[address] Merary aGn MD Work Phone: Start: 04-20-[address] Dinesh garibay Work Phone: Start: 01-20-2023 MRI of bilateral olga asts with contrast Dr. Dinesh Gan Work Phone: Start: 11-25-2022 Ultrasonography of breast Start: 11-25-2022 Mammography Start: 11-23-2022 Screening mammography Start: 12-06-2021 CT of head without contrast Viral antigen assay Plan of Treatment Date Care Activity Detail Author Start: 04-20-2023 Colonoscopy w/biopsy single/multiple COLONOSCOPY AND BIOPSY [facility] Start: 04-20-2023 Patient discharge [facility] Start: 09-22-2016 End: 09-22-2016 Appointment Appointment [facility] Work Phone: Start: 09-01-2016 End: 09-03-2016 Follow Up Appt 2 weeks Follow Up Appt 2 weeks [facility] Work Phone: Start: 08-18-2016 End: 08-24-2016 Follow Up Appt 2 weeks Follow Up Appt 2 weeks [facility] Work Phone: Alanine aminotransfe rase [Enzymatic activity/volume] in Serum or Plasma [facility] Albumin [Mass/volume ] in Serum or Plasma [facility] Alkaline phosphatase [Enzymatic activity/volume] in Serum or Plasma [facility] Anion gap in Serum o r Plasma [facility] [facility] Bil[facility], total measurement [facility] BUN/Creatinine ratio [facility] Calcium [Mass/volume ] in Serum or Plasma [facility] Carbon dioxide, tota l [Moles/volume] in Central venous blood [facility] Colonoscopy [facility] Creatinine [Mass/vol ume] in Serum or Plasma [facility] Erythrocyte mean corpuscular volume determination [facility] Glucose [Mass/volume ] in Serum or Plasma [facility] Hematocrit [Volume Fraction] of Blood [facility] Hemoglobin [Mass/vol ume] in Blood [facility] Leukocytes [#/volume ] in Blood [facility] Magnesium measurement [facility] Mean corpuscular hemoglobin concentration determination [facility] Mean corpuscular hemoglobin determination [facility] Measurement of renal function [facility] Neutrophil count [place] Neutrophil percent differential count [facility] Patient Education [facility] docrinology Work Phone: Patient referral [place] Work Phone: Platelets [#/volume] in Blood [facility] Potassium measurement [facility] Red blood cell count [facility] Red cell distributio n width determination [facility] Serum chloride measurement [facility] Sodium measurement [facility] Thyroid stimulating hormone measurement [facility] Total protein measurement [facility] Urea nitrogen [Mass/volume] in Serum or Plasma [facility] Payers Date Payer Category Payer Self-pay [id number] 2016 Unknown [id number] Unknown [id number] 2.16.8 [id number] Unknown [id number] 2.16.8 40.1.858614.3.579.2.462 Unknown [id number] 2.16.8 40.1.894220.3.579.2.462 Unknown [id number] 2.16.8 40.1.482576.3.579.2.462 Unknown [id number] 2.16.8 40.1.252563.3.579.2.462 Unknown [id number] 2.16.8 40.1.710585.3.579.2.462 Unknown [id number] 2.16.8 40.1.248013.3.579.2.462 Unknown [id number] 2.16.8 40.1.055644.3.579.2.462 Unknown [id number] 2.16.8 40.1.338450.3.579.2.462 Unknown [id number] 2.16.8 40.1.179374.3.579.2.462 Unknown [id number] 2.16.8 40.1.532631.3.579.2.462 Unknown [id number] 2.16.8 40.1.288973.3.579.2.462 Unknown [id number] 2.16.8 40.1.012461.3.579.2.462 Unknown [id number] 2.16.8 40.1.728903.3.579.2.462 Unknown [id number] 2.16.8 40.1.351499.3.579.2.462 Unknown [id number] 2.16.8 40.1.044699.3.579.2.462 Unknown [id number] 2.16.8 40.1.899181.3.579.2.462 Unknown [id number] 2.16.8 40.1.272395.3.579.2.462 Unknown [id number] 2.16.8 40.1.059201.3.579.2.462 Unknown [id number] 2.16.8 40.1.569181.3.579.2.462 Unknown [id number] 2.16.8 40.1.539606.3.579.2.462 Social History Date Type Detail Facility [facility] Work Phone: Start: 12-06-2021 End: 04-20-2023 Tobacco smoking status ILIS Unknown if ever smoked [facility] Start: 1975 Sex Assigned At Female [facility] Start: 01-11-2024 End: 10-02-2024 Tobacco smoking status NHIS Never smoked tobacco (finding) [facility] Start: 07-13-2024 Sex Female (finding) [facility] NEGATED: Highlighted row [facility] Goals Date Patient Goal Desired Activity /State Mental Status Date Assessment Result Facility 04-20-2023 Cognitive function Voice/Name [facility] Work Phone: 12-06-2021 Cognitive function Level Of Cons ciousness Awake;Alert;Appropriate;Follow s Commands [facility] Work Phone: 12-06-2021 Cognitive function Level Of Cons ciousness Awake;Alert;Appropriate;Follow s Commands [facility] Work Phone: Clinical Note 10-16-2024 Note Date & Type Note Facility 10-16-2024 Note [facility] Medical Records Department [address] [place] [address] History Physical Exam 10/16/24 0722 MR#: [id number] Acct: [id number] Name: MAYRA ARIAS Rep #: [id number] : 1975 49 From: Margie Reyes DO PCP: Dr. Dinesh Gan MD Status:ADM IN Location: [place] [address] History and Physical Date of Admission: 10/16/24 Intake Vital Signs 08/27/2510:58 09/17/2512:57 10/13/2507:59 Height 5 ft 3 in 5 ft 3 in 5 ft 3 in Weight: 226 lb 4 oz BMI 40.1 BP 158/79 H Intake Visit Reasons: [facility] Care Nurse Rn Required: No Is patient in pain?: No Allergies amlodipine Adverse Reaction (Verified 10/12/24 08:57) Chest pain Medications ???Medication ???Instructions ???Recorded ???Confirmed ???Type lisinopril 10 mg tablet 10 mg PO QDAY htn 01/11/24 10/12/24 History ferrous sulfate 325 mg (65 mg 325 mg PO QDAY per 08/27/24 10/12/24 History iron) tablet levothyroxine 88 mcg capsule 88 mcg PO QDAY hypothyroid 08/27/24 10/12/24 Histo ry norethindrone acetate 5 mg tablet 5 mg PO .COMPLEX bleeding #45 tabs 08/27/24 Rx omeprazole 20 mg capsule,delayed 20 mg PO DAILY PRN HEARTBURN 10/02/24 10/12/24 His tory release Post menopausal: No Patient : No : No [facility] Medical History Thyroid disease Anemia Fatty liver [...] home: Yes 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 [facility] Evaluation note 08-27-2024 Note Date & Type Note Facility 08-27-2024 Evaluation note Diagnosis Onset Date Resolution Enlarged uterus acute July 11:03am Menorrhagia with regular cycle acute August 27, 2024 11:03am Uterine fibroid acute July 11:03am [facility] Work Phone: Evaluation note Note Date & Type Note Facility Evaluation note No assessment information availa ble [facility] Work Phone: Evaluation note Note Date & Type Note Facility Evaluation note Diagnosis Onset Date Encounter for screening for malignant neoplasm of colon acute [facility] Work Phone: Hospital Discharge instructions Note Date & Type Note Facility Hospital Discharge instructions Additional Instructions COVID-negative. Continue Advil every 6 hours. May add Tylenol for symptoms. Monitor your blood pressure and keep a log. Follow-up with your doctor for reevaluation. [facility] Work Phone: Reason for referral (narrative) Note Date & Type Note Facility Reason for referral (narrative) No reason for referral information available [facility] Work Phone: Summary Purpose Family History No [...] No December 06, 2021 5:15am Power of Aircraft Maintenance Manager No December 06 5:15am Advance Directive Response Recorded Date/ Time Living Will No December 06, 2021 5:15pm Power of Aircraft Maintenance Manager No December 06 5:15pm Advance Directive Response Recorded Date/ Time Living Will No April 18, 2 023 1:53pm Power of Aircraft Maintenance Manager No April 18, 2023 1:53pm Chief Complaint [...] section and content) DATE CREATED AUTHOR 04/21/2018 [facility] DATE CREATED AUTHOR AUTHOR'S ORGANIZ ATION 08/03/2018 [facility] DATE CREATED AUTHOR AUTHOR'S ORGANIZ ATION 10/17/2024 [facility] Goals (unrecognized section and content) Goals may [...] MD Primary Care Provider Active Arin Orta LIFT TEAM TECHNICIAN, LIFT TEAM TECHNICIAN-C Attending Provider, Referring Pro vider Active Team Status: Inactive Member Role Status Dates Dr. Dinesh Gan MD Primary Care Provider Active Arin Orta LIFT TEAM TECHNICIAN, LIFT TEAM TECHNICIAN-C Attending Provider, Referring Pro vider Active Team [...] 2024 End: August 27, 2024 Ashlie Basurto NP, LIFT TEAM TECHNICIAN-C Attending Provider Active Start: August 27, 2024 End: August 27, 2024 Team Status: Inactive Member Role Status Dates Dr. Dinesh Gan MD Primary Care Provider Active Start: August 27, 2024 End: August 27, 2024 Ashlie Basurto LIFT TEAM TECHNICIAN, LIFT TEAM TECHNICIAN-C Attending Provider Active Start: August 27, 2024 End: August 27, 2024 Ashlie Basurto LIFT TEAM TECHNICIAN, LIFT TEAM TECHNICIAN-C Referring Provider Active Start: August 27, 2024 End: August 27, 2024 Team Status: Inactive Member Role Status Dates Dr. Dinesh Gan MD Primary Care Provider Active Start: August 29, 2024 End: August 29, 2024 Ashlie Basurto LIFT TEAM TECHNICIAN, LIFT TEAM TECHNICIAN-C Attending Provider Active Start: August 29, 2024 End: August 29, 2024 Ashlie Basurto NP, LIFT TEAM TECHNICIAN-C Referring Provider Active Start: August 29, 2024 [...] BE BASED ON THE PRIMARY CLINICAL RECORDS. [employer] [facility]. provides no warranty or guarantee of the accuracy or completeness of information in this document.
[2024-10-17] MEDS: Docusate Sodium 100 MG Capsule PO (10:45)
[2024-10-17] MEDS: Lisinopril 10 MG Tablet PO (10:45)
--- NOTE | 2024-10-17 11:41 | CASEMGMT ---
MAI VUONG Assessment Face to Face with patient for initial transition planning/care coordination assessment. MAI VUONG introduced self and role at [facility], pt voices understanding. Pt is A&Ox4 and is resting comfortably in the chair and is calm. Care providers, pharmacy, and demographics verified. Admitting dx: Hysterectomy LACE Strata: 1 PCP: Dinesh Gan Specialists: [facility] Preferred Pharmacy: [facility] Insurance: [employer] Prescription Benefit: Yes LNOK: Alok (H) Living Arrangements: Pt lives with her and 2 children (Ages 12 & 15) in a ground level apartment with 3 total steps to enter ADLs/IADLs: Indep Transportation: Self, DME: CPAP with no additional oxygen. Pt denies further uses or needs at this time HHC/SNF: Denies history. Pt reports history @ [facility] for [facility] PT Pt?s goal: Home Plan: Home with family, no additional needs identified. Pt states that she feels safe returning home once she is medically ready and denies any further needs at this time. Vivi Sommer RN, CM
[2024-10-17] MEDS: Ferrous Sulfate 325 MG Tablet PO (12:52)
[2024-10-17] MEDS: Ketorolac 30 MG/ML Syringe IV (14:46)
[2024-10-17] MEDS: 0.9% Saline Lock 10 ML Syringe IV (14:46)
== END 2024-10-17 19:18 | disposition home or self-care (01) | DRG 743 ==
PROVIDERS: Anesthesiology; Admitting Provider Obstetrics & Gynecology; PCP Family Medicine; Referring Provider Obstetrics & Gynecology; Visit Provider Obstetrics & Gynecology
PROC: 0UT90ZZ Resection of Uterus, Open Approach (ICD-10-PCS; CPT 58150; principal; 2024-10-16 07:55)
DX: N80.03 Adenomyosis of the uterus (principal); D25.1 Intramural leiomyoma of uterus; I10 Essential (primary) hypertension; E03.9 Hypothyroidism, unspecified; G47.33 Obstructive sleep apnea (adult) (pediatric); D25.2 Subserosal leiomyoma of uterus; N92.0 Excessive and frequent menstruation with regular cycle; N84.0 Polyp of corpus uteri; N72 Inflammatory disease of cervix uteri; N83.291 Other ovarian cyst, right side; Z79.890 Hormone replacement therapy; Z79.899 Other long term (current) drug therapy
CPT/HCPCS: 36415; 80053; 81025; 82962; 83735; 84443; 85025; 85027; 86850; 86900; 86901; 88307; 93005; 94660; 94668; A4216; J0666; J2405; J3475

== ENCOUNTER → 2024-11-26 | Outpatient (CLI) | payer OTHER, SELFPAY | END | disposition home or self-care (01) | LOC: LABSPEC 12:16 | PROVIDERS: PCP Family Medicine; Visit Provider Obstetrics & Gynecology | DX: R82.90 Unspecified abnormal findings in urine (principal) | CPT/HCPCS: 87086 ==

== ENCOUNTER → 2025-01-03 | Outpatient (CLI) | payer OTHER, SELFPAY ==
[2025-01-03 11:37] LABS: Anion Gap 12 (5-15); BUN 14 mg/dL (4-19); BUN/Creat Ratio 19.8 RATIO (10-20); Calcium,Total 9.1 mg/dL (7.6-11.0); Carbon Dioxide 21.2 mmol/L (21.0-32.0); Chloride 105 mmol/L (98-108); Cholesterol 239 mg/dL (<=200); Glucose 113 mg/dL (70-99); Low Density Lipoprotein Calc. 170 mg/dL; Potassium 3.9 mmol/L (3.3-5.1); Triglycerides 147 mg/dL; Very Low Density Lipoprotein 29 mg/dL (5-40); cholesterol:hdl ratio screen 6.02
[2025-01-03 11:38] LABS: Free T3 3.0 pg/mL (2.18-3.98)
== END | disposition home or self-care (01) ==
LOC: MFPLAB 08:15
PROVIDERS: PCP Family Medicine; Visit Provider Family Medicine
DX: I10 Essential (primary) hypertension (principal); E03.9 Hypothyroidism, unspecified
CPT/HCPCS: 36415; 80048; 80061; 84439; 84443; 84481

== ENCOUNTER → 2025-04-03 | Outpatient (CLI) | payer OTHER, SELFPAY ==
[2025-04-03 15:51] LABS: Anion Gap 12 (5-15); BUN 17 mg/dL (4-19); BUN/Creat Ratio 24.9 RATIO (10-20); Calcium,Total 9.4 mg/dL (7.6-11.0); Carbon Dioxide 25.2 mmol/L (21.0-32.0); Chloride 102 mmol/L (98-108); Cholesterol 169 mg/dL (<=200); Free T3 2.9 pg/mL (2.18-3.98); Glucose 96 mg/dL (70-99); Low Density Lipoprotein Calc. 102 mg/dL; Potassium 3.8 mmol/L (3.3-5.1); Triglycerides 144 mg/dL; Very Low Density Lipoprotein 29 mg/dL (5-40); cholesterol:hdl ratio screen 4.04
== END | disposition home or self-care (01) ==
LOC: MFPLAB 11:24
PROVIDERS: PCP Family Medicine; Visit Provider Family Medicine
DX: I10 Essential (primary) hypertension (principal); E03.9 Hypothyroidism, unspecified
CPT/HCPCS: 36415; 80048; 80061; 84439; 84443; 84481